=== PATIENT | male | born 1965 | race Caucasian/White ===

== ENCOUNTER → 2017-11-27 10:55 | Outpatient (CLI) | payer MEDICARE, OTHER, SELFPAY ==
--- NOTE | 2017-11-27 | DI.CT.S_ITS ---
PROCEDURE: CT LUMBAR SPINE WO CON INDICATIONS: Bilateral sciatica Right greater than Left post surgery 1 year ago TECHNIQUE: Noncontrast 3 mm thick sections acquired from the T12 level to the sacrum. Sagittal and coronal reformats were constructed. For radiation dose reduction, the following was used: automated exposure control. COMPARISON: [facility] [place], CR, XR LUMBAR SPINE 2 OR 3 VIEWS, 11/21/2017, 9:04. [facility] [place], CR, XR LUMBAR SPINE 2 OR 3 VIEWS, 08/08/2017, 14:46. [facility] [place], CR, XR LUMBAR SPINE 2 OR 3 VIEWS, 05/15/2017, 15:24. [facility] [place], CR, SPINE LUMB 2 OR 3VW, 03/13/2017, 14:26. [facility], CR, L-SPINE 2-3 VIEWS, 01/30/2017, 14:57. [facility], MR, L-SPINE WITHOUT CONTRAST, 10/05/2016, 15:16. FINDINGS: Image quality: Excellent. Bones: There no visualized fractures or dislocations. Severe disc space narrowing with reactive endplate sclerosis is present at L1-2. Mild narrowing is present at L4-5. Intervertebral spacer is present at L5-S1 along with posterior fusion and L5-S1. There is trace retrolisthesis of L1 on L2, L3 on L4. L1-L2: Posterior disc osteophyte complex including left lateral component is present with moderate to severe spinal stenosis. There is there is moderate bilateral foraminal narrowing, slightly progressive on the left compared to prior exam. Facet and ligamentum flavum hypertrophy are again noted. L2-L3: Mild disc bulge, including a left lateral component. There is moderate spinal stenosis. No mild to moderate bilateral foraminal narrowing with facet and ligamentum flavum hypertrophy is present, minimally progressive compared to prior exam. L3-L4: Mild disc bulge with minimal spinal stenosis. Minimal right foraminal narrowing with facet and ligamentum flavum hypertrophy. No interval change. L4-L5: Mild disc bulge with moderate to severe spinal stenosis. There is mild to moderate right and mild left foraminal narrowing slightly progressive on the right. Facet and ligamentum flavum hypertrophy are present. L5-S1: Mild disc bulge with mild spinal stenosis. There is moderate to severe bilateral foraminal narrowing, stable compared to prior exam. Soft tissues: No retroperitoneal masses or hematomas. Visualized aorta is normal in caliber. IMPRESSION: 1. Postsurgical changes as above. 2. Multiple foraminal narrowing most severe at L5-S1 secondary to facet/ligamentum flavum arthropathy. Overall, areas of minimal interval progression are noted. 3. Multilevel areas of spinal stenosis secondary to disc bulge as well as facet/ligamentum flavum arthropathy. Minimal interval progression is noted. Dictated by: Janet Joe M.D. on 11/27/2017 at 13:44 Approved by: Janet Joe M.D. on 11/27/2017 at 13:58
== END ==
PROVIDERS: Visit Provider Orthopaedic Surgery Orthopaedic Surgery of the Spine
DX: M48.061 Spinal stenosis, lumbar region without neurogenic claudication (principal); M51.26 Other intervertebral disc displacement, lumbar region; M54.32 Sciatica, left side; M54.31 Sciatica, right side
CPT/HCPCS: 72131

== ENCOUNTER → 2018-02-27 18:49 | Outpatient (CLI) | payer MEDICARE, OTHER, SELFPAY ==
--- NOTE | 2018-02-27 | DI.MRI.S_ITS ---
PROCEDURE: MR HEAD/BRAIN WO/W CON INDICATIONS: MALFORMATION TECHNIQUE: Noncontrast axial T1 spin echo, axial T2 fast spin echo, sagittal and axial FLAIR, coronal T2 fast spin echo, axial gradient echo, axial diffusion and ADC through the brain. After the administration of contrast, axial and coronal 3D VIBE or T1 spin echo with fat saturation through the brain. COMPARISON: [facility], MR, MR ANGIO HEAD WO CON, 02/27/2018, 18:53. [facility], MR, ANGIO HEAD WITHOUT CONTRAST, 10/05/2016, 15:49. [facility], MR, BRAIN W&WO CONTRAST, 10/05/2016, 15:55. [facility], MR, BRAIN W&WO CONTRAST, 02/12/2014, 7:50. FINDINGS: Image quality: Excellent. CSF Spaces: Basal cisterns are patent. No extra-axial fluid collections. Ventricles are normal in size and shape. Brain: No midline shift. No intracranial bleeds or masses. No abnormal intracranial enhancement. The brainstem appears normal. Diffusion-weighted images demonstrate no acute ischemic insults. No chronic ischemic insults. Normal intravascular flow voids are present. Note is again made of the multiple small rounded and ovoid lesions with elevated T2 signal and with susceptibility artifact along their margins, consistent with stable multiple cavernous malformations (cavernoma). These are best seen on the susceptibility artifact sensitive pulse sequences (T2 flash gradient recall echo sequence series 9).. Skull and face: Calvarial marrow is normal in signal. Orbits appear normal. Sinuses: Sinuses and mastoids appear clear. IMPRESSION: Stable appearing bilateral scattered cavernous malformations within the brain parenchyma including each hemisphere and the right cerebellum. No mass effect, no new lesion is found. Dictated by: Zeferino Bullock M.D. on 02/28/2018 at 8:08 Approved by: Zeferino Bullock M.D. on 02/28/2018 at 8:15
--- NOTE | 2018-02-27 | DI.MRI.S_ITS ---
PROCEDURE: MR ANGIO HEAD WO CON INDICATIONS: CAVERNOUS MALFORMATION TECHNIQUE: Noncontrast axial 3-D [id number]-[id number] MR angiogram, with 3-dimensional maximum intensity projection (MIP) reformats of the internal carotid arteries and posterior circulation then performed. COMPARISON: [facility], MR, ANGIO HEAD WITHOUT CONTRAST, 10/05/2016, 15:49. [facility], MR, ANGIO HEAD WITHOUT CONTRAST, 05/20/2012, 20:24. [facility], MR, ANGIOGRAM HEAD WITHOUT CONTRAS, 12/08/2010, 10:19. FINDINGS: Image quality: Excellent. Anterior circulation: Intracranial internal carotid arteries demonstrate normal size and intraluminal flow signal. The flow within the paired anterior cerebral arteries is normal and symmetric. The flow within the middle cerebral arteries is normal and symmetric. The anterior communicating artery is seen. No stenoses, occlusions, or aneurysms. Posterior circulation: Visualized portions of the vertebral arteries demonstrate normal caliber, and join to form a normal appearing basilar artery. The flow within the posterior cerebral arteries is normal and symmetric. No stenoses, occlusions, or aneurysms. IMPRESSION: Normal intracranial MR angiogram in this patient with multiple previously documented and currently stable cavernous malformations (cavernoma). This is an expected finding given the fact that cavernous malformations are considered angiographically occult. Dictated by: Zeferino Bullock M.D. on 02/28/2018 at 8:15 Approved by: Zeferino Bullock M.D. on 02/28/2018 at 8:17
== END ==
DX: Q28.3 Other malformations of cerebral vessels (principal); R41.9 Unspecified symptoms and signs involving cognitive functions and awareness
CPT/HCPCS: 70544; 70553; A9579

== ENCOUNTER → 2018-03-19 15:17 | Outpatient (CLI) | payer MEDICARE, OTHER, SELFPAY ==
[2018-03-19 16:08] LABS: Add Manual Diff / Slide Review NO; Basophils Percent Auto 0.6 % (0-2); Eosinophils Percent Auto 3.6 % (2-4); Hematocrit 43.2 % (41-53); Hemoglobin 14.8 g/dL (13.5-17.5); Lymphocytes Percent Auto 24.8 % (25-40); Mean Corpuscular HGB Conc 34.3 % (30-36); Mean Corpuscular Hemoglobin 30.5 PG (26-34); Mean Corpuscular Volume 88.8 fL (80-100); Monocytes Percent Auto 10.8 % (3-14); Neutrophils Absolute Auto 3400 /uL (3000-5900); Neutrophils Percent Auto 60.2 % (50-75); Platelet Count 247 X10^3/uL (150-400); Red Blood Cell Count 4.86 X10^6/uL (4.5-5.9); Red Cell Distribution Width 12.9 % (11.6-14.8); White Blood Cell Count 5.7 X10^3/uL (4.5-11.0)
[2018-03-19 17:18] LABS: BUN Creatinine Ratio 23.3 (6-22); Blood Urea Nitrogen 21 mg/dL (9-20); Carbon Dioxide 31 mmol/L (22-32); Chloride 106 mmol/L (98-107); Estimated Glomerular Filt Rate > 60.0 mL/min (>60); Glucose 96 mg/dL (70-100); HEMOLYSIS < 15 (0-50); Potassium 4.6 mmol/L (3.4-5.1); Sodium 145 mmol/L (137-145)
== END ==
PROVIDERS: PCP Family Medicine; Visit Provider Orthopaedic Surgery Orthopaedic Surgery of the Spine
DX: Z01.818 Encounter for other preprocedural examination (principal)
CPT/HCPCS: 36415; 80048; 85025; 93005

== ENCOUNTER 2018-04-02 07:06 | Inpatient (IN) | payer MEDICARE, OTHER, SELFPAY ==
[2018-03-26 13:54] VITALS: BMI 28.6
[2018-04-02] VITALS (18 sets, daily range): BP systolic 97–128; BP diastolic 50–89; PULSE 64–90; RESP 7–20; TEMP 36.4–37.4; O2SAT 92–98; BMI 27.3
--- NOTE | 2018-04-02 | DI.RAD.S_ITS ---
PROCEDURE: XR LUMBAR SPINE 2-3V INDICATIONS: L4-5 TLIF TECHNIQUE: 2 views of the lumbar spine were acquired. COMPARISON: [facility], , L-SPINE 2-3 VIEWS, 01/30/2017, 14:57. FINDINGS: Bones: 5 [id number] vertebrae are present. There is normal bony alignment. No vertebral body compression fractures. There has been extension of posterior fusion from the prior L5-S1 procedure now to include L4-S1 with new interbody disc prosthesis at L4-5. No suspicious bony lesions. Soft tissues: Overlying bowel gas pattern is normal. No suspicious soft tissue calcifications. IMPRESSION: Normal alignment maintained after extension of posterior fusion procedure previously to have involved L5-S1 and now involving L4-S1. Normal alignment established. Interbody disc prosthesis has been added at L4-5, in addition. Dictated by: Zeferino Bullock M.D. on 04/02/2018 at 12:27 Approved by: Zeferino Bullock M.D. on 04/02/2018 at 12:29
[2018-04-02] MEDS: LACTATED RINGERS 1,000 ML 42 ML IV ×2 (07:25→10:32)
--- NOTE | 2018-04-02 08:18 | PM.PREOP ---
Pre-operative Note Interval Note Pre-op Check: Yes History & Physical Reviewed by Physician, Yes Exam Performed and Yes History & Physical exam performed today by Physician Changes: No
[2018-04-02] MEDS: CEFAZOLIN 2 GM/100 ML FROZ.PIGGY IV ×2 (08:35→17:00)
--- NOTE | 2018-04-02 09:15 | SUR.OPER ---
Prone on padded OR bed, head in foam head support, gel chest rolls, gel pad under knees, pillow under lower legs, toes free of pressure, arms secured on padded arm boards at <90 degrees abduction. Safety belt at thigh.
[2018-04-02] MEDS: BUPIVACAINE 0.25% W/ EPI VIAL 50 ML INJ (09:34)
[2018-04-02] MEDS: ACETAMINOPHEN IV 1,000 MG/100 ML VIAL 400 MG IV (09:41)
--- NOTE | 2018-04-02 11:32 | PM.OP.1 ---
Operative Date/Time/Diagnoses Date of procedure: 04/02/18 Time of procedure: 09:11 Pre-op diagnosis: 1. L4-5, L5-S1 spinal stenosis 2. Hx of L5-S1 fusion 3. L4-5 spondylosis with radiculopathy Post-op diagnosis: same Procedure & Clinicians Procedure: 1. L4-5 Postero-lateral and posterior interbody fusion 2. L4-5 interbody cage placement. 3. L4-5 decompressive laminectomy with bilateral facetecomies 4. L4-5 L5-S1 Posterior segmental instrumentation 5. L5-S1 posterior non-segmental hardware removal 6. L5-S1 exploration of fusion with left hemilaminectomy 7. L5-S1 posterolateral fusion 8. [place] of bone marrow from iliac crest 9. Utilization of microsurgical technique and operating microscope Same procedure as scheduled: Yes Indications: Patient has been having chronic back pain and worsening lumbar radiculopathy. Patient had previous lumbar fusion with improved pain for over 6 months. Patient has been having progressively worsening pain and weakness failing conservative management. Patient failed multiple conservative management with worsening pain weakness and numbness in her lower extremity. Patient has been having difficulty performing activity of daily living. After discussing risks benefits of treatment options, patient elected proceed with surgery. Surgeon: Sarai Washington Enterprise Integration Architect: Isaura Engle'Brien Click Yes if Unassisted: No Anesthesia Type: General Operative Notes Closure Type: primary Specimen(s): none sent Implants & Drains: Globus revolve screws, Rise cage Applied: catheter Estimated Blood Loss (mL): 100 Blood products transfused: none Procedure in detail: Patient was seen in the preoperative area. Risks and benefits of the surgery was discussed with the patient. Informed consent was obtained from the patient and placed in the chart. Surgical site was marked. Patient was taken to the operative room. General anesthesia was administered. Prophylactic antibiotic was given to the patient less than 30 min before the incision was made. Patient was placed into a prone position on the Jose table. Patient's back was then prepped and draped in the sterile fashion. Time-out was performed at this time. Using patient's previous scar incision was made over the L4-5 L5-S1 interval on the left side. Fascia was incised in line with skin incision. Patient's previously placed hardware over the L5-S1 level was identified by dissecting down to the level the hardware using a Bovie and a Martinez. The locking caps which was removed using globus screwdriver. The locking cristal was then removed from the tulips of the pedicle screws using a Olivia. The pedicle screws were then removed using the screwdriver. The screws were found to have good purchase. The Globus and MARS retractors was then placed into the wound and docked onto the L4 lamina using C-arm guidance. Using microsurgical technique and operating microscope a laminectomy facetectomy was performed by removing the L4 lamina and the L4-5 facet. The disc space at L4-5 level was identified next. And a total diskectomy was performed at L4-5 level. The endplates were decorticated using a rasp and shaver. The total diskectomy and decortication was performed at L4-5 level in order to to accomplish a L4-5 fusion. The local bone from the laminectomy and facetectomy was saved for local bone grafting. After the total diskectomy and decortication was completed, Globus viacell bone graft material was combined with local bone that was harvested earlier. At this time, a separate skin is incision was made over the iliac crest. A Jamshidi needle was inserted into the iliac crest through a separate skin incision. 5 cc of bone marrow aspiration was obtained through the separate skin incision using a Jamshidi needle from the iliac crest. The bone marrow aspiration was combined with local bone and the via cell bone grafting material. The bone grafting material was placed into the L4-5 interbody space along with a expandable cage. The cage was expanded to its maximum height using the torque limiting screwdriver. At this time a mirror image incision was made on the right side. The fascia was incised in line with the skin incision. Patient's previously placed hardware on the left side was then removed in the same fashion as it was on the right side. The hardware was also found to have good purchase. The fusion mass on the left side was exposed by performing a right-sided hemilaminectomy at L5-S1 level. The hemilaminectomy was performed using the Kerrison rongeur to undercut the lamina as well removing additional epidural scar tissue for purpose of decompressing the epidural space. The fusion mass was explored and was found have visible motion indicating pseudoarthrosis. Globus MARS retractor was inserted and docked onto the L4-5 L5-S1 posterolateral gutter. Using the power drill, posterior-lateral decortication was performed at L4-5 L5-S1 level until bleeding cortical bone was identified. The remaining bone grafting material was placed into the L4-5 L5-S1 posterior lateral gutter he order to accomplish posterolateral fusion at the L4-5 L5-S1 level. Using the double C-arm technique, pedicle screws were placed into the L4, L5 and S1 pedicles bilaterally. This was done by placing the Jamshidi needle into the pedicles, then placing the guidewires over the Jamshidi needle, and finally placing the cannulated screws over the guidewires bilaterally. After the pedicle screws were placed, 2 titanium rods was locked into the heads of the pedicle screws using locking caps and torque limiting screwdriver. After all the hardware was placed, and confirmed with AP and lateral C-arm imaging, the wound was then irrigated with sterile normal saline and packed with Ray-Laura gauze for 3 min to accomplish hemostasis. After the gauze was removed the deep fascia was closed with #1 Vicryl suture. The subcutaneous layer was closed with 2-0 Vicryl. The skin was closed with skin sadie. Patient tolerated the procedure well. There were no complications. Complications: none Condition: stable Disposition: Acute Care Plan for aftercare: Admit to inpatient hospital
--- NOTE | 2018-04-02 12:08 | SUR.PHASEI ---
pt arrived, intermittent chin lift for patent airway. placed on nonrebreather by jemma brown, sats maintained.
--- NOTE | 2018-04-02 12:09 | SUR.PHASEI ---
airway out [id number], pt follows commands,,,,,,,,,,.
--- NOTE | 2018-04-02 12:20 | SUR.PHASEI ---
pt needing cpap to keep airway patent, pt's own not here, RT called to bring one down.
--- NOTE | 2018-04-02 12:24 | SUR.PHASEI ---
weaned to nasal cannula, 4/l sats 95%, pt obstructs intermittently, awaiting RT.
--- NOTE | 2018-04-02 12:33 | SUR.PHASEI ---
rt arrived, pt on cpap with 3/l 02 bled in.
[2018-04-02] MEDS: HYDROMORPHONE 2 MG INJ 0.5 MG IV ×4 (12:39→13:03)
--- NOTE | 2018-04-02 13:12 | SUR.PHASEI ---
report called to nayeli, pt rates pain 01/07, mostly sleeping, dressing to back remained c/d/i
--- NOTE | 2018-04-02 13:53 | SUR.PHASEI ---
LATE ENTRY: PT BROUGHT TO ROOM 205, TRANSPORTED UP ON NASAL CANNULA 4/L THEN PLACED BACK ON CPAP. RT CALLED AND WILL CHECK ON PT SOON.
[2018-04-02] MEDS: SODIUM CHLORIDE 0.9% 1,000 ML 100 ML IV (13:58)
[2018-04-02] MEDS: HYDROMORPHONE 1 MG INJ 0.5 MG IV ×2 (14:11→17:47)
[2018-04-02] MEDS: HYDROCODONE/ACET 5/325 TABLET 2 TAB PO ×3 (14:14→22:31)
[2018-04-02] MEDS: hydrOXYzine pamoate 25 MG CAPSULE PO (14:22)
[2018-04-02 14:45] LABS: Alanine Aminotransferase 46 IU/L (21-72)
--- NOTE | 2018-04-02 14:51 | PC.NURSE ---
POST-OP PATIENT C/O 02/07 PAIN. REPORTS HX OF TLIF 01/30/17 WHEN PAIN WENT OUT OF CONTROL X3 DAYS HAD TO GO TO SNF FOR REHAB AND WHEN PREDNISONE WAS FINALLY ADDED STATES PAIN IMPROVED CONSIDERABLY. HE IS VERY ANXIOUS THAT THIS WHOLE EXPERIENCE WILL RECUR THIS ADMISSION. MEDICATION TEACHING PROVIDED. MEDICATED PER EMAR. HX SLEEP APNEA. CPAP IS ON WITH 4L BLED IN. DOES NOT USE O2 AT HOME. DESAT OCCASIONALLY TO LOW 80'S. COMES BACK UP TO 92-95%. RT CALLED TO EVALUATE CPAP SETTINGS. THEY WILL SEE HIM SOON. VSS. DRSG TO [facility]. CMS INTACT. SCD'S ON. CALL LIGHT IN REACH, INSTRUCTED TO CALL FOR NEEDS. ABLE TO INTERMITT DRIFT OFF AT TIMES. SPOUSE LEFT, STATES SHE WILL CALL THIS EVENING TO CHECK IN ABOUT HIM.
--- NOTE | 2018-04-02 16:32 | PC.NURSE ---
respiratory/transfer upon bedside shift at 1510 report, RT at bedside and reporting pt having difficulty maintaining O2 when he's sleeping. RT has adjusted pt's cpap and continuous O2 monitor on. pt arouses easily with sats increasing to upper 90s when awake. when awake pt states pain is through the rough and in a great deal of discomfort. RT is recommending that pt be transferred to ICU for closer monitoring if continues with low sats upon rest. Pt's O2 monitor continued to alarm and though pt's sats quickly increase when awake this RN called (salon coordinator) at 1550. stated he wasn't taking call until 1700. This RN than called and message left on [employer] cell phone at 1553. returned call at 1614 with new order to transfer to ICU and order for MOE for respiratory to eval/treat. Pt transferred with belongings to ICU at 1625.
--- NOTE | 2018-04-02 16:55 | PT.IPTN ---
Current Diagnoses Other spondylosis with radiculopathy, lumbar region (04/02/18) Spinal stenosis, lumbar region without neurogenic claudication (04/02/18) Arthrodesis status (04/02/18) Surgery Performed Operation Date: 04/02/18 08:45 Actual Procedures p L4-5 TLIF, L4-5, L5-S1 Posterior Spinal Fusion(Not Applicable) - Sarai Washington MD s L5-S1 Hardware Removal(Not Applicable) - Sarai Washington MD Physical Therapy Treatment Note M3 PT-IP Subjective Start: 04/02/18 16:54 Freq: NEEDED Status: Active Protocol: Document 04/02/18 16:54 AB (Rec: 04/02/18 16:55 AB [id number]) Subjective Physical Therapy Visit Type Notes Per nursing, pt will be transferring to ICU due to low O2 sats and is not ready for PT at this time. will f/u tomorrow.
[2018-04-02 17:30] LABS: HIV 1 and 2 Antibody NEGATIVE (NEGATIVE); Hep C Virus Ab w/Reflex Quant NEGATIVE s/c (NEGATIVE); Hepatitis B Surface Antigen NEGATIVE s/c (NEGATIVE)
[2018-04-02] MEDS: GABAPENTIN 600 MG TABLET PO (20:16)
[2018-04-02] MEDS: DOCUSATE 100 MG CAPSULE PO (20:16)
[2018-04-02] MEDS: SENNOSIDES 8.6 MG TABLET 17.2 MG PO (20:16)
[2018-04-03] VITALS (13 sets, daily range): BP systolic 98–121; BP diastolic 45–73; PULSE 57–77; RESP 12–24; TEMP 36.6–37.3; O2SAT 94–98
[2018-04-03] MEDS: HYDROMORPHONE 1 MG INJ 0.5 MG IV ×2 (00:16→06:45)
[2018-04-03] MEDS: ZOLPIDEM 5 MG TABLET 10 MG PO ×2 (00:18→20:44)
[2018-04-03] MEDS: CEFAZOLIN 2 GM/100 ML FROZ.PIGGY IV (00:19)
[2018-04-03] MEDS: SODIUM CHLORIDE 0.9% 1,000 ML 100 ML IV (01:41)
[2018-04-03] MEDS: HYDROCODONE/ACET 5/325 TABLET 2 TAB PO ×2 (04:20→09:53)
[2018-04-03 05:56] LABS: Hematocrit 38.8 % (41-53); Hemoglobin 13.1 g/dL (13.5-17.5)
[2018-04-03] MEDS: LEVOTHYROXINE 137 MCG TABLET PO (06:24)
[2018-04-03] MEDS: hydrOXYzine pamoate 25 MG CAPSULE PO ×3 (06:49→17:51)
--- NOTE | 2018-04-03 07:01 | PC.NURSE ---
Addendum entered by Nancy Bates R.N. 04/03/18 07:04: 0600 Pt slept well through shift w/turning side to side Q3H, pain well under control. O2 weaned to current 2L bleed into CPAP. continue to monitor. Original Note: NOC Shift: POD 1 LAMI L4L5 admitted to ICU for O2 sat deficit on floor post op. Pt currently on hospital unit CPAP w/5L bleed. AAOx3. Pleasant, cooperative. Pain getting better under control currently 12/08 using appropriate pain meds ordered. Midline lumbar dsg CDI, neurologically intact. Taking po fluids well, IVF's continue, kim. VSS, NSR on tele. Will continue to wean O2 through shift as appropriate. ICU care.
--- NOTE | 2018-04-03 07:33 | PM.PNPO.1 ---
Subjective Date Patient Seen: 04/03/18 Time Patient Seen: 07:34 Interval history: Patient's pain 6-810. Denies fever chills. No nausea vomiting. Exam Vital Signs (past 8 hours): - 04/03/18 00:16 04/03/18 00:27 04/03/18 04:20 Temperature 98.4 F 98.4 F 98.8 F Pulse Rate 70 Respiratory Rate 24 Blood Pressure 103/63 Pulse Oximetry 97 04/03/18 04:32 04/03/18 06:00 04/03/18 07:28 Temperature 98.8 F 98 F Pulse Rate 58 L 59 L Respiratory Rate 12 13 Blood Pressure 98/45 L 100/48 L Pulse Oximetry 97 97 97 Oxygen Delivery Method CPAP Oxygen Flow Rate 3 Narrative Exam Narrative: Patient resting comfortably in bed in no apparent distress. Lumbar dressing is clean, dry and intact. Sensation grossly intact to light touch bilateral lower extremities. Motor functions intact distal bilateral extremities. Objective Labs Result Diagrams: 04/03/18 05:30 Labs: Laboratory Results - last 24 hr 04/02/18 04/02/18 04/03/18 14:15 14:15 05:30 Hgb 13.1 L Hct 38.8 L ALT 46 Hep Bs Antigen Negative Hepatitis C Antibody Negative HIV 1&2 Antibody Negative Assessment & Plan Post-op Postoperative Procedures Operation Date: 04/02/18 08:45 Actual Procedures Side Surgeon p L4-5 TLIF, L4-5, L5-S1 Posterior Spinal Fusion Not Applicable Sarai Washington MD s L5-S1 Hardware Removal Not Applicable Sarai Washington MD Postop day 1. patient progressing as expected. Patient woujld desat. after surgery occasionally to low 80s coming back up to 90-95% with 4 L. Patient placed on CPAP. O2 sat 97% on CPAP. Patient will mobilize with physical therapy. Likely discharge home in the next 1-2 days. Quality VTE Deep Vein Thrombosis/Pulmonary Embolism Present on Admission: No
[2018-04-03] MEDS: DOCUSATE 100 MG CAPSULE PO ×2 (08:11→20:42)
[2018-04-03] MEDS: DEXAMETHASONE 4 MG TABLET 10 MG PO (08:11)
[2018-04-03] MEDS: GABAPENTIN 600 MG TABLET PO ×2 (08:12→20:42)
[2018-04-03] MEDS: LORATADINE 10 MG TABLET PO (08:13)
--- NOTE | 2018-04-03 11:55 | PT.IIE ---
Current Diagnoses Other spondylosis with radiculopathy, lumbar region (04/02/18) Spinal stenosis, lumbar region without neurogenic claudication (04/02/18) Arthrodesis status (04/02/18) Surgery Performed Operation Date: 04/02/18 08:45 Actual Procedures p L4-5 TLIF, L4-5, L5-S1 Posterior Spinal Fusion(Not Applicable) - Sarai Washington MD s L5-S1 Hardware Removal(Not Applicable) - Sarai Washington MD Surgical History (Last Updated 03/26/18 @ 14:01 by Lorna López RN) Hx of hernia repair (Acute) Hx of knee surgery (Acute) Hx of shoulder surgery (Acute) S/P UPPP (uvulopalatopharyngoplasty) (Acute) S/P lumbar fusion (Acute) Status post bilateral LASIK surgery (Acute) Medical History (Last Updated 03/26/18 @ 14:01 by Lorna López RN) AVM (arteriovenous malformation) (Acute) Hyperlipidemia (Acute) Kidney stones (Acute) PTSD (post-traumatic stress disorder) (Acute) Papillary thyroid carcinoma (Acute) Skin cancer (Acute) Sleep apnea with use of continuous positive airway pressure (CPAP) (Acute) Physical Therapy Inpatient Evaluation/Re-Eval M1 PT/OT-IP Prior Functional Status Start: 04/02/18 16:54 Freq: NEEDED Status: Active Protocol: Document 04/03/18 11:55 DLM (Rec: 04/03/18 12:34 DLM [id number]) Medical Review Prior Functional Status Medical History Reviewed Yes Diet/Fluid Consistency Regular Communication WNL Mobility and Gait Independent, no device, community distances, drives Activities of Daily Living and IADL's Independent Prior Functional Level (Other details) has a horse ranch Social History Household Members spouse children Living Arrangements House Number of Floors (Floors) Two Floors Number of Stairs To Enter/Railing? 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 after his prior back surgery with a slow recovery M2 PT-IP Current Condition Start: 04/02/18 16:54 Freq: NEEDED Status: Active Protocol: Document 04/03/18 11:55 DLM (Rec: 04/03/18 12:34 [facility] [id number]) Physical Therapy Current Condition Current Condition Evaluation Date 04/03/18 Treatment Diagnosis L4-S1 TLIF, revision of L5-S1 fusion, difficulty walking Onset Date 04/02/18 Precautions Lumbar Precautions Log Roll No Twisting Limit Bending Lifting Restriction of 10 lbs Gait Belt above Incisional Area M3 PT-IP Subjective Start: 04/02/18 16:54 Freq: NEEDED Status: Active Protocol: Document 04/03/18 11:55 [facility] (Rec: 04/03/18 12:34 [facility] [id number]) Subjective Physical Therapy Visit Type Type Initial Evaluation Visit Start Time 10:35 Visit Stop Time 11:55 Total Visit Minutes 80 Number of LOFT WORKER HEAD Visits 0 Physical Therapy Visit Comments Patient Comments He is very worrried about his pain, had a lot of pain after first surgery and slow recovery Patient Goals He wants to be able to go home at discharge instead of SNF this time Therapy Pain Assessment Pain When Pain Assessed At Rest Pain Present Pain Present Pain Reported Location Back Intensity 5 Scale Used Numeric (1 - 10) Description Aching Pain Behaviors Facial Grimacing Guarding Pain Management Techniques Re-positioning Timing of Activity with Medications M4 PT-IP Mobility and Gait Start: 04/02/18 16:54 Freq: NEEDED Status: Active Protocol: Document 04/03/18 11:55 [facility] (Rec: 04/03/18 12:34 [facility] [id number]) PT-Bed Mobility Assessment Rolling Type of Rolling Log Rolling Roll to Right Level of Assist Minimal Assistance Moderate Assistance Supine to Sit Supine to Sit Minimal Assistance Head of Bed Elevated Bedrails Sit to Supine Sit to Supine Minimal Assistance Bedrails Scooting Scooting to Edge of Bed Minimal Assistance PT-Transfer Assessment Sit to and From Stand Sit to and from Stand Minimal Assistance Moderate Assistance Use of Upper Extremities Equipment Transfer Assistive Device Gait Belt Front Wheeled Walker Comments Mobility Comments pt able to side-step up to head of bed but unable to transfer to sit up in the recliner this visit with c/o pain, pt moving very slowly with all activity, took 4 attempts to achieve fully standing with the fWW Gait Assessment Gait Gait Assistance Required: Minimum Assistance Distance (Feet) 2 Assistive Devices Assistive Device Gait Belt Front Wheeled Walker Gait Deviations General Gait Pattern Wide Based Gait Factors Limiting Gait Function Factors Limiting Gait Function Decreased Activity Tolerance Decreased Strength Pain Comments Gait Comments side-stepping only at edge of bed, he reports tingling in his right foot when up and pain in right buttock area PT-Balance Assessment Sitting Balance and Reactions Static Sitting Balance Ability Good Dynamic Sitting Balance Ability Fair Standing Balance and Reactions Static Standing Balance Ability Fair Dynamic Standing Balance Ability Fair Device Used FWW Comments Other Balance Tests/Deviations/Treatment sitting edge of bed this visit : for extended period of time managing his pain M5 PT-IP Objective Assessments Start: 04/02/18 16:54 Freq: NEEDED Status: Active Protocol: Document 04/03/18 11:55 [facility] (Rec: 04/03/18 12:34 [facility] [id number]) Orientation Orientation/Cognition Level of Alertness Alert Orientation Name Age Birthday Month Date Year Day of Week Place Situation Language Function Ability No Deficits Noted Safety Awareness Understands Safety Issues Memory Description No Deficits Noted Gross Range of Motion Upper Extremity ROM Assessment Within Functional Limits Lower Extremity ROM Assessment Bilaterally Impaired Impairments pain with movement of LE's, hip flexion especially painful for him, cramping in right calf area with ankle and knee movements Strength Upper Extremity Strength Assessment Within Functional Limits Lower Extremity Strength Assessment Left Impaired Ankle DF 4/5 Comments Strength Comments pain limits testing of his LE' s, functional weakness identified during mobility Coordination Assessment Gross Coordination Gross Coordination WNL Sensation Assessment Sensation Gross Sensation Right LE Impaired Sensation Description Tingling Comments Sensation Comments tingling in right foot in standing only, otherwise he describes cramping in his LE's with right worse than left Muscle Tone Muscle Tone WNL Yes M6 PT-IP Treatment Start: 04/02/18 16:54 Freq: NEEDED Status: Active Protocol: Document 04/03/18 11:55 DL (Rec: 04/03/18 12:34 [facility] [id number]) Physical Therapy Treatment Exercises Exercises Ankle Pumps Education Education Provided Precautions Safety M7 PT-IP Assessment and Plan Start: 04/02/18 16:54 Freq: NEEDED Status: Active Protocol: Document 04/03/18 11:55 DL (Rec: 04/03/18 12:34 [facility] [id number]) PT Summary Assessment and Plan Potential Rehabilitation Potential Good Status of Condition at Evaluation Evolving Summary Impairments Pain ROM Strength Balance Bed Mobility Transfers Gait Activity Tolerance Assessment Summary He is very slow to mobilize post-op day one. He c/o pain limiting his ability to move. He appears fearful of moving and increasing his pain. He did bettter when he had extra time to work through his pain. He is motivated to return home at discharge. He has a lot of stairs at home with his bedroom on the second floor. Uncertain if he will progress fast enough to be able to manage all of his stairs at discharge. His was not present this visit but he reports she will be available to assist him at home as needed. He may need SNF rehab before returning home if he is unable to do stairs. Goals Bed Mobility Goal Independent Transfer Goal Standby Assistance Front Wheeled Walker Gait Goal Standby Assistance Front Wheel Walker Gait Distance 50 feet Other Goals Up and down 3 steps without rails with min assist. Up and down 14 steps with rails and CG assist. Days to Meet Goals 3 Frequency of Treatment Frequency Of Treatment Twice a Day Treatment Plan Physical Therapy Treatment Plan Bed Mobility Training Transfer Training Gait Training Therapeutic Exercise Balance Retraining Post Op Education Discharge Planning Hot or Cold Pack Recommendations To Nursing Amount of Assist Needed 1 Person Assist Discharge Recommendations PT Discharge Recommendations Home with Assistance Home Health SNF Rehab
[2018-04-03] MEDS: HYDROMORPHONE 2 MG TABLET PO ×4 (11:57→20:42)
--- NOTE | 2018-04-03 14:36 | CM.IDA ---
Discharge Planning/Care Management CM Discharge Assessment Start: 04/03/18 13:02 Freq: Status: Active Protocol: Document 04/03/18 14:26 ANGEL (Rec: 04/03/18 14:35 [facility] [id number]) Discharge Planning Assessment Assigned Horse And Wagon Driver JENNIFER Young DPOA/Assigned Designee Name Brenda Valentino, spouse Contact Information [phone] Advance Directives? Yes Advance Directives on File No History Provided By Patient Significant Other Prior Living Arrangements House Household Members spouse children Type of transporation used prior to Drives own vehicle admit Independent with ADL's Yes Is patient alert and oriented? Yes Patient/Family Preference Senior Care Facility Comment Pt hopeful he can return home but spouse adamant today about pt's need for SNF upon DC. Pt /spouse request [facility], pt has been there in the past. B/u choice is [place]. Barriers to Discharge Yes Comment Barriers to DC home: pain, weakness, many stairs. Pt has Medicare/, SNF seems to be the safe option for pt and spouse at this time. Discharge Plan Senior Care Facility Transportation Arrangement w/c vs pov Referrals Initiated Senior Care Additional Comment Spouse requests referral to [facility] today. Spoke w/Lopez at [facility], discussed referral. If, after clinical review, pt was accepted, a bed would be available Saturday. Relayed this to pt's spouse who requested that pt remain at until Saturday for [facility] DC. Brenda aware that if pt is medically stable he may be DC before Saturday. Inpatient Status as of 04/03/18 Medicare Choice List Provided Yes SNF/HH Preference 1. [facility] 2. [facility] [place] Has Agency SNF been contacted Yes Whiteboard Updated in Patient Room with Yes name and ext. # of Horse And Wagon Driver Review Status In Process Please Provide Date Initial DC 04/03/18 Assessment Was Performed JENNIFER Dye
--- NOTE | 2018-04-03 16:22 | OT.IP.TRT ---
Current Diagnoses Other spondylosis with radiculopathy, lumbar region (04/02/18) Spinal stenosis, lumbar region without neurogenic claudication (04/02/18) Arthrodesis status (04/02/18) Surgery Performed Operation Date: 04/02/18 08:45 Actual Procedures p L4-5 TLIF, L4-5, L5-S1 Posterior Spinal Fusion(Not Applicable) - Sarai Washington MD s L5-S1 Hardware Removal(Not Applicable) - Sarai Washington MD Occupational Therapy Treatment Note M3 OT- IP Subjective and Pain Start: 04/03/18 16:21 Freq: Status: Active Protocol: Document 04/03/18 14:50 CCC (Rec: 04/03/18 16:22 [facility] [id number]) OT- Subjective Occupational Therapy Visit Type Type Patient Refusal Notes Pt states in too much pain and just getting more pain meds. Therefore pt wanting to hold off on OT eval until tomorrow.
--- NOTE | 2018-04-03 16:51 | PT.IPTN ---
Current Diagnoses Other spondylosis with radiculopathy, lumbar region (04/02/18) Spinal stenosis, lumbar region without neurogenic claudication (04/02/18) Arthrodesis status (04/02/18) Surgery Performed Operation Date: 04/02/18 08:45 Actual Procedures p L4-5 TLIF, L4-5, L5-S1 Posterior Spinal Fusion(Not Applicable) - Sarai Washington MD s L5-S1 Hardware Removal(Not Applicable) - Sarai Washington MD Physical Therapy Treatment Note M2 PT-IP Current Condition Start: 04/02/18 16:54 Freq: NEEDED Status: Active Protocol: Document 04/03/18 11:55 DLM (Rec: 04/03/18 12:34 DLM [id number]) Physical Therapy Current Condition Current Condition Evaluation Date 04/03/18 Treatment Diagnosis L4-S1 TLIF, revision of L5-S1 fusion, difficulty walking Onset Date 04/02/18 Precautions Lumbar Precautions Log Roll No Twisting Limit Bending Lifting Restriction of 10 lbs Gait Belt above Incisional Area M3 PT-IP Subjective Start: 04/02/18 16:54 Freq: NEEDED Status: Active Protocol: Document 04/03/18 16:51 DLM (Rec: 04/03/18 17:10 DLM [id number]) Subjective Physical Therapy Visit Type Type Treatment Note Visit Start Time 16:30 Visit Stop Time 16:51 Total Visit Minutes 21 Number of FINISHING RANGE SUPERVISOR Visits 0 Physical Therapy Visit Comments Patient Comments He wants to sit up in the chair, has been thinking about it since this morning Patient Goals discharge home Therapy Pain Assessment Pain When Pain Assessed At Rest Pain Present Pain Present Pain Reported Location Back Intensity 7 Scale Used Numeric (1 - 10) Description Aching Pain Behaviors Guarding Pain Management Techniques Apply Cold Re-positioning Timing of Activity with Medications M4 PT-IP Mobility and Gait Start: 04/02/18 16:54 Freq: NEEDED Status: Active Protocol: Document 04/03/18 16:51 DLM (Rec: 04/03/18 17:10 DLM [id number]) PT-Bed Mobility Assessment Rolling Type of Rolling Log Rolling Roll to Right Level of Assist Standby Assistance Supine to Sit Supine to Sit Minimal Assistance Moderate Assistance Scooting Scooting to Edge of Bed Standby Assistance PT-Transfer Assessment Sit to and From Stand Sit to and from Stand Contact Guard Assistance Minimal Assistance Use of Upper Extremities Equipment Transfer Assistive Device Gait Belt Front Wheeled Walker Transfers Transfer Destination Chair Transfer Technique Stand Step Pivot Transfer Ability Level of Assist Minimal Assistance Comments Mobility Comments needs help to move the fWW, pt left sitting up in recliner with ice at incisional area, nurses aware, call light close , pt moving faster this visit and did not need such long rest breaks between movements as he did during AM visit M5 PT-IP Objective Assessments Start: 04/02/18 16:54 Freq: NEEDED Status: Active Protocol: Document 04/03/18 11:55 DLM (Rec: 04/03/18 12:34 DL [id number]) Orientation Orientation/Cognition Level of Alertness Alert Orientation Name Age Birthday Month Date Year Day of Week Place Situation Language Function Ability No Deficits Noted Safety Awareness Understands Safety Issues Memory Description No Deficits Noted Gross Range of Motion Upper Extremity ROM Assessment Within Functional Limits Lower Extremity ROM Assessment Bilaterally Impaired Impairments pain with movement of LE's, hip flexion especially painful for him, cramping in right calf area with ankle and knee movements Strength Upper Extremity Strength Assessment Within Functional Limits Lower Extremity Strength Assessment Left Impaired Ankle DF 4/5 Comments Strength Comments pain limits testing of his LE' s, functional weakness identified during mobility Coordination Assessment Gross Coordination Gross Coordination WNL Sensation Assessment Sensation Gross Sensation Right LE Impaired Sensation Description Tingling Comments Sensation Comments tingling in right foot in standing only, otherwise he describes cramping in his LE's with right worse than left Muscle Tone Muscle Tone WNL Yes M6 PT-IP Treatment Start: 04/02/18 16:54 Freq: NEEDED Status: Active Protocol: Document 04/03/18 16:51 DLM (Rec: 04/03/18 17:10 [facility] [id number]) Physical Therapy Treatment Exercises Exercises Ankle Pumps Seated Knee Flexion/Extension Education Education Provided Precautions Safety M7 PT-IP Assessment and Plan Start: 04/02/18 16:54 Freq: NEEDED Status: Active Protocol: Document 04/03/18 16:51 DLM (Rec: 04/03/18 17:10 [facility] [id number]) PT Summary Assessment and Plan Summary Assessment Summary He is showing good progress this visit and was able to get up to the recliner using the fWW. Still uncertain if he will progress fast enough to be ready to discharge home vs SNF. He needs to be able to do a flight of steps to get to his bedroom. Will continue to assess for discharge planning. His has not been present to discuss discharge. Pt is still motivated to discharge home. Frequency of Treatment Frequency Of Treatment Twice a Day Treatment Plan Other Recommendations and Next Treatment advance to gait as tolerated Focus Recommendations To Nursing Amount of Assist Needed 1 Person Assist Discharge Recommendations PT Discharge Recommendations Home with Assistance Home Health SNF Rehab Other Discharge Recommendations Home if able to do stairs otherwise will need SNF
[2018-04-03] MEDS: SENNOSIDES 8.6 MG TABLET 17.2 MG PO (20:42)
[2018-04-04] VITALS (9 sets, daily range): BP systolic 101–125; BP diastolic 50–77; PULSE 54–77; RESP 16–20; TEMP 36.6–37; O2SAT 94–97
[2018-04-04] MEDS: HYDROCODONE/ACET 5/325 TABLET 2 TAB PO ×6 (00:36→20:35)
[2018-04-04] MEDS: LEVOTHYROXINE 137 MCG TABLET PO (05:59)
--- NOTE | 2018-04-04 06:16 | PC.NURSE ---
Pt. wore CPAP during the night with 2L 02 bleeding in, Sats 96-97 %, lungs CTA. CMS WNL, medicated with Vicodin x2 during the night with adequate relief. Priest with 350 ml clear mari urine.
[2018-04-04] MEDS: DOCUSATE 100 MG CAPSULE PO ×2 (08:08→19:21)
[2018-04-04] MEDS: LORATADINE 10 MG TABLET PO (08:08)
[2018-04-04] MEDS: GABAPENTIN 600 MG TABLET PO ×2 (08:08→19:21)
[2018-04-04] MEDS: HYDROMORPHONE 1 MG INJ 0.5 MG IV (09:16)
--- NOTE | 2018-04-04 09:21 | PT.IPTN ---
Current Diagnoses Other spondylosis with radiculopathy, lumbar region (04/02/18) Spinal stenosis, lumbar region without neurogenic claudication (04/02/18) Arthrodesis status (04/02/18) Surgery Performed Operation Date: 04/02/18 08:45 Actual Procedures p L4-5 TLIF, L4-5, L5-S1 Posterior Spinal Fusion(Not Applicable) - Sarai Washington MD s L5-S1 Hardware Removal(Not Applicable) - Sarai Washington MD Physical Therapy Treatment Note M2 PT-IP Current Condition Start: 04/02/18 16:54 Freq: NEEDED Status: Active Protocol: Document 04/03/18 11:55 DLM (Rec: 04/03/18 12:34 DLM [id number]) Physical Therapy Current Condition Current Condition Evaluation Date 04/03/18 Treatment Diagnosis L4-S1 TLIF, revision of L5-S1 fusion, difficulty walking Onset Date 04/02/18 Precautions Lumbar Precautions Log Roll No Twisting Limit Bending Lifting Restriction of 10 lbs Gait Belt above Incisional Area M3 PT-IP Subjective Start: 04/02/18 16:54 Freq: NEEDED Status: Active Protocol: Document 04/04/18 09:13 [facility] (Rec: 04/04/18 09:21 [facility] [id number]) Subjective Physical Therapy Visit Type Type Treatment Note Visit Start Time 09:50 Visit Stop Time 10:10 Total Visit Minutes 20 Number of CAFETERIA MANAGER Visits 0 Physical Therapy Visit Comments Patient Comments Patient reports nursing was able to get him up in the chair last night. Trying to do ankle pumps and isometrics in bed. Had pain medication recently Patient Goals discharge home Therapy Pain Assessment Pain When Pain Assessed At Rest Pain Present Pain Present Pain Reported Location Back Intensity 6 Scale Used Numeric (1 - 10) Description Aching Pain Behaviors Guarding Pain Management Techniques Apply Cold Re-positioning Timing of Activity with Medications M4 PT-IP Mobility and Gait Start: 04/02/18 16:54 Freq: NEEDED Status: Active Protocol: Document 04/04/18 09:13 [facility] (Rec: 04/04/18 09:21 [facility] [id number]) PT-Bed Mobility Assessment Rolling Type of Rolling Log Rolling Roll to Right Supine to Sit Supine to Sit Minimal Assistance Moderate Assistance Scooting Scooting to Edge of Bed Standby Assistance PT-Transfer Assessment Sit to and From Stand Sit to and from Stand Contact Guard Assistance Minimal Assistance Use of Upper Extremities Equipment Transfer Assistive Device Gait Belt Front Wheeled Walker Transfers Transfer Destination Chair Transfer Technique Stand Step Pivot Transfer Ability Level of Assist Minimal Assistance Comments Mobility Comments Patient up in chair after PT treatment, ice at lumbar spine , nurse and HEAD OF ACADEMIC TECHNOLOGY helping patient get settled. Call light and tray table in place. Gait Assessment Gait Gait Assistance Required: Minimum Assistance Distance (Feet) 2 Assistive Devices Assistive Device Gait Belt Front Wheeled Walker Gait Deviations General Gait Pattern Wide Based Gait Factors Limiting Gait Function Factors Limiting Gait Function Decreased Activity Tolerance Decreased Strength Pain Comments Gait Comments forward, side and backward steps from bed to chair, assist to move walker 2x. No LOB, no giving way of legs. M5 PT-IP Objective Assessments Start: 04/02/18 16:54 Freq: NEEDED Status: Active Protocol: Document 04/03/18 11:55 DLM (Rec: 04/03/18 12:34 [facility] [id number]) Orientation Orientation/Cognition Level of Alertness Alert Orientation Name Age Birthday Month Date Year Day of Week Place Situation Language Function Ability No Deficits Noted Safety Awareness Understands Safety Issues Memory Description No Deficits Noted Gross Range of Motion Upper Extremity ROM Assessment Within Functional Limits Lower Extremity ROM Assessment Bilaterally Impaired Impairments pain with movement of LE's, hip flexion especially painful for him, cramping in right calf area with ankle and knee movements Strength Upper Extremity Strength Assessment Within Functional Limits Lower Extremity Strength Assessment Left Impaired Ankle DF 4/5 Comments Strength Comments pain limits testing of his LE' s, functional weakness identified during mobility Coordination Assessment Gross Coordination Gross Coordination WNL Sensation Assessment Sensation Gross Sensation Right LE Impaired Sensation Description Tingling Comments Sensation Comments tingling in right foot in standing only, otherwise he describes cramping in his LE's with right worse than left Muscle Tone Muscle Tone WNL Yes M6 PT-IP Treatment Start: 04/02/18 16:54 Freq: NEEDED Status: Active Protocol: Document 04/04/18 09:13 [facility] (Rec: 04/04/18 09:21 [facility] [id number]) Physical Therapy Treatment Exercises Exercises Ankle Pumps Seated Knee Flexion/Extension Education Education Provided Precautions Safety M7 PT-IP Assessment and Plan Start: 04/02/18 16:54 Freq: NEEDED Status: Active Protocol: Document 04/04/18 09:13 [facility] (Rec: 04/04/18 09:21 [facility] [id number]) PT Summary Assessment and Plan Summary Assessment Summary Progress slow, patient reported didn't feel able to do more than transfer and take a few short steps to bed this am due to pain. If progress continues slow will definitely need SNF at d/c Goals Bed Mobility Goal Independent Transfer Goal Standby Assistance Front Wheeled Walker Gait Goal Standby Assistance Front Wheel Walker Gait Distance 50 feet Other Goals Up and down 3 steps without rails with min assist. Up and down 14 steps with rails and CG assist. Days to Meet Goals 3 Frequency of Treatment Frequency Of Treatment Twice a Day Treatment Plan Other Recommendations and Next Treatment Progress functional mobility Focus skills as tolerated Discharge Recommendations PT Discharge Recommendations Home with Assistance Home Health SNF Rehab Other Discharge Recommendations Home if able to do stairs otherwise will need SNF
--- NOTE | 2018-04-04 11:21 | PC.NURSE ---
Dayshift Note: Pt received sleeping in bed, on cpap with 2 L bleed in. Pt awakened and assessed. Pt on RA when awake, 95%. Pt with pain in surgical site, reported at 6/10, given 2 vicodin. Pt mobilized with PT, pt in severe pain when attempting to go from sit to stand, very effortful. Pt given 0.5 mg IV dilaudid at this time for breakthrough pain. Pt sat in chair for breakfast. Pt given bath by DIETITIAN then helped back to bed. Will continue to give vicodin q 4 hours as needed. Pt tolerating diet, has not had BM yet, given prune juice and discussed prn options for bowel medications. Pt requested that kim remain in place until he was able to move with more ease. Discussed risk of UTI with pt. Will continue to monitor, notify MD with changes.
--- NOTE | 2018-04-04 12:10 | PM.PNPO.1 ---
Subjective Date Patient Seen: 04/04/18 Time Patient Seen: 12:10 Interval history: POD #2 status post lumbar fusion and revision with Dr. Washington. Patient's pain has not been well controlled. Patient still has Priest in place and would like to keep it until he is more mobile. After his prior lumbar fusion he required SNF for recovery. Exam Vital Signs (past 8 hours): - 04/04/18 04:27 04/04/18 08:00 04/04/18 08:08 Temperature 98.4 F 98.6 F Pulse Rate 54 L 55 L Respiratory Rate 16 17 Blood Pressure 109/60 101/50 L Pulse Oximetry 97 95 94 04/04/18 11:36 Temperature 98.1 F Pulse Rate 62 Respiratory Rate 16 Blood Pressure 104/58 L Pulse Oximetry 97 Oxygen Delivery Method Room Air,CPAP Oxygen Flow Rate 2 Narrative Exam Narrative: Patient lying in bed in no acute distress. Dressing on back at [facility]. Calves are soft, compressible, nontender bilaterally. Sensation intact to light touch throughout bilateral lower extremities. He is able actively dorsiflex and plantar flex. Pulses are symmetrical. Objective Labs Result Diagrams: 04/03/18 05:30 Assessment & Plan Post-op (1) Status post lumbar spinal fusion: Current Visit: No Status: Acute (2) PTSD (post-traumatic stress disorder): Current Visit: Yes Status: Acute (3) Sleep apnea: Current Visit: Yes Status: Acute (4) Hyperlipidemia: Current Visit: Yes Status: Acute Postoperative Procedures Operation Date: 04/02/18 08:45 Actual Procedures Side Surgeon p L4-5 TLIF, L4-5, L5-S1 Posterior Spinal Fusion Not Applicable Sarai Washington MD s L5-S1 Hardware Removal Not Applicable Sarai Washington MD POD #2 status post lumbar fusion and revision with Dr. Washington. Patient will take oral Dilaudid for pain. DC Priest once mobilizing more. Continue working with physical therapy. No excessive bending, lifting, or twisting. Patient has been very slow to mobilize and difficulty with pain control he will likely need SNF for continued recovery. [facility] has a bed for him on Saturday. Quality VTE Deep Vein Thrombosis/Pulmonary Embolism Present on Admission: No
--- NOTE | 2018-04-04 14:04 | CM.DPC ---
Addendum entered by JENNIFER Dye 04/04/18 15:16: Faxed referral packet to [facility] in case a b/u plan is needed Saturday. Original Note: DCP Cont: Spoke w/Jamie w/[facility] to review referral; pt has a bed secured for admission on Saturday04.07.18. Discussed this w/ESTELLE Louise who felt pt was progressing slowly and Saturday is reasonable. Then updated pt and spouse Brenda (by phone, had to ) re: plan. P: DC to [facility] Saturday via pov. PASSR completed. JENNIFER Dye
[2018-04-04] MEDS: HYDROMORPHONE 2 MG TABLET PO ×2 (14:17→19:21)
[2018-04-04] MEDS: ONDANSETRON 4 MG/2 ML INJ IV (14:47)
--- NOTE | 2018-04-04 15:05 | PT.IPTN ---
Current Diagnoses Hyperlipidemia, unspecified (04/02/18) Post-traumatic stress disorder, unspecified (04/02/18) Sleep apnea, unspecified (04/02/18) Other spondylosis with radiculopathy, lumbar region (04/02/18) Spinal stenosis, lumbar region without neurogenic claudication (04/02/18) Arthrodesis status (04/02/18) Surgery Performed Operation Date: 04/02/18 08:45 Actual Procedures p L4-5 TLIF, L4-5, L5-S1 Posterior Spinal Fusion(Not Applicable) - Sarai Washington MD s L5-S1 Hardware Removal(Not Applicable) - Sarai Washington MD Physical Therapy Treatment Note M2 PT-IP Current Condition Start: 04/02/18 16:54 Freq: NEEDED Status: Active Protocol: Document 04/03/18 11:55 DLM (Rec: 04/03/18 12:34 DLM [id number]) Physical Therapy Current Condition Current Condition Evaluation Date 04/03/18 Treatment Diagnosis L4-S1 TLIF, revision of L5-S1 fusion, difficulty walking Onset Date 04/02/18 Precautions Lumbar Precautions Log Roll No Twisting Limit Bending Lifting Restriction of 10 lbs Gait Belt above Incisional Area M3 PT-IP Subjective Start: 04/02/18 16:54 Freq: NEEDED Status: Active Protocol: Document 04/04/18 15:35 GGD (Rec: 04/04/18 15:58 GGD [email or web address]) Subjective Physical Therapy Visit Type Type Treatment Note Visit Start Time 15:05 Visit Stop Time 15:35 Total Visit Minutes 30 Number of GLASSWARE FINISHER Visits 1 Physical Therapy Visit Comments Patient Comments Pt states he willing to try to get up. Therapy Pain Assessment Pain When Pain Assessed At Rest Pain Present Pain Present Pain Reported Location Back Intensity 5 Scale Used Numeric (1 - 10) Description Stabbing Pain Behaviors Facial Grimacing Guarding Pain Management Techniques Apply Cold Timing of Activity with Medications M4 PT-IP Mobility and Gait Start: 04/02/18 16:54 Freq: NEEDED Status: Active Protocol: Document 04/04/18 15:35 GGD (Rec: 04/04/18 15:58 GGD [id number]) PT-Bed Mobility Assessment Rolling Type of Rolling Log Rolling Roll to Right Supine to Sit Supine to Sit Minimal Assistance 1 Person Assistance Bedrails Scooting Scooting to Edge of Bed Standby Assistance PT-Transfer Assessment Sit to and From Stand Sit to and from Stand Moderate Assistance 1 Person Assistance Use of Upper Extremities Equipment Transfer Assistive Device Gait Belt Front Wheeled Walker Transfers Transfer Destination Chair Transfer Ability Level of Assist Minimal Assistance Moderate Assistance Use of Upper Extremities Gait Assessment Gait Gait Assistance Required: Minimum Assistance 1 Person Assist Distance (Feet) 4 Assistive Devices Assistive Device Gait Belt Front Wheeled Walker Orthotic/Prosthetic Devices or Brace: No Gait Deviations General Gait Pattern Antalgic Decreased Stride Length Step-to Gait Factors Limiting Gait Function Factors Limiting Gait Function Decreased Activity Tolerance Decreased Strength Pain Comments Gait Comments Pt need max a to move walker, Min A for gait and balance. M5 PT-IP Objective Assessments Start: 04/02/18 16:54 Freq: NEEDED Status: Active Protocol: Document 04/03/18 11:55 DLM (Rec: 04/03/18 12:34 DLM [id number]) Orientation Orientation/Cognition Level of Alertness Alert Orientation Name Age Birthday Month Date Year Day of Week Place Situation Language Function Ability No Deficits Noted Safety Awareness Understands Safety Issues Memory Description No Deficits Noted Gross Range of Motion Upper Extremity ROM Assessment Within Functional Limits Lower Extremity ROM Assessment Bilaterally Impaired Impairments pain with movement of LE's, hip flexion especially painful for him, cramping in right calf area with ankle and knee movements Strength Upper Extremity Strength Assessment Within Functional Limits Lower Extremity Strength Assessment Left Impaired Ankle DF 4/5 Comments Strength Comments pain limits testing of his LE' s, functional weakness identified during mobility Coordination Assessment Gross Coordination Gross Coordination WNL Sensation Assessment Sensation Gross Sensation Right LE Impaired Sensation Description Tingling Comments Sensation Comments tingling in right foot in standing only, otherwise he describes cramping in his LE's with right worse than left Muscle Tone Muscle Tone WNL Yes M6 PT-IP Treatment Start: 04/02/18 16:54 Freq: NEEDED Status: Active Protocol: Document 04/04/18 15:35 GGD (Rec: 04/04/18 15:58 GGD [id number]) Physical Therapy Treatment Education Education Provided Precautions M7 PT-IP Assessment and Plan Start: 04/02/18 16:54 Freq: NEEDED Status: Active Protocol: Document 04/04/18 15:35 GGD (Rec: 04/04/18 15:58 GGD [id number]) PT Summary Assessment and Plan Summary Assessment Summary Pt is progressing slow. He is limited by pain and need time after bed mobility to rest due to pain. He was able to take small scooting steps forward, but no functional for gait. He need mod a for controlled stand to sit. He will need SNF rehab before return to home, due to limit mobility. Frequency of Treatment Frequency Of Treatment Twice a Day Treatment Plan Physical Therapy Treatment Plan Bed Mobility Training Transfer Training Gait Training Therapeutic Exercise Balance Retraining Post Op Education Discharge Planning Hot or Cold Pack Recommendations To Nursing Amount of Assist Needed 1 Person Assist Discharge Recommendations PT Discharge Recommendations SNF Rehab
[2018-04-04 15:24] LABS: Hepatitis B Surf Ab Qualitativ Nonreactive (Nonreactive)
--- NOTE | 2018-04-04 15:59 | OT.IP.EVAL ---
Current Diagnoses Hyperlipidemia, unspecified (04/02/18) Post-traumatic stress disorder, unspecified (04/02/18) Sleep apnea, unspecified (04/02/18) Other spondylosis with radiculopathy, lumbar region (04/02/18) Spinal stenosis, lumbar region without neurogenic claudication (04/02/18) Arthrodesis status (04/02/18) Surgery Performed Operation Date: 04/02/18 08:45 Actual Procedures p L4-5 TLIF, L4-5, L5-S1 Posterior Spinal Fusion(Not Applicable) - Sarai Washington MD s L5-S1 Hardware Removal(Not Applicable) - Sarai Washington MD Past Medical History (Last Updated 03/26/18 @ 14:01 by Lorna López RN) AVM (arteriovenous malformation) (Acute) Hyperlipidemia (Acute) Kidney stones (Acute) PTSD (post-traumatic stress disorder) (Acute) Papillary thyroid carcinoma (Acute) Skin cancer (Acute) Sleep apnea with use of continuous positive airway pressure (CPAP) (Acute) Surgical History (Last Updated 03/26/18 @ 14:01 by Lorna López RN) Hx of hernia repair (Acute) Hx of knee surgery (Acute) Hx of shoulder surgery (Acute) S/P UPPP (uvulopalatopharyngoplasty) (Acute) S/P lumbar fusion (Acute) Status post bilateral LASIK surgery (Acute) Occupational Therapy Inpatient Evaluation/Re-Eval M1 PT/OT-IP Prior Functional Status Start: 04/02/18 16:54 Freq: NEEDED Status: Active Protocol: Document 04/03/18 11:55 GILES (Rec: 04/03/18 12:34 DL [id number]) Medical Review Prior Functional Status Medical History Reviewed Yes Diet/Fluid Consistency Regular Communication WNL Mobility and Gait Independent, no device, community distances, drives Activities of Daily Living and IADL's Independent Prior Functional Level (Other details) has a horse ranch Social History Household Members spouse children Living Arrangements House Number of Floors (Floors) Two Floors Number of Stairs To Enter/Railing? 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 after his prior back surgery with a slow recovery M1 PT/OT-IP Prior Functional Status Start: 04/03/18 16:21 Freq: NEEDED Status: Active Protocol: Document 04/04/18 15:41 [facility] (Rec: 04/04/18 15:58 [facility] [id number]) Medical Review Prior Functional Status Medical History Reviewed Yes Diet/Fluid Consistency Regular Communication WNL Mobility and Gait Independent, no device, community distances, drives Activities of Daily Living and IADL's Independent Prior Functional Level (Other details) has a horse ranch Social History Household Members spouse children Living Arrangements House Number of Floors (Floors) Two Floors Number of Stairs To Enter/Railing? 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 after his prior back surgery with a slow recovery M2 OT-IP Current Condition Start: 04/03/18 16:21 Freq: Status: Active Protocol: Document 04/04/18 15:41 [facility] (Rec: 04/04/18 15:58 [facility] [id number]) Occupational Therapy Current Condition Current Condition Evaluation Date 04/04/18 Treatment Diagnosis Spinal Stenosis Diagnosis Onset Date 04/02/18 Post Operative Precautions Lumbar Precautions Log Roll No Twisting Limit Bending Lifting Restriction of 10 lbs Gait Belt above Incisional Area M3 OT- IP Subjective and Pain Start: 04/03/18 16:21 Freq: Status: Active Protocol: Document 04/04/18 15:41 [facility] (Rec: 04/04/18 15:58 [facility] [id number]) OT- Subjective Occupational Therapy Visit Type Type Initial Evaluation Visit Start Time 14:40 Visit Stop Time 15:05 Total Visit Minutes 25 Occupational Therapy Visit Comments Patient Comments Pt agreeable to get up. Patient/Caregiver Goals Pt wanting to go to skilled rehab prior to gong home. OT Pain Assessment Pain When Pain Assessed During Mobility Pain Present Pain Present Pain Reported Location Back Intensity 9 Scale Used Numeric (1 - 10) Description Stabbing Throbbing With Movement Pain Behaviors Facial Grimacing Wincing M4 OT- IP ADL's Start: 04/03/18 16:21 Freq: Status: Active Protocol: Document 04/04/18 15:41 [facility] (Rec: 04/04/18 15:58 [facility] [id number]) OT ADL-Dressing General Eval Lower Body Dressing Ability Total Assistance Comments OT Dressing Comments Pt dependent for LB dressing needs for socks. Reviewed AED for LB dressing, pt states does not have district court reporter anymore. OT ADL-Toileting Comments OT Toileting Comments Pt has catheter in. M6 OT- IP Functional Cognition Start: 04/03/18 16:21 Freq: Status: Active Protocol: Document 04/04/18 15:41 [facility] (Rec: 04/04/18 15:58 [facility] [id number]) Cognitive Factors Limiting Selfcare Function Cognitive Ability Level of Alertness Alert Patient Orientation Name Age Birthday Month Date Year Day of Week Place Situation Attention Span Ability Capable of Focused Attention Capable of Sustained Attention Ability to Follow Commands Able to Follow Multi-Step Memory Description No Deficits Noted Safety Awareness Underestimates Need for Assistance Cognitive Comments Cognitive Assessment Comments Pt has good understanding for back precautions, due to pain needs reminders for safety of FWW and hand positioning needs . M7 OT- IP Mobility and Balance Start: 04/03/18 16:21 Freq: Status: Active Protocol: Document 04/04/18 15:41 [facility] (Rec: 04/04/18 15:58 [facility] [id number]) OT- Bed Mobility Assessment Rolling Type of Rolling Roll to Right Level of Assistance Minimal Assistance Bedrails Supine to Sit Supine to Sit Assist Minimal Assistance OT-Transfer Assessment Sit to and From Stand Sit to and from Stand Moderate Assistance 2 Person Assistance Comments Mobility Comments SUPERINTENDENT SANITATION and OT assisting pt from Sit to stand MODA x2 especially when trying to get left hand up from the bed to FWW. MIN x1 to take a few stand, heavy use of BUE, assist for balance, to guide FWW MAX X 1,and to help lower to recliner. OT- Balance Assessment Sitting Balance and Reactions Static Sitting Balance Ability Fair Dynamic Sitting Balance Ability Poor Standing Balance and Reactions Static Standing Balance Ability Poor Dynamic Standing Balance Ability Poor M8 OT- IP Objective Assessments Start: 04/03/18 16:21 Freq: Status: Active Protocol: Document 04/04/18 15:41 [facility] (Rec: 04/04/18 15:58 [facility] [id number]) OT Gross Range of Motion Upper Extremity Range of Motion Assessment Within Functional Limits OT-Muscle Tone Assessment Muscle Tone WNL Yes M9 OT- IP Assessment and Plan Start: 04/03/18 16:21 Freq: Status: Active Protocol: Document 04/04/18 15:41 [facility] (Rec: 04/04/18 15:58 [facility] [id number]) OT Summary Assessment and Plan Potential Rehabilitation Potential Good Analytic Complexity at Evaluation Low Summary OT Impairments Pain Strength Balance Functional Mobility Grooming Dressing Toileting Bathing Toilet Transfers Shower Transfers Progress Towards Goals Slow Progress due to Pain Slow Progress due to Activity Tolerance Assessment Summary Pt low complexity and main barrier is steps, pain and now needing extensive assist for ADl's and functional mobility. Pt planning to go to skilled rehab when medically stable. Goals Grooming Goal Minimal Assistance Dressing Goal Minimal Assistance Toileting Goal Minimal Assistance Bathing Goal Moderate Assistance Toilet Transfer Goal Minimal Assistance Shower Transfer Goal Minimal Assistance Patient/Caregiver Education Goal Demonstrate Post-Op Precautions Caregiver Independent Assisting Patient Days to Meet Goals 5 Frequency of Treatment Frequency Of Treatment Once a Day Treatment Plan OT Treatment Plan ADL Training Functional Mobility Patient/Family Education Discharge Planning Other Treatment Recommendations and Next BSC with JASEN HANNA dressing Treatment Focus with AED MIN, stand at sink CGA with FWW. Discharge Recommendations OT Discharge Recommendations SNF Rehab Home Equipment Needs shower chair
[2018-04-04] MEDS: SENNOSIDES 8.6 MG TABLET 17.2 MG PO (19:21)
[2018-04-04] MEDS: hydrOXYzine pamoate 25 MG CAPSULE PO (19:21)
[2018-04-04] MEDS: ZOLPIDEM 5 MG TABLET 10 MG PO (20:35)
[2018-04-04] MEDS: MAG HYDROX/ALUM/SIMETH 30 ML UDC PO (20:35)
[2018-04-05] VITALS (8 sets, daily range): BP systolic 109–130; BP diastolic 48–83; PULSE 53–61; RESP 16–20; TEMP 36.6–37.1; O2SAT 94–97
[2018-04-05] MEDS: HYDROCODONE/ACET 5/325 TABLET 2 TAB PO ×5 (00:49→17:53)
[2018-04-05] MEDS: LEVOTHYROXINE 137 MCG TABLET PO (05:35)
[2018-04-05] MEDS: GABAPENTIN 600 MG TABLET PO ×2 (07:54→21:32)
[2018-04-05] MEDS: LORATADINE 10 MG TABLET PO (07:55)
[2018-04-05] MEDS: HYDROMORPHONE 2 MG TABLET PO ×3 (07:56→19:50)
--- NOTE | 2018-04-05 09:29 | PT.IPTN ---
Current Diagnoses Hyperlipidemia, unspecified (04/02/18) Post-traumatic stress disorder, unspecified (04/02/18) Sleep apnea, unspecified (04/02/18) Other spondylosis with radiculopathy, lumbar region (04/02/18) Spinal stenosis, lumbar region without neurogenic claudication (04/02/18) Arthrodesis status (04/02/18) Surgery Performed Operation Date: 04/02/18 08:45 Actual Procedures p L4-5 TLIF, L4-5, L5-S1 Posterior Spinal Fusion(Not Applicable) - Sarai Washington MD s L5-S1 Hardware Removal(Not Applicable) - Sarai Washington MD Physical Therapy Treatment Note M2 PT-IP Current Condition Start: 04/02/18 16:54 Freq: NEEDED Status: Active Protocol: Document 04/03/18 11:55 DLM (Rec: 04/03/18 12:34 DLM [id number]) Physical Therapy Current Condition Current Condition Evaluation Date 04/03/18 Treatment Diagnosis L4-S1 TLIF, revision of L5-S1 fusion, difficulty walking Onset Date 04/02/18 Precautions Lumbar Precautions Log Roll No Twisting Limit Bending Lifting Restriction of 10 lbs Gait Belt above Incisional Area M3 PT-IP Subjective Start: 04/02/18 16:54 Freq: NEEDED Status: Active Protocol: Document 04/05/18 09:20 GGD (Rec: 04/05/18 09:29 GGD [id number]) Subjective Physical Therapy Visit Type Type Treatment Note Visit Start Time 08:55 Visit Stop Time 19:15 Total Visit Minutes 20 Number of MERGERS AND ACQUISITIONS BANKER Visits 2 Physical Therapy Visit Comments Patient Comments Pt states that he is having pain on his left side. Therapy Pain Assessment Pain When Pain Assessed At Rest Pain Present Pain Present Pain Reported Location Back Intensity 6 Scale Used Numeric (1 - 10) Pain Behaviors Facial Grimacing Guarding Pain Management Techniques Apply Cold M4 PT-IP Mobility and Gait Start: 04/02/18 16:54 Freq: NEEDED Status: Active Protocol: Document 04/05/18 09:20 GGD (Rec: 04/05/18 09:29 GGD [id number]) PT-Bed Mobility Assessment Rolling Type of Rolling Log Rolling Roll to Right Level of Assist Standby Assistance Supine to Sit Supine to Sit Minimal Assistance 1 Person Assistance Bedrails Scooting Scooting to Edge of Bed Standby Assistance PT-Transfer Assessment Sit to and From Stand Sit to and from Stand Minimal Assistance 1 Person Assistance Use of Upper Extremities Equipment Transfer Assistive Device Gait Belt Front Wheeled Walker Transfers Transfer Destination Chair Transfer Ability Level of Assist Minimal Assistance Moderate Assistance Use of Upper Extremities Gait Assessment Gait Gait Assistance Required: Minimum Assistance 1 Person Assist Distance (Feet) 6 Assistive Devices Assistive Device Gait Belt Front Wheeled Walker Orthotic/Prosthetic Devices or Brace: No Gait Deviations General Gait Pattern Antalgic Decreased Stride Length Step-to Gait Factors Limiting Gait Function Factors Limiting Gait Function Decreased Activity Tolerance Decreased Strength Pain Comments Gait Comments Pt need max a to move walker, Min A for gait and balance. M5 PT-IP Objective Assessments Start: 04/02/18 16:54 Freq: NEEDED Status: Active Protocol: Document 04/03/18 11:55 DLM (Rec: 04/03/18 12:34 DLM [id number]) Orientation Orientation/Cognition Level of Alertness Alert Orientation Name Age Birthday Month Date Year Day of Week Place Situation Language Function Ability No Deficits Noted Safety Awareness Understands Safety Issues Memory Description No Deficits Noted Gross Range of Motion Upper Extremity ROM Assessment Within Functional Limits Lower Extremity ROM Assessment Bilaterally Impaired Impairments pain with movement of LE's, hip flexion especially painful for him, cramping in right calf area with ankle and knee movements Strength Upper Extremity Strength Assessment Within Functional Limits Lower Extremity Strength Assessment Left Impaired Ankle DF 4/5 Comments Strength Comments pain limits testing of his LE' s, functional weakness identified during mobility Coordination Assessment Gross Coordination Gross Coordination WNL Sensation Assessment Sensation Gross Sensation Right LE Impaired Sensation Description Tingling Comments Sensation Comments tingling in right foot in standing only, otherwise he describes cramping in his LE's with right worse than left Muscle Tone Muscle Tone WNL Yes M6 PT-IP Treatment Start: 04/02/18 16:54 Freq: NEEDED Status: Active Protocol: Document 04/04/18 15:35 GGD (Rec: 04/04/18 15:58 GGD [id number]) Physical Therapy Treatment Education Education Provided Precautions M7 PT-IP Assessment and Plan Start: 04/02/18 16:54 Freq: NEEDED Status: Active Protocol: Document 04/05/18 09:20 GGD (Rec: 04/05/18 09:29 GGD [id number]) PT Summary Assessment and Plan Summary Assessment Summary Pt slowly progressing. He needs min A for bed mobility. His gait is very limted and has heavy use of UE on FWW. He has a shuffle step to gait pattern and needs cues for weight shift for unloading and avancement of LE. He with need SNF before D/C home to improve mobility and strength. Frequency of Treatment Frequency Of Treatment Twice a Day Recommendations To Nursing Amount of Assist Needed 1 Person Assist Discharge Recommendations PT Discharge Recommendations SNF Rehab
--- NOTE | 2018-04-05 10:24 | PM.PNPO.1 ---
Subjective Date Patient Seen: 04/05/18 Time Patient Seen: 10:24 Interval history: Pain 6/10. Denies fever chills. No nausea vomiting. Exam Vital Signs (past 8 hours): - 04/05/18 04:00 04/05/18 08:00 Temperature 98.1 F Pulse Rate 59 L Respiratory Rate 16 Blood Pressure 110/48 L Pulse Oximetry 95 97 Oxygen Delivery Method Room Air Oxygen Flow Rate 0 Narrative Exam Narrative: 52-year-old male resting comfortably in bedside chair in no apparent distress. Dressing clean, dry and intact. Motor functions intact distal bilateral lower extremities. Sensation grossly intact distal bilateral lower extremities. Objective Labs Result Diagrams: 04/03/18 05:30 Labs: Laboratory Results - last 24 hr 04/02/18 14:15 Hep Bs Antibody Nonreactive Assessment & Plan Post-op Postoperative Procedures Operation Date: 04/02/18 08:45 Actual Procedures Side Surgeon p L4-5 TLIF, L4-5, L5-S1 Posterior Spinal Fusion Not Applicable Sarai Washington MD s L5-S1 Hardware Removal Not Applicable Sarai Washington MD continue to work on pain control. Mobilize with physical therapy. Physical therapy is recommending long-term facility. Patient has been slow to mobilize and due to several steps in his house he will likely need SNF. Currently plan is for discharge to [facility] on Saturday. Quality VTE Deep Vein Thrombosis/Pulmonary Embolism Present on Admission: No
--- NOTE | 2018-04-05 10:27 | P.PN_ITS ---
Subjective Date Patient Seen: 04/05/18 Time Patient Seen: 10:24 Interval history: Pain 6/10. Denies fever chills. No nausea vomiting. Exam Vital Signs (past 8 hours): - 04/05/18 04:00 04/05/18 08:00 Temperature 98.1 F Pulse Rate 59 L Respiratory Rate 16 Blood Pressure 110/48 L Pulse Oximetry 95 97 Oxygen Delivery Method Room Air Oxygen Flow Rate 0 Narrative Exam Narrative: 52-year-old male resting comfortably in bedside chair in no apparent distress. Dressing clean, dry and intact. Motor functions intact distal bilateral lower extremities. Sensation grossly intact distal bilateral lower extremities. Objective Labs Result Diagrams: 04/03/18 05:30 Labs: Laboratory Results - last 24 hr 04/02/18 14:15 Hep Bs Antibody Nonreactive Assessment & Plan Post-op Postoperative Procedures Operation Date: 04/02/18 08:45 Actual Procedures Side Surgeon p L4-5 TLIF, L4-5, L5-S1 Posterior Spinal Fusion Not Applicable Sarai Washington MD s L5-S1 Hardware Removal Not Applicable Sarai Washington MD continue to work on pain control. Mobilize with physical therapy. Physical therapy is recommending longterm facility. Patient has been slow to mobilize and due to several steps in his house he will likely need SNF. Currently plan is for discharge to [facility] on Saturday. Quality VTE Deep Vein Thrombosis/Pulmonary Embolism Present on Admission: No
--- NOTE | 2018-04-05 11:58 | OT.IP.TRT ---
Current Diagnoses Hyperlipidemia, unspecified (04/02/18) Post-traumatic stress disorder, unspecified (04/02/18) Sleep apnea, unspecified (04/02/18) Other spondylosis with radiculopathy, lumbar region (04/02/18) Spinal stenosis, lumbar region without neurogenic claudication (04/02/18) Arthrodesis status (04/02/18) Surgery Performed Operation Date: 04/02/18 08:45 Actual Procedures p L4-5 TLIF, L4-5, L5-S1 Posterior Spinal Fusion(Not Applicable) - Sarai Washington MD s L5-S1 Hardware Removal(Not Applicable) - Sarai Washington MD Occupational Therapy Treatment Note M2 OT-IP Current Condition Start: 04/03/18 16:21 Freq: Status: Active Protocol: Document 04/04/18 15:41 [facility] (Rec: 04/04/18 15:58 [facility] [id number]) Occupational Therapy Current Condition Current Condition Evaluation Date 04/04/18 Treatment Diagnosis Spinal Stenosis Diagnosis Onset Date 04/02/18 Post Operative Precautions Lumbar Precautions Log Roll No Twisting Limit Bending Lifting Restriction of 10 lbs Gait Belt above Incisional Area M3 OT- IP Subjective and Pain Start: 04/03/18 16:21 Freq: Status: Active Protocol: Document 04/05/18 11:38 [facility] (Rec: 04/05/18 11:58 [facility] [id number]) OT- Subjective Occupational Therapy Visit Type Type Treatment Note Visit Start Time 08:58 Visit Stop Time 09:23 Total Visit Minutes 25 Occupational Therapy Visit Comments Patient Comments Pt wanting to brush his teeth. OT Pain Assessment Pain When Pain Assessed During Mobility Pain Present Pain Present Pain Reported Location Back Intensity 7 Scale Used Numeric (1 - 10) Description Throbbing With Movement Pain Behaviors Facial Grimacing Wincing M4 OT- IP ADL's Start: 04/03/18 16:21 Freq: Status: Active Protocol: Document 04/05/18 11:38 [facility] (Rec: 04/05/18 11:58 [facility] [id number]) OT ADL-Grooming General Evaluation Grooming Ability Independent Comments OT Grooming Comments Pt not able to stand for grooming at this time and had to sit at recliner for all grooming needs. OT ADL-Dressing General Eval Lower Body Dressing Ability Total Assistance Comments OT Dressing Comments Dependent for all LB dressing needs due to pain. OT ADL-Toileting Comments OT Toileting Comments Pt has catheter in. M6 OT- IP Functional Cognition Start: 04/03/18 16:21 Freq: Status: Active Protocol: Document 04/05/18 11:38 [facility] (Rec: 04/05/18 11:58 [facility] [id number]) Cognitive Factors Limiting Selfcare Function Cognitive Ability Level of Alertness Alert Patient Orientation Name Age Birthday Month Date Year Day of Week Place Situation Attention Span Ability Capable of Focused Attention Capable of Sustained Attention Ability to Follow Commands Able to Follow Multi-Step Commands Memory Description No Deficits Noted Safety Awareness Underestimates Need for Assistance M7 OT- IP Mobility and Balance Start: 04/03/18 16:21 Freq: Status: Active Protocol: Document 04/05/18 11:38 [facility] (Rec: 04/05/18 11:58 [facility] [id number]) OT- Bed Mobility Assessment Rolling Type of Rolling Roll to Right Level of Assistance Minimal Assistance Bedrails Supine to Sit Supine to Sit Assist Minimal Assistance OT-Transfer Assessment Sit to and From Stand Sit to and from Stand Minimal Assistance Moderate Assistance 1 Person Assistance Comments Mobility Comments Pt needing heavy use of of BUE on FWW and needing assist to help move FWW and another person JACQUES for steadiness. Pt doing better for scooting to the edge today and needing less time. OT- Balance Assessment Sitting Balance and Reactions Static Sitting Balance Ability Good Dynamic Sitting Balance Ability Fair Standing Balance and Reactions Static Standing Balance Ability Poor Dynamic Standing Balance Ability Poor M8 OT- IP Objective Assessments Start: 04/03/18 16:21 Freq: Status: Active Protocol: Document 04/04/18 15:41 [facility] (Rec: 04/04/18 15:58 [facility] [id number]) OT Gross Range of Motion Upper Extremity Range of Motion Assessment Within Functional Limits OT-Muscle Tone Assessment Muscle Tone WNL Yes M9 OT- IP Assessment and Plan Start: 04/03/18 16:21 Freq: Status: Active Protocol: Document 04/05/18 11:38 [facility] (Rec: 04/05/18 11:58 [facility] [id number]) OT Summary Assessment and Plan Summary Assessment Summary Pt doing better with mobility however still needing increased time and not able to stand for grooming, dressing , and bathing needs at this time. Pt will continue to benefit from skilled rehab. Goals Grooming Goal Contact Guard Assistance Dressing Goal Minimal Assistance Toileting Goal Minimal Assistance Bathing Goal Moderate Assistance Toilet Transfer Goal Contact Guard Assistance Shower Transfer Goal Minimal Assistance Days to Meet Goals 5 Frequency of Treatment Frequency Of Treatment Once a Day Treatment Plan OT Treatment Plan ADL Training Functional Mobility Patient/Family Education Discharge Planning Other Treatment Recommendations and Next Stand at sink with SBA. LB Treatment Focus dressing with JACQUES use of AED. Discharge Recommendations OT Discharge Recommendations SNF Rehab Home Equipment Needs shower chair
--- NOTE | 2018-04-05 12:28 | CM.DPC ---
DCP Cont: Per PA, pt still slowly progressing and not stable for d/c yet today to SNF. SW called [facility] and confirmed they received the referral yesterday to review and they are aware that first preference is [facility] but second choice is [facility] if [facility] cannot accept pt when stable for discharge. Plan: SW to follow closely for d/c to SNF when medically stable. [facility] states they can likely accept pt on Saturday if stable for d/c and [facility] reviewing as back up plan. PASRR done. Fany Waddell, [employer]INE [employer]END[employer]
--- NOTE | 2018-04-05 15:35 | PT.IPTN ---
Current Diagnoses Hyperlipidemia, unspecified (04/02/18) Post-traumatic stress disorder, unspecified (04/02/18) Sleep apnea, unspecified (04/02/18) Other spondylosis with radiculopathy, lumbar region (04/02/18) Spinal stenosis, lumbar region without neurogenic claudication (04/02/18) Arthrodesis status (04/02/18) Surgery Performed Operation Date: 04/02/18 08:45 Actual Procedures p L4-5 TLIF, L4-5, L5-S1 Posterior Spinal Fusion(Not Applicable) - Sarai Washington MD s L5-S1 Hardware Removal(Not Applicable) - Sarai Washington MD Physical Therapy Treatment Note M2 PT-IP Current Condition Start: 04/02/18 16:54 Freq: NEEDED Status: Active Protocol: Document 04/03/18 11:55 [facility] (Rec: 04/03/18 12:34 [facility] [id number]) Physical Therapy Current Condition Current Condition Evaluation Date 04/03/18 Treatment Diagnosis L4-S1 TLIF, revision of L5-S1 fusion, difficulty walking Onset Date 04/02/18 Precautions Lumbar Precautions Log Roll No Twisting Limit Bending Lifting Restriction of 10 lbs Gait Belt above Incisional Area M3 PT-IP Subjective Start: 04/02/18 16:54 Freq: NEEDED Status: Active Protocol: Document 04/05/18 15:16 [facility] (Rec: 04/05/18 15:34 [facility] [id number]) Subjective Physical Therapy Visit Type Type Treatment Note Visit Start Time 14:30 Visit Stop Time 15:10 Total Visit Minutes 40 Number of PAN PULLER Visits 3 Physical Therapy Visit Comments Patient Comments Pt states he is feeling less pain than this am. Therapy Pain Assessment Pain When Pain Assessed At Rest Pain Present Pain Present Pain Reported M4 PT-IP Mobility and Gait Start: 04/02/18 16:54 Freq: NEEDED Status: Active Protocol: Document 04/05/18 15:16 [facility] (Rec: 04/05/18 15:34 [facility] [id number]) PT-Bed Mobility Assessment Rolling Type of Rolling Log Rolling Roll to Right Level of Assist Contact Guard Assistance 1 Person Assistance Supine to Sit Supine to Sit Minimal Assistance 1 Person Assistance Bedrails Scooting Scooting to Edge of Bed Standby Assistance PT-Transfer Assessment Sit to and From Stand Sit to and from Stand Minimal Assistance 1 Person Assistance Use of Upper Extremities Equipment Transfer Assistive Device Gait Belt Front Wheeled Walker Transfers Transfer Destination Chair Transfer Ability Level of Assist Minimal Assistance Moderate Assistance Use of Upper Extremities Comments Mobility Comments Pt in bed transfer to chair. Min assist req'd for supine to sit, SBA for sit<>stand, and mod assist while moving walker during step pivot to chair. Performed seated exercises including glute sets, pelvic tilts, shoulder retraction. Also reviewed brreathing techniques. Gait Assessment Gait Gait Assistance Required: Minimum Assistance 1 Person Assist Distance (Feet) 2 Assistive Devices Assistive Device Gait Belt Front Wheeled Walker Gait Deviations General Gait Pattern Antalgic Decreased Stride Length Step-to Gait Factors Limiting Gait Function Factors Limiting Gait Function Decreased Activity Tolerance Decreased Strength Pain Comments Gait Comments Pt req'd min a for moving FWW during gait to chair. Able to perform small steps in place and weight shifting at EOB. PT-Balance Assessment Comments Other Balance Tests/Deviations/Treatment Pt experienced slight LOB : while sitting on OEB prior to transfer to chair. M5 PT-IP Objective Assessments Start: 04/02/18 16:54 Freq: NEEDED Status: Active Protocol: Document 04/03/18 11:55 [facility] (Rec: 04/03/18 12:34 [facility] [id number]) Orientation Orientation/Cognition Level of Alertness Alert Orientation Name Age Birthday Month Date Year Day of Week Place Situation Language Function Ability No Deficits Noted Safety Awareness Understands Safety Issues Memory Description No Deficits Noted Gross Range of Motion Upper Extremity ROM Assessment Within Functional Limits Lower Extremity ROM Assessment Bilaterally Impaired Impairments pain with movement of LE's, hip flexion especially painful for him, cramping in right calf area with ankle and knee movements Strength Upper Extremity Strength Assessment Within Functional Limits Lower Extremity Strength Assessment Left Impaired Ankle DF 4/5 Comments Strength Comments pain limits testing of his LE' s, functional weakness identified during mobility Coordination Assessment Gross Coordination Gross Coordination WNL Sensation Assessment Sensation Gross Sensation Right LE Impaired Sensation Description Tingling Comments Sensation Comments tingling in right foot in standing only, otherwise he describes cramping in his LE's with right worse than left Muscle Tone Muscle Tone WNL Yes M6 PT-IP Treatment Start: 04/02/18 16:54 Freq: NEEDED Status: Active Protocol: Document 04/05/18 15:16 [facility] (Rec: 04/05/18 15:34 [facility] [id number]) Physical Therapy Treatment Exercises Exercises Ankle Pumps pelvic tilts shoulder retraction Gluteal Sets Seated Knee Flexion/Extension M7 PT-IP Assessment and Plan Start: 04/02/18 16:54 Freq: NEEDED Status: Active Protocol: Document 04/05/18 15:16 [facility] (Rec: 04/05/18 15:34 [facility] [id number]) PT Summary Assessment and Plan Summary Assessment Summary Pt progressing slowly d/t pain req's min a for bed mobility and FWW. Able to demonstrate weight shifting and small marching movements while standing at SOB. management. He uses UEs heavily on FWW during gait and transfers. Gait still very limited d/t pain and lack of ability to fully lift RLE. Left pt in chair w/ice pack Frequency of Treatment Frequency Of Treatment Twice a Day Recommendations To Nursing Amount of Assist Needed 1 Person Assist Discharge Recommendations PT Discharge Recommendations SNF Rehab
--- NOTE | 2018-04-05 18:35 | PC.NURSE ---
maria fernanda note 18:00- pt reported new tingling sensation to ventral surface of left foot.Called and spoke to Dr. Caro. New order received for Decadron. Also discussed patient's Parker order. Pt is reaching his maximum Tylenol dosing due to taking 2 tabs of 5/325 Parker every 4 hours. New order received to change to one tab of 10/325 Q4 hours prn. Tape on back drsg is rolled up and gauze falling off operative site. Drsg removed, new Xeroform gauze applied to the 2 incisions lateral to spine. [place] intact, well approximated, no s/s infection. Covered sites with [place] drsgs.
[2018-04-05] MEDS: DEXAMETHASONE 4 MG TABLET PO (19:49)
[2018-04-05] MEDS: ZOLPIDEM 5 MG TABLET 10 MG PO (21:31)
[2018-04-05] MEDS: DOCUSATE 100 MG CAPSULE PO (21:31)
[2018-04-05] MEDS: SENNOSIDES 8.6 MG TABLET 17.2 MG PO (21:32)
[2018-04-06] MEDS: HYDROCODONE/ACET 10/325 TABLET 1 TAB PO ×5 (00:15→18:49)
[2018-04-06 06:00] VITALS: BP 109/54; PULSE 54; RESP 17; TEMP 36.8; O2SAT 95
[2018-04-06] MEDS: LEVOTHYROXINE 137 MCG TABLET PO (06:25)
[2018-04-06] MEDS: GABAPENTIN 600 MG TABLET PO ×2 (08:29→20:13)
[2018-04-06] MEDS: LORATADINE 10 MG TABLET PO (08:29)
[2018-04-06] MEDS: DOCUSATE 100 MG CAPSULE PO (08:29)
[2018-04-06] MEDS: HYDROMORPHONE 2 MG TABLET PO (08:29)
[2018-04-06 08:35] VITALS: O2SAT 95
--- NOTE | 2018-04-06 10:45 | PC.NURSE ---
Report called to acute care, RN. Pt belongings gathered and sent with pt. Pt transported to room 203 in bed by ZAY. Pt states he notified his via text of room change. Medicated for pain 12/08 prior to transport.
[2018-04-06 11:00] VITALS: BP 123/70; PULSE 61; RESP 16; TEMP 36.3; O2SAT 96
--- NOTE | 2018-04-06 12:25 | PT.IPTN ---
Current Diagnoses Hyperlipidemia, unspecified (04/02/18) Post-traumatic stress disorder, unspecified (04/02/18) Sleep apnea, unspecified (04/02/18) Other spondylosis with radiculopathy, lumbar region (04/02/18) Spinal stenosis, lumbar region without neurogenic claudication (04/02/18) Arthrodesis status (04/02/18) Surgery Performed Operation Date: 04/02/18 08:45 Actual Procedures p L4-5 TLIF, L4-5, L5-S1 Posterior Spinal Fusion(Not Applicable) - Sarai Washington MD s L5-S1 Hardware Removal(Not Applicable) - Sarai Washington MD Physical Therapy Treatment Note M2 PT-IP Current Condition Start: 04/02/18 16:54 Freq: NEEDED Status: Active Protocol: Document 04/03/18 11:55 [facility] (Rec: 04/03/18 12:34 [facility] [id number]) Physical Therapy Current Condition Current Condition Evaluation Date 04/03/18 Treatment Diagnosis L4-S1 TLIF, revision of L5-S1 fusion, difficulty walking Onset Date 04/02/18 Precautions Lumbar Precautions Log Roll No Twisting Limit Bending Lifting Restriction of 10 lbs Gait Belt above Incisional Area M3 PT-IP Subjective Start: 04/02/18 16:54 Freq: NEEDED Status: Active Protocol: Document 04/06/18 11:50 [facility] (Rec: 04/06/18 12:25 [facility] [id number]) Subjective Physical Therapy Visit Type Type Treatment Note Visit Start Time 11:50 Visit Stop Time 12:13 Total Visit Minutes 23 Number of MAGAZINE PUBLISHER Visits 4 Physical Therapy Visit Comments Patient Comments Pt willing to get up into chair. Therapy Pain Assessment Pain When Pain Assessed At Rest Pain Present Pain Present Pain Reported Location Back Intensity 6 Scale Used Numeric (1 - 10) Pain Behaviors Facial Grimacing Guarding Pain Management Techniques Apply Cold M4 PT-IP Mobility and Gait Start: 04/02/18 16:54 Freq: NEEDED Status: Active Protocol: Document 04/06/18 11:50 [facility] (Rec: 04/06/18 12:25 [facility] [id number]) PT-Bed Mobility Assessment Rolling Type of Rolling Log Rolling Roll to Right Level of Assist Contact Guard Assistance 1 Person Assistance Supine to Sit Supine to Sit Contact Guard Assistance 1 Person Assistance Head of Bed Elevated Scooting Scooting to Edge of Bed Standby Assistance PT-Transfer Assessment Sit to and From Stand Sit to and from Stand Minimal Assistance 1 Person Assistance Use of Upper Extremities Equipment Transfer Assistive Device Gait Belt Front Wheeled Walker Transfers Transfer Destination Chair Transfer Ability Level of Assist Contact Guard Assistance Minimal Assistance Use of Upper Extremities Gait Assessment Gait Gait Assistance Required: Minimum Assistance 1 Person Assist Distance (Feet) 6 Assistive Devices Assistive Device Gait Belt Front Wheeled Walker Gait Deviations General Gait Pattern Antalgic Decreased Stride Length Step-to Gait Factors Limiting Gait Function Factors Limiting Gait Function Decreased Activity Tolerance Decreased Strength Pain Comments Gait Comments Pt needing Min A for advancing walker due to increased pain in back. Pt took steps to chair then went four feet with chair follow. M5 PT-IP Objective Assessments Start: 04/02/18 16:54 Freq: NEEDED Status: Active Protocol: Document 04/03/18 11:55 [facility] (Rec: 04/03/18 12:34 [facility] [id number]) Orientation Orientation/Cognition Level of Alertness Alert Orientation Name Age Birthday Month Date Year Day of Week Place Situation Language Function Ability No Deficits Noted Safety Awareness Understands Safety Issues Memory Description No Deficits Noted Gross Range of Motion Upper Extremity ROM Assessment Within Functional Limits Lower Extremity ROM Assessment Bilaterally Impaired Impairments pain with movement of LE's, hip flexion especially painful for him, cramping in right calf area with ankle and knee movements Strength Upper Extremity Strength Assessment Within Functional Limits Lower Extremity Strength Assessment Left Impaired Ankle DF 4/5 Comments Strength Comments pain limits testing of his LE' s, functional weakness identified during mobility Coordination Assessment Gross Coordination Gross Coordination WNL Sensation Assessment Sensation Gross Sensation Right LE Impaired Sensation Description Tingling Comments Sensation Comments tingling in right foot in standing only, otherwise he describes cramping in his LE's with right worse than left Muscle Tone Muscle Tone WNL Yes M6 PT-IP Treatment Start: 04/02/18 16:54 Freq: NEEDED Status: Active Protocol: Document 04/05/18 15:16 [facility] (Rec: 04/05/18 15:34 [facility] [id number]) Physical Therapy Treatment Exercises Exercises Ankle Pumps Gluteal Sets Seated Knee Flexion/Extension M7 PT-IP Assessment and Plan Start: 04/02/18 16:54 Freq: NEEDED Status: Active Protocol: Document 04/06/18 11:50 [facility] (Rec: 04/06/18 12:25 [facility] [id number]) PT Summary Assessment and Plan Summary Assessment Summary Pt continues to progress slowly due to pain. Pt needing less assist OOB with HOB elevated but needs Min A with advancing walker during gait. Pt c/o knee and quad pain and pins and needles in feet as if walking on glass. Goals Bed Mobility Goal Independent Transfer Goal Standby Assistance Front Wheeled Walker Gait Goal Standby Assistance Front Wheel Walker Gait Distance 50 feet Other Goals Up and down 3 steps without rails with min assist. Up and down 14 steps with rails and CG assist. Days to Meet Goals 3 Frequency of Treatment Frequency Of Treatment Twice a Day Treatment Plan Physical Therapy Treatment Plan Bed Mobility Training Transfer Training Gait Training Therapeutic Exercise Balance Retraining Post Op Education Discharge Planning Hot or Cold Pack Recommendations To Nursing Amount of Assist Needed 1 Person Assist Discharge Recommendations PT Discharge Recommendations SNF Rehab
--- NOTE | 2018-04-06 14:57 | P.PN_ITS ---
Subjective Date Patient Seen: 04/06/18 Time Patient Seen: 14:55 Interval history: Connor notes that he is doing better overall but he still has a little numbness and tingling in bilateral lower extremities. His sciatica substantially improved in comparison to preoperatively that he is having a back pain of the least about a 6 on a fairly continuous basis. He has been out of bed with therapy and has mobilized some but does not feel independent for discharge to home. Exam Vital Signs (past 8 hours): - 04/06/18 08:35 04/06/18 11:00 Temperature 97.3 F L Pulse Rate 61 Respiratory Rate 16 Blood Pressure 123/70 Pulse Oximetry 95 96 Oxygen Delivery Method Room Air Oxygen Flow Rate 0 Narrative Exam Narrative: Dressings benign, stable to fire his toe flexors and extensors is calfs are soft bilaterally as some mild numbness in bilateral feet , abdomen is benign, sitting up comfortably in a chair. Objective Labs Result Diagrams: 04/03/18 05:30 Assessment & Plan Plan: Assessment/Plan Narrative: Improving status post extensive spine surgery with some numbness in bilateral lower extremities. I gave him a dose of a deck at home yesterday and got some benefit from that I think we will try additional Decadron today because of the numbness and slight dysesthetic sensation in his feet. Anticipate discharge to long-term facility tomorrow. Quality VTE Deep Vein Thrombosis/Pulmonary Embolism Present on Admission: No
[2018-04-06 15:15] VITALS: BP 133/91; PULSE 63; RESP 16; TEMP 36.2; O2SAT 96
--- NOTE | 2018-04-06 15:25 | PT.IPTN ---
Current Diagnoses Hyperlipidemia, unspecified (04/02/18) Post-traumatic stress disorder, unspecified (04/02/18) Sleep apnea, unspecified (04/02/18) Other spondylosis with radiculopathy, lumbar region (04/02/18) Spinal stenosis, lumbar region without neurogenic claudication (04/02/18) Arthrodesis status (04/02/18) Surgery Performed Operation Date: 04/02/18 08:45 Actual Procedures p L4-5 TLIF, L4-5, L5-S1 Posterior Spinal Fusion(Not Applicable) - Sarai Washington MD s L5-S1 Hardware Removal(Not Applicable) - Sarai Washington MD Physical Therapy Treatment Note M2 PT-IP Current Condition Start: 04/02/18 16:54 Freq: NEEDED Status: Active Protocol: Document 04/06/18 15:25 RCC (Rec: 04/06/18 15:30 RCC [id number]) Physical Therapy Current Condition Current Condition Evaluation Date 04/03/18 Treatment Diagnosis L4-S1 TLIF, revision of L5-S1 fusion, difficulty walking Onset Date 04/02/18 Precautions Lumbar Precautions Log Roll No Twisting Limit Bending Lifting Restriction of 10 lbs Gait Belt above Incisional Area M3 PT-IP Subjective Start: 04/02/18 16:54 Freq: NEEDED Status: Active Protocol: Document 04/06/18 15:25 RCC (Rec: 04/06/18 15:30 RCC [id number]) Subjective Physical Therapy Visit Type Type Treatment Note Visit Start Time 15:00 Visit Stop Time 15:25 Total Visit Minutes 25 Number of PUBLIC POLICY ANALYST Visits 0 Physical Therapy Visit Comments Patient Comments pt just back to bed but agreeable to get up. Therapy Pain Assessment Pain Present Pain Present Pain Reported Location Back Intensity 6 Scale Used Numeric (1 - 10) M4 PT-IP Mobility and Gait Start: 04/02/18 16:54 Freq: NEEDED Status: Active Protocol: Document 04/06/18 15:25 RCC (Rec: 04/06/18 15:30 RCC [id number]) PT-Bed Mobility Assessment Rolling Type of Rolling Log Rolling Level of Assist Minimal Assistance Moderate Assistance Supine to Sit Supine to Sit Minimal Assistance Sit to Supine Sit to Supine Moderate Assistance Scooting Scooting to Edge of Bed Standby Assistance PT-Transfer Assessment Sit to and From Stand Sit to and from Stand Contact Guard Assistance Equipment Transfer Assistive Device Gait Belt Front Wheeled Walker Transfers Transfer Destination Bed Chair Transfer Technique Stand Step Pivot Transfer Ability Level of Assist Contact Guard Assistance Comments Mobility Comments gait x4 ft, transfer to chair, then transfer back to bed Gait Assessment Gait Gait Assistance Required: Contact Guard Assist Distance (Feet) 4 Assistive Devices Assistive Device Gait Belt Front Wheeled Walker Gait Deviations General Gait Pattern Antalgic Decreased Stride Length Decreased Feet Clearance Step-to Gait Factors Limiting Gait Function Factors Limiting Gait Function Decreased Activity Tolerance Decreased Strength Pain Comments Gait Comments pt able to advance FWW forward , but unable to advance FWW without manual assist when taking lateral or backward transfer steps. M5 PT-IP Objective Assessments Start: 04/02/18 16:54 Freq: NEEDED Status: Active Protocol: Document 04/03/18 11:55 DLM (Rec: 04/03/18 12:34 DLM [id number]) Orientation Orientation/Cognition Level of Alertness Alert Orientation Name Age Birthday Month Date Year Day of Week Place Situation Language Function Ability No Deficits Noted Safety Awareness Understands Safety Issues Memory Description No Deficits Noted Gross Range of Motion Upper Extremity ROM Assessment Within Functional Limits Lower Extremity ROM Assessment Bilaterally Impaired Impairments pain with movement of LE's, hip flexion especially painful for him, cramping in right calf area with ankle and knee movements Strength Upper Extremity Strength Assessment Within Functional Limits Lower Extremity Strength Assessment Left Impaired Ankle DF 4/5 Comments Strength Comments pain limits testing of his LE' s, functional weakness identified during mobility Coordination Assessment Gross Coordination Gross Coordination WNL Sensation Assessment Sensation Gross Sensation Right LE Impaired Sensation Description Tingling Comments Sensation Comments tingling in right foot in standing only, otherwise he describes cramping in his LE's with right worse than left Muscle Tone Muscle Tone WNL Yes M6 PT-IP Treatment Start: 04/02/18 16:54 Freq: NEEDED Status: Active Protocol: Document 04/05/18 15:16 LJ (Rec: 04/05/18 15:34 LJ [id number]) Physical Therapy Treatment Exercises Exercises Ankle Pumps Gluteal Sets Seated Knee Flexion/Extension M7 PT-IP Assessment and Plan Start: 04/02/18 16:54 Freq: NEEDED Status: Active Protocol: Document 04/06/18 15:25 RCC (Rec: 04/06/18 15:30 RCC [id number]) PT Summary Assessment and Plan Summary Progress Towards Goals Slow Progress due to Pain Slow Progress due to Activity Tolerance Assessment Summary Pt continues to be limited with mobility due to severity of pain and radicular pain/ symptoms. Pt is highly motivated to improve and continue to advance. Pt will require SNF rehabilitation upon d/c in order to progress his activity tolerance, gait, safety, strength, and balance to promote improvements with functional independence. Goals Bed Mobility Goal Independent Transfer Goal Standby Assistance Front Wheeled Walker Gait Goal Standby Assistance Front Wheel Walker Gait Distance 50 feet Other Goals Up and down 3 steps without rails with min assist. Up and down 14 steps with rails and CG assist. Days to Meet Goals 3 Frequency of Treatment Frequency Of Treatment Twice a Day Treatment Plan Other Recommendations and Next Treatment prog. gait, transfers, Focus advancement of FWW Recommendations To Nursing Amount of Assist Needed 1 Person Assist Discharge Recommendations PT Discharge Recommendations SNF Rehab
[2018-04-06] MEDS: hydrOXYzine pamoate 25 MG CAPSULE PO ×2 (15:48→20:31)
[2018-04-06 19:39] VITALS: BP 129/79; PULSE 61; RESP 16; TEMP 36.6; O2SAT 96
[2018-04-06] MEDS: ZOLPIDEM 5 MG TABLET 10 MG PO (20:13)
[2018-04-06] MEDS: DEXAMETHASONE 4 MG TABLET PO (20:14)
[2018-04-07] VITALS: O2SAT 94
[2018-04-07 00:20] VITALS: BP 115/64; PULSE 58; RESP 16; TEMP 36.3; O2SAT 94
[2018-04-07] MEDS: HYDROCODONE/ACET 10/325 TABLET 1 TAB PO ×4 (00:22→12:22)
[2018-04-07] MEDS: hydrOXYzine pamoate 25 MG CAPSULE PO ×2 (00:23→04:13)
[2018-04-07 04:18] VITALS: BP 111/71; PULSE 68; RESP 16; TEMP 36.3; O2SAT 96
[2018-04-07] MEDS: DEXAMETHASONE 4 MG TABLET PO ×2 (05:49→12:22)
[2018-04-07] MEDS: LEVOTHYROXINE 137 MCG TABLET PO (05:49)
--- NOTE | 2018-04-07 07:26 | P.DS_ITS ---
History of Present Illness Date Patient Seen: 04/07/18 Chief complaint: [id number] Narrative: Patient seen bedside s/p TLIF POD #5. Patient is improved today although he still has some residual numbness/tingling in his feet. He feels that the steroids are helping with this. Denies any fever, chills, increased urinary urgency or pain with urination. He denies SOB, CP, or calf pain. Discharge Providers Date of admission: 04/02/18 07:06 Primary care physician: Madison Benson DO Consults: 04/02/18 13:44 Consult to Occupational Therapy Evaluate & Treat Comment: Physician Instructions: Evaluate and treat Consult to Physical Therapy Evaluate & Treat Comment: Physician Instructions: Evaluate and Treat 04/02/18 16:05 Consult to Respiratory Therapy Evaluate & Treat Comment: MOE, instructed to bring home CPAP, post L4-5 TLIF Physician Instructions: Evaluate and treat Discharge provider: Alyson Jackson PA-C Discharge Date: 04/07/18 Summary Discharge Diagnosis: 1. L4-5, L5-S1 spinal stenosis 2. Hx of L5-S1 fusion 3. L4-5 spondylosis with radiculopathy Hospital Course: Patient was admitted s/p L4-5 Postero-lateral and posterior interbody fusion with L4-5 interbody cage placement, L4-5 decompressive laminectomy with bilateral facetecomies, L4-5 L5-S1 Posterior segmental instrumentation, L5-S1 posterior non-segmental hardware removal, L5-S1 exploration of fusion with left hemilaminectomy and L5-S1 posterolateral fusion by Dr. Washington on 04/02/18. Patient tolerated the procedure well with no major complications. [facility]. He was seen by physical therapy who recommended discharge to a SNF. He did have some LE numbness/tingling post-operatively that improved with decadron. Patient was stable and ready for discharge on 04/07/18. Status at Discharge Cognitive/behavioral status at discharge: Alert & oriented. Functional status at discharge: uses cane/walker Overall status at discharge: patient is progressing back to baseline Time Spent with Patient Less than 30 minutes Exam Vital Signs (past 8 hours): - 04/07/18 00:00 04/07/18 00:20 04/07/18 04:18 Temperature 97.3 F L 97.4 F L Pulse Rate 58 L 68 Respiratory Rate 16 16 Blood Pressure 115/64 111/71 Pulse Oximetry 94 94 96 Oxygen Delivery Method Room Air Oxygen Flow Rate 0 Narrative Exam Narrative: WDWN NAD A&Ox3. Patient has full ROM of the knees and ankle with soft and compressible calves. No focal deficits noted. Dressing on posterior spine is clean,dry, and intact with no signs of erythema or discharge. Objective Labs Result Diagrams: 04/03/18 05:30 Discharge Plan Discharge Plan Patient Disposition: SNF Transfer to: [facility] Under care of provider: pcp Discharge comment: Continue steroids for a total of 3 days. I certify the postop hospital longterm care is medically necessary on a continuing basis for any conditions for which he/ she received care during this hospitalization.: Yes The receiving facility has agreed to accept transfer and provide medical treatment.: Yes Discharge Med Rec/Prescriptions Prescriptions: New sennosides [senna] 8.6 mg Tablet 17.2 mg PO BEDTIME Qty: 0 RF: 0 acetaminophen 325 mg Tablet 650 mg PO Q6HR PRN (Reason: Pain, Mild (1-3)) Qty: 0 RF: 0 hydromorphone 2 mg Tablet 2 mg PO Q4H PRN (Reason: Pain, Severe (7-10)) Qty: 12 RF: 0 bisacodyl 10 mg Suppository 10 mg DC PRN PRN (Reason: Constipation) Qty: 0 RF: 0 dexamethasone 4 mg Tablet 4 mg PO Q8HR 3 Days Qty: 0 RF: 0 docusate sodium 100 mg Capsule 100 mg PO BID Qty: 0 RF: 0 hydroxyzine pamoate 25 mg Capsule 25 mg PO Q4HR PRN (Reason: Nausea And Vomiting) Qty: 0 RF: 0 Continue loratadine [Claritin] 10 MG tablet 10 mg PO QDAY Qty: 0 RF: 0 zolpidem 10 MG tablet 10 mg PO HS Qty: 0 RF: 0 gabapentin [Neurontin] 600 MG tablet 600 mg PO BID Qty: 60 RF: 1 naproxen sodium [Aleve] 220 mg Capsule 220 mg PO BID RF: 0 levothyroxine 137 mcg tablet 1 tab PO QAM RF: 0 Discontinued hydrocodone-acetaminophen 5-325 mg Tablet 1 tab PO BID RF: 0 Follow up/Referrals: Sarai Washington MD [Physician] - 04/14/18 2:20 pm (Follow up Alyson Jackson PA-C at the [facility] [employer] [facility] [facility].) Discharge Health Status Precautions: [place] Provider Discharge Instructions Diet: Diet as Tolerated Activity: weightbearing as tolerated, use walker until cleared by physical therapy Cold/Heat Therapy: Apply ice for 20 minutes at a time as needed to surgical site. Skin/Wound/Dressing Care Report to your healthcare provider any signs of infection, such as:: chills, fever, night sweats, increased pain and unusual drainage Dressing: Keep dressing clean, dry, and intact until post-operative visit. [place] to be removed at post-op visit. [facility] Reason for rehabilitation: Post-operative therapy Rehab type: Physical therapy and Occupational therapy Restrictions to mobility: No lifting greater than 5 lbs, no twisting/bending/ squatting Visit Report/Discharge Packet Instructions: DI for Transforaminal Lumbar Interbody Fusion Discharge Data Primary Care Provider: Madison Benson Attending Provider: Sarai Washington Admit Date/Time: 04/02/18 07:06 Quality VTE Deep Vein Thrombosis/Pulmonary Embolism Present on Admission: No
[2018-04-07 07:30] VITALS: O2SAT 97
[2018-04-07 08:00] VITALS: BP 120/71; PULSE 55; RESP 16; TEMP 36.4; O2SAT 97
[2018-04-07] MEDS: LORATADINE 10 MG TABLET PO (08:25)
[2018-04-07] MEDS: GABAPENTIN 600 MG TABLET PO (08:25)
--- NOTE | 2018-04-07 09:49 | PT.IPTN ---
Current Diagnoses Hyperlipidemia, unspecified (04/02/18) Post-traumatic stress disorder, unspecified (04/02/18) Sleep apnea, unspecified (04/02/18) Other spondylosis with radiculopathy, lumbar region (04/02/18) Spinal stenosis, lumbar region without neurogenic claudication (04/02/18) Arthrodesis status (04/02/18) Surgery Performed Operation Date: 04/02/18 08:45 Actual Procedures p L4-5 TLIF, L4-5, L5-S1 Posterior Spinal Fusion(Not Applicable) - Sarai Washington MD s L5-S1 Hardware Removal(Not Applicable) - Sarai Washington MD Physical Therapy Treatment Note M2 PT-IP Current Condition Start: 04/02/18 16:54 Freq: NEEDED Status: Active Protocol: Document 04/06/18 15:25 RCC (Rec: 04/06/18 15:30 RCC [id number]) Physical Therapy Current Condition Current Condition Evaluation Date 04/03/18 Treatment Diagnosis L4-S1 TLIF, revision of L5-S1 fusion, difficulty walking Onset Date 04/02/18 Precautions Lumbar Precautions Log Roll No Twisting Limit Bending Lifting Restriction of 10 lbs Gait Belt above Incisional Area M3 PT-IP Subjective Start: 04/02/18 16:54 Freq: NEEDED Status: Active Protocol: Document 04/07/18 09:10 CLB (Rec: 04/07/18 09:49 CLB [id number]) Subjective Physical Therapy Visit Type Type Treatment Note Visit Start Time 09:10 Visit Stop Time 09:35 Total Visit Minutes 25 Number of BUSINESS CONSULT Visits 1 Physical Therapy Visit Comments Patient Comments Pt willing to do therapy. Therapy Pain Assessment Pain Present Pain Present Pain Reported M4 PT-IP Mobility and Gait Start: 04/02/18 16:54 Freq: NEEDED Status: Active Protocol: Document 04/07/18 09:10 CLB (Rec: 04/07/18 09:49 CLB [id number]) PT-Bed Mobility Assessment Rolling Type of Rolling Log Rolling Level of Assist Minimal Assistance Supine to Sit Supine to Sit Minimal Assistance Scooting Scooting to Edge of Bed Standby Assistance PT-Transfer Assessment Sit to and From Stand Sit to and from Stand Contact Guard Assistance Equipment Transfer Assistive Device Gait Belt Front Wheeled Walker Transfers Transfer Destination Chair Transfer Ability Level of Assist Contact Guard Assistance Gait Assessment Gait Gait Assistance Required: Minimum Assistance 1 Person Assist Distance (Feet) 8 Assistive Devices Assistive Device Gait Belt Front Wheeled Walker Gait Deviations General Gait Pattern Antalgic Decreased Stride Length Decreased Feet Clearance Step-to Gait Factors Limiting Gait Function Factors Limiting Gait Function Decreased Activity Tolerance Decreased Strength Pain Comments Gait Comments Pt needing assist with FWW advance this morning. Pt able to increase ambulation with chair follow. M5 PT-IP Objective Assessments Start: 04/02/18 16:54 Freq: NEEDED Status: Active Protocol: Document 04/03/18 11:55 DLM (Rec: 04/03/18 12:34 DLM [id number]) Orientation Orientation/Cognition Level of Alertness Alert Orientation Name Age Birthday Month Date Year Day of Week Place Situation Language Function Ability No Deficits Noted Safety Awareness Understands Safety Issues Memory Description No Deficits Noted Gross Range of Motion Upper Extremity ROM Assessment Within Functional Limits Lower Extremity ROM Assessment Bilaterally Impaired Impairments pain with movement of LE's, hip flexion especially painful for him, cramping in right calf area with ankle and knee movements Strength Upper Extremity Strength Assessment Within Functional Limits Lower Extremity Strength Assessment Left Impaired Ankle DF 4/5 Comments Strength Comments pain limits testing of his LE' s, functional weakness identified during mobility Coordination Assessment Gross Coordination Gross Coordination WNL Sensation Assessment Sensation Gross Sensation Right LE Impaired Sensation Description Tingling Comments Sensation Comments tingling in right foot in standing only, otherwise he describes cramping in his LE's with right worse than left Muscle Tone Muscle Tone WNL Yes M6 PT-IP Treatment Start: 04/02/18 16:54 Freq: NEEDED Status: Active Protocol: Document 04/05/18 15:16 LJ (Rec: 04/05/18 15:34 LJ [id number]) Physical Therapy Treatment Exercises Exercises Ankle Pumps Gluteal Sets Seated Knee Flexion/Extension M7 PT-IP Assessment and Plan Start: 04/02/18 16:54 Freq: NEEDED Status: Active Protocol: Document 04/07/18 09:10 CLB (Rec: 04/07/18 09:49 CLB [id number]) PT Summary Assessment and Plan Summary Progress Towards Goals Slow Progress due to Pain Slow Progress due to Activity Tolerance Assessment Summary Pt improving with bed mobility and gait. However, pt is progressing slowly due to pain . Pt will require SNF rehabilitation upon d/c in order to progress his activity tolerance, gait, safety, strength, and balance to promote improvements with functional independence. Goals Bed Mobility Goal Independent Transfer Goal Standby Assistance Front Wheeled Walker Gait Goal Standby Assistance Front Wheel Walker Gait Distance 50 feet Other Goals Up and down 3 steps without rails with min assist. Up and down 14 steps with rails and CG assist. Days to Meet Goals 3 Frequency of Treatment Frequency Of Treatment Twice a Day Treatment Plan Other Recommendations and Next Treatment prog. gait, transfers, Focus advancement of FWW Recommendations To Nursing Amount of Assist Needed 1 Person Assist Discharge Recommendations PT Discharge Recommendations SNF Rehab
--- NOTE | 2018-04-07 11:44 | PT.IPNOTE ---
PT POC update Pt is discharging to SNF for ongoing rehab later today. Pt has no other acute PT goals/needs to meet in that timeframe, therefore, acute PT will sign off with the anticipation that pt will continue to mobilize with nursing staff prior to discharge. CONI SowT
--- NOTE | 2018-04-07 12:22 | CM.DPC ---
DCP/continued: Reviewed chart. Received notification from Orthopedic team that patient is medically stable for d/c to SNF today. REEXAMINER reviewed notes. First SNF choice is [facility]. Placed call to [facility] spoke with Iliana. She confirms they can accept and will call CM team back with pickle water pump operator time. REEXAMINER requested TRAINING INTERN/Vy fax d/c packet and PASRR to [facility]. Met with patient and spouse/Ginny at bedside and confirmed plan. Both patient and spouse aware and agreeable. [facility] called and pickle water pump operator scheduled for 12:30pm. RN, patient, and spouse updated. P: FCC today. Discharge Planning/Care Management CM Discharge Assessment Start: 04/03/18 13:02 Freq: Status: Active Protocol: Document 04/03/18 14:26 ANGEL (Rec: 04/03/18 14:35 ANGEL [id number]) Discharge Planning Assessment Assigned Customer Account Manager JENNIFER Young DPOA/Assigned Designee Name Brenda Valentino, spouse Contact Information [phone] Advance Directives? Yes Advance Directives on File No History Provided By Patient Significant Other Prior Living Arrangements House Household Members spouse children Type of transporation used prior to Drives own vehicle admit Independent with ADL's Yes Is patient alert and oriented? Yes Patient/Family Preference Senior Care Facility Comment Pt hopeful he can return home but spouse adamant today about pt's need for SNF upon DC. Pt /spouse request [facility], pt has been there in the past. B/u choice is [facility]. Barriers to Discharge Yes Comment Barriers to DC home: pain, weakness, many stairs. Pt has Medicare/, SNF seems to be the safe option for pt and spouse at this time. Discharge Plan Senior Care Facility Transportation Arrangement w/c vs pov Referrals Initiated Senior Care Additional Comment Spouse requests referral to [facility] today. Spoke w/Umair at [facility], discussed referral. If, after clinical review, pt was accepted, a bed would be available Saturday. Relayed this to pt's spouse who requested that pt remain at until Saturday for [facility] DC. Brenda aware that if pt is medically stable he may be DC before Saturday. Inpatient Status as of 04/03/18 Medicare Choice List Provided Yes SNF/HH Preference 1. [facility] 2. [facility] Has Agency SNF been contacted Yes Whiteboard Updated in Patient Room with Yes name and ext. # of Customer Account Manager Review Status In Process Please Provide Date Initial DC 04/03/18 Assessment Was Performed Document 04/07/18 12:22 BRIANNE (Rec: 04/07/18 12:22 [facility] [id number]) Discharge Planning Assessment Assigned Customer Account Manager JENNIFER Kerr DPOA/Assigned Designee Name Brenda Valentino, spouse Contact Information [phone] Advance Directives? Yes Advance Directives on File No History Provided By Patient Significant Other Prior Living Arrangements House Household Members spouse children Type of transporation used prior to Drives own vehicle admit Independent with ADL's Yes Is patient alert and oriented? Yes Patient/Family Preference Senior Care Facility Comment Pt hopeful he can return home but spouse adamant today about pt's need for SNF upon DC. Pt /spouse request [facility], pt has been there in the past. B/u choice [facility] Barriers to Discharge Yes Comment Barriers to DC home: pain, weakness, many stairs. Pt has Medicare/, SNF seems to be the safe option for pt and spouse at this time. Discharge Plan Senior Care Facility Transportation Arrangement w/c vs pov Referrals Initiated Senior Care Additional Comment Spouse requests referral to [facility] today. Spoke w/Umair at [facility], discussed referral. If, after clinical review, pt was accepted, a bed would be available Saturday. Relayed this to pt's spouse who requested that pt remain at until Saturday for [facility] DC. Brenda aware that if pt is medically stable he may be DC before Saturday. Inpatient Status as of 04/03/18 Medicare Choice List Provided Yes SNF/HH Preference 1. [facility] 2. [facility] Has Agency SNF been contacted Yes Whiteboard Updated in Patient Room with Yes name and ext. # of Customer Account Manager Review Status In Process Please Provide Date Initial DC 04/03/18 Assessment Was Performed Pre-Anesthesia Assessment Start: 03/26/18 13:54 Freq: Status: Complete Protocol: Document 03/26/18 13:54 CAB (Rec: 03/26/18 14:16 CAB [id number]) Pre-Anesthesia Assessment Patient Information Reviewed Via Phone Assessment Assessment Completed With Patient Lab Results EKG Comment Pre-op EKG compared with previous at [facility] w/Dr. Cooney, no sig change Primary Care Provider Madison Benson Seen Specialist in Last 12 Months Yes Specialist Seen Orthopedist Other Comment Neurology/Dr Younger Primary Language Maltese Marketing Technology Specialist Required No Height 175.26 cm Weight 87.997 kg Body Mass Index (BMI) 28.6 Hearing Ability Normal Visual Impairment No Limitations Visual Assist None Dentition Type Teeth, Natural Present Dental Implants Barriers to Learning None Hx Anesthesia Reactions No Hx Family Anesthesia Reaction No Hx Malignant Hyperthermia No Hx Blood Transfusions No Anesthesia Review Requested No Condominium Manager No alcohol intake current alcohol intake frequency a few times a week Smoking Status Former smoker how long ago did patient quit smoking Quite age 21 Substance Use Type does not use Pain Present Pain Reported Musculoskeletal Symptoms Abnormal Gait Back Pain Difficulty Walking Numbness Radiating Pain into Limb History of Falling (Recent or History of No ) Patient is completely paralyzed or No: My left leg is dragging completely immobile Mental Status Oriented to own ability Is patient on oxygen? No Does patient have MESA/SOB No Hx Sleep Apnea Yes CPAP/BIPAP use prescribed and used routinely Will Bring CPAP/BIPAP DOS Yes Currently Taking a Beta Ml No Can You Climb a Flight of Stairs Without Yes SOB Hx Chest Pain No Hx SOB No Hx Syncope or Dizziness No Anti-Coagulant Therapy No Has a Blogs Manager No Cardiac Testing No Hx Pacemaker/ICD No Pacemaker Rep Required? No Cardiac Clearance Received Not Applicable Diet Type At Home Regular dysphagia No Urinary Catheter Present No Hx Urinary Self Catheterization No Diabetes No Hx Drug Resistant Organism No Presence of External or Internal Medical Yes Devices Comment Hardware in lumbar spine, right knee, left shoulder Have you traveled outside the [facility] States in the last 30 days? Marital Status Lives With spouse children Prior Living Arrangements House Number of Floors (Floors) Two Floors Number of Stairs To Enter/Railing? 3 stairs, no railing Support System Child/Children Spouse Does the Patient Have Assistance After Yes Surgery Patient Discharge Plan Description Return Home Comment Pt advised 3 day length of stay per surgeon's office Feels Safe in Current Environment Yes Been Physically Hurt or Threatened By a No Person in Current Environment Do you have thoughts of harming yourself None or others? Are you currently considering suicide? No Do you have a plan to hurt yourself or No Plan others? Do You Have Any Spiritual Beliefs That No May Affect Your HC Choices? Do You Have Any Cultural Practices That No May Affect Your HC Choices? Spiritual Referral None Comment Pentecostal Who Can We Speak to About Patient's Care Family, Friends Identifying Code for Release of Patient Declines to issue Information Health Care Proxy/Next of Kin Brenda Valentino () Health Care Proxy Emergency Contact Name Brenda Valentino () Emergency Contact Advance Directives? Yes Advance Directives on File No Requested Patient Bring Advanced Yes Directives DOS PAC Instructions Bring CPAP/BIPAP Durable medical equipment Medications to take/avoid Nasal antibiotic No ETOH/petroleum product on skin DOS NPO Ortho class Pre-surgical wash Sturdy shoes/comfortable clothes Do not bring valuables and remove jewelry
--- NOTE | 2018-04-07 12:42 | PC.NURSE ---
called report to Betsy at [facility] all questions answered to satisfaction. patient left w/ packet by wc with [facility] personel, all belongings and spouse.
== END 2018-04-07 12:43 | DRG 454 ==
LOC: AC 10:29 → ICU 16:49 → AC 04-06 11:30
PROVIDERS: Physician Assistant Surgical; Admitting Provider Orthopaedic Surgery Orthopaedic Surgery of the Spine; PCP Family Medicine; Visit Provider Orthopaedic Surgery Orthopaedic Surgery of the Spine
PROC: 0SG00AJ Fusion of Lumbar Vertebral Joint with Interbody Fusion Device, Posterior Approach, Anterior Column, Open Approach (ICD-10-PCS; principal; 2018-04-02 08:45)
PROC: 0SG00AJ Fusion of Lumbar Vertebral Joint with Interbody Fusion Device, Posterior Approach, Anterior Column, Open Approach (ICD-10-PCS; 2018-04-02 08:45)
DX: M48.061 Spinal stenosis, lumbar region without neurogenic claudication (principal); M96.0 Pseudarthrosis after fusion or arthrodesis; M47.26 Other spondylosis with radiculopathy, lumbar region; Z98.1 Arthrodesis status; G47.33 Obstructive sleep apnea (adult) (pediatric); E78.5 Hyperlipidemia, unspecified; Z87.891 Personal history of nicotine dependence; E03.9 Hypothyroidism, unspecified; R09.02 Hypoxemia; T40.605A Adverse effect of unspecified narcotics, initial encounter; Y92.230 Patient room in hospital as the place of occurrence of the external cause; M48.07 Spinal stenosis, lumbosacral region; F43.10 Post-traumatic stress disorder, unspecified; M54.5 Low back pain
CPT/HCPCS: 36415; 72100; 76001; 85014; 85018; 94660; 94762; 97110; 97116; 97163; 97165; 97530; C1776; J0131; J0330; J0690; J1100; J1170; J2250; J2405; J2704; J3010

== ENCOUNTER → 2018-11-06 15:20 | Outpatient (CLI) | payer MEDICARE, OTHER, SELFPAY ==
[2018-04-02 14:37] VITALS: BMI 27.3
--- NOTE | 2018-11-06 | DI.MRI.S_ITS ---
PROCEDURE: MR LUMBAR SPINE WO CON INDICATIONS: LOW BACK PAIN TECHNIQUE: Noncontrast sagittal T1 spin echo and T2 fast echo, sagittal STIR, axial T1 and T2 fast spin echo through the lumbar spine. In cases with scoliosis, additional coronal T2 fast spin echo may be performed. COMPARISON: [facility] [place], [place], XR LUMBAR SPINE 2 OR 3 VIEWS, 10/30/2018, 14:26. [facility], , L-SPINE WITHOUT CONTRAST, 10/05/2016, 15:16. FINDINGS: Image quality: Susceptibility artifact from patient's known lower lumbar spine fusion hardware is seen.. Alignment and Curvature: There is mild levoscoliosis of thoracolumbar spine centered at T12-L1 level and compensatory mild dextroscoliosis of lumbar spine centered at L3 level. No spondylolisthesis. Bone Marrow: Patient is status post fusion of lower lumbar spine from L4-S1 levels with intervertebral spacer placement at L4-5 and L5-S1 levels. No acute vertebral body compression fracture is seen. Vertebral body heights are preserved. Spinal Cord: Conus medullaris terminates at the L1 level. Visualized cord demonstrates normal signal and size. Paraspinous Soft Tissues: No paravertebral masses. L1-L2: Significant decrease intervertebral disc space and degenerative endplate changes are seen. There is diffuse disc bulge and bilateral facet arthrosis causing moderate central canal stenosis and right-sided neural foramina narrowing. There is compression of exiting right L1 nerve root. L2-L3: Decreased intervertebral disc space and disc desiccation signal is seen. Degenerative endplate changes also noted. There is broad-based disc bulge and bilateral facet arthrosis causing moderate to severe central canal stenosis and bilateral neural foramina narrowing. There is compression of left L2 nerve root. L3-L4: Decreased intervertebral disc space and disc desiccation signals are seen. There is diffuse disc bulge and bilateral facet arthrosis causing mild to moderate central canal stenosis, no significant neural foramina narrowing. L4-L5: Broad-based disc bulge and bilateral facet arthrosis is seen with hypertrophy of ligamentum flavum. Mild central canal stenosis is seen. Mild bilateral neuroforaminal narrowing is noted. L5-S1: There is suggestion of diffuse disc bulge and bilateral facet arthrosis with mild central canal stenosis and mild bilateral neural foramina narrowing. IMPRESSION: 1. Mild scoliosis of lumbar spine as described above. No compression fracture. No significant spondylolisthesis. 2. Patient is status post transpedicular fusion at L4-S1 levels. 3. Degenerative disc bulge and bilateral facet arthrosis throughout lumbar spine causing [id number] central canal stenosis and bilateral neuroforaminal narrowing most prominent at L2-3 level as described above. Dictated by: Josiah Avery M.D. on 11/06/2018 at 16:36 Approved by: Josiah Avery M.D. on 11/06/2018 at 16:42
== END ==
PROVIDERS: PCP Family Medicine; Visit Provider Orthopaedic Surgery Orthopaedic Surgery of the Spine
DX: M54.5 Low back pain (principal); M51.16 Intervertebral disc disorders with radiculopathy, lumbar region; M48.061 Spinal stenosis, lumbar region without neurogenic claudication; M41.85 Other forms of scoliosis, thoracolumbar region; Z98.1 Arthrodesis status
CPT/HCPCS: 72148

== ENCOUNTER → 2019-06-30 14:04 | Outpatient (CLI) | payer MEDICARE, OTHER, SELFPAY ==
[2018-04-02 14:37] VITALS: BMI 27.3
[2019-06-30 14:32] LABS: Add Manual Diff / Slide Review NO; Basophils Absolute Auto 0 /uL (0-100); Basophils Percent Auto 0.6 % (0-2); Eosinophils Absolute Auto 200 /uL (0-450); Eosinophils Percent Auto 2.9 % (2-4); Hematocrit 42.8 % (41-53); Hemoglobin 14.9 g/dL (13.5-17.5); Lymphocytes Absolute Auto 1300 /uL (1100-4500); Lymphocytes Percent Auto 21.2 % (25-40); Mean Corpuscular HGB Conc 34.7 % (30-36); Mean Corpuscular Hemoglobin 30.6 PG (26-34); Mean Corpuscular Volume 88.3 fL (80-100); Monocytes Absolute Auto 600 /uL (0-900); Monocytes Percent Auto 9.9 % (3-14); Neutrophils Absolute Auto 4000 /uL (1500-7000); Neutrophils Percent Auto 65.4 % (50-75); Platelet Count 239 X10^3/uL (150-400); Red Blood Cell Count 4.85 X10^6/uL (4.5-5.9); Red Cell Distribution Width 13.5 % (11.6-14.8); White Blood Cell Count 6.2 X10^3/uL (4.5-11.0)
[2019-06-30 14:46] LABS: Blood Urea Nitrogen 18 mg/dL (9-20); Carbon Dioxide 29 mmol/L (22-32); Chloride 104 mmol/L (98-107); Estimated Glomerular Filt Rate > 60.0 mL/min (>60); Glucose 97 mg/dL (70-100); HEMOLYSIS < 15 (0-50); Potassium 4.2 mmol/L (3.4-5.1); Sodium 142 mmol/L (137-145)
== END ==
PROVIDERS: Family Provider Family Medicine; PCP Family Medicine; Visit Provider Orthopaedic Surgery Orthopaedic Surgery of the Spine
DX: Z01.812 Encounter for preprocedural laboratory examination (principal)
CPT/HCPCS: 36415; 80048; 85025; 93005

== ENCOUNTER 2019-07-08 06:12 | Inpatient (IN) | payer MEDICARE, OTHER, SELFPAY ==
[2018-04-02 14:37] VITALS: BMI 27.3
[2019-07-02 13:41] VITALS: BMI 26.6
[2019-07-08] VITALS (19 sets, daily range): BP systolic 126–198; BP diastolic 79–99; PULSE 60–102; RESP 11–18; TEMP 36.6–37.5; O2SAT 90–100; BMI 26.6
--- NOTE | 2019-07-08 | DI.RAD.S_ITS ---
PROCEDURE: XR LUMBAR SPINE 2-3V INDICATIONS: L1-2, L2-3 T.L.I.F. TECHNIQUE: 4 views of the lumbar spine were acquired. COMPARISON: [facility], [place], XR LUMBAR SPINE 2-3V, 04/02/2018, 10:12. [facility], [place], L-SPINE 2-3 VIEWS, 01/30/2017, 14:57. FINDINGS: Bones: 5 [id number] vertebrae are present. There is normal bony alignment maintained by bilateral transverse pedicle screws and vertical fixation rods which have been progressively extended from 01/30/17 to 04/02/18, to the current study. No vertebral body compression fractures. No suspicious bony lesions. Soft tissues: Overlying bowel gas pattern is normal. No suspicious soft tissue calcifications. IMPRESSION: Extension of prior posterior spine fusion procedure, now also encompassing L1 through L4 in addition to the prior L4-S1 level fusion. Normal alignment established. Interbody disc cage fixators are present at L1-2, L2-3 as new structures, and also at L4-L5 and L5-S1 as prior structures. Dictated by: Zeferino Bullock M.D. on 07/08/2019 at 13:10 Approved by: Zeferino Bullock M.D. on 07/08/2019 at 13:14
[2019-07-08] MEDS: LACTATED RINGERS 1,000 ML 42 ML IV ×3 (07:10→12:52)
[2019-07-08] MEDS: ACETAMINOPHEN 325 MG TABLET 975 MG PO (07:12)
--- NOTE | 2019-07-08 07:43 | PM.PREOP ---
Pre-operative Note Interval Note History & Physical reviewed/Exam performed by Physician: Yes Changes to H&P: No
[2019-07-08] MEDS: CEFAZOLIN 2 GM/100 ML FROZ.PIGGY IV ×3 (07:52→19:44)
--- NOTE | 2019-07-08 08:35 | SUR.OPER ---
Prone on spine table, head in foam head support, padded chest and pelvic supports, gel pad at knees, lower legs supported by pillows; nipples, genitalia and toes free of pressure, arms secured on foam padded arm boards at <90 degrees abduction. Tape over blanket at thigh secured to table.
[2019-07-08] MEDS: BUPIVACAINE 0.25% W/ EPI (PF) 10 ML VIAL 30 ML INJ (12:54)
[2019-07-08] MEDS: BUPIVACAINE LIPOSOME 266 MG/20 ML VIAL INJ (12:54)
--- NOTE | 2019-07-08 13:10 | P.OP_ITS ---
Operative Date/Time/Diagnoses Date of procedure: 07/08/19 Time of procedure: 07:44 Pre-op diagnosis: 1. Hx of L4-5, L5-S1 fusion with loosening 2. L1-2, L2-3, L3-4, L4-5 spinal stenosis 3. Lumbar spondylosis with radiculopathy Post-op diagnosis: same Procedure & Clinicians Procedure: 1. L1-2, L2-3 Postero-lateral and posterior interbody fusion 2. L1-2 L2-3 interbody cage placement. 3. L1-2 and L2-3 decompressive laminectomy with bilateral facetecomies 4. L1-2, L2-3, L3-4, L4-5, L5-S1 Posterior segmental instrumentation 5. L4-5 L5-S1 posterior segmental hardware removal 6. L4-5 L5-S1 exploration of fusion with left hemilaminectomy 7. L3-4 L4-5 posterolateral fusion 8. [place] of bone marrow from iliac crest 9. Utilization of microsurgical technique and operating microscope Same procedure as scheduled: Yes Indications: Patient has been having chronic back pain and worsening lumbar radiculopathy. Patient had a previous L4-5 L5-S1 fusion with progressively worsening radiculopathy with adjacent level disease with scoliosis. Patient failed multiple conservative management with worsening pain weakness and numbness in her lower extremity. Patient has been having difficulty performing activity of daily living. After discussing risks benefits of treatment options, patient elected proceed with surgery. Surgeon: Sarai Washington [employer] Consultant: Isaura Ye Click Yes if Unassisted: No Anesthesia Type: General Operative Notes Closure Type: primary Specimen(s): none sent Prosthetic devices, grafts, tissues, transplants, or devices: Globus revolve screws, Rise cages Applied: catheter Estimated Blood Loss (mL): 300 Blood products transfused: none Procedure in detail: Patient was seen in the preoperative area. Risks and benefits of the surgery was discussed with the patient. Informed consent was obtained from the patient and placed in the chart. Surgical site was marked. Patient was taken to the operative room. General anesthesia was administered. Prophylactic antibiotic was given to the patient less than 30 min before the incision was made. Patient was placed into a prone position on the Jose table. Patient's back was then prepped and draped in the sterile fashion. Time- out was performed at this time. Using patient's previous scar incision was made over the L1-2, L2-3, L3-4, L4-5, L5-S1 interval on the left side. Fascia was incised in line with skin incision. Patient's previously placed hardware over the L4-5 L5-S1 level was identified by dissecting down to the level the hardware using a Bovie and a Martinez. The locking caps which was removed using globus screwdriver. The locking cristal was then removed from the tulips of the pedicle screws using a Olivia. The pedicle screws were then removed using the screwdriver. The screws were found to have good purchase. The Globus and MARS retractors was then placed into the wound and docked onto the L1 and L2 lamina using C-arm guidance. Using microsurgical technique and operating microscope a laminectomy facetectomy was performed by removing the L1 and L2 lamina and the L1-2 L2-3 facet. Patient was found have severe central and neural foramen stenosis which was fully decompressed after laminectomy and facetectomy was completed. The disc space at L1-2 and L2-3 level was identified next. And a total diskectomy was performed at L1-2 and L2-3 level. The endplates were decorticated using a rasp and shaver. The total diskectomy and decortication was performed at L1-2 and L2-3 level in order to to accomplish a L1-2 and L2-3 fusion. The local bone from the laminectomy and facetectomy was saved for local bone grafting. After the total diskectomy and decortication was completed, Bio4 bone graft material was combined with local bone that was harvested earlier. At this time, a separate skin is incision was made over the iliac crest. A Jamshidi needle was inserted into the iliac crest through a separate skin incision. 5 cc of bone marrow aspiration was obtained through the separate skin incision using a Jamshidi needle from the iliac crest. The bone marrow aspiration was combined with local bone and the Bio4 bone grafting material. The bone grafting material was placed into the L1-2 and L2-3 interbody space along with a expandable cage one at each level. The cages was expanded to its maximum height using the torque limiting screwdriver. At this time a mirror image incision was made on the right side. The fascia was incised in line with the skin incision. Patient's previously placed hardware on the left side was then removed in the same fashion as it was on the right side. The hardware was also found to have good purchase. The fusion mass on the right side was exposed by performing a right-sided hemilaminectomy at L4-5 L5-S1 level. The hemilaminectomy was performed using the Kerrison rongeur to undercut the lamina as well removing additional epidural scar tissue for purpose of decompressing the epidural space. The fusion mass was explored and was found have visible motion indicating pseudoarthrosis at L4-5 level and solid fusion at L5-S1 level. Globus MARS retractor was inserted and docked onto the L1-2, L2-3, L3-4, L4-5 posterolateral gutter. Using the power drill, posterior-lateral decortication was performed at L1-2, L2-3, L3-4, L4-5 level until bleeding cortical bone was identified. The remaining bone grafting material was placed into the L1-2, L2-3, L3-4, L4-5 posterior lateral gutter he order to accomplish posterolateral fusion at the L1-2, L2-3, L3-4, L4-5 level. Using the double C-arm technique, pedicle screws were placed into the L1, L2, L3, L4, L5, S1 pedicles bilaterally. This was done by placing the Jamshidi needle into the pedicles, then placing the guidewires over the Jamshidi needle, and finally placing the cannulated screws over the guidewires bilaterally. After the pedicle screws were placed, 2 titanium rods was locked into the heads of the pedicle screws using locking caps and torque limiting screwdriver. After all the hardware was placed, and confirmed with AP and lateral C-arm imaging, the wound was then irrigated with sterile normal saline and packed with Ray-Laura gauze for 3 min to accomplish hemostasis. After the gauze was removed the deep fascia was closed with #1 Vicryl suture. The subcutaneous layer was closed with 2-0 Vicryl. The skin was closed with skin sadie. Patient tolerated the procedure well. There were no complications. Complications: none Post-operative Condition: stable Disposition: PACU Plan for aftercare: Admit to inpatient hospital
[2019-07-08] MEDS: HYDROMORPHONE 2 MG INJ IV ×2 (13:39→13:56)
[2019-07-08] MEDS: hydrOXYzine 50 MG/ML INJ 25 MG IM (13:40)
[2019-07-08] MEDS: ONDANSETRON 4 MG/2 ML INJ IV (13:40)
--- NOTE | 2019-07-08 13:48 | SUR.PHASEI ---
RT here to assist with cpap.
--- NOTE | 2019-07-08 14:00 | SUR.PHASEI ---
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 Patient able to wiggle his toes and move his lower extremities. Patient denies any numbness or tingling, loss of sensation. Priest catheter draining clear yellow urine.
--- NOTE | 2019-07-08 14:43 | SUR.PHASEI ---
Report given to
--- NOTE | 2019-07-08 15:14 | CM.MNRNOTE ---
Assess- Pt admitted to room 205 at 1450. Dressing to back is marked in black ink and bloody drainage has went outside of area. CPAP machine on with 4L of oxygen bled into machine. He has a tremor to his R.arm and states that he is in severe pain, Float RN for evening shift just gave patient 0.5mg of iv dilaudid and she is hanging ivf. He has a kim catheter in place with yellow urine. Last BP was 160s/99 and patient was in a significant amount of pain. His is being contacted and should be up to room soon.
[2019-07-08] MEDS: HYDROMORPHONE 0.5 MG INJ IV ×3 (15:15→22:14)
[2019-07-08] MEDS: SODIUM CHLORIDE 0.9% 1,000 ML 100 ML IV (15:20)
[2019-07-08] MEDS: hydrOXYzine pamoate 25 MG CAPSULE PO ×2 (16:52→19:45)
[2019-07-08] MEDS: OXYCODONE IR 10 MG TABLET PO ×2 (16:52→22:14)
[2019-07-08] MEDS: GABAPENTIN 600 MG TABLET PO (19:44)
[2019-07-08] MEDS: SENNOSIDES 8.6 MG TABLET 17.2 MG PO (19:45)
[2019-07-08] MEDS: HYDROCODONE/ACET 5/325 TABLET 1 TAB PO (19:45)
[2019-07-08] MEDS: DOCUSATE 100 MG CAPSULE PO (19:45)
[2019-07-08] MEDS: TRAZODONE 50 MG TABLET 100 MG PO (19:45)
[2019-07-08] MEDS: ATORVASTATIN 20 MG TABLET 40 MG PO (19:45)
[2019-07-09] MEDS: HYDROMORPHONE 0.5 MG INJ IV ×3 (00:46→16:32)
[2019-07-09 01:00] VITALS: BP 141/82; PULSE 82; RESP 16; TEMP 37.4; O2SAT 93
[2019-07-09] MEDS: OXYCODONE IR 10 MG TABLET PO ×6 (02:33→21:15)
[2019-07-09] MEDS: SODIUM CHLORIDE 0.9% 1,000 ML 100 ML IV (02:35)
[2019-07-09] MEDS: CEFAZOLIN 2 GM/100 ML FROZ.PIGGY IV (03:27)
[2019-07-09 05:30] VITALS: BP 129/78; PULSE 71; RESP 16; TEMP 37.3; O2SAT 95
--- NOTE | 2019-07-09 06:21 | PC.NURSE ---
5979 Pt. requested Dilaudid 0.5 mg. IVP, states the 10 mg. of Oxycodone did not helped much for my back pain. Instructed to let his MD know that Oxycodone did not relieved his back pain. Checked reinforced dressing not leaking bloody drainage @ this time. Will cont. POc & monitor.
[2019-07-09 06:26] LABS: Hematocrit 37.6 % (41-53); Hemoglobin 12.8 g/dL (13.5-17.5)
--- NOTE | 2019-07-09 07:27 | PM.PNPO.1 ---
Subjective Subjective Date Patient Seen: 07/09/19 Time Patient Seen: 07:27 Interval history: Overnight patient had marginal pain control with oxycodone 10 and dilaudid IV. Discussed pain management with patient, he states he fell behind on pain meds last night. He wants to continue using the current pain management medications. Patient has pain in lower back and hips bilaterally. Denies numbness, tingling. Has not mobilized with PT yet. Denies fever, chills, chest pain, shortness of breath Exam Vital Signs (past 8 hours): - 07/09/19 01:00 07/09/19 05:30 Temperature 99.3 F 99.2 F Pulse Rate 82 71 Respiratory Rate 16 16 Blood Pressure 141/82 H 129/78 Pulse Oximetry 93 95 Oxygen Delivery Method Nasal Cannula,CPAP Oxygen Flow Rate 0 Narrative Exam Narrative: 53 year old male is laying comfortably in bed, in no apparent distress. A&Ox3. Dressings intact with moderate serosanguineous drainage. Urinary catheter and SCDs in place. Sensory function grossly intact to light touch in LE bl. Dorsalis pedis 2+ bl. Capillary refill <2sec LE bl. Able to actively dorsiflex/plantar flex. Calves warm, soft, compressible, nttp. Objective Labs Result Diagrams: 07/09/19 06:10 Labs: Laboratory Results - last 24 hr 07/09/19 06:10 Hgb 12.8 L Hct 37.6 L Assessment & Plan Post-op Postoperative Procedures: Procedures Operation Date: 07/08/19 07:45 Actual Procedures Side Surgeon p L1-2,L2-3 TLIF,L4-S1 HWR,L1-S1 PSF with instrumentation Sarai [place]otn MD Postoperative plan narrative: Ordered dressing change Continue current pain management Mobilize with PT Discontinue urinary catheter tomorrow Continue SCDs Patient will most likely discharge to SNF Time Spent With Patient Time with patient: less than 15 minutes Quality VTE Deep Vein Thrombosis/Pulmonary Embolism Present on Admission: No
[2019-07-09] MEDS: THYROID, PORK 60 MG TABLET 120 MG PO (08:27)
[2019-07-09] MEDS: LORATADINE 10 MG TABLET PO (08:27)
[2019-07-09] MEDS: SERTRALINE 25 MG TABLET PO (08:27)
[2019-07-09] MEDS: DOCUSATE 100 MG CAPSULE PO ×2 (08:27→21:15)
[2019-07-09] MEDS: PANTOPRAZOLE 20 MG TABLET PO (08:28)
[2019-07-09] MEDS: GABAPENTIN 600 MG TABLET PO ×2 (08:28→21:15)
[2019-07-09 09:03] VITALS: BP 136/72; PULSE 87; RESP 16; TEMP 37; O2SAT 95
[2019-07-09] MEDS: HYDROCODONE/ACET 5/325 TABLET 1 TAB PO (09:25)
--- NOTE | 2019-07-09 10:53 | PT.IIE ---
Current Diagnoses Other forms of scoliosis, lumbar region (07/08/19) Other spondylosis with radiculopathy, lumbosacral region (07/08/19) Spinal stenosis, lumbar region without neurogenic claudication (07/08/19) Arthrodesis status (07/08/19) Surgery Performed Operation Date: 07/08/19 07:45 Actual Procedures p L1-2,L2-3 TLIF,L4-S1 HWR,L1-S1 PSF with instrumentation - Sarai Washington MD Surgical History (Last Updated 03/23/19 @ 13:53 by Lorna López RN) History of lumbar spinal fusion (Acute 04/02/18) Hx of hernia repair (Acute) Hx of knee surgery (Acute) Hx of shoulder surgery (Acute) S/P lumbar fusion (Acute 01/30/17) S/P UPPP (uvulopalatopharyngoplasty) (Acute) Status post bilateral LASIK surgery (Acute) Medical History (Last Updated 03/26/18 @ 14:01 by Lorna López RN) AVM (arteriovenous malformation) (Acute) Hyperlipidemia (Acute) Kidney stones (Acute) Papillary thyroid carcinoma (Acute) PTSD (post-traumatic stress disorder) (Acute) Skin cancer (Acute) Sleep apnea with use of continuous positive airway pressure (CPAP) (Acute) Physical Therapy Inpatient Evaluation/Re-Eval M1 PT/OT-IP Prior Functional Status Start: 07/09/19 08:45 Freq: NEEDED Status: Active Protocol: Document 07/09/19 10:53 AW (Rec: 07/09/19 12:40 AW [id number]) Medical Review Prior Functional Status Medical History Reviewed Yes Communication WNL Mobility and Gait Independent without AD but limited to about 200 feet secondary to pain Activities of Daily Living and IADL's Independent though he does admit difficulty donning shoes and socks. States he tends to wear flip flops to avoid need for assist. Social History Household Members spouse,children Living Arrangements House Number of Floors (Floors) Two Floors Number of Stairs To Enter/Railing? 3 CHRISTINA with no railing; 13 steps with R rail ascending once inside to the second level which is where the pt sleeps Home Environment Standard Height Toilet Home Equipment Shower Seat without Backrest, Director Of User Experience Employment Status Retired Additional Social History Comment Pt is retired from the [employer] . He lives with his spouse, Ginny, who is a nurse. She is able to provide limited physical assist but does work outside the home. M2 PT-IP Current Condition Start: 07/09/19 08:45 Freq: NEEDED Status: Active Protocol: Document 07/09/19 10:53 AW (Rec: 07/09/19 12:40 AW [id number]) Physical Therapy Current Condition Current Condition Evaluation Date 07/09/19 Treatment Diagnosis s/p L1-2 L2-3 TLIF, impaired mobility Onset Date 07/08/19 Precautions Lumbar Precautions Log Roll,No Twisting,Limit Bending,Lifting Restriction of 10 lbs,Gait Belt above Incisional Area Weight Bearing Status Weight Bearing Status Full Weight Bearing M3 PT-IP Subjective Start: 07/09/19 08:45 Freq: NEEDED Status: Active Protocol: Document 07/09/19 10:53 AW (Rec: 07/09/19 12:40 AW [id number]) Subjective Physical Therapy Visit Type Type Initial Evaluation Visit Start Time 10:20 Visit Stop Time 10:53 Total Visit Minutes 33 Physical Therapy Visit Comments Patient Comments Pt's pain at rest has improved . He is willing to mobilize with PT Therapy Pain Assessment Pain When Pain Assessed During Mobility Pain Present Pain Present Pain Reported Location Back Intensity 10 Scale Used 6/10 at rest; 10/10 with all mobility Pain Behaviors Calling Out,Facial Grimacing, Wincing Pain Management Techniques Apply Cold,Re-positioning, Timing of Activity with Medications M4 PT-IP Mobility and Gait Start: 07/09/19 08:45 Freq: NEEDED Status: Active Protocol: Document 07/09/19 10:53 AW (Rec: 07/09/19 12:40 AW [id number]) PT-Bed Mobility Assessment Rolling Type of Rolling Log Rolling Level of Assist Maximal Assistance,1 Person Assistance Supine to Sit Supine to Sit Moderate Assistance,1 Person Assistance,Bedrails Scooting Scooting to Edge of Bed Contact Guard Assistance PT-Transfer Assessment Sit to and From Stand Sit to and from Stand Maximum Assistance,1 Person Assistance,Use of Upper Extremities Equipment Transfer Assistive Device Gait Belt,Front Wheeled Walker Orthotic/Prosthetic Devices or Brace: No Transfers Transfer Destination Chair Transfer Technique Stand Step Pivot Transfer Ability Level of Assist Moderate Assistance,1 Person Assistance,Use of Upper Extremities Comments Mobility Comments Pt exited the bed to the right from flat bed using log roll technique. He was able to roll to his right side without assist, but required max A x 1 to move his legs off the bed and to right his trunk. Sit to stand required max A x 1 and cues for knee and hip extension. He reported nausea and lightheadedness in standing. Initial BP in bed was 130/70 which dropped to 108/56 in standing. Pt stood using FWW and mod A x 1 until symptoms cleared and then took steps and pivoted to the chair mod A x 1. Transfer and sitting required max cues for weight shifting and sequencing with pt complaining of 25/10 pain. Pt was positioned in the chair with ice packs applied, call light within reach, legs elevated. RN was notified that pt was requesting next dose of pain medication. Of note, he did report that he thought he was more comfortable in the chair than he had been in the bed. Gait Assessment Gait Gait Assistance Required: Moderate Assistance,1 Person Assist Distance (Feet) 2 Able to Maintain Weight Bearing Status Yes During Gait Assistive Devices Assistive Device Gait Belt,Front Wheeled Walker Orthotic/Prosthetic Devices or Brace: No Gait Deviations General Gait Pattern Antalgic,Decreased Stride Length,Decreased Feet Clearance,Flexed Trunk Factors Limiting Gait Function Factors Limiting Gait Function Decreased Activity Tolerance, Decreased Sensation,Decreased Strength,Limited Range of Motion,Pain,Poor Balance Comments Gait Comments Pt ambulated ~2 feet from bed to chair requiring mod A x 1 and max cues for weight shifting and foot advancement. Feet did not clear the floor; rather, the pt shuffled his feet slowly, complaining of inability to pick them up. Stair Climbing Assessment Comments Stair Climbing Comments Not assessed. PT-Balance Assessment Sitting Balance and Reactions Static Sitting Balance Ability Good Dynamic Sitting Balance Ability Fair Standing Balance and Reactions Static Standing Balance Ability Fair Dynamic Standing Balance Ability Poor Device Used FWW M5 PT-IP Objective Assessments Start: 07/09/19 08:45 Freq: NEEDED Status: Active Protocol: Document 07/09/19 10:53 AW (Rec: 07/09/19 12:40 AW [id number]) Orientation Orientation/Cognition Level of Alertness Alert Orientation Name,Day of Week,Place, Situation Language Function Ability No Deficits Noted Safety Awareness Understands Safety Issues Memory Description No Deficits Noted Gross Range of Motion Upper Extremity ROM Assessment Within Functional Limits Lower Extremity ROM Assessment Bilaterally Impaired Strength Upper Extremity Strength Assessment Within Functional Limits Lower Extremity Strength Assessment Bilaterally Impaired Hip 3-/5 Knee 3+/5 Ankle 4/5 Coordination Assessment Gross Coordination Gross Coordination WNL Sensation Assessment Sensation Gross Sensation Right LE Impaired,Left LE Impaired Light Touch Impaired Sensation Description Numbness Comments Sensation Comments On exam, pt reported dull sensation throughout B LE with left more affected than right . Muscle Tone Muscle Tone WNL Yes M6 PT-IP Treatment Start: 07/09/19 08:45 Freq: NEEDED Status: Active Protocol: Document 07/09/19 10:53 AW (Rec: 07/09/19 12:40 AW [id number]) Physical Therapy Treatment Education Education Provided Precautions,Weight Bearing Status,Post-Op Packet,Safety Other Treatments Other Treatment Performed Educated pt on PT plan of care , post-op precautions, and safe use of FWW. M7 PT-IP Assessment and Plan Start: 07/09/19 08:45 Freq: NEEDED Status: Active Protocol: Document 07/09/19 10:53 AW (Rec: 07/09/19 12:40 AW [id number]) PT Summary Assessment and Plan Potential Rehabilitation Potential Fair Status of Condition at Evaluation Evolving Summary Impairments Pain,ROM,Strength,Balance, Sensation,Bed Mobility, Transfers,Gait,Activity Tolerance Assessment Summary Connor is a 53 yo man seen for PT evaluation on POD1 following L1-2 L2-3 TLIF. At baseline, he ambulates without assistive device but only for distances less than 200 feet. After previous spine surgeries, pt has discharged to SNF rehab. On evaluation, pt is significantly weak and has dull sensation in all LE dermatomes. He required mod to max assist x1 for all mobility with sharp increase in pain. He will likely require SNF rehab but PT will continue to assess. Goals Bed Mobility Goal Independent Transfer Goal Independent,Front Wheeled Walker Gait Goal Independent,Front Wheel Walker Gait Distance 150 Other Goals - up/down 3 steps with no rail CGA - up/down 13 steps with R rail ascending SBA Days to Meet Goals 10 Frequency of Treatment Frequency Of Treatment Twice a Day Treatment Plan Physical Therapy Treatment Plan Bed Mobility Training,Transfer Training,Gait Training, Therapeutic Exercise,Balance Retraining,Post Op Education, Discharge Planning,Hot or Cold Pack,Neuromuscular Re-ed, Coordination Retraining,Manual Therapy Other Recommendations and Next Treatment bed mobility, transfers, Focus ambulate as tolerated Recommendations To Nursing Amount of Assist Needed 2 Person Assist Discharge Recommendations PT Discharge Recommendations SNF Rehab
[2019-07-09] MEDS: hydrOXYzine pamoate 25 MG CAPSULE PO ×2 (11:05→19:52)
[2019-07-09 12:55] VITALS: BP 134/73; PULSE 82; RESP 16; TEMP 37.1; O2SAT 95
--- NOTE | 2019-07-09 15:44 | OT.IP.EVAL ---
Current Diagnoses Other forms of scoliosis, lumbar region (07/08/19) Other spondylosis with radiculopathy, lumbosacral region (07/08/19) Spinal stenosis, lumbar region without neurogenic claudication (07/08/19) Arthrodesis status (07/08/19) Surgery Performed Operation Date: 07/08/19 07:45 Actual Procedures p L1-2,L2-3 TLIF,L4-S1 HWR,L1-S1 PSF with instrumentation - Sarai Washington MD Past Medical History (Last Updated 03/26/18 @ 14:01 by Lorna López RN) AVM (arteriovenous malformation) (Acute) Hyperlipidemia (Acute) Kidney stones (Acute) Papillary thyroid carcinoma (Acute) PTSD (post-traumatic stress disorder) (Acute) Skin cancer (Acute) Sleep apnea with use of continuous positive airway pressure (CPAP) (Acute) Surgical History (Last Updated 03/23/19 @ 13:53 by Lorna López RN) History of lumbar spinal fusion (Acute 04/02/18) Hx of hernia repair (Acute) Hx of knee surgery (Acute) Hx of shoulder surgery (Acute) S/P lumbar fusion (Acute 01/30/17) S/P UPPP (uvulopalatopharyngoplasty) (Acute) Status post bilateral LASIK surgery (Acute) Occupational Therapy Inpatient Evaluation/Re-Eval M1 PT/OT-IP Prior Functional Status Start: 07/09/19 08:45 Freq: NEEDED Status: Active Protocol: Document 07/09/19 15:44 PJM (Rec: 07/09/19 16:23 PJM [id number]) Medical Review Prior Functional Status Medical History Reviewed Yes Diet/Fluid Consistency Regular Communication WNL Mobility and Gait Independent without AD but limited to about 200 feet secondary to pain. Pt reports furniture walking due to pain. Activities of Daily Living and IADL's Independent though he does admit difficulty donning shoes and socks. States he tends to wear flip flops to avoid need for assist. 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 Adult son lives nearby and assist on ranch PRN Social History Household Members spouse Living Arrangements House Number of Floors (Floors) Two Floors Number of Stairs To Enter/Railing? 3 [place]ST[place] with no railing; 13 steps with R rail ascending once inside to the second level bedroom Home Environment Standard Height Toilet,Tub/ Shower Doors Home Equipment Shower Seat without Backrest, Pan Reclaim Processor,Grab Bars In Shower Employment Status Retired Additional Social History Comment Pt is retired on disability from the [employer] M2 OT-IP Current Condition Start: 07/09/19 13:10 Freq: Status: Active Protocol: Document 07/09/19 15:44 PJM (Rec: 07/09/19 16:23 PJM [id number]) Occupational Therapy Current Condition Current Condition Evaluation Date 07/09/19 Treatment Diagnosis decr'd self care, mobility s/p L1-S1 PLIF with hardware removal Diagnosis Onset Date 07/08/19 Post Operative Precautions Lumbar Precautions Log Roll,No Twisting,Limit Bending,Lifting Restriction of 10 lbs,Gait Belt above Incisional Area M3 OT- IP Subjective and Pain Start: 07/09/19 13:10 Freq: Status: Active Protocol: Document 07/09/19 15:44 PJM (Rec: 07/09/19 16:23 PJM [email or web address]) OT- Subjective Occupational Therapy Visit Type Type Initial Evaluation Visit Start Time 15:20 Visit Stop Time 15:44 Total Visit Minutes 24 Notes not here this session. Occupational Therapy Visit Comments Patient Comments I had another back surgery 2 yrs ago, so I remember some of this Patient/Caregiver Goals to have less pain, be able to assist with ranch duties OT Pain Assessment Pain When Pain Assessed At Rest Pain Present Pain Present Pain Reported Location Back Intensity 7 Scale Used Numeric (1 - 10) Pain Behaviors Facial Grimacing,Guarding Management Techniques Distraction,Timing of Activity with Medications M4 OT- IP ADL's Start: 07/09/19 13:10 Freq: Status: Active Protocol: Document 07/09/19 15:44 PJM (Rec: 07/09/19 16:23 PJM [id number]) OT [facility] General Evaluation Self-Feeding Ability Independent OT ADL-Grooming General Evaluation Grooming Ability Standby Assistance Areas Needing Assistance Retrieving/Set-up of Grooming Items,Face Washing Comments OT Grooming Comments in bed OT ADL-Oral Care Comments Oral Care Comments did not occur this session OT ADL-Dressing General Eval Lower Body Dressing Ability Total Assistance Areas Needing Assistance Pants/Shorts,Socks,Shoes Assistive Devices Dressing Assistive Devices Pan Reclaim Processor Comments OT Dressing Comments Pt has senior corporate accountant but did not use sock aid provided at last admit. Agrees it might be useful this time. Began education re: lower body dressing equipt. OT ADL-Toileting Comments OT Toileting Comments Provided education re: options for increasing height of toilet at home. OT ADL-Bathing Comments OT Bathing Comments to be assessed as activity tolerances improves M5 OT- IP IADL's Start: 07/09/19 13:10 Freq: Status: Active Protocol: Document 07/09/19 15:44 PJM (Rec: 07/09/19 16:23 [facility] [id number]) OT-Instrumental Activities of Daily Living Deficits IADL Deficits Identified Deficits Home Safety Awareness Awareness of Need for Assistance at Home Good Awareness Ability to Problem Solve Emergency Able to Problem Solve Situations Home Safety Comments does IADLS at home Medication Management Medication Management No Deficits Identified Money Management Money Management Caregiver Provides Assistance Meal Preparation Meal Preparation Caregiver Provides Assist Predictive Maintenance Technician Predictive Maintenance Technician Caregiver Provides Assist Driving Driving Caregiver Provides Assist Driving Comments until pt able M6 OT- IP Functional Cognition Start: 07/09/19 13:10 Freq: Status: Active Protocol: Document 07/09/19 15:44 PJM (Rec: 07/09/19 16:23 [facility] [id number]) Cognitive Factors Limiting Selfcare Function Cognitive Ability Level of Alertness Alert Patient Orientation Name,Age,Birthday,Month,Date, Year,Day of Week,Place, Situation Attention Span Ability Capable of Focused Attention, Capable of Sustained Attention Ability to Follow Commands Able to Follow One Step Commands Cognitive Comments Cognitive Assessment Comments Pt verbalizes understanding of lumbar spine precautions. OT- Vision and Hearing OT- Hearing Assessment OT- Hearing Assessment WFL OT- Vision Assessment Visual Acuity WFL Vision Assessment Comments Pt reports some blurred vision which he is attributing to pain meds. M7 OT- IP Mobility and Balance Start: 07/09/19 13:10 Freq: Status: Active Protocol: Document 07/09/19 15:44 PJM (Rec: 07/09/19 16:23 [facility] [id number]) OT-Transfer Assessment Comments Mobility Comments see P.T. notes OT- Gait Assessment Comments Gait Ability Comments pt has not yet ambulated with P.T. OT- Balance Assessment Comments Other Balance Tests/Deviations/Treatment see P.T. notes : M8 OT- IP Objective Assessments Start: 07/09/19 13:10 Freq: Status: Active Protocol: Document 07/09/19 15:44 PJM (Rec: 07/09/19 16:23 PJM [id number]) OT Gross Range of Motion Upper Extremity Range of Motion Assessment Within Functional Limits ROM Impairments Moves L shoulder slowly due to 3 previous surgeries but denies pain OT Strength Hand Wireless Sales Manager Strength Hand Dominance Right Comments Strength Comments BUE WFL OT- Coordination Assessment Comments Coordination Comments BUE WFL for self care OT-Muscle Tone Assessment Muscle Tone WNL Yes OT Sensation Assessment Comments Summary Comments Pt reports intermittent numbness in 4th, 5th fingers of B hands Edema Edema Absent M9 OT- IP Assessment and Plan Start: 07/09/19 13:10 Freq: Status: Active Protocol: Document 07/09/19 15:44 PJM (Rec: 07/09/19 16:23 PJM [id number]) OT Summary Assessment and Plan Potential Rehabilitation Potential Good Analytic Complexity at Evaluation Low Summary OT Impairments Pain,Strength,Balance, Functional Mobility,Grooming, Dressing,Toileting,Bathing, Toilet Transfers,Shower Transfers Assessment Summary Low complexity OT assessment completed on this 53 yr old man admitted for L1-S1 PLIF with removal of previous hardware. Pt presents with significant performance deficits in all functional mobility and transfers and has not yet ambulated with P.T. Pt also has performance deficits in standing grooming, lower body dressing, bathing and toileting. Pt is familiar with precautions and adapted ADL techniques from previous lumbar fusion of L4-5, L5-S1 in 01/2017. Pt will benefit from OT services here to address the goals below. Pt plans on SNF at d/c for further rehab services prior to return home where he has 13 stairs to access his bedroom. Goals Grooming Goal Contact Guard Assistance Dressing Goal Minimal Assistance Toileting Goal Minimal Assistance Bathing Goal Minimal Assistance Toilet Transfer Goal Minimal Assistance Shower Transfer Goal Minimal Assistance Patient/Caregiver Education Goal Demonstrate Post-Op Precautions OT-Other Goals Grooming to be done standing at sink with good safety awareness and no LOB. Days to Meet Goals 3 Frequency of Treatment Frequency Of Treatment Once a Day Treatment Plan OT Treatment Plan ADL Training,Functional Mobility,Patient/Family Education,Discharge Planning Discharge Recommendations OT Discharge Recommendations SNF Rehab Home Equipment Needs to be determined pending progress in next rehab setting
[2019-07-09 16:00] VITALS: BP 149/96; PULSE 87; RESP 20; TEMP 37.3; O2SAT 99
--- NOTE | 2019-07-09 16:37 | PT.IPTN ---
Current Diagnoses Other forms of scoliosis, lumbar region (07/08/19) Other spondylosis with radiculopathy, lumbosacral region (07/08/19) Spinal stenosis, lumbar region without neurogenic claudication (07/08/19) Arthrodesis status (07/08/19) Surgery Performed Operation Date: 07/08/19 07:45 Actual Procedures p L1-2,L2-3 TLIF,L4-S1 HWR,L1-S1 PSF with instrumentation - Sarai Washington MD Physical Therapy Treatment Note M2 PT-IP Current Condition Start: 07/09/19 08:45 Freq: NEEDED Status: Active Protocol: Document 07/09/19 10:53 AW (Rec: 07/09/19 12:40 AW [id number]) Physical Therapy Current Condition Current Condition Evaluation Date 07/09/19 Treatment Diagnosis s/p L1-2 L2-3 TLIF, impaired mobility Onset Date 07/08/19 Precautions Lumbar Precautions Log Roll,No Twisting,Limit Bending,Lifting Restriction of 10 lbs,Gait Belt above Incisional Area Weight Bearing Status Weight Bearing Status Full Weight Bearing M3 PT-IP Subjective Start: 07/09/19 08:45 Freq: NEEDED Status: Active Protocol: Document 07/09/19 16:14 AW (Rec: 07/09/19 16:36 AW [id number]) Subjective Physical Therapy Visit Type Type Treatment Note Visit Start Time 15:45 Visit Stop Time 16:09 Total Visit Minutes 24 Physical Therapy Visit Comments Patient Comments Pt still having siginificant trouble with pain control. Therapy Pain Assessment Pain When Pain Assessed During Mobility Pain Present Pain Present Pain Reported Location anterior right thigh Scale Used not quantified Description Cramping,Tightness,Throbbing Pain Behaviors Facial Grimacing,Guarding, Wincing Back Intensity 10 Scale Used 6/10 at rest; 10/10 with all mobility Pain Behaviors Calling Out,Facial Grimacing, Wincing Pain Management Techniques Apply Cold,Re-positioning, Timing of Activity with Medications M4 PT-IP Mobility and Gait Start: 07/09/19 08:45 Freq: NEEDED Status: Active Protocol: Document 07/09/19 16:14 AW (Rec: 07/09/19 16:36 AW [id number]) PT-Bed Mobility Assessment Rolling Type of Rolling Log Rolling Level of Assist Moderate Assistance,1 Person Assistance Supine to Sit Supine to Sit Moderate Assistance,1 Person Assistance,Bedrails Scooting Scooting to Edge of Bed Contact Guard Assistance PT-Transfer Assessment Sit to and From Stand Sit to and from Stand Maximum Assistance,1 Person Assistance,Use of Upper Extremities Equipment Transfer Assistive Device Gait Belt,Front Wheeled Walker Orthotic/Prosthetic Devices or Brace: No Transfers Transfer Destination Chair Transfer Technique pt ambulated with FWW Transfer Ability Level of Assist Moderate Assistance,1 Person Assistance,Use of Upper Extremities Comments Mobility Comments Pt completed log roll to the right side mod A with instruction to pause in each position and attend to his breath due to his tendency to breathe shallowly. Pt pushed up into sitting with mod A and cues for breathing and push with UE's. He sat EOB for VS with LEADED GLASS INSTALLER and then stood with FWW and max A x 1. After gait training, he transferred to the chair with mod verbal and tactile cues for hand placement, demonstrating poor eccentric control. Pt was reclined in the chair with ice packs applied to paraspinals bilaterally, call light and table within reach. Gait Assessment Gait Gait Assistance Required: Moderate Assistance,1 Person Assist Distance (Feet) 5 Able to Maintain Weight Bearing Status Yes During Gait Assistive Devices Assistive Device Gait Belt,Front Wheeled Walker Orthotic/Prosthetic Devices or Brace: No Gait Deviations General Gait Pattern Antalgic,Decreased Stride Length,Decreased Feet Clearance,Flexed Trunk Factors Limiting Gait Function Factors Limiting Gait Function Decreased Activity Tolerance, Decreased Sensation,Decreased Strength,Limited Range of Motion,Pain,Poor Balance Comments Gait Comments Pt ambulated 5 feet from bed to chair using FWW mod A x 1. He had significant difficulty flexing his hips against gravity. Tactile facilitation was attempted but did not affect muscle activation. Pt continued to drag his feet, requiring mod A to shift his weight side to side. Stair Climbing Assessment Comments Stair Climbing Comments Not assessed. M5 PT-IP Objective Assessments Start: 07/09/19 08:45 Freq: NEEDED Status: Active Protocol: Document 07/09/19 10:53 AW (Rec: 07/09/19 12:40 AW [id number]) Orientation Orientation/Cognition Level of Alertness Alert Orientation Name,Day of Week,Place, Situation Language Function Ability No Deficits Noted Safety Awareness Understands Safety Issues Memory Description No Deficits Noted Gross Range of Motion Upper Extremity ROM Assessment Within Functional Limits Lower Extremity ROM Assessment Bilaterally Impaired Strength Upper Extremity Strength Assessment Within Functional Limits Lower Extremity Strength Assessment Bilaterally Impaired Hip 3-/5 Knee 3+/5 Ankle 4/5 Coordination Assessment Gross Coordination Gross Coordination WNL Sensation Assessment Sensation Gross Sensation Right LE Impaired,Left LE Impaired Light Touch Impaired Sensation Description Numbness Comments Sensation Comments On exam, pt reported dull sensation throughout B LE with left more affected than right . Muscle Tone Muscle Tone WNL Yes M6 PT-IP Treatment Start: 07/09/19 08:45 Freq: NEEDED Status: Active Protocol: Document 07/09/19 16:14 AW (Rec: 07/09/19 16:36 AW [id number]) Physical Therapy Treatment Education Education Provided Precautions,Safety M7 PT-IP Assessment and Plan Start: 07/09/19 08:45 Freq: NEEDED Status: Active Protocol: Document 07/09/19 16:14 AW (Rec: 07/09/19 16:36 AW [id number]) PT Summary Assessment and Plan Summary Impairments Pain,ROM,Strength,Balance, Sensation,Bed Mobility, Transfers,Gait,Activity Tolerance Progress Towards Goals Slow Progress due to Pain Assessment Summary Connor's progress is hampered by considerable pain with all mobility. He progressed his gait distance but was still unable to flex his hips against gravity in weightbearing position. He also reports new onset pain in right anterior thigh which he describes as tightness, cecy horse. PT recommends SNF rehab. Goals Bed Mobility Goal Independent Transfer Goal Independent,Front Wheeled Walker Gait Goal Independent,Front Wheel Walker Gait Distance 150 Other Goals - up/down 3 steps with no rail CGA - up/down 13 steps with R rail ascending SBA Days to Meet Goals 10 Frequency of Treatment Frequency Of Treatment Twice a Day Treatment Plan Physical Therapy Treatment Plan Bed Mobility Training,Transfer Training,Gait Training, Therapeutic Exercise,Balance Retraining,Post Op Education, Discharge Planning,Hot or Cold Pack,Neuromuscular Re-ed, Coordination Retraining,Manual Therapy Other Recommendations and Next Treatment bed mobility, transfers, Focus ambulate as tolerated Recommendations To Nursing Amount of Assist Needed 1 Person Assist,2 Person Assist Discharge Recommendations PT Discharge Recommendations SNF Rehab
[2019-07-09] MEDS: HYDROMORPHONE 2 MG TABLET PO ×3 (16:42→23:23)
--- NOTE | 2019-07-09 18:31 | PC.NURSE ---
LATE NOTE, UPDATED ABOUT PAIN ISSUES PATIENT IS HAVING, NEW ORDERS FOR BREAKTHROUGH PAIN MEDS DILAUDID PO ADDED Q 1-2 HOURS PRN. THIS HAS HELPED PATIENTS PAIN
[2019-07-09 21:00] VITALS: BP 139/88; PULSE 83; RESP 20; TEMP 37.7; O2SAT 95
[2019-07-09] MEDS: ATORVASTATIN 20 MG TABLET 40 MG PO (21:15)
[2019-07-09] MEDS: SENNOSIDES 8.6 MG TABLET 17.2 MG PO (21:15)
[2019-07-09] MEDS: TRAZODONE 50 MG TABLET 100 MG PO (21:15)
[2019-07-10] VITALS (9 sets, daily range): BP systolic 106–149; BP diastolic 71–91; PULSE 82–95; RESP 16–20; TEMP 37–38.1; O2SAT 93–98
[2019-07-10] MEDS: OXYCODONE IR 10 MG TABLET PO ×3 (00:52→08:13)
[2019-07-10] MEDS: GABAPENTIN 600 MG TABLET PO ×2 (08:13→20:50)
[2019-07-10] MEDS: ACETAMINOPHEN 325 MG TABLET 650 MG PO ×2 (08:13→14:59)
[2019-07-10] MEDS: PANTOPRAZOLE 20 MG TABLET PO (08:13)
[2019-07-10] MEDS: LORATADINE 10 MG TABLET PO (08:13)
[2019-07-10] MEDS: DOCUSATE 100 MG CAPSULE PO ×2 (08:14→20:51)
[2019-07-10] MEDS: SERTRALINE 25 MG TABLET PO (08:17)
[2019-07-10] MEDS: HYDROCODONE/ACET 5/325 TABLET 1 TAB PO (08:22)
[2019-07-10] MEDS: THYROID, PORK 60 MG TABLET 120 MG PO (08:22)
--- NOTE | 2019-07-10 09:49 | PM.PNPO.1 ---
Subjective Subjective Date Patient Seen: 07/10/19 Time Patient Seen: 09:49 Interval history: Overnight patient had marginal pain control. Discussed pain management, patient notes again that he feels like timing is an issue. Pain is being controlled with oxycodone, dilaudid, vistaril, and tylenol. Pain is in lower back and hips. Mobilizing with PT. Using urinary catheter. Patient denies fever, chills, chest pain, shortness of breath, numbness, tingling, bowel incontinence. Exam Vital Signs (past 8 hours): - 07/10/19 04:18 07/10/19 04:40 07/10/19 08:22 Temperature 99.8 F H 99.2 F 99.7 F H Pulse Rate 82 86 Respiratory Rate 20 18 Blood Pressure 131/86 106/72 Pulse Oximetry 95 95 Oxygen Delivery Method CPAP Oxygen Flow Rate 0 Narrative Exam Narrative: 53 year old male is laying comfortably in bed, in no apparent distress. A&Ox3. Dressing CDI. SCDS and urinary catheter in place. Sensory function grossly intact to light touch in LE bl. Dorsalis pedis 2+ bl. Calves warm, soft, compressible, nttp. able to actively dorsiflex/plantar flex. Objective Labs Result Diagrams: 07/09/19 06:10 Assessment & Plan Post-op Postoperative Procedures: Procedures Operation Date: 07/08/19 07:45 Actual Procedures Side Surgeon p L1-2,L2-3 TLIF,L4-S1 HWR,L1-S1 PSF with instrumentation Sarai Washington MD Postoperative plan: discharge Postoperative plan narrative: Continue current pain management, mobilizing with PT, use of SCDs Most likely discharge to SNF tomorrow Time Spent With Patient Time with patient: less than 15 minutes Quality VTE Deep Vein Thrombosis/Pulmonary Embolism Present on Admission: No
--- NOTE | 2019-07-10 10:29 | CM.IDA ---
Discharge Planning/Care Management CM Discharge Assessment Start: 07/10/19 10:20 Freq: Status: Active Protocol: Document 07/10/19 10:20 ANGEL (Rec: 07/10/19 10:29 ANGEL [id number]) Discharge Planning Assessment Assigned Special Agent In Charge JENNIFER Young DPOA/Assigned Designee Name Brenda Valentino () Contact Information [phone] Advance Directives? Yes Advance Directives on File No History Provided By Patient,Medical Record Prior Living Arrangements House Household Members spouse Type of transporation used prior to Drives own vehicle admit Independent with ADL's Yes Is patient alert and oriented? Yes Patient/Family Preference Snf Facility Barriers to Discharge Yes Comment Per prior assessment: Barriers to DC home: pain, weakness, many stairs. Pt has Medicare/ , SNF seems to be the safe option for pt and spouse at this time. PCP: Madison Benson Payer: [facility]/Carl [facility] Met w/pt this morning to introduce role and review DCP. Pt is indp at baseline but has had numerous Orthopedic surgeries in the past. His still works as an RN. Pt requests this TITLE COORDINATOR make a referral to [facility] SNF for his DC. Placed call to November at [facility] and left detailed msg w/referral information. Still need to complete PASRR. Pt on Zoloft and Trazodone, dx : PTSD JENNIFER Dye Discharge Plan Snf Facility Transportation Arrangement w/c Referrals Initiated Snf Additional Comment Pt has been to [facility] in the past and would like to return upon DC Medicare Choice List Provided Yes SNF/HH Preference [facility] Has Agency SNF been contacted Yes
--- NOTE | 2019-07-10 11:40 | PT.IPTN ---
Current Diagnoses Other forms of scoliosis, lumbar region (07/08/19) Other spondylosis with radiculopathy, lumbosacral region (07/08/19) Spinal stenosis, lumbar region without neurogenic claudication (07/08/19) Arthrodesis status (07/08/19) Surgery Performed Operation Date: 07/08/19 07:45 Actual Procedures p L1-2,L2-3 TLIF,L4-S1 HWR,L1-S1 PSF with instrumentation - Sarai Washington MD Physical Therapy Treatment Note M2 PT-IP Current Condition Start: 07/09/19 08:45 Freq: NEEDED Status: Active Protocol: Document 07/09/19 10:53 AW (Rec: 07/09/19 12:40 AW [id number]) Physical Therapy Current Condition Current Condition Evaluation Date 07/09/19 Treatment Diagnosis s/p L1-2 L2-3 TLIF, impaired mobility Onset Date 07/08/19 Precautions Lumbar Precautions Log Roll,No Twisting,Limit Bending,Lifting Restriction of 10 lbs,Gait Belt above Incisional Area Weight Bearing Status Weight Bearing Status Full Weight Bearing M3 PT-IP Subjective Start: 07/09/19 08:45 Freq: NEEDED Status: Active Protocol: Document 07/10/19 11:40 AB (Rec: 07/10/19 13:33 AB [id number]) Subjective Physical Therapy Visit Type Type Treatment Note Visit Start Time 11:40 Visit Stop Time 12:08 Total Visit Minutes 28 Number of COMPLIANCE VICE PRESIDENT Visits 0 Physical Therapy Visit Comments Patient Comments pt agreeable to do PT Therapy Pain Assessment Pain When Pain Assessed At Rest Pain Present Pain Present Pain Reported Location Back Intensity 5 Scale Used 8/10 with mobility M4 PT-IP Mobility and Gait Start: 07/09/19 08:45 Freq: NEEDED Status: Active Protocol: Document 07/10/19 11:40 AB (Rec: 07/10/19 13:33 AB [id number]) PT-Bed Mobility Assessment Rolling Type of Rolling Log Rolling Level of Assist Maximal Assistance,1 Person Assistance Supine to Sit Supine to Sit Maximum Assistance,Bedrails Scooting Scooting to Edge of Bed Maximum Assistance PT-Transfer Assessment Sit to and From Stand Sit to and from Stand Maximum Assistance,1 Person Assistance,Use of Upper Extremities Equipment Transfer Assistive Device Gait Belt,Front Wheeled Walker Orthotic/Prosthetic Devices or Brace: No Transfers Transfer Destination Chair Transfer Technique Stand Step Pivot Transfer Ability Level of Assist Maximum Assistance,1 Person Assistance,Use of Upper Extremities Comments Mobility Comments pt completed log roll supine to sit max A and max cues. pt was able to sit on EOB SBA. completed sit to stand max A and cues. pt completed stand pivot transfer max A and cues. agreed to do ambulation. completed sit to stand from chair max A and cues. ambulated mod A and cues using FWW. agreed to sit up on chair for lunch. set up pt on chair. call light and table placed within reach. Gait Assessment Gait Gait Assistance Required: Moderate Assistance,1 Person Assist Distance (Feet) 6 Able to Maintain Weight Bearing Status Yes During Gait Assistive Devices Assistive Device Gait Belt,Front Wheeled Walker Orthotic/Prosthetic Devices or Brace: No Gait Deviations General Gait Pattern Antalgic,Decreased Stride Length,Decreased Feet Clearance Factors Limiting Gait Function Factors Limiting Gait Function Decreased Activity Tolerance, Decreased Strength,Difficulty Following Directions,Limited Range of Motion,Pain,Poor Balance,Poor Safety Awareness Comments Gait Comments ambulated ~ 6 ft using FWW mod A and cues. requires assist with weight shifting . pt presents with antalgic gait and shuffling gait with decrease knee flexion during swing phase. PT-Balance Assessment Sitting Balance and Reactions Static Sitting Balance Ability Good Dynamic Sitting Balance Ability Fair Standing Balance and Reactions Static Standing Balance Ability Poor Dynamic Standing Balance Ability Poor Device Used FWW M5 PT-IP Objective Assessments Start: 07/09/19 08:45 Freq: NEEDED Status: Active Protocol: Document 07/09/19 10:53 AW (Rec: 07/09/19 12:40 AW [id number]) Orientation Orientation/Cognition Level of Alertness Alert Orientation Name,Day of Week,Place, Situation Language Function Ability No Deficits Noted Safety Awareness Understands Safety Issues Memory Description No Deficits Noted Gross Range of Motion Upper Extremity ROM Assessment Within Functional Limits Lower Extremity ROM Assessment Bilaterally Impaired Strength Upper Extremity Strength Assessment Within Functional Limits Lower Extremity Strength Assessment Bilaterally Impaired Hip 3-/5 Knee 3+/5 Ankle 4/5 Coordination Assessment Gross Coordination Gross Coordination WNL Sensation Assessment Sensation Gross Sensation Right LE Impaired,Left LE Impaired Light Touch Impaired Sensation Description Numbness Comments Sensation Comments On exam, pt reported dull sensation throughout B LE with left more affected than right . Muscle Tone Muscle Tone WNL Yes M6 PT-IP Treatment Start: 07/09/19 08:45 Freq: NEEDED Status: Active Protocol: Document 07/10/19 11:40 AB (Rec: 07/10/19 13:33 AB [id number]) Physical Therapy Treatment Education Education Provided Precautions,Safety M7 PT-IP Assessment and Plan Start: 07/09/19 08:45 Freq: NEEDED Status: Active Protocol: Document 07/10/19 11:40 AB (Rec: 07/10/19 13:33 AB [id number]) PT Summary Assessment and Plan Potential Rehabilitation Potential Good Summary Impairments Pain,ROM,Strength,Balance, Coordination,Sensation,Tone, Cognition,Bed Mobility, Transfers,Gait,Activity Tolerance Progress Towards Goals Slow Progress due to Pain Assessment Summary pt continues to require mod to max A with mobility and has decrease activity tolerance. pt will require SNF rehab to improve strength and independence. Goals Bed Mobility Goal Independent Transfer Goal Independent,Front Wheeled Walker Gait Goal Independent,Front Wheel Walker Gait Distance 150 Other Goals - up/down 3 steps with no rail CGA - up/down 13 steps with R rail ascending SBA Days to Meet Goals 10 Frequency of Treatment Frequency Of Treatment Twice a Day Treatment Plan Physical Therapy Treatment Plan Bed Mobility Training,Transfer Training,Gait Training, Therapeutic Exercise,Balance Retraining,Post Op Education, Discharge Planning,Hot or Cold Pack,Neuromuscular Re-ed, Coordination Retraining,Manual Therapy Other Recommendations and Next Treatment bed mobility, transfers, Focus ambulate as tolerated Recommendations To Nursing Amount of Assist Needed 2 Person Assist Discharge Recommendations PT Discharge Recommendations SNF Rehab
[2019-07-10] MEDS: OXYCODONE IR 5 MG TABLET 15 MG PO ×5 (11:52→23:53)
--- NOTE | 2019-07-10 14:27 | PC.NURSE ---
SHIFT NOTE: pATIENT HAD PAIN 9/10 THIS AM. GIVEN SHCEDULED NORCO AND 10 MG OXY WITH PAIN RELIEVED TO 3/10. DISCUSSED PAIN ISSUES WITH ESTELLE FRANCOIS. HE CHANGED THE PAIN MED REGIMEN TO 15MG Q 3HR PRN. PATIENT NOTES SIGNIFICANT RELIEF WITH THIS. SEEMS TO BE TOLERATING WELL, WITH STABLE VS AND APPROPRIATE ALERTNESS.
--- NOTE | 2019-07-10 14:53 | OT.IP.TRT ---
Current Diagnoses Other forms of scoliosis, lumbar region (07/08/19) Other spondylosis with radiculopathy, lumbosacral region (07/08/19) Spinal stenosis, lumbar region without neurogenic claudication (07/08/19) Arthrodesis status (07/08/19) Surgery Performed Operation Date: 07/08/19 07:45 Actual Procedures p L1-2,L2-3 TLIF,L4-S1 HWR,L1-S1 PSF with instrumentation - Sarai Washington MD Occupational Therapy Treatment Note M2 OT-IP Current Condition Start: 07/09/19 13:10 Freq: Status: Active Protocol: Document 07/09/19 15:44 PJM (Rec: 07/09/19 16:23 PJM [id number]) Occupational Therapy Current Condition Current Condition Evaluation Date 07/09/19 Treatment Diagnosis decr'd self care, mobility s/p L1-S1 PLIF with hardware removal Diagnosis Onset Date 07/08/19 Post Operative Precautions Lumbar Precautions Log Roll,No Twisting,Limit Bending,Lifting Restriction of 10 lbs,Gait Belt above Incisional Area M3 OT- IP Subjective and Pain Start: 07/09/19 13:10 Freq: Status: Active Protocol: Document 07/10/19 15:47 CGR (Rec: 07/10/19 15:57 CGR [id number]) OT- Subjective Occupational Therapy Visit Type Type Treatment Note Visit Start Time 14:19 Visit Stop Time 14:53 Total Visit Minutes 34 Notes Co-treat with PT Occupational Therapy Visit Comments Patient Comments I shake when I get up OT Pain Assessment Pain When Pain Assessed At Rest Pain Present Pain Present Pain Reported Location anterior right thigh Intensity 8 Scale Used Numeric (1 - 10) Description With Movement Pain Behaviors Facial Grimacing,Guarding Management Techniques Apply Cold,Apply Heat, Distraction,Modification of Treatment,Re-positioning, Timing of Activity with Medications M4 OT- IP ADL's Start: 07/09/19 13:10 Freq: Status: Active Protocol: Document 07/10/19 15:47 CGR (Rec: 07/10/19 15:57 CGR [id number]) OT [id number] Comments OT Self-Feeding Comments Not meal time OT ADL-Grooming General Evaluation Grooming Ability Standby Assistance Areas Needing Assistance Face Washing Comments OT Grooming Comments seated at sink OT ADL-Oral Care General Eval Oral Care Ability Minimal Assistance Areas of Assistance Brushing Teeth Comments Oral Care Comments Pt needed min a for opening tooth paste and applying it to bursh. Pt states that he feels like he can not let go of the sink and maintain standing. OT ADL-Dressing Comments OT Dressing Comments Not performed in this session. OT ADL-Toileting Comments OT Toileting Comments Not performed in this session. OT ADL-Bathing Comments OT Bathing Comments Not performed in this session but pt requesting shower for tomorrow. M5 OT- IP IADL's Start: 07/09/19 13:10 Freq: Status: Active Protocol: Document 07/09/19 15:44 PJM (Rec: 07/09/19 16:23 PJ [id number]) OT-Instrumental Activities of Daily Living Deficits IADL Deficits Identified Deficits Home Safety Awareness Awareness of Need for Assistance at Home Good Awareness Ability to Problem Solve Emergency Able to Problem Solve Situations Home Safety Comments does IADLS at home Medication Management Medication Management No Deficits Identified Money Management Money Management Caregiver Provides Assistance Meal Preparation Meal Preparation Caregiver Provides Assist Accounting Assistant Accounting Assistant Caregiver Provides Assist Driving Driving Caregiver Provides Assist Driving Comments until pt able M6 OT- IP Functional Cognition Start: 07/09/19 13:10 Freq: Status: Active Protocol: Document 07/09/19 15:44 PJM (Rec: 07/09/19 16:23 PJ [id number]) Cognitive Factors Limiting Selfcare Function Cognitive Ability Level of Alertness Alert Patient Orientation Name,Age,Birthday,Month,Date, Year,Day of Week,Place, Situation Attention Span Ability Capable of Focused Attention, Capable of Sustained Attention Ability to Follow Commands Able to Follow One Step Commands Cognitive Comments Cognitive Assessment Comments Pt verbalizes understanding of lumbar spine precautions. OT- Vision and Hearing OT- Hearing Assessment OT- Hearing Assessment WFL OT- Vision Assessment Visual Acuity WFL Vision Assessment Comments Pt reports some blurred vision which he is attrributing to pain meds. M7 OT- IP Mobility and Balance Start: 07/09/19 13:10 Freq: Status: Active Protocol: Document 07/10/19 15:47 CGR (Rec: 07/10/19 15:57 CGR [id number]) OT- Bed Mobility Assessment Rolling Type of Rolling Log Rolling,Roll to Left Level of Assistance Maximum Assistance,2 Person Assistance Sit to Supine Sit to Supine Assist Maximum Assistance,2 Person Assistance Scooting Scooting Up and Down in Bed Maximum Assistance,2 Person Assistance OT-Transfer Assessment Sit to and From Stand Sit to and from Stand Minimal Assistance,2 Person Assistance Transfers Transfer Ability Minimal Assistance,2 Person Assistance Technique Transfer Destination Bed,Chair Transfer Technique Stand Step Pivot Devices Transfer Assistive Devices Gait Belt,Front Wheeled Walker Comments Mobility Comments Pt with very slow mobility and shaking. Needed a sitting rest break at sink, stating that he felt like his legs were going to give out. OT- Gait Assessment Gait Gait Assistance Required: Minimum Assistance,2 Person Assist Assistive Devices Assistive Device Gait Belt,Front Wheeled Walker Comments Gait Ability Comments See PT note for distance. OT- Balance Assessment Sitting Balance and Reactions Static Sitting Balance Ability Good Dynamic Sitting Balance Ability Fair Standing Balance and Reactions Static Standing Balance Ability Poor Dynamic Standing Balance Ability Poor Comments Other Balance Tests/Deviations/Treatment see P.T. notes : M8 OT- IP Objective Assessments Start: 07/09/19 13:10 Freq: Status: Active Protocol: Document 07/09/19 15:44 PJM (Rec: 07/09/19 16:23 PJM [id number]) OT Gross Range of Motion Upper Extremity Range of Motion Assessment Within Functional Limits ROM Impairments Moves L shoulder slowly due to 3 previous surgeries but denies pain OT Strength Hand [employer] Strength Hand Dominance Right Comments Strength Comments BUE WFL OT- Coordination Assessment Comments Coordination Comments BUE WFL for self care OT-Muscle Tone Assessment Muscle Tone WNL Yes OT Sensation Assessment Comments Summary Comments Pt reports intermittent numbness in 4th, 5th fingers of B hands Edema Edema Absent M9 OT- IP Assessment and Plan Start: 07/09/19 13:10 Freq: Status: Active Protocol: Document 07/10/19 15:47 CGR (Rec: 07/10/19 15:57 CGR [id number]) OT Summary Assessment and Plan Potential Rehabilitation Potential Good Analytic Complexity at Evaluation Low Summary OT Impairments Pain,Strength,Balance, Functional Mobility,Grooming, Dressing,Toileting,Bathing, Toilet Transfers,Shower Transfers Assessment Summary Pt agreeable to OT services on this date. Co-treat with P.T. Pt shaking with mobility and limited by pain. Pt reports high 8/10 at end of session once supine in bed at end of session. Pt appears motivated and willing to participate. Pt will benefit from STR upon discharge. Goals Grooming Goal Contact Guard Assistance Dressing Goal Minimal Assistance Toileting Goal Minimal Assistance Bathing Goal Minimal Assistance Toilet Transfer Goal Minimal Assistance Shower Transfer Goal Minimal Assistance Patient/Caregiver Education Goal Demonstrate Post-Op Precautions OT-Other Goals Grooming to be done standing at sink with good safety awareness and no LOB. Days to Meet Goals 5 Frequency of Treatment Frequency Of Treatment Once a Day Treatment Plan OT Treatment Plan ADL Training,Functional Mobility,Patient/Family Education,Discharge Planning Discharge Recommendations OT Discharge Recommendations SNF Rehab Home Equipment Needs to be determined pending progress in next rehab setting
--- NOTE | 2019-07-10 15:20 | PT.IPTN ---
Current Diagnoses Other forms of scoliosis, lumbar region (07/08/19) Other spondylosis with radiculopathy, lumbosacral region (07/08/19) Spinal stenosis, lumbar region without neurogenic claudication (07/08/19) Arthrodesis status (07/08/19) Surgery Performed Operation Date: 07/08/19 07:45 Actual Procedures p L1-2,L2-3 TLIF,L4-S1 HWR,L1-S1 PSF with instrumentation - Sarai Washington MD Physical Therapy Treatment Note M2 PT-IP Current Condition Start: 07/09/19 08:45 Freq: NEEDED Status: Active Protocol: Document 07/09/19 10:53 AW (Rec: 07/09/19 12:40 AW [id number]) Physical Therapy Current Condition Current Condition Evaluation Date 07/09/19 Treatment Diagnosis s/p L1-2 L2-3 TLIF, impaired mobility Onset Date 07/08/19 Precautions Lumbar Precautions Log Roll,No Twisting,Limit Bending,Lifting Restriction of 10 lbs,Gait Belt above Incisional Area Weight Bearing Status Weight Bearing Status Full Weight Bearing M3 PT-IP Subjective Start: 07/09/19 08:45 Freq: NEEDED Status: Active Protocol: Document 07/10/19 14:19 LJ (Rec: 07/10/19 15:20 LJ [id number]) Subjective Physical Therapy Visit Type Type Treatment Note Visit Start Time 14:19 Visit Stop Time 14:53 Total Visit Minutes 34 Notes Co-treat with OT Physical Therapy Visit Comments Patient Comments pt agreeable to do PT. sitting in chair requesting psin meds Therapy Pain Assessment Pain When Pain Assessed At Rest Pain Present Pain Present Pain Reported Location anterior right thigh Intensity 8 Scale Used Numeric (1 - 10) Description Aching,Radiating Pain Behaviors Facial Grimacing,Guarding, Wincing Back Intensity 8 Scale Used Numeric (1 - 10) Description Aching,Radiating Pain Behaviors Calling Out,Facial Grimacing, Wincing Pain Management Techniques Apply Cold,Re-positioning, Timing of Activity with Medications M4 PT-IP Mobility and Gait Start: 07/09/19 08:45 Freq: NEEDED Status: Active Protocol: Document 07/10/19 14:19 LJ (Rec: 07/10/19 15:20 LJ [email or web address]) PT-Bed Mobility Assessment Rolling Type of Rolling Log Rolling Level of Assist Maximal Assistance,2 Person Assistance Sit to Supine Sit to Supine Moderate Assistance,2 Person Assistance,Bedrails Scooting Scooting to Edge of Bed Maximum Assistance Scooting Up and Down in Bed Maximum Assistance PT-Transfer Assessment Sit to and From Stand Sit to and from Stand Moderate Assistance,2 Person Assistance,Use of Upper Extremities Equipment Transfer Assistive Device Gait Belt,Front Wheeled Walker Orthotic/Prosthetic Devices or Brace: No Transfers Transfer Destination Bed Transfer Technique Stand Step Pivot Transfer Ability Level of Assist Moderate Assistance,2 Person Assistance,Use of Upper Extremities Comments Mobility Comments Pt in chair able to scoot to edge of chair Marychuy. Sit<>stand Marychuy x2. Requires cueing for hand placement and push off. Marychuy for stand step pivot transfer to bed. Pt required MaxA x2 for bed mobility with assist for LEs and positioning in bed. Gait Assessment Gait Gait Assistance Required: Minimum Assistance,2 Person Assist Distance (Feet) 15 Able to Maintain Weight Bearing Status Yes During Gait Assistive Devices Assistive Device Gait Belt,Front Wheeled Walker Orthotic/Prosthetic Devices or Brace: No Gait Deviations General Gait Pattern Antalgic,Decreased Stride Length,Decreased Feet Clearance Factors Limiting Gait Function Factors Limiting Gait Function Decreased Activity Tolerance, Decreased Strength,Difficulty Following Directions,Limited Range of Motion,Pain,Poor Balance,Poor Safety Awareness Comments Gait Comments Pt ambulated from chair to sink ~5' with chair follow. Stood at sink to brush his teeth for several minutes and requested seated rest break which lasted several minutes. Pt sat into chair Marychuy x2 with good eccentric control and cues for hand placement. Pt remained in chair for several minutes then ambulated toward door chair follow Marychuy x2. Pt performed stand step pivot Marychuy to sit onto edge of bed. Stair Climbing Assessment Comments Stair Climbing Comments Not assessed. M5 PT-IP Objective Assessments Start: 07/09/19 08:45 Freq: NEEDED Status: Active Protocol: Document 07/09/19 10:53 AW (Rec: 07/09/19 12:40 AW [id number]) Orientation Orientation/Cognition Level of Alertness Alert Orientation Name,Day of Week,Place, Situation Language Function Ability No Deficits Noted Safety Awareness Understands Safety Issues Memory Description No Deficits Noted Gross Range of Motion Upper Extremity ROM Assessment Within Functional Limits Lower Extremity ROM Assessment Bilaterally Impaired Strength Upper Extremity Strength Assessment Within Functional Limits Lower Extremity Strength Assessment Bilaterally Impaired Hip 3-/5 Knee 3+/5 Ankle 4/5 Coordination Assessment Gross Coordination Gross Coordination WNL Sensation Assessment Sensation Gross Sensation Right LE Impaired,Left LE Impaired Light Touch Impaired Sensation Description Numbness Comments Sensation Comments On exam, pt reported dull sensation throughout B LE with left more affected than right . Muscle Tone Muscle Tone WNL Yes M6 PT-IP Treatment Start: 07/09/19 08:45 Freq: NEEDED Status: Active Protocol: Document 07/10/19 14:19 LJ (Rec: 07/10/19 15:20 LJ [id number]) Physical Therapy Treatment Education Education Provided Precautions,Safety M7 PT-IP Assessment and Plan Start: 07/09/19 08:45 Freq: NEEDED Status: Active Protocol: Document 07/10/19 14:19 LJ (Rec: 07/10/19 15:20 LJ [id number]) PT Summary Assessment and Plan Potential Rehabilitation Potential Good Status of Condition at Evaluation Evolving Summary Impairments Pain,ROM,Strength,Balance, Coordination,Sensation,Tone, Cognition,Bed Mobility, Transfers,Gait,Activity Tolerance Progress Towards Goals Slow Progress due to Pain Assessment Summary pt requires Min to MaxA with mobility and has decrease activity tolerance. Gait assistance less than bed mobility. Pt will require SNF rehab to improve strength and independence. Goals Bed Mobility Goal Independent Transfer Goal Independent,Front Wheeled Walker Gait Goal Independent,Front Wheel Walker Gait Distance 150 Other Goals - up/down 3 steps with no rail CGA - up/down 13 steps with R rail ascending SBA Days to Meet Goals 10 Frequency of Treatment Frequency Of Treatment Twice a Day Treatment Plan Physical Therapy Treatment Plan Bed Mobility Training,Transfer Training,Gait Training, Therapeutic Exercise,Balance Retraining,Post Op Education, Discharge Planning,Hot or Cold Pack,Neuromuscular Re-ed, Coordination Retraining,Manual Therapy Other Recommendations and Next Treatment bed mobility, transfers, Focus ambulate as tolerated Recommendations To Nursing Amount of Assist Needed 1 Person Assist,2 Person Assist Discharge Recommendations PT Discharge Recommendations SNF Rehab
[2019-07-10] MEDS: hydrOXYzine pamoate 25 MG CAPSULE PO ×2 (17:47→20:50)
[2019-07-10] MEDS: SENNOSIDES 8.6 MG TABLET 17.2 MG PO (20:50)
[2019-07-10] MEDS: ATORVASTATIN 20 MG TABLET 40 MG PO (20:51)
[2019-07-10] MEDS: TRAZODONE 50 MG TABLET 100 MG PO (20:51)
[2019-07-11] MEDS: HYDROMORPHONE 2 MG TABLET PO ×4 (00:57→08:57)
[2019-07-11 03:15] VITALS: BP 148/81; PULSE 96; RESP 16; TEMP 36.5; O2SAT 95
[2019-07-11] MEDS: OXYCODONE IR 5 MG TABLET 15 MG PO ×2 (03:23→06:37)
--- NOTE | 2019-07-11 05:30 | PC.NURSE ---
Pt is axOx3, VSS, tolerating room air. Complaints of 7 out of 10 back pain. Pt states normally at home he takes a vicodin for pain control. Here patient is insisting on taking the Oxy 15mg with the Dilaudid 2mg PO for adequate pain relief. Continuous pulse ox placed and saturating 100% on RA overnight. Explained to patient risks of respiratory depression. Priest to be removed this morning. b/l foot scds on throughout night.
[2019-07-11] MEDS: hydrOXYzine pamoate 25 MG CAPSULE PO ×2 (05:57→09:54)
[2019-07-11 07:35] VITALS: BP 133/79; PULSE 82; RESP 16; TEMP 37.1; O2SAT 93
[2019-07-11] MEDS: PANTOPRAZOLE 20 MG TABLET PO (08:57)
[2019-07-11] MEDS: SERTRALINE 25 MG TABLET PO (08:57)
[2019-07-11] MEDS: DOCUSATE 100 MG CAPSULE PO (08:57)
[2019-07-11] MEDS: LORATADINE 10 MG TABLET PO (08:57)
[2019-07-11] MEDS: THYROID, PORK 60 MG TABLET 120 MG PO (08:57)
[2019-07-11] MEDS: GABAPENTIN 600 MG TABLET PO (08:57)
[2019-07-11] MEDS: ACETAMINOPHEN 325 MG TABLET 650 MG PO (08:57)
--- NOTE | 2019-07-11 10:36 | PM.DS.1 ---
History of Present Illness History of Present Illness Date Patient Seen: 07/11/19 Time Patient Seen: 09:00 Chief complaint: [id number] Narrative: Patient complains of pain in lower back and hips. Pain being managed with oxycodone, dilaudid, vistaril and tylenol. Using urinary catheter. Mobilizing with PT slowly secondary to pain. Patient denies fever, chills, chest pain, shortness of breath, pain in calves, numbness, tingling, bowel incontinence. Discharge Providers Provider Date of admission: 07/08/19 06:12 Discharge Date: 07/11/19 Primary care physician: Madison Benson DO Consults: 07/08/19 07:08 Consult to Respiratory Therapy Evaluate & Treat Comment: Physician Instructions: Evaluate and treat 07/08/19 15:01 Consult to Occupational Therapy Evaluate & Treat Comment: Physician Instructions: Evaluate and treat Consult to Physical Therapy Evaluate & Treat Comment: Physician Instructions: Evaluate and Treat Discharge provider: Bianca Alston PA-C Summary Hospital Course Discharge Diagnosis: s/p L1-2, L2-3, L3-4, L4-5 TLIF PTSD sleep apnea hyperlipidemia arteriovenous malformation kidney stones skin cancer papillary thyroid carcinoma Hospital Course: Patient admitted to hospital s/p L1-2, L2-3, L3-4, L4-[address] Washington. Post op day #3 patient was medically cleared for discharge to SNF. Hospital course notable for marginal pain control and slow progress with PT. Pain was managed with oxycodone, dilaudid, vistaril and tylenol. I suspect medication timing was the issue as patient's pain was under control during multiple AM assessments after meds dispensed. Pain medication management changed to dialudid 4mg PO for SNF transfer and oxycodone was discontinued. Vistarila and tylenol continued. Patient was voiding with assistance for a kim catheter prior to discharge. Eating without difficulty or assistance prior to discharge. Mobilizing with PT prior to discharge. Status at Discharge Cognitive/behavioral status at discharge: oriented Functional status at discharge: uses cane/walker Overall status at discharge: patient is progressing back to baseline Time Spent with Patient Time spent: Less than 30 minutes Exam Vital Signs (past 8 hours): - 07/11/19 03:15 07/11/19 07:35 Temperature 97.7 F 98.8 F Pulse Rate 96 H 82 Respiratory Rate 16 16 Blood Pressure 148/81 H 133/79 Pulse Oximetry 95 93 Oxygen Delivery Method CPAP Oxygen Flow Rate 0 Narrative Exam Narrative: 53 year old male is laying in bed, in no apparent distress. A&Ox3. Dressing CDI. Urinary catheter and SCDs in place. Sensory function is grossly intact to light touch in LE bl. Dorsalis pedis 2+ bl. Able to actively dorsiflex/plantar flex. Calves warm, soft, compressible, non tender to palpation Objective Labs Result Diagrams: 07/09/19 06:10 Discharge Plan Discharge Plan Patient Disposition: SNF Transfer to: [facility] Consult as needed: Dental, Hearing, Mental health, Podiatry and Vision Discharge orders & Medications Prescriptions: New acetaminophen 325 mg Tablet 650 mg PO Q6H PRN (Reason: Pain, Mild (1-3)) Qty: 60 RF: 0 naproxen 250 mg Tablet 500 mg PO DAILY PRN (Reason: Pain, Mild (1-3)) Qty: 40 RF: 0 hydromorphone 4 mg Tablet 4 mg PO Q4HR PRN (Reason: Pain, Severe (7-10)) Qty: 40 RF: 0 hydroxyzine pamoate 25 mg Capsule 25 mg PO Q4HR PRN (Reason: Nausea And Vomiting) Qty: 40 RF: 0 Continued loratadine [Claritin] 10 MG tablet 10 mg PO QDAY Qty: 0 RF: 0 gabapentin [Neurontin] 600 MG tablet 600 mg PO BID Qty: 60 RF: 1 atorvastatin 40 mg Tablet 40 mg PO BEDTIME RF: 0 sertraline 25 mg Tablet 25 mg PO DAILY RF: 0 omeprazole 20 mg Capsule,Delayed Release(Dr/Ec) 20 mg PO DAILY RF: 0 thyroid (pork) [Stanley Thyroid] 30 mg tablet 120 mg PO DAILY RF: 0 Discontinued trazodone 50 mg Tablet 100 mg PO BEDTIME RF: 0 hydrocodone-acetaminophen 5-325 mg Tablet 1 tab PO BID RF: 0 naproxen sodium [Aleve] 220 mg Capsule 440 mg PO DAILY PRN (Reason: Pain) RF: 0 Follow up/Referrals: Sarai Washington MD [Physician] - Madison Benson DO [Primary Care Provider] - Discharge Health Status Multidrug resistant organism: No MDRO Diet/Activity/Treatments Diet: Regular Liquid consistency: Normal/Thin Food texture: Regular Activity: no excessive bending, lifting, twising Cold/Heat Therapy: continue cold/heat therapy as needed Catheter: 2-way Kim Skin/Wound/Dressing Care Report to your healthcare provider any signs of infection, such as:: chills, fever, increased pain, unusual drainage and unusual redness Dressing: keep dressing dry. change site dressing as needed. Special Rehabilitation Services Reason for rehabilitation: Post-operative therapy Rehab type: Physical therapy and Occupational therapy Visit Report/Discharge Packet Instructions: DI for Prescription Opioid Use, DI for Transforaminal Lumbar Interbody Fusion Stand Alone Forms: Surgery Discharge Discharge Data Primary Care Provider: Madison Benson VTE Deep Vein Thrombosis/Pulmonary Embolism Present on Admission: No
[2019-07-11] MEDS: HYDROMORPHONE 4 MG TABLET PO (11:57)
[2019-07-11 12:00] VITALS: BP 124/83; PULSE 94; RESP 16; TEMP 36.6; O2SAT 93
--- NOTE | 2019-07-11 12:18 | PT.IPTN ---
Current Diagnoses Other forms of scoliosis, lumbar region (07/08/19) Other spondylosis with radiculopathy, lumbosacral region (07/08/19) Spinal stenosis, lumbar region without neurogenic claudication (07/08/19) Arthrodesis status (07/08/19) Surgery Performed Operation Date: 07/08/19 07:45 Actual Procedures p L1-2,L2-3 TLIF,L4-S1 HWR,L1-S1 PSF with instrumentation - Sarai Washington MD Physical Therapy Treatment Note M2 PT-IP Current Condition Start: 07/09/19 08:45 Freq: NEEDED Status: Active Protocol: Document 07/09/19 10:53 AW (Rec: 07/09/19 12:40 AW [id number]) Physical Therapy Current Condition Current Condition Evaluation Date 07/09/19 Treatment Diagnosis s/p L1-2 L2-3 TLIF, impaired mobility Onset Date 07/08/19 Precautions Lumbar Precautions Log Roll,No Twisting,Limit Bending,Lifting Restriction of 10 lbs,Gait Belt above Incisional Area Weight Bearing Status Weight Bearing Status Full Weight Bearing M3 PT-IP Subjective Start: 07/09/19 08:45 Freq: NEEDED Status: Active Protocol: Document 07/11/19 12:17 LJ (Rec: 07/11/19 12:17 LJ [id number]) Subjective Physical Therapy Visit Type Type Patient Refusal Notes Pt states he wants to save his strength for the transfer to rehab today. M4 PT-IP Mobility and Gait Start: 07/09/19 08:45 Freq: NEEDED Status: Active Protocol: Document 07/10/19 14:19 LJ (Rec: 07/10/19 15:20 LJ [email or web address]) PT-Bed Mobility Assessment Rolling Type of Rolling Log Rolling Level of Assist Maximal Assistance,2 Person Assistance Sit to Supine Sit to Supine Moderate Assistance,2 Person Assistance,Bedrails Scooting Scooting to Edge of Bed Maximum Assistance Scooting Up and Down in Bed Maximum Assistance PT-Transfer Assessment Sit to and From Stand Sit to and from Stand Moderate Assistance,2 Person Assistance,Use of Upper Extremities Equipment Transfer Assistive Device Gait Belt,Front Wheeled Walker Orthotic/Prosthetic Devices or Brace: No Transfers Transfer Destination Bed Transfer Technique Stand Step Pivot Transfer Ability Level of Assist Moderate Assistance,2 Person Assistance,Use of Upper Extremities Comments Mobility Comments Pt in chair able to scoot to edge of chair Marychuy. Sit<>stand Marychuy x2. Requires cueing for hand placement and push off. Marychuy for stand step pivot transfer to bed. Pt required MaxA x2 for bed mobility with assist for LEs and positioning in bed. Gait Assessment Gait Gait Assistance Required: Minimum Assistance,2 Person Assist Distance (Feet) 15 Able to Maintain Weight Bearing Status Yes During Gait Assistive Devices Assistive Device Gait Belt,Front Wheeled Walker Orthotic/Prosthetic Devices or Brace: No Gait Deviations General Gait Pattern Antalgic,Decreased Stride Length,Decreased Feet Clearance Factors Limiting Gait Function Factors Limiting Gait Function Decreased Activity Tolerance, Decreased Strength,Difficulty Following Directions,Limited Range of Motion,Pain,Poor Balance,Poor Safety Awareness Comments Gait Comments Pt ambulated from chair to sink ~5' with chair follow. Stood at sink to brush his teeth for several minutes and requested seated rest break which lasted several minutes. Pt sat into chair Marychuy x2 with good eccentric control and cues for hand placement. Pt remained in chair for several minutes then ambulated toward door chair follow Marychuy x2. Pt performed stand step pivot Marychuy to sit onto edge of bed. Stair Climbing Assessment Comments Stair Climbing Comments Not assessed. M5 PT-IP Objective Assessments Start: 07/09/19 08:45 Freq: NEEDED Status: Active Protocol: Document 07/09/19 10:53 AW (Rec: 07/09/19 12:40 AW [id number]) Orientation Orientation/Cognition Level of Alertness Alert Orientation Name,Day of Week,Place, Situation Language Function Ability No Deficits Noted Safety Awareness Understands Safety Issues Memory Description No Deficits Noted Gross Range of Motion Upper Extremity ROM Assessment Within Functional Limits Lower Extremity ROM Assessment Bilaterally Impaired Strength Upper Extremity Strength Assessment Within Functional Limits Lower Extremity Strength Assessment Bilaterally Impaired Hip 3-/5 Knee 3+/5 Ankle 4/5 Coordination Assessment Gross Coordination Gross Coordination WNL Sensation Assessment Sensation Gross Sensation Right LE Impaired,Left LE Impaired Light Touch Impaired Sensation Description Numbness Comments Sensation Comments On exam, pt reported dull sensation throughout B LE with left more affected than right . Muscle Tone Muscle Tone WNL Yes M6 PT-IP Treatment Start: 07/09/19 08:45 Freq: NEEDED Status: Active Protocol: Document 07/10/19 14:19 LJ (Rec: 07/10/19 15:20 LJ [email or web address]) Physical Therapy Treatment Education Education Provided Precautions,Safety M7 PT-IP Assessment and Plan Start: 07/09/19 08:45 Freq: NEEDED Status: Active Protocol: Document 07/10/19 14:19 CHAU (Rec: 07/10/19 15:20 CHAU [email or web address]) PT Summary Assessment and Plan Potential Rehabilitation Potential Good Status of Condition at Evaluation Evolving Summary Impairments Pain,ROM,Strength,Balance, Coordination,Sensation,Tone, Cognition,Bed Mobility, Transfers,Gait,Activity Tolerance Progress Towards Goals Slow Progress due to Pain Assessment Summary pt requires Min to MaxA with mobility and has decrease activity tolerance. Gait assistance less than bed mobility. Pt will require SNF rehab to improve strength and independence. Goals Bed Mobility Goal Independent Transfer Goal Independent,Front Wheeled Walker Gait Goal Independent,Front Wheel Walker Gait Distance 150 Other Goals - up/down 3 steps with no rail CGA - up/down 13 steps with R rail ascending SBA Days to Meet Goals 10 Frequency of Treatment Frequency Of Treatment Twice a Day Treatment Plan Physical Therapy Treatment Plan Bed Mobility Training,Transfer Training,Gait Training, Therapeutic Exercise,Balance Retraining,Post Op Education, Discharge Planning,Hot or Cold Pack,Neuromuscular Re-ed, Coordination Retraining,Manual Therapy Other Recommendations and Next Treatment bed mobility, transfers, Focus ambulate as tolerated Recommendations To Nursing Amount of Assist Needed 1 Person Assist,2 Person Assist Discharge Recommendations PT Discharge Recommendations SNF Rehab
--- NOTE | 2019-07-11 12:26 | OT.IP.TRT ---
Current Diagnoses Other forms of scoliosis, lumbar region (07/08/19) Other spondylosis with radiculopathy, lumbosacral region (07/08/19) Spinal stenosis, lumbar region without neurogenic claudication (07/08/19) Arthrodesis status (07/08/19) Surgery Performed Operation Date: 07/08/19 07:45 Actual Procedures p L1-2,L2-3 TLIF,L4-S1 HWR,L1-S1 PSF with instrumentation - Sarai Washington MD Occupational Therapy Treatment Note M2 OT-IP Current Condition Start: 07/09/19 13:10 Freq: Status: Active Protocol: Document 07/09/19 15:44 PJM (Rec: 07/09/19 16:23 PJM [id number]) Occupational Therapy Current Condition Current Condition Evaluation Date 07/09/19 Treatment Diagnosis decr'd self care, mobility s/p L1-S1 PLIF with hardware removal Diagnosis Onset Date 07/08/19 Post Operative Precautions Lumbar Precautions Log Roll,No Twisting,Limit Bending,Lifting Restriction of 10 lbs,Gait Belt above Incisional Area M3 OT- IP Subjective and Pain Start: 07/09/19 13:10 Freq: Status: Active Protocol: Document 07/11/19 12:25 CGR (Rec: 07/11/19 12:26 CGR [email or web address]) OT- Subjective Occupational Therapy Visit Type Type Administrative Note Notes Attempted to see pt in early AM, pt showering with aid. P.T . attempted near lunch time and pt declined stating that he doesn't want to work with P .T. or OT prior to transferring to SNF. No OT services rendered on this date.
--- NOTE | 2019-07-11 12:29 | CM.DPNOTE ---
DC Note: DC order in place for [facility]. Pt remains agreeable to DCP. Faxed completed and signed DC ppk, med list and completed PASRR to November at [facility]. W/c transport was arranged for p/u at approx 1300. RN made aware. P: DC to [facility] via w/c today JENNIFER Dye
--- NOTE | 2019-07-11 13:06 | PC.NURSE ---
Day shift: Pt off unit at approx 1300 to [facility] across the street. Pt has personal belongings as well as MD scrips. Report given to Alejandrina SN[facility] RN. Dressing changed prior to d/c and Pt tolerated well. Urine output good after Priest d/c'd. [facility] packet is with transport person.
== END 2019-07-11 13:08 | DRG 454 ==
PROVIDERS: Admitting Provider Orthopaedic Surgery Orthopaedic Surgery of the Spine; Family Provider Family Medicine; PCP Family Medicine; Visit Provider Orthopaedic Surgery Orthopaedic Surgery of the Spine
PROC: 0SG10AJ Fusion of 2 or more Lumbar Vertebral Joints with Interbody Fusion Device, Posterior Approach, Anterior Column, Open Approach (ICD-10-PCS; principal; 2019-07-08 07:45)
DX: M48.061 Spinal stenosis, lumbar region without neurogenic claudication (principal); T84.038A Mechanical loosening of other internal prosthetic joint, initial encounter; M96.0 Pseudarthrosis after fusion or arthrodesis; M47.26 Other spondylosis with radiculopathy, lumbar region; G47.33 Obstructive sleep apnea (adult) (pediatric); F43.10 Post-traumatic stress disorder, unspecified; G89.29 Other chronic pain; E03.9 Hypothyroidism, unspecified; E78.5 Hyperlipidemia, unspecified; G56.03 Carpal tunnel syndrome, bilateral upper limbs; G89.18 Other acute postprocedural pain
CPT/HCPCS: 36415; 72100; 76000; 85014; 85018; 94660; 97116; 97161; 97165; 97530; 97535; C1776; C9290; J0330; J0690; J1100; J1170; J2250; J2405; J2704; J3010; J3410

== ENCOUNTER → 2019-07-14 08:51 | Outpatient (ROUT) | payer SELFPAY ==
[2019-07-08 15:27] VITALS: BMI 26.6
[2019-07-14 08:54] LABS: Bacteria Urine None Seen
[2019-07-14 08:56] LABS: Appearance Urine UA CLEAR; Bilirubin Urine UA NEGATIVE (NEGATIVE); Color Urine UA YELLOW; Glucose Urine UA NEGATIVE (Negative); Ketones Urine UA NEGATIVE (NEGATIVE); Leukocyte Esterase Urine UA NEGATIVE (NEGATIVE); Nitrite Urine UA NEGATIVE (Negative); Occult Blood Urine UA TRACE-LYSED (Negative); Protein Urine UA NEGATIVE (Negative); pH Urine UA 7.5 (4.5-8.0)
[2019-07-14 09:04] LABS: Amorphous Sediment Urine 2+; Culture Indicated Urine Cult Not Indicated; RBC Urine 0-1/HPF (0-5/HPF); WBC Urine 0-1/HPF (0-5/HPF)
== END ==
PROVIDERS: Visit Provider Student in an Organized Health Care Education/Training Program
DX: M54.9 Dorsalgia, unspecified (principal); N39.0 Urinary tract infection, site not specified
CPT/HCPCS: 81001

== ENCOUNTER → 2019-10-13 12:31 | Outpatient (CLI) | payer MEDICARE, OTHER, SELFPAY ==
[2019-07-08 15:27] VITALS: BMI 26.6
--- NOTE | 2019-10-13 | DI.MRI.S_ITS ---
PROCEDURE: MR ANGIO HEAD WO CON INDICATIONS: Other malformations of cerebral vessels TECHNIQUE: Noncontrast axial 3-D [id number] MR angiogram, with 3-dimensional maximum intensity projection (MIP) reformats of the internal carotid arteries and posterior circulation then performed. COMPARISON: [facility], MR, ANGIOGRAM HEAD WITHOUT CONTRAS, 12/08/2010, 10:19. [facility], MR, ANGIO HEAD WITHOUT CONTRAST, 05/20/2012, 20:24. [facility], MR, MR HEAD/BRAIN WO/W CON, 10/13/2019, 13:14. [facility], MR, MR ANGIO HEAD WO CON, 02/27/2018, 18:53. FINDINGS: Image quality: Excellent. Anterior circulation: Intracranial internal carotid arteries demonstrate normal size and intraluminal flow signal. There is a diminutive left A1 segment, with a corresponding robust right A1 segment. This is considered to be a normal developmental variant of the [place], of typically no clinical consequence. The flow within the paired anterior cerebral arteries is otherwise normal and symmetric. The flow within the middle cerebral arteries is normal and symmetric. The anterior communicating artery is seen. No stenoses, occlusions, or aneurysms. Posterior circulation: Visualized portions of the vertebral arteries demonstrate normal caliber, and join to form a normal appearing basilar artery. The flow within the posterior cerebral arteries is normal and symmetric. No stenoses, occlusions, or aneurysms. There is visualization of the largest of this patient's known hemangiomas within the lateral aspect of the right basal ganglia. IMPRESSION: Normal brain MR angiogram. Stable from priors. Dictated by: Jeyson Maravilla M.D. on 10/13/2019 at 13:15 Approved by: Jeyson Maravilla M.D. on 10/13/2019 at 13:16
--- NOTE | 2019-10-13 | DI.MRI.S_ITS ---
PROCEDURE: MR HEAD/BRAIN WO/W CON INDICATIONS: Other malformations of cerebral vessels TECHNIQUE: Noncontrast axial T1 spin echo, axial T2 fast spin echo, sagittal and axial FLAIR, coronal T2 fast spin echo, axial gradient echo, axial diffusion and ADC through the brain. After the administration of contrast, axial and coronal 3D VIBE or T1 spin echo with fat saturation through the brain. COMPARISON: [facility], MR, BRAIN WITHOUT CONTRAST, 12/08/2010, 9:56. [facility], MR, BRAIN W&WO CONTRAST, 02/12/2014, 7:50. [facility], MR, BRAIN W&WO CONTRAST, 10/05/2016, 15:55. [facility], MR, MR ANGIO HEAD WO CON, 02/27/2018, 18:53. [facility], MR, MR ANGIO HEAD WO CON, 10/13/2019, 13:14. [facility], MR, MR HEAD/BRAIN WO/W CON, 02/27/2018, 19:00. FINDINGS: Image quality: Excellent. CSF Spaces: Basal cisterns are patent. No extra-axial fluid collections. Ventricles are normal in size and shape. Brain: Along the aspect of the right basal ganglia, there is again seen a popcorn type lesion with a complete T2 hypointense rim, which measures up to 1.9 cm. Prominent blooming artifact can be seen on the hemosiderin sensitive sequence. Additional smaller areas of susceptibility artifact can be seen elsewhere within both cerebral hemispheres. On postcontrast imaging, mild central enhancement can be seen. No midline shift. No intracranial masses. No abnormal intracranial enhancement. The brainstem appears normal. Diffusion-weighted images demonstrate no acute ischemic insults. No chronic ischemic insults. Normal intravascular flow voids are present. Skull and face: Calvarial marrow is normal in signal. Orbits appear normal. Sinuses: Sinuses and mastoids appear clear. IMPRESSION: Several foci of stable hemangiomas are seen, with the largest seen involving the lateral aspect of the right basal ganglia. No significant exchange mechanic time. Dictated by: Jeyson Maravilla M.D. on 10/13/2019 at 13:11 Approved by: Jeyson Maravilla M.D. on 10/13/2019 at 13:15
== END ==
PROVIDERS: Family Provider Family Medicine; PCP Family Medicine; Referring Provider Psychiatry & Neurology Neurology; Visit Provider Psychiatry & Neurology Neurology
DX: Q28.3 Other malformations of cerebral vessels (principal); D18.09 Hemangioma of other sites; R20.2 Paresthesia of skin; H53.9 Unspecified visual disturbance
CPT/HCPCS: 70544; 70553

== ENCOUNTER → 2020-04-22 12:35 | Outpatient (CLI) | payer MEDICARE, OTHER, SELFPAY ==
[2019-07-08 15:27] VITALS: BMI 26.6
--- NOTE | 2020-04-22 | DI.CT.S_ITS ---
PROCEDURE: CT LUMBAR SPINE WO CON INDICATIONS: Spinal stenosis, lumbar region with neurogenic cla TECHNIQUE: Noncontrast 3 mm thick sections acquired from the T12 level to the sacrum. Sagittal and coronal reformats were constructed. For radiation dose reduction, the following was used: automated exposure control. COMPARISON: [facility], MR, MR LUMBAR SPINE WO CON, 11/06/2018, 15:34. [facility], MR, L-SPINE WITHOUT CONTRAST, 10/05/2016, 15:16. [facility] [place], CR, XR LUMBAR SPINE 2 OR 3 VIEWS, 04/19/2020, 10:06. [facility], CT, CT LUMBAR SPINE WO CON, 11/27/2017, 10:59. [facility] [place], CR, XR LUMBAR SPINE 2 OR 3 VIEWS, 09/03/2019, 13:29. [facility] [place], CR, XR LUMBAR SPINE 2 OR 3 VIEWS, 03/17/2020, 14:22. FINDINGS: Image quality: Excellent. Bones: No acute vertebral body compression fractures. No suspicious lytic or blastic bony lesions. A presumed bone island can be seen within the right iliac bone, as on series 2, image 79. Central spinal caliber is of normal overall caliber. No pars defects. Extensive thoracolumbar postoperative hardware can be seen, with bilateral pedicle screws L1 through S1. Vertical fixation rods are seen. Disc spacers are seen at L1-2, L2-3, L4-5, and L5-S1. The screws appear well placed. No findings of hardware failure or hardware loosening are seen. T12-L1: Moderate loss of disc height is seen. Endplate irregularity and sclerosis can be seen. Vacuum disc phenomenon is seen at this level. Moderate disc bulge is seen. Moderate bilateral neural foraminal narrowing is seen. Mild central canal narrowing is seen. The degenerative change at this level is worsened compared to the prior examination. L1-L2: Mild to moderate disc bulge is seen. Vacuum phenomenon can be seen within the thecal sac and within the right neural foramen, as on series 6, image 24. There is at least moderate bilateral neural foraminal narrowing seen. At least moderate central canal narrowing is seen. When comparison is made with the prior examination, these findings are similar. L2-L3: Moderate generalized disc bulge is seen. There is moderate left-sided and mild right-sided neural foraminal narrowing seen. No significant central canal narrowing is seen. The central canal narrowing at this level is improved compared to 2019. L3-L4: The disc height is relatively well preserved. Mild to moderate disc bulge is seen. There is minimal to mild left-sided and mild right-sided neural foraminal narrowing seen. Mild central canal narrowing is seen. When comparison is made with the prior examination, these findings are similar. L4-L5: Mild to moderate disc bulge is seen. There is mild bilateral neural foraminal narrowing seen. Mild central canal narrowing is seen. When comparison is made with the prior examination, these findings are similar. L5-S1: Moderate disc bulge is seen, which is eccentric to the left. Macrophage tear early moderate to severe bilateral neural foraminal narrowing can be seen. No significant central canal narrowing is seen. When comparison is made with the prior examination, these findings are similar. Soft tissues: No retroperitoneal masses or hematomas. Visualized aorta is normal in caliber. A normal appendix is incidentally noted. IMPRESSION: Extensive thoracolumbar postoperative hardware is seen, which demonstrates no qing complication. There is been improvement in the degree of central canal narrowing at L2-3 compared to 2019. Progression of degenerative change at T12-L1 compared to 2019. Dictated by: Jeyson Maravilla M.D. on 04/22/2020 at 12:42 Approved by: Jeyson Maravilla M.D. on 04/22/2020 at 12:48
== END ==
PROVIDERS: Family Provider Family Medicine; PCP Family Medicine; Referring Provider Family Medicine; Visit Provider Orthopaedic Surgery Orthopaedic Surgery of the Spine
DX: M48.062 Spinal stenosis, lumbar region with neurogenic claudication (principal); M47.815 Spondylosis without myelopathy or radiculopathy, thoracolumbar region
CPT/HCPCS: 72131

== ENCOUNTER → 2020-08-31 10:32 | Outpatient (CLI) | payer MEDICARE, OTHER, SELFPAY ==
[2019-07-08 15:27] VITALS: BMI 26.6
[2020-08-31 11:23] LABS: Add Manual Diff / Slide Review NO; Basophils Absolute Auto 0 /uL (0-100); Basophils Percent Auto 0.7 % (0-2); Eosinophils Absolute Auto 200 /uL (0-450); Hematocrit 42.6 % (41-53); Hemoglobin 14.5 g/dL (13.5-17.5); Lymphocytes Absolute Auto 1300 /uL (1100-4500); Lymphocytes Percent Auto 28.1 % (25-40); Mean Corpuscular Hemoglobin 30.5 PG (26-34); Mean Corpuscular Volume 89.5 fL (80-100); Monocytes Absolute Auto 500 /uL (0-900); Monocytes Percent Auto 11.6 % (3-14); Neutrophils Absolute Auto 2600 /uL (1500-7000); Neutrophils Percent Auto 55.6 % (50-75); Platelet Count 241 X10^3/uL (150-400); Red Blood Cell Count 4.76 X10^6/uL (4.5-5.9); Red Cell Distribution Width 13.7 % (11.6-14.8); White Blood Cell Count 4.6 X10^3/uL (4.5-11.0)
[2020-08-31 11:44] LABS: BUN Creatinine Ratio 28.7 (6-22); Blood Urea Nitrogen 25 mg/dL (9-20); Calcium 9.7 mg/dL (8.4-10.2); Carbon Dioxide 28 mmol/L (22-32); Chloride 105 mmol/L (98-107); Estimated Glomerular Filt Rate > 60.0 mL/min (>60); Glucose 112 mg/dL (70-100); HEMOLYSIS < 15 (0-50); Potassium 4.1 mmol/L (3.4-5.1); Sodium 140 mmol/L (137-145)
== END ==
PROVIDERS: Family Provider Family Medicine; PCP Family Medicine; Referring Provider Orthopaedic Surgery Orthopaedic Surgery of the Spine; Visit Provider Orthopaedic Surgery Orthopaedic Surgery of the Spine
DX: Z01.818 Encounter for other preprocedural examination (principal); Z01.812 Encounter for preprocedural laboratory examination
CPT/HCPCS: 36415; 80048; 85025; 93005

== ENCOUNTER → 2020-09-07 11:39 | Outpatient (CLI) | payer MEDICARE, OTHER, SELFPAY ==
[2019-07-08 15:27] VITALS: BMI 26.6
[2020-09-07 13:24] LABS: COVID19 -Nasal RAPID Negative (Negative)
== END ==
PROVIDERS: Family Provider Family Medicine; PCP Family Medicine; Visit Provider Physician Assistant
DX: Z01.812 Encounter for preprocedural laboratory examination (principal); Z20.822 Contact with and (suspected) exposure to COVID-19
CPT/HCPCS: 87635; C9803

== ENCOUNTER 2020-09-09 06:16 | Inpatient (IN) | payer MEDICARE, OTHER, SELFPAY ==
[2019-07-08 15:27] VITALS: BMI 26.6
[2020-09-09] VITALS (20 sets, daily range): BP systolic 112–161; BP diastolic 79–99; PULSE 77–91; RESP 8–19; TEMP 36.6–37.7; O2SAT 86–98; BMI 28.0
--- NOTE | 2020-09-09 | DI.RAD.S_ITS ---
PROCEDURE: XR LUMBAR SPINE 2-3V INDICATIONS: TLIF TECHNIQUE: 4 intraoperative fluoroscopic views of the lumbar spine were acquired. COMPARISON: [facility], CR, XR LUMBAR SPINE 2 OR 3 VIEWS, 04/19/2020, 10:06. [facility], CT, CT LUMBAR SPINE WO CON, 04/22/2020, 13:16. [facility], RF, LUMBAR TRANSFORAMINAL JERILYN, 07/12/2020, 14:01. [facility], CR, XR LUMBAR SPINE 2-3V, 07/08/2019, 9:27. FINDINGS: Intraoperative fluoroscopic images of lower lumbar spine shows posterior fusion from T12 through S1 evels with intervertebral spacer placement at T12-L1, L1-2, L2-3, L3-4, L4-5 and L5-S1 levels. Lumbar spine alignment is anatomic. IMPRESSION: Fluoro guidance was provided intraoperatively for posterior fusion of lumbar spine . Dictated by: Josiah Avery M.D. on 09/09/2020 at 16:13 Approved by: Josiah Avery M.D. on 09/09/2020 at 16:20
[2020-09-09] MEDS: ACETAMINOPHEN 325 MG TABLET 975 MG PO (07:41)
[2020-09-09] MEDS: LACTATED RINGERS 1,000 ML 42 ML IV ×3 (07:43→13:50)
--- NOTE | 2020-09-09 07:47 | PM.PREOP ---
Pre-operative Note COVID-19 COVID-19 status: Negative Result date/Date tested (Pos, Neg/Pending): 09/07/20 Interval Note History & Physical reviewed/Exam performed by Physician: Yes Changes to H&P: No
[2020-09-09] MEDS: CEFAZOLIN 2 GM/100 ML FROZ.PIGGY IV ×3 (07:54→15:58)
[2020-09-09] MEDS: BUPIVACAINE LIPOSOME 266 MG/20 ML VIAL INJ (08:56)
[2020-09-09] MEDS: BUPIVACAINE 0.5% W/ EPI (PF) 30 ML VIAL INJ (08:59)
--- NOTE | 2020-09-09 13:12 | PM.OP.1 ---
Operative Date/Time/Diagnoses Date of procedure: 09/09/20 Time of procedure: 08:12 Pre-op diagnosis: 1. T12-L1, L3-4, L5-S1 spinal stenosis 2. Lumbar spondylosis with radiculopathy 3. Hx of L1-S1 PSF with hardware loosening 4. pseudoarthrosis L1-2, L3-4 Post-op diagnosis: same Procedure & Clinicians Procedure: 1. T12-L1, L3-4 posterolateral and posterior interbody fusion 2. T12-L1, L3-4 posterior interbody cage placement 3. L1-S1 posterior segmental instrumentation removal 4. L1-2, L3-4, L4-5, L5-S1 revision laminectomy with exploration of fusion 5. T12-L1, L1-2, L2-3 , L3-4, L4-5, L5-S1 posterior segmental instrumentation with pedicle screw placement 6. L1-2 posterolateral fusion 7. Elliott of bone marrow from iliac crest through a separate incision 8. Utilization of microsurgical technique and operating microscope Same procedure as scheduled: Yes Indications: Patient has been having chronic back pain and worsening lumbar radiculopathy. Patient had previous fusion and has been doing well until he the last 3 months with acute worsening wrist pain. Imaging shows possible hardware loosening with possible cristal breakage. Patient failed multiple conservative management with worsening pain weakness and numbness in her lower extremity. Patient has been having difficulty performing activity of daily living. After discussing risks benefits of treatment options, patient elected proceed with surgery. Surgeon: Sarai Washington [facility] Consultant: Zeferino Nascimento Click Yes if Unassisted: No Anesthesia Type: General Operative Notes Closure Type: primary Specimen(s): none sent Prosthetic devices, grafts, tissues, transplants, or devices: Globus revolve screws, Rise cages Applied: catheter Estimated Blood Loss (mL): 200 Blood products transfused: none Procedure in detail: Patient was seen in the preoperative area. Risks and benefits of the surgery was discussed with the patient. Informed consent was obtained from the patient and placed in the chart. Surgical site was marked. Patient was taken to the operative room. General anesthesia was administered. Prophylactic antibiotic was given to the patient less than 30 min before the incision was made. Patient was placed into a prone position on the Jose table. Patient's back was then prepped and draped in the sterile fashion. Time-out was performed at this time. Using patient's previous scar incision was made over the T12-S1 interval on the Left side. Fascia was incised in line with skin incision. Patient's previously placed hardware over the L1-S1 level was identified by dissecting down to the level the hardware using a Bovie and a Martinez. The locking caps which was removed using globus screwdriver. The locking critsal was then removed from the t[place]ips of the pedicle screws using a Olivia. The pedicle screws were then removed using the screwdriver. The screws were found to have good purchase except in L1 pedicle. The cristal connecting the pedicle screws was found to be broken just caudal to the S1 screw tulips. There is minimal displacement of the broken ends of the rods which make it difficult to identify on imaging studies. Globus and MARS retractors was then placed into the wound and docked onto the T12 and L3 lamina using C-arm guidance. Using microsurgical technique and operating microscope a laminectomy facetectomy was performed by removing the T12-L1 L3-4 lamina and the T12-L1 L3-4 facet. The disc space at T12-L1 L3-4 level was identified next. And a total diskectomy was performed at T12-L1 L3-4 level. The endplates were decorticated using a rasp and shaver. The total diskectomy and decortication was performed at T12-L1 L3-4 level in order to to accomplish a T12-L1 L3-4 fusion. The local bone from the laminectomy and facetectomy was saved for local bone grafting. After the total diskectomy and decortication was completed, Globus Trifecta bone graft material was combined with local bone that was harvested earlier. At this time, a separate skin is incision was made over the iliac crest. A Jamshidi needle was inserted into the iliac crest through a separate skin incision. 5 cc of bone marrow aspiration was obtained through the separate skin incision using a Jamshidi needle from the iliac crest. The bone marrow aspiration was combined with local bone and the Trifectal bone grafting material. The bone grafting material was placed into the T12-L1 L3-4 interbody space along with a expandable cage. The cage was expanded to its maximum height using the torque limiting screwdriver. The fusion mass on the left side was exposed by performing a left-sided hemilaminectomy at L1-2, L2-3, L3-4, L4-5, L5-S1 level. The hemilaminectomy was performed using the Kerrison rongeur to undercut the lamina as well removing additional epidural scar tissue for purpose of decompressing the epidural space. The fusion mass was explored and was found have visible motion indicating pseudoarthrosis at L1-2 and L3-4 level. Globus MARS retractor was inserted and docked onto the T12-L1, L1-2, L3-4 posterolateral gutter. Using the power drill, posterior-lateral decortication was performed at T12-L1, L1-2, L3-4 level until bleeding cortical bone was identified. The remaining bone grafting material along with additional demineralized bone matrix with bone graft material was placed into the T12-L1, L1-2, L3-4 posterior lateral gutter he order to accomplish posterolateral fusion at the T12-L1, L1-2, L3-4 level. Using the double C-arm technique, pedicle screws were placed into the T12, L1, L2, L3, L4, L5, S1 pedicles on the left side. This was done by placing the Jamshidi needle into the pedicles, then placing the guidewires over the Jamshidi needle, and finally placing the cannulated screws over the guidewires bilaterally. After the pedicle screws were placed, 2 titanium rods was locked into the heads of the pedicle screws using locking caps and torque limiting screwdriver. After all the hardware was placed, and confirmed with AP and lateral C-arm imaging, the wound was then irrigated with sterile normal saline and packed with Ray-Laura gauze for 3 min to accomplish hemostasis. After the gauze was removed the deep fascia was closed with #1 Vicryl suture. The subcutaneous layer was closed with 2-0 Vicryl. The skin was closed with skin sadie. Patient tolerated the procedure well. There were no complications. Complications: none Post-operative Condition: stable Disposition: PACU Plan for aftercare: Admit to inpatient hospital
[2020-09-09] MEDS: hydrOXYzine 50 MG/ML INJ 25 MG IM (14:02)
--- NOTE | 2020-09-09 14:22 | SUR.PHASEI ---
Report to Carolina LEAL.
--- NOTE | 2020-09-09 14:34 | SUR.PHASEI ---
Dr Washington to bedside. Pt with positive sensation of bilateral lower extremities but inability with strength at this time. Dr Washington states okay for patient transfer to floor and will check on patient shortly. Floor RN aware to continue to monitor.
[2020-09-09] MEDS: SODIUM CHLORIDE 0.9% 1,000 ML 100 ML IV ×2 (15:58→21:02)
[2020-09-09] MEDS: HYDROMORPHONE 0.5 MG INJ IV ×2 (16:14→19:44)
--- NOTE | 2020-09-09 16:56 | PC.NURSE ---
PATIENT STATES HAVE PAIN,HAS FEELING IN FEET AND LEGS BUT STILL UNABLE TO MOVE THEM,PACU UPDATED AND STATE WILL BE COMING UP TO FLOOR AFTER CURRENT PROCEDURE
[2020-09-09] MEDS: HYDROCODONE/ACET 5/325 TABLET 2 TAB PO (17:30)
--- NOTE | 2020-09-09 17:35 | PM.OP.1 ---
Operative Date/Time/Diagnoses Date of procedure: 09/09/20 Time of procedure: 13:36 Pre-op diagnosis: 1. L5-S1 spondylolisthesis 2. L5-S1 spinal stenosis Post-op diagnosis: same Procedure & Clinicians Procedure: 1. L5-S1 Postero-lateral and posterior interbody fusion 2. L5-S1 interbody cage placement. 3. L5-S1 decompressive laminectomy with bilateral facetecomies 4. L5-S1 Posterior non-segmental instrumentation 5. [place] of bone marrow from iliac crest 6. Utilization of microsurgical technique and operating microscope Same procedure as scheduled: Yes Indications: Patient has been having chronic back pain and worsening lumbar radiculopathy. Patient failed multiple conservative management with worsening pain weakness and numbness in her lower extremity. Patient has been having difficulty performing activity of daily living. After discussing risks benefits of treatment options, patient elected proceed with surgery. Surgeon: Sarai Washington Security Assurance Specialist: Zeferino Nascimento Click Yes if Unassisted: No Anesthesia Type: General Operative Notes Closure Type: primary Specimen(s): none sent Prosthetic devices, grafts, tissues, transplants, or devices: Globus revolve, Rise cages Estimated Blood Loss (mL): 50 Blood products transfused: none Procedure in detail: Patient was seen in the preoperative area. Risks and benefits of the surgery was discussed with the patient. Informed consent was obtained from the patient and placed in the chart. Surgical site was marked. Patient was taken to the operative room. General anesthesia was administered. Prophylactic antibiotic was given to the patient less than 30 min before the incision was made. Patient was placed into a prone position on the Jose table. Patient's back was then prepped and draped in the sterile fashion. Time-out was performed at this time. Using AP and lateral C-arm imaging the interval between L5-S1 was identified and marked on patient's back. A 2 inch incision 2 in from midline was made on the left side first. The fascia was incised in line with skin incision. Globus MARS retractors was placed inside the incision and docked onto the L5 lamina. Using microsurgical technique and operating microscope, a L5 laminectomy and L5-S1 facetectomy was performed using a Kerrison rongeur. Patient was found have severe lateral recess and neural foramen stenosis which was fully decompressed after the laminectomy facetectomy. More than 75% of the facets were removed during the process of decompression rendering L5-S1 level grossly unstable and required a fusion procedure at the same time. Patient was found to have gross instability at L5-S1 level due to bilateral pars defect. The disc space at L5-S1 was identified. And a total diskectomy was performed at L5-S1 level. The endplates were decorticated using a rasp and shaver. The total diskectomy and decortication was performed at L5-S1 level in order to to accomplish a L5-S1 fusion. The local bone from the laminectomy and facetectomy was saved for local bone grafting. After the total diskectomy and decortication was completed, Trifecta bone graft material was combined with local bone that was harvested earlier. At this time, a separate skin is incision was made over the iliac crest. A Jamshidi needle was inserted into the iliac crest through a separate skin incision. 5 cc of bone marrow aspiration was obtained through the separate skin incision using a Jamshidi needle from the iliac crest. The bone marrow aspiration was combined with local bone and the Trifecta bone grafting material. The bone grafting material was placed into the L5-S1 interbody space along with a expandable cage. The cage was expanded to its maximum height using the torque limiting screwdriver. At this time a mirror image incision was made on the right side. The fascia was incised in line with the skin incision. Globus MARS retractor was inserted and docked onto the L5-S1 posterolateral gutter. Using the power drill, posterior-lateral decortication was performed at L5-S1 level until bleeding cortical bone was identified. The remaining bone grafting material was placed into the L5-S1 posterior lateral gutter he order to accomplish posterolateral fusion at the L5-S1 level. Using the double C-arm technique, pedicle screws were placed into the L5-S1 pedicles bilaterally. This was done by placing the Jamshidi needle into the pedicles, then placing the guidewires over the Jamshidi needle, and finally placing the cannulated screws over the guidewires bilaterally. After the pedicle screws were placed, 2 titanium rods was locked into the heads of the pedicle screws using locking caps and torque limiting screwdriver. After all the hardware was placed, and confirmed with AP and lateral C-arm imaging, the wound was then irrigated with sterile normal saline and packed with Ray-Laura gauze for 3 min to accomplish hemostasis. After the gauze was removed the deep fascia was closed with #1 Vicryl suture. The subcutaneous layer was closed with 2-0 Vicryl. The skin was closed with skin sadie. Patient tolerated the procedure well. There were no complications. Complications: none Post-operative Condition: stable Disposition: PACU Plan for aftercare: Admit to inpatient hospital
[2020-09-09] MEDS: OXYCODONE IR 5 MG TABLET 10 MG PO (18:39)
--- NOTE | 2020-09-09 18:42 | PM.PN.1 ---
Exam Vital Signs (past 8 hours): - 09/09/20 13:26 09/09/20 13:31 09/09/20 13:36 Temperature 98.9 F Pulse Rate 80 79 78 Respiratory Rate 8 L 12 10 L Blood Pressure 139/84 124/79 130/80 Pulse Oximetry 86 L 96 97 09/09/20 13:41 09/09/20 13:46 09/09/20 13:51 Temperature Pulse Rate 80 79 83 Respiratory Rate 12 10 L 12 Blood Pressure 128/90 135/90 143/94 H Pulse Oximetry 98 98 98 09/09/20 13:56 09/09/20 14:02 09/09/20 14:07 Temperature Pulse Rate 84 81 78 Respiratory Rate 14 12 10 L Blood Pressure 148/97 H 138/93 H 139/84 Pulse Oximetry 97 97 95 09/09/20 14:17 09/09/20 14:23 09/09/20 14:37 Temperature Pulse Rate 79 87 80 Respiratory Rate 13 13 11 L Blood Pressure 155/95 H 142/94 H 143/92 H Pulse Oximetry 96 96 94 09/09/20 14:50 09/09/20 15:20 09/09/20 15:50 Temperature 99.9 F H 98.2 F 98.5 F Pulse Rate 78 81 83 Respiratory Rate 14 14 17 Blood Pressure 140/90 129/88 146/99 H Pulse Oximetry 95 95 97 09/09/20 16:58 09/09/20 17:50 Temperature 99.7 F H 98.4 F Pulse Rate 88 91 H Respiratory Rate 18 19 Blood Pressure 128/89 144/87 H Pulse Oximetry 97 96 Oxygen Delivery Method Nasal Cannula Oxygen Flow Rate 2 PFSH Medical History (Updated 09/05/20 @ 16:46 by Nabila Miller RN) AVM (arteriovenous malformation) Hyperlipidemia Kidney stones Papillary thyroid carcinoma PTSD (post-traumatic stress disorder) PVC (premature ventricular contraction) Skin cancer Sleep apnea with use of continuous positive airway pressure (CPAP) Surgical History (Updated 09/05/20 @ 16:46 by Nabila Miller RN) History of lumbar spinal fusion (04/02/18) History of thyroidectomy Hx of hernia repair Hx of knee surgery Hx of shoulder surgery S/P lumbar fusion (01/30/17) S/P UPPP (uvulopalatopharyngoplasty) Status post bilateral LASIK surgery Social History (System 07/14/19 @ 10:05 by Stephanie Cai) household members: spouse and children Smoking Status: Former smoker alcohol intake: current Assessment & Plan Assessment & Plan narrative: Mr. Valentino is 5 hours s/p T12-L1 L3-4 TLIF, multiple level revision PSF T12-S1. He has decreased neurologic function, specifically motor function to bilateral LE in all muscle distribution. He has intact sensibility with hypersensitivity to BLE. He has intact sensibility to groin/saddle region of his pelvis. He has no clonus on exam in BLE. DTR is 1+ in B patella and achilles with significant pain in the legs during testing. I discussed with him my current findings. I do not recommend surgical exploration since I don't think his current clinic finding is related to anatomic/external compression to his nerve/spinal cord. He had diminished SSEP during surgery and recovered to clinically appropriate level by the end of the surgery. He was given IV decadone during surgery. I discussed treating him with IV decadron with Dr. Cooney, our anethesiologist during the case. I will place him on 10 mg decadron IV BID next dose at 11pm this evening since his last dose was at 11am. I will monitor his neurologic symptoms at this time. Will re-assess in the am. Patient says he has nausea and vomitting with percocet but does well with oxycodone. I will switch him to oral oxycodone at this time for pain management instead of norco. Quality VTE Deep Vein Thrombosis/Pulmonary Embolism Present on Admission: Yes
--- NOTE | 2020-09-09 20:03 | DI.CT.S_ITS ---
PROCEDURE: CT LUMBAR SPINE WO CON INDICATIONS: unable to move legs TECHNIQUE: Noncontrast 3 mm thick sections acquired from the T12 level to the sacrum. Sagittal and coronal reformats were constructed. For radiation dose reduction, the following was used: automated exposure control. COMPARISON: , CT, CT LUMBAR SPINE WO CON, 04/22/2020, 13:16. FINDINGS: Image quality: Significant artifact limiting areas of evaluation are present throughout the examination secondary to surgical hardware. Bones: There is posterior fusion from L1 through S1. Intervertebral spacers/prosthetic discs are present from T12-L1 through L5-S1. There has been interval placement of prosthetic disc/intervertebral spacer at L3-4 and T12-L1 since prior exam. There is an oval right posterior paracentral focus of increased density at the level of L1 measuring 9 mm AP x 14 mm transverse by 18 mm craniocaudal. It is causing mild effacement of the anterior thecal sac and slight mass effect along the anterior right aspect of the cord. Air and soft tissue fluid are present consistent with recent postsurgical intervention. Hardware is intact without evidence of periprosthetic lucency or fracture. No osseous fracture or dislocation. Disc bulges are present at L1-L2, L2-3, L3-4, L4-5 and L5-S1. Mild spinal stenosis L3-4, L4-5. Moderate bilateral foraminal narrowing L1-L2 [id number]-[id number] bilateral L2-3, mild bilateral L3-4, mild bilateral L4-5. IMPRESSION: 1. Recent prosthetic device placed at T12-L1 as described above. There is a focus of increased density posterior to the vertebral body at L1 causing mild mass effect on the anterior thecal sac and anterior cord as described above. This could represent a small focus of hematoma. Other differentials can include extruded disc or potentially surgical material. The above findings were discussed were Dr. Sarai Washington on 09/09/2020 at 9:30 p.m.. Dictated by: Janet Joe M.D. on 09/09/2020 at 21:08 Approved by: Janet Joe M.D. on 09/09/2020 at 21:44
[2020-09-09] MEDS: GABAPENTIN 600 MG TABLET PO (21:03)
[2020-09-09] MEDS: SERTRALINE 50 MG TABLET 25 MG PO (21:03)
[2020-09-09] MEDS: ATORVASTATIN 20 MG TABLET 40 MG PO (21:03)
[2020-09-09] MEDS: SENNOSIDES 8.6 MG TABLET 17.2 MG PO (21:03)
[2020-09-09] MEDS: DEXAMETHASONE 10 MG/ML VIAL IV (21:09)
--- NOTE | 2020-09-09 21:20 | PC.NURSE ---
Pt. c/o pain to top and soles of both feet when touch but not when push on it, also unable to wiggle toes or lift either foot. Dr. Washnigton is aware of this. Dorsalis pedis are both palpable and capillary refill is <3 sec. Discuss also with pt. regarding oxycodone listed as allergy, pt. states that he is only allergic to percocet. Mentioned to pt. that percocet does contain oxycodone which he knows, pt. states that he is able to take oxycodone by itself as well as tylenol by itself without any adverse effects. He further states also that he remembered having projectile vomiting when he took percocet about 9 yrs. ago. Pt. has had oxycodone given by [facility] and so far pt. is not showing any adverse effect.
[2020-09-09] MEDS: OXYCODONE ER 10 MG TAB PO (21:53)
--- NOTE | 2020-09-09 22:09 | PC.NURSE ---
Spoke to Dr. Washington over the phone regarding pt's lumbar CT result which he states that he already spoke to the radiologist about it, also updated on pt's status still c/o pain to top of feet as well as soles of pt's ft, still unable to wiggle toes, move feet or lift them. Dr. Washington order for pt. to be NPO after MN and will see pt. in am.
[2020-09-10] VITALS (9 sets, daily range): BP systolic 116–138; BP diastolic 75–95; PULSE 72–85; RESP 14–19; TEMP 36.6–37.2; O2SAT 90–96
[2020-09-10] MEDS: CEFAZOLIN 2 GM/100 ML FROZ.PIGGY IV (00:33)
[2020-09-10] MEDS: HYDROMORPHONE 0.5 MG INJ IV ×8 (00:33→21:38)
[2020-09-10] MEDS: SODIUM CHLORIDE 0.9% 1,000 ML 100 ML IV (03:27)
[2020-09-10] MEDS: OXYCODONE IR 10 MG TABLET PO ×4 (03:31→21:31)
[2020-09-10 05:03] LABS: Hematocrit 40.9 % (41-53); Hemoglobin 13.4 g/dL (13.5-17.5)
[2020-09-10] MEDS: GABAPENTIN 600 MG TABLET PO ×2 (08:57→21:31)
[2020-09-10] MEDS: OXYCODONE ER 10 MG TAB PO ×2 (08:57→21:31)
[2020-09-10] MEDS: DEXAMETHASONE 10 MG/ML VIAL IV ×2 (08:57→21:31)
--- NOTE | 2020-09-10 09:12 | P.PN_ITS ---
Exam Vital Signs (past 8 hours): - 09/10/20 03:37 09/10/20 07:25 09/10/20 08:40 Temperature 98.0 F 98 F Pulse Rate 80 85 83 Respiratory Rate 16 18 16 Blood Pressure 123/75 122/95 H Pulse Oximetry 92 93 95 Oxygen Delivery Method Nasal Cannula Oxygen Flow Rate 1.5 Objective Labs Result Diagrams: 09/10/20 04:30 Labs: Laboratory Results - last 24 hr 09/10/20 04:30 Hgb 13.4 L Hct 40.9 L PFSH Medical History (Updated 09/05/20 @ 16:46 by Nabila Miller, RN) AVM (arteriovenous malformation) Hyperlipidemia Kidney stones Papillary thyroid carcinoma PTSD (post-traumatic stress disorder) PVC (premature ventricular contraction) Skin cancer Sleep apnea with use of continuous positive airway pressure (CPAP) Surgical History (Updated 09/05/20 @ 16:46 by Nabila Miller, RN) History of lumbar spinal fusion (04/02/18) History of thyroidectomy Hx of hernia repair Hx of knee surgery Hx of shoulder surgery S/P lumbar fusion (01/30/17) S/P UPPP (uvulopalatopharyngoplasty) Status post bilateral LASIK surgery Social History (System 07/14/19 @ 10:05 by Stephanie Cai) household members: spouse and children Smoking Status: Former smoker alcohol intake: current Assessment & Plan Assessment & Plan narrative: Mr. Valentino is POD#1 s/p revision fusion with extension to T12-L1. He has been unable to move his bilateral LE since post op. His sensability is intact in BLE. He has been hypersensate since he was transferred to inpatient bed. Emergent CT last evening was done and reviewed with radiologist production operations inspector. He has 1/5 right EHL this am. No other motor function in either legs on exam. Hypersensate in BLE. He has rectal tone but decreased. I discussed with Dr. Martinez, another spine surgeon regarding my finding and review his CT together. I will order an urgent MRI to better assess his epidural space and rule out any hematoma that may be contributing to his motor deficit. His CT did not show clear mass effect to correlate with his current physical exam finding. I will f/u on his MRI imaging and make additional plans for his management then. Quality VTE Deep Vein Thrombosis/Pulmonary Embolism Present on Admission: Yes
--- NOTE | 2020-09-10 09:33 | DI.MRI.S_ITS ---
PROCEDURE: MR LUMBAR SPINE WO CON INDICATIONS: rule out hematoma TECHNIQUE: Noncontrast sagittal T1 spin echo and T2 fast echo, sagittal STIR, axial T1 and T2 fast spin echo through the lumbar spine. In cases with scoliosis, additional coronal T2 fast spin echo may be performed. COMPARISON: [facility], MR, MR LUMBAR SPINE WO CON, 11/06/2018, 15:34. [facility], CT, CT LUMBAR SPINE WO CON, 09/09/2020, 20:35. FINDINGS: Image quality: Excellent. Alignment and Curvature: Normal alignment. Again noted is posterior lateral cristal and pedicle screw fixation from L1 through S1. Very recent disc spacer placement at T12-L1 and L3-L4. An elliptical structure in the right lateral recess behind L1 is better evaluated by CT than on MRI. This is secondary to extensive metal artifact. However, it does not appear significantly changed. Bone Marrow: Marrow is of normal overall signal. No acute vertebral body compression fractures. Spinal Cord: Conus medullaris is difficult to appreciate secondary to metal artifact. A suggestion of signal in the distal thoracic cord likely represents artifact. Paraspinous Soft Tissues: No paravertebral masses. T12-L1: No canal stenosis or foraminal stenosis. Postsurgical change to the left of thecal sac related to recent surgery. L1: Elliptical focus posterior to the L1 vertebra in the right lateral recess, better seen on CT, not significantly changed in size. It impinges on the right anterior aspect of the thecal sac. L1-L2: No canal stenosis or foraminal stenosis. L2-L3: No canal stenosis or foraminal stenosis. L3-L4: Postoperative changes from recent surgery to the left of the thecal sac. No canal stenosis. No foraminal stenosis. L4-L5: No canal stenosis or foraminal stenosis. L5-S1: Bilateral facet hypertrophy. Mild canal stenosis. Moderate bilateral foraminal stenosis. IMPRESSION: 1. Recent postop, status post disc spacer placement at T12-L1 and L3-L4. 2. Elliptical tissue in the right lateral recess behind L1 is better visualized by CT than on MRI. It is grossly unchanged, and may represent an extruded disc fragment versus hematoma. It indents on right ventral aspect of the thecal sac. 3. There is a suggestion of possible signal abnormality in the distal thoracic cord. This most likely represents artifact. However, recommend correlation with neurological exam. Dictated by: Arturo Larios M.D. on 09/10/2020 at 10:00 Approved by: Arturo Larios M.D. on 09/10/2020 at 10:18
--- NOTE | 2020-09-10 09:50 | OT.IPNOTE ---
Hold OT eval due to pt to get urgent MRI and then await results and management per surgeon.
[2020-09-10] MEDS: diazePAM 5 MG TABLET PO (10:33)
--- NOTE | 2020-09-10 11:54 | CM.DANOTE ---
DCP: Case received, EMR reviewed and met with patient. Introduced self and role. Was able to obtain information from patient regarding his baseline activity status prior to having surgery. DCP assessment completed with information currently available. Patient is a 54 year old male who admitted yesterday morning to the care of the orthopedic team. PCP: Dr. Benson. Payer: confirmed: Medicare/[employer]. Patient came to the hospital for a surgical procedure. He had lumbar surgery, consisting of T12-L1 L3-4 multiple level revision laminectomy. Patient has history of osteoarthritis as well as scoliosis. Met with patient in his room. He is alert and oriented. He has had back surgeries before. 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 Stated that his back injuries were work related, and originally had gone to the [place] in [place]. Patient is having some post surgery complications, as unable to move his lower extremities. Patient is independent at baseline. He had been her for prior back surgeries, according to records, and has been at [facility] before. He resides with his , Brenda, in [place]. She is a retired nurse. He is hopeful for home, but will have to see how he does here in the hospital, as well as with P.T. when he is able. P: DCP to continue to follow. Will check on orthopedic notes, and will see how he does with P.T when he is able. Will either be home versus skilled. Kortney Krueger RN/Sales Representative Consultant
--- NOTE | 2020-09-10 12:24 | PC.NURSE ---
Patient VSS, lung sounds clear. Patient encouraged to use incentive spirometer. Patient states that his legs and feet are numb and he can't move them. He has pain 8/10 in his back and legs when they are touched feel like pins and needles and stabbing sensation. Patient's pain is controlled by extended release Oxycontin 10mg, and PRN 0.5mg Dilaudid IV, PRN Oxycodone as needed. Patient states that these medications bring his pain to 5/10. Pedal pulses are palpable. Patient tried hard to move his R foot and big toe this AM and was able to move it the slightest. Patient was on 2 liters O2 this am, and now is on room air, he wears a CPAP at night. Bed is low and locked, call light is within reach, bed alarm is active.
--- NOTE | 2020-09-10 12:26 | PT-IP ANOTE ---
Per EMR/Doctor's note: pt has decreased neurologic function BLE and CT suggesting possible hematoma L1 area. Doctor ordered MRI for further assessment. will hold off PT until further clearance from the doctor.
--- NOTE | 2020-09-10 13:32 | PT.IPTN ---
Current Diagnoses Sleep apnea, unspecified (09/09/20) Spondylosis without myelopathy or radiculopathy, lumbosacral region (09/09/20) Spinal stenosis, lumbar region without neurogenic claudication (09/09/20) Arthrodesis status (09/09/20) Surgery Performed Operation Date: 09/09/20 07:45 Actual Procedures p T12-L1, L3-4 TLIF,L1-S1 lumbar HWR,exploration of fusion,repeat laminectomy,reinsertion of hardware - Sarai Washington MD Physical Therapy Treatment Note M3 PT-IP Subjective Start: 09/10/20 15:23 Freq: NEEDED Status: Active Protocol: Document 09/10/20 13:32 AB (Rec: 09/10/20 15:34 AB [id number]) Subjective Physical Therapy Visit Type Type Patient Refusal Visit Start Time 13:32 Visit Stop Time 13:38 Notes Nurse informed PT that Dr. Washington cleared pt to work with PT and that he is not going to do any surgery with pt. Checked on pt and refused PT. stated that he has a lot of leg pain; that he can move his foot but not his legs. stated that he had a hard time with pain due to MRI procedure and does not want to do PT today. stated that he will try tomorrow. also stated that he plans to go to SNF. pt refused PT eval. PLOF and home set up was obtained.
--- NOTE | 2020-09-10 13:40 | OT.IPNOTE ---
Nursing came to tell therapists that surgeon states is okay for pt to get up for therapy. Pt at this time wanting to to stay in bed and get up tomorrow.
[2020-09-10] MEDS: ATORVASTATIN 20 MG TABLET 40 MG PO (21:31)
[2020-09-10] MEDS: SENNOSIDES 8.6 MG TABLET 17.2 MG PO (21:31)
[2020-09-10] MEDS: SERTRALINE 50 MG TABLET 25 MG PO (21:32)
[2020-09-10] MEDS: SODIUM CHLORIDE 0.9% FLUSH 10 ML IV (21:33)
[2020-09-11] MEDS: OXYCODONE IR 10 MG TABLET PO ×8 (00:29→23:12)
[2020-09-11 04:42] VITALS: BP 114/77; PULSE 60; RESP 14; TEMP 37.1; O2SAT 99
[2020-09-11] MEDS: SODIUM CHLORIDE 0.9% FLUSH 10 ML IV ×4 (05:17→20:08)
[2020-09-11] MEDS: HYDROMORPHONE 0.5 MG INJ IV ×8 (05:17→21:34)
[2020-09-11] MEDS: THYROID, PORK 60 MG TABLET 120 MG PO (05:28)
[2020-09-11] MEDS: PANTOPRAZOLE 20 MG TABLET PO (06:08)
[2020-09-11 08:00] VITALS: BP 114/66; PULSE 72; RESP 18; TEMP 36.5; O2SAT 97
--- NOTE | 2020-09-11 08:15 | PM.PNPO.1 ---
Subjective Subjective Date Patient Seen: 09/11/20 Time Patient Seen: 08:16 Interval history: Mr. Valentino is POD#2 s/p revision fusion with extension to T12-L1. He has been unable to move his bilateral LE since post op. His sensability is intact in BLE. He has been hypersensate since he was transferred to inpatient bed. Lying In bed this morning, pleasant, pain controlled. States seems to be able to wiggle his right toes more than he was yesterday. Still not really motion on the left side Exam Vital Signs (past 8 hours): - 09/10/20 23:50 09/11/20 04:42 Temperature 98.8 F 98.7 F Pulse Rate 74 60 Respiratory Rate 18 14 Blood Pressure 138/85 114/77 Pulse Oximetry 96 99 Oxygen Delivery Method Nasal Cannula Oxygen Flow Rate 0 Narrative Exam Narrative: Alert oriented no acute distress Pleasant and interactive answers questions appropriately HEENT exam normocephalic atraumatic Respiratory exam unlabored on room air Upper extremities full range of motion strength Bilateral lower extremities: Hypersensate on both sides. Right foot demonstrates 4-/5 toe flexion (some flexion against resistance) no discernible extension on this exam. No discernible flexion extension on the left side. Calves are soft bilaterally Priest catheter in place Objective Labs Result Diagrams: 09/10/20 04:30 PFSH Medical History (Updated 09/05/20 @ 16:46 by Nabila Miller RN) AVM (arteriovenous malformation) Hyperlipidemia Kidney stones Papillary thyroid carcinoma PTSD (post-traumatic stress disorder) PVC (premature ventricular contraction) Skin cancer Sleep apnea with use of continuous positive airway pressure (CPAP) Surgical History (Updated 09/05/20 @ 16:46 by Nabila Miller RN) History of lumbar spinal fusion (04/02/18) History of thyroidectomy Hx of hernia repair Hx of knee surgery Hx of shoulder surgery S/P lumbar fusion (01/30/17) S/P UPPP (uvulopalatopharyngoplasty) Status post bilateral LASIK surgery Social History (System 07/14/19 @ 10:05 by Stephanie Cai) household members: spouse and children Smoking Status: Former smoker alcohol intake: current Assessment & Plan Post-op Postoperative Procedures: Procedures Operation Date: 09/09/20 07:45 Actual Procedures Side Surgeon p T12-L1, L3-4 TLIF,L1-S1 lumbar HWR,exploration of fusion,repeat laminectomy,reinsertion of hardware Sarai Washington MD Mr. Valentino is POD#2 s/p revision fusion with extension to T12-L1. He has been unable to move his bilateral LE since post op. His sensibility is intact in BLE. He has been hypersensate since he was transferred to inpatient bed. had postop CT and MRI. Being closely monitored by Dr. Washington Does demonstrate some flexion of the toes on the right. Appears to be slightly improved from the previous day per patient report. Continue IV steroids, continue pain medication, nerve medication gabapentin b.i.d. (on 600 BID here-- stated was moved to 800 BID recently as outpt -- will adjust to 800mg BID here) Continue Priest catheter Quality VTE Deep Vein Thrombosis/Pulmonary Embolism Present on Admission: Yes
--- NOTE | 2020-09-11 08:22 | CM.DPC ---
Addendum entered by Kortney Krueger R.N. 09/11/20 09:18: Luana from [facility] called back and stated that they can accept patient, can accept tomorrow if he is ready. Updated patient. Addendum entered by Kortney Krueger R.N. 09/11/20 09:06: Checked in with patient. Gave him Medicare Choice List. He mentioned, he had already spoken to [facility] and that they should be able to take him. Did suggest other options as well. He stated, he doesn't want to go to [facility]. Other options would be [facility], or [facility]. He mentioned that he needs nursing home, has 14 steps to go into his house. He is still regaining some feeling in his lower extremity as well. Original Note: DCP Cont: It is noted that patient stated that he wants to go to nursing home, when P.T. attempted to work with him. He does have Medicare as primary, and would be eligible, and has been at [facility] before. Called Luana in admissions at [facility] to see if there are any availabilities. Stated, they are full, but expecting discharges. Let her know that this patient would be eligible by Medicare rule by tomorrow, but unclear if he would be medically ready. Went ahead and faxed Luana the referral. Will need patient to find another facility as a plan B, if [facility] can't accept. P: DCP to continue to follow. Will bring in patient a Medicare Choice List to review. Kortney Krueger RN/Head Of Drama
[2020-09-11 09:04] VITALS: RESP 16; O2SAT 97
[2020-09-11] MEDS: OXYCODONE ER 10 MG TAB PO ×2 (09:27→20:07)
[2020-09-11] MEDS: DEXAMETHASONE 10 MG/ML VIAL IV ×2 (09:27→20:08)
[2020-09-11] MEDS: GABAPENTIN 400 MG CAPSULE 800 MG PO ×2 (09:28→20:07)
--- NOTE | 2020-09-11 10:40 | PC.NURSE ---
Pt reports moderate to severe pain to BLLEs, lower and upper back; IV dilaudid and PO oxycodone for 7/10 pain; PPP, sensation to BLLEs; no movement below abdomen, with the exception of right 1st toe; LS clear, IS 2000; pt refuses SCDs, at this time; tolerating diet; Priest catheter to remain per MD Report/Note
--- NOTE | 2020-09-11 11:41 | PT.IIE ---
Current Diagnoses Sleep apnea, unspecified (09/09/20) Spondylosis without myelopathy or radiculopathy, lumbosacral region (09/09/20) Spinal stenosis, lumbar region without neurogenic claudication (09/09/20) Arthrodesis status (09/09/20) Surgery Performed Operation Date: 09/09/20 07:45 Actual Procedures p T12-L1, L3-4 TLIF,L1-S1 lumbar HWR,exploration of fusion,repeat laminectomy,reinsertion of hardware - Sarai Washington MD Surgical History (This Medical Record has been edited. Action required.) History of lumbar spinal fusion (04/02/18) History of thyroidectomy Hx of hernia repair Hx of knee surgery Hx of shoulder surgery S/P lumbar fusion (01/30/17) S/P UPPP (uvulopalatopharyngoplasty) Status post bilateral LASIK surgery Medical History (This Medical Record has been edited. Action required.) AVM (arteriovenous malformation) Hyperlipidemia Kidney stones Papillary thyroid carcinoma PTSD (post-traumatic stress disorder) PVC (premature ventricular contraction) Skin cancer Sleep apnea with use of continuous positive airway pressure (CPAP) Physical Therapy Inpatient Evaluation/Re-Eval M1 PT/OT-IP Prior Functional Status Start: 09/10/20 15:23 Freq: NEEDED Status: Active Protocol: Document 09/11/20 11:41 AW (Rec: 09/11/20 12:26 AW [id number]) Medical Review Prior Functional Status Medical History Reviewed Yes Communication Able to make needs known Mobility and Gait Pt stated that he is independent with all mobilities and ambulation without AD Activities of Daily Living and IADL's Independent Social History Household Members spouse,children Living Arrangements House Number of Floors (Floors) Two Floors Number of Stairs To Enter/Railing? 4 steps to enter without rails 7 steps B rails +7 steps R rail ascending to bedroom level Home Environment Standard Height Toilet,Tub/ Shower Home Equipment Hand Held Shower,Grab Bars In Shower Additional Social History Comment Pt is a [place] who lives in [place] with his , Brenda. M2 PT-IP Current Condition Start: 09/10/20 15:23 Freq: NEEDED Status: Active Protocol: Document 09/11/20 11:41 AW (Rec: 09/11/20 12:26 AW [id number]) Physical Therapy Current Condition Current Condition Evaluation Date 09/11/20 Treatment Diagnosis s/p T12-S1 TLIF; difficulty in walking Onset Date 09/09/20 Precautions Lumbar Precautions Log Roll,No Twisting,Limit Bending,Lifting Restriction of 10 lbs,Gait Belt above Incisional Area M3 PT-IP Subjective Start: 09/10/20 15:23 Freq: NEEDED Status: Active Protocol: Document 09/11/20 11:41 AW (Rec: 09/11/20 12:26 AW [id number]) Subjective Physical Therapy Visit Type Type Initial Evaluation Visit Start Time 11:13 Visit Stop Time 11:41 Total Visit Minutes 28 Notes Pt has been not moved out of bed since surgery two days ago with the exception of slider board bed <> [facility] for MRI. Number of ANTIQUE COLLECTOR Visits 0 Physical Therapy Visit Comments Patient Comments Pt is willing to participate with PT Patient Goals Return to PLOF Therapy Pain Assessment Pain When Pain Assessed At Rest Pain Present Pain Present Pain Reported Location B LE Scale Used not quantified at rest; 10/10 with touch or movement Description Burning,Pulling,Sharp Pain Behaviors Wincing Pain Management Techniques Modification of Treatment, Timing of Activity with Medications M4 PT-IP Mobility and Gait Start: 09/10/20 15:23 Freq: NEEDED Status: Active Protocol: Document 09/11/20 11:41 AW (Rec: 09/11/20 12:26 AW [id number]) PT-Bed Mobility Assessment Rolling Type of Rolling Bilateral Level of Assist Maximal Assistance Supine to Sit Supine to Sit Maximum Assistance,1 Person Assistance,Head of Bed Elevated,Bedrails Scooting Scooting to Edge of Bed Maximum Assistance Scooting Up and Down in Bed Minimal Assistance PT-Transfer Assessment Equipment Transfer Assistive Device Sliding Board Orthotic/Prosthetic Devices or Brace: No Transfers Transfer Destination Chair Transfer Technique Lateral Scoot Transfer Ability Level of Assist Maximum Assistance,2 Person Assistance,Use of Upper Extremities Comments Mobility Comments Pt was lying in the bed with HOB elevated ~35 degrees as PT arrived. He agreed to mobilize. Pt unable to transition to long-sitting independently. With HOB ~70 degrees, pt required max to total assist to complete supine to sitting EOB. He was unable to assist at all to move his legs but used BUE and the bed features to pull his trunk up. With hand on the bed cane (left) and mattress ( right), he attempted to support himself but required min assist at all times to maintain trunk control. As pt lifted his hands, he was unable to control his leaning in any direction. He most significantly leaned to the right. PT called RN to assist with slide board transfer. Pt required max assist to lean to his left side for placement of the slide board. With max assist x 2, pt then completed slide board transfer to his right bed>chair, needing assist for placement of his legs and for blocking his knees. Pt was able to scoot himself fully back in the chair without assist. He was positioned there with call light and all needs in reach. PT left with RN attending. Gait Assessment Comments Gait Comments Pt unable at this time. PT-Balance Assessment Sitting Balance and Reactions Static Sitting Balance Ability Poor Dynamic Sitting Balance Ability Poor Comments Other Balance Tests/Deviations/Treatment Pt is able to briefly find : midline but lacks trunk control to maintain without BUE support. M5 PT-IP Objective Assessments Start: 09/10/20 15:23 Freq: NEEDED Status: Active Protocol: Document 09/11/20 11:41 AW (Rec: 09/11/20 12:26 AW [id number]) Orientation Orientation/Cognition Level of Alertness Alert Orientation Name,Day of Week,Place, Situation Language Function Ability No Deficits Noted Safety Awareness Understands Safety Issues Memory Description No Deficits Noted Gross Range of Motion Upper Extremity ROM Assessment Within Functional Limits Lower Extremity ROM Assessment Within Functional Limits Impairments PROM only Strength Upper Extremity Strength Assessment Within Functional Limits Lower Extremity Strength Assessment Bilaterally Impaired Hip 0/5 Knee 0/5 Ankle L 0/5; R 1/5 Comments Strength Comments Pt able to fire right EHL 3-/5 Sensation Assessment Sensation Gross Sensation Right LE Impaired,Left LE Impaired Sensation Description Hyperesthesia,Burning,Pain Comments Sensation Comments Pt reports ripping sensation in bilateral thighs when laying supine. He also endorses constant burning in entire B LE. Pt presents with hypersensitivity to light touch in all dermatomes. He is better able to tolerate deep pressure. Muscle Tone Muscle Tone WNL No Muscle Tone Location Bilateral Lower Extremity Type of Tone Hypotonicity Severity of Tone Severe Other Assessments Other Other Assessments Negative clonus at bilateral ankles M6 PT-IP Treatment Start: 09/10/20 15:23 Freq: NEEDED Status: Active Protocol: Document 09/11/20 11:41 AW (Rec: 09/11/20 12:26 AW [id number]) Physical Therapy Treatment Education Education Provided Precautions,Safety Other Treatments Other Treatment Performed Provided education on the role of PT, plan of care, post-op precautions, and risks of immobility. M7 PT-IP Assessment and Plan Start: 09/10/20 15:23 Freq: NEEDED Status: Active Protocol: Document 09/11/20 11:41 AW (Rec: 09/11/20 12:26 AW [id number]) PT Summary Assessment and Plan Potential Rehabilitation Potential Fair Status of Condition at Evaluation Evolving Summary Impairments Pain,ROM,Strength,Balance, Sensation,Bed Mobility, Transfers,Gait Assessment Summary Connor is a 54 yo man seen for PT evaluation on POD2 following multi-level lumbar surgery. He is a [place] who is typically independent in all regards. On evaluation, pt presents with 0/5 to 1/5 B LE and lower trunk strength, hyperesthesia in all dermatomes T12-S1, and pain affecting mobility. He required max to total assist of one to two people for bed mobility, sitting balance, and slide board transfer. He will require acute rehab vs SNF to improve functional mobility, ability to participate in his own care, and to mitigate the risks of immobility. Goals Bed Mobility Goal Minimal Assistance Transfer Goal Contact Guard Assistance,Slide Board Gait Goal Maximal Assistance,Front Wheel Walker Gait Distance 10 Other Goals - pt will tolerate unsupported sitting 30 seconds without need for UE support Days to Meet Goals 10 Frequency of Treatment Frequency Of Treatment Twice a Day Treatment Plan Physical Therapy Treatment Plan Bed Mobility Training,Transfer Training,Gait Training, Therapeutic Exercise,Balance Retraining,Post Op Education, Discharge Planning,Hot or Cold Pack,Neuromuscular Re-ed, Coordination Retraining Other Recommendations and Next Treatment slide board transfers, bed Focus mobility Precautions Lumbar Precautions Log Roll,No Twisting,Limit Bending,Lifting Restriction of 10 lbs,Gait Belt above Incisional Area Recommendations To Nursing Amount of Assist Needed Mechanical Lift Discharge Recommendations PT Discharge Recommendations SNF Rehab,Acute Rehab Other Discharge Recommendations acute rehab vs SNF Equipment Needed for Home Before defer to rehab setting Discharge Transportation Needs at Discharge Stretcher/Ambulance
--- NOTE | 2020-09-11 11:41 | PT.IIE ---
Current Diagnoses Sleep apnea, unspecified (09/09/20) Spondylosis without myelopathy or radiculopathy, lumbosacral region (09/09/20) Spinal stenosis, lumbar region without neurogenic claudication (09/09/20) Arthrodesis status (09/09/20) Surgery Performed Operation Date: 09/09/20 07:45 Actual Procedures p T12-L1, L3-4 TLIF,L1-S1 lumbar HWR,exploration of fusion,repeat laminectomy,reinsertion of hardware - Sarai Washington MD Surgical History (This Medical Record has been edited. Action required.) History of lumbar spinal fusion (04/02/18) History of thyroidectomy Hx of hernia repair Hx of knee surgery Hx of shoulder surgery S/P lumbar fusion (01/30/17) S/P UPPP (uvulopalatopharyngoplasty) Status post bilateral LASIK surgery Medical History (This Medical Record has been edited. Action required.) AVM (arteriovenous malformation) Hyperlipidemia Kidney stones Papillary thyroid carcinoma PTSD (post-traumatic stress disorder) PVC (premature ventricular contraction) Skin cancer Sleep apnea with use of continuous positive airway pressure (CPAP) Physical Therapy Inpatient Evaluation/Re-Eval M1 PT/OT-IP Prior Functional Status Start: 09/10/20 15:23 Freq: NEEDED Status: Active Protocol: Document 09/11/20 11:41 AW (Rec: 09/11/20 12:26 AW [id number]) Medical Review Prior Functional Status Medical History Reviewed Yes Communication Able to make needs known Mobility and Gait Pt stated that he is independent with all mobilities and ambulation without AD Activities of Daily Living and IADL's Independent Social History Household Members spouse,children Living Arrangements House Number of Floors (Floors) Two Floors Number of Stairs To Enter/Railing? 4 steps to enter without rails 7 steps B rails +7 steps R rail ascending to bedroom level Home Environment Standard Height Toilet,Tub/ Shower Home Equipment Hand Held Shower,Grab Bars In Shower Additional Social History Comment Pt is a [place] who lives in [place] with his , Brenda. M2 PT-IP Current Condition Start: 09/10/20 15:23 Freq: NEEDED Status: Active Protocol: Document 09/11/20 11:41 AW (Rec: 09/11/20 12:26 AW [id number]) Physical Therapy Current Condition Current Condition Evaluation Date 09/11/20 Treatment Diagnosis s/p T12-S1 TLIF; difficulty in walking Onset Date 09/09/20 Precautions Lumbar Precautions Log Roll,No Twisting,Limit Bending,Lifting Restriction of 10 lbs,Gait Belt above Incisional Area M3 PT-IP Subjective Start: 09/10/20 15:23 Freq: NEEDED Status: Active Protocol: Document 09/11/20 11:41 AW (Rec: 09/11/20 12:26 AW [id number]) Subjective Physical Therapy Visit Type Type Initial Evaluation Visit Start Time 11:13 Visit Stop Time 11:41 Total Visit Minutes 28 Notes Pt has been not moved out of bed since surgery two days ago with the exception of slider board bed <> [facility] for MRI. Number of CASH REGISTER BALANCER Visits 0 Physical Therapy Visit Comments Patient Comments Pt is willing to participate with PT Patient Goals Return to PLOF Therapy Pain Assessment Pain When Pain Assessed At Rest Pain Present Pain Present Pain Reported Location B LE Scale Used not quantified at rest; 10/10 with touch or movement Description Burning,Pulling,Sharp Pain Behaviors Wincing Pain Management Techniques Modification of Treatment, Timing of Activity with Medications M4 PT-IP Mobility and Gait Start: 09/10/20 15:23 Freq: NEEDED Status: Active Protocol: Document 09/11/20 11:41 AW (Rec: 09/11/20 12:26 AW [id number]) PT-Bed Mobility Assessment Rolling Type of Rolling Bilateral Level of Assist Maximal Assistance Supine to Sit Supine to Sit Maximum Assistance,1 Person Assistance,Head of Bed Elevated,Bedrails Scooting Scooting to Edge of Bed Maximum Assistance Scooting Up and Down in Bed Minimal Assistance PT-Transfer Assessment Equipment Transfer Assistive Device Sliding Board Orthotic/Prosthetic Devices or Brace: No Transfers Transfer Destination Chair Transfer Technique Lateral Scoot Transfer Ability Level of Assist Maximum Assistance,2 Person Assistance,Use of Upper Extremities Comments Mobility Comments Pt was lying in the bed with HOB elevated ~35 degrees as PT arrived. He agreed to mobilize. Pt unable to transition to long-sitting independently. With HOB ~70 degrees, pt required max to total assist to complete supine to sitting EOB. He was unable to assist at all to move his legs but used BUE and the bed features to pull his trunk up. With hand on the bed cane (left) and mattress ( right), he attempted to support himself but required min assist at all times to maintain trunk control. As pt lifted his hands, he was unable to control his leaning in any direction. He most significantly leaned to the right. PT called RN to assist with slide board transfer. Pt required max assist to lean to his left side for placement of the slide board. With max assist x 2, pt then completed slide board transfer to his right bed>chair, needing assist for placement of his legs and for blocking his knees. Pt was able to scoot himself fully back in the chair without assist. He was positioned there with call light and all needs in reach. PT left with RN attending. Gait Assessment Comments Gait Comments Pt unable at this time. PT-Balance Assessment Sitting Balance and Reactions Static Sitting Balance Ability Poor Dynamic Sitting Balance Ability Poor Comments Other Balance Tests/Deviations/Treatment Pt is able to briefly find : midline but lacks trunk control to maintain without BUE support. M5 PT-IP Objective Assessments Start: 09/10/20 15:23 Freq: NEEDED Status: Active Protocol: Document 09/11/20 11:41 AW (Rec: 09/11/20 12:26 AW [id number]) Orientation Orientation/Cognition Level of Alertness Alert Orientation Name,Day of Week,Place, Situation Language Function Ability No Deficits Noted Safety Awareness Understands Safety Issues Memory Description No Deficits Noted Gross Range of Motion Upper Extremity ROM Assessment Within Functional Limits Lower Extremity ROM Assessment Within Functional Limits Impairments PROM only Strength Upper Extremity Strength Assessment Within Functional Limits Lower Extremity Strength Assessment Bilaterally Impaired Hip 0/5 Knee 0/5 Ankle L 0/5; R 1/5 Comments Strength Comments Pt able to fire right EHL 3-/5 Sensation Assessment Sensation Gross Sensation Right LE Impaired,Left LE Impaired Sensation Description Hyperesthesia,Burning,Pain Comments Sensation Comments Pt reports ripping sensation in bilateral thighs when laying supine. He also endorses constant burning in entire B LE. Pt presents with hypersensitivity to light touch in all dermatomes. He is better able to tolerate deep pressure. Muscle Tone Muscle Tone WNL No Muscle Tone Location Bilateral Lower Extremity Type of Tone Hypotonicity Severity of Tone Severe Other Assessments Other Other Assessments Negative clonus at bilateral ankles M6 PT-IP Treatment Start: 09/10/20 15:23 Freq: NEEDED Status: Active Protocol: Document 09/11/20 11:41 AW (Rec: 09/11/20 12:26 AW [id number]) Physical Therapy Treatment Education Education Provided Precautions,Safety Other Treatments Other Treatment Performed Provided education on the role of PT, plan of care, post-op precautions, and risks of immobility. M7 PT-IP Assessment and Plan Start: 09/10/20 15:23 Freq: NEEDED Status: Active Protocol: Document 09/11/20 11:41 AW (Rec: 09/11/20 12:26 AW [id number]) PT Summary Assessment and Plan Potential Rehabilitation Potential Fair Status of Condition at Evaluation Evolving Summary Impairments Pain,ROM,Strength,Balance, Sensation,Bed Mobility, Transfers,Gait Assessment Summary Connor is a 54 yo man seen for PT evaluation on POD2 following multi-level lumbar surgery. He is a [place] who is typically independent in all regards. On evaluation, pt presents with 0/5 to 1/5 B LE and lower trunk strength, hyperesthesia in all dermatomes T12-S1, and pain affecting mobility. He required max to total assist of one to two people for bed mobility, sitting balance, and slide board transfer. He will require acute rehab vs SNF to improve functional mobility, ability to participate in his own care, and to mitigate the risks of immobility. Goals Bed Mobility Goal Minimal Assistance Transfer Goal Contact Guard Assistance,Slide Board Gait Goal Maximal Assistance,Four Wheel Walker Gait Distance 10 Days to Meet Goals 10 Frequency of Treatment Frequency Of Treatment Twice a Day Treatment Plan Physical Therapy Treatment Plan Bed Mobility Training,Transfer Training,Gait Training, Therapeutic Exercise,Balance Retraining,Post Op Education, Discharge Planning,Hot or Cold Pack,Neuromuscular Re-ed, Coordination Retraining Other Recommendations and Next Treatment slide board transfers, bed Focus mobility Precautions Lumbar Precautions Log Roll,No Twisting,Limit Bending,Lifting Restriction of 10 lbs,Gait Belt above Incisional Area Recommendations To Nursing Amount of Assist Needed Mechanical Lift Discharge Recommendations PT Discharge Recommendations SNF Rehab,Acute Rehab Other Discharge Recommendations acute rehab vs SNF Equipment Needed for Home Before defer to rehab setting Discharge Transportation Needs at Discharge Stretcher/Ambulance
[2020-09-11 12:00] VITALS: BP 124/72; PULSE 70; RESP 18; TEMP 36.7; O2SAT 98
--- NOTE | 2020-09-11 13:25 | CM.DPC ---
DCP Cont: Spoke to Harriet, physical therapist,who had just worked with patient. Patient is a sliding board transfer. She is recommending acute [facility] re[facility], stated, he may benefit with intense therapy. Called Cristal in admissions at [facility], and stated, patient would be a good candidate. Will fax her over referral. Spoke to patient, and gave him brochure with [facility], and explained about how they do more intense therapy. Stated, I'm not sure, but can look at it, don't know if I'm up for intense therapy. [facility] has already accepted, but [facility] may be an option. Patient will also need O.T. notes, for two disciplines are needed for acute rehab. P: DCP to continue to follow. [facility] has already accepted. Will fax Cristal at Inpatient rehab face sheet, P.T. notes, operative notes and scans for her to review. Kortney Krueger RN/Finishing Room Operator
[2020-09-11 15:20] VITALS: BP 138/92; PULSE 65; RESP 17; TEMP 36.3; O2SAT 95
--- NOTE | 2020-09-11 16:59 | PT.IPTN ---
Current Diagnoses Sleep apnea, unspecified (09/09/20) Spondylosis without myelopathy or radiculopathy, lumbosacral region (09/09/20) Spinal stenosis, lumbar region without neurogenic claudication (09/09/20) Arthrodesis status (09/09/20) Surgery Performed Operation Date: 09/09/20 07:45 Actual Procedures p T12-L1, L3-4 TLIF,L1-S1 lumbar HWR,exploration of fusion,repeat laminectomy,reinsertion of hardware - Sarai Washington MD Physical Therapy Treatment Note M2 PT-IP Current Condition Start: 09/10/20 15:23 Freq: NEEDED Status: Active Protocol: Document 09/11/20 11:41 AW (Rec: 09/11/20 12:26 AW [id number]) Physical Therapy Current Condition Current Condition Evaluation Date 09/11/20 Treatment Diagnosis s/p T12-S1 TLIF; difficulty in walking Onset Date 09/09/20 Precautions Lumbar Precautions Log Roll,No Twisting,Limit Bending,Lifting Restriction of 10 lbs,Gait Belt above Incisional Area M3 PT-IP Subjective Start: 09/10/20 15:23 Freq: NEEDED Status: Active Protocol: Document 09/11/20 16:46 AW (Rec: 09/11/20 16:59 AW [id number]) Subjective Physical Therapy Visit Type Type Treatment Note Visit Start Time 15:49 Visit Stop Time 16:05 Total Visit Minutes 16 Physical Therapy Visit Comments Patient Comments Pt is willing to participate with PT Therapy Pain Assessment Pain When Pain Assessed At Rest Pain Present Pain Present Pain Reported Location B LE Scale Used not quantified at rest; 10/10 with touch or movement Description Burning,Pulling Pain Behaviors Wincing Pain Management Techniques Modification of Treatment, Timing of Activity with Medications M4 PT-IP Mobility and Gait Start: 09/10/20 15:23 Freq: NEEDED Status: Active Protocol: Document 09/11/20 16:46 AW (Rec: 09/11/20 16:59 AW [id number]) PT-Bed Mobility Assessment Sit to Supine Sit to Supine Total Assistance,2 Person Assistance,Bedrails PT-Transfer Assessment Equipment Transfer Assistive Device Gait Belt,Sliding Board Orthotic/Prosthetic Devices or Brace: No Transfers Transfer Destination Bed Transfer Technique Lateral Scoot Transfer Ability Level of Assist Maximum Assistance,2 Person Assistance,Use of Upper Extremities Comments Mobility Comments Pt was reclined in the chair and requesting return to bed. RN assisted with transfer. Pt required max assist to lean for placement of slide board. Bed was in lowest position which is several inches higher than chair surface. Pt required total assist to position his legs and max assist x 2 and cues for hand placement to complete slide board transfer to the bed going to his left. In sitting on the bed, pt required max assist for sitting balance. Sit to supine was max assist x 2 as pt used BUE to pull himself toward HOB using the side rails. PT and RN used the draw sheet to reposition pt's hips. Pt requested all four rails up. He was left with call light and all needs in reach. Gait Assessment Comments Gait Comments Pt unable at this time. PT-Balance Assessment Sitting Balance and Reactions Static Sitting Balance Ability Poor Dynamic Sitting Balance Ability Poor M5 PT-IP Objective Assessments Start: 09/10/20 15:23 Freq: NEEDED Status: Active Protocol: Document 09/11/20 11:41 AW (Rec: 09/11/20 12:26 AW [id number]) Orientation Orientation/Cognition Level of Alertness Alert Orientation Name,Day of Week,Place, Situation Language Function Ability No Deficits Noted Safety Awareness Understands Safety Issues Memory Description No Deficits Noted Gross Range of Motion Upper Extremity ROM Assessment Within Functional Limits Lower Extremity ROM Assessment Within Functional Limits Impairments PROM only Strength Upper Extremity Strength Assessment Within Functional Limits Lower Extremity Strength Assessment Bilaterally Impaired Hip 0/5 Knee 0/5 Ankle L 0/5; R 1/5 Comments Strength Comments Pt able to fire right EHL 3-/5 Sensation Assessment Sensation Gross Sensation Right LE Impaired,Left LE Impaired Sensation Description Hyperesthesia,Burning,Pain Comments Sensation Comments Pt reports ripping sensation in bilateral thighs when laying supine. He also endorses constant burning in entire B LE. Pt presents with hypersensitivity to light touch in all dermatomes. He is better able to tolerate deep pressure. Muscle Tone Muscle Tone WNL No Muscle Tone Location Bilateral Lower Extremity Type of Tone Hypotonicity Severity of Tone Severe Other Assessments Other Other Assessments Negative clonus at bilateral ankles M6 PT-IP Treatment Start: 09/10/20 15:23 Freq: NEEDED Status: Active Protocol: Document 09/11/20 16:46 AW (Rec: 09/11/20 16:59 AW [id number]) Physical Therapy Treatment Education Education Provided Precautions,Safety M7 PT-IP Assessment and Plan Start: 09/10/20 15:23 Freq: NEEDED Status: Active Protocol: Document 09/11/20 16:46 AW (Rec: 09/11/20 16:59 AW [id number]) PT Summary Assessment and Plan Summary Impairments Pain,ROM,Strength,Balance, Sensation,Bed Mobility, Transfers,Gait Progress Towards Goals Slow Progress due to Medical Issues Assessment Summary Connor continues to require max to total assist for slide board transfer and repositioning in bed. He is able to use B UE on the bed rails to begin turning himself in the bed but unable to maintain lumbar precautions during this movement. Depending on pt's ability to tolerate intensive therapy, pt will require acute rehab vs SNF. Goals Bed Mobility Goal Minimal Assistance Transfer Goal Contact Guard Assistance,Slide Board Gait Goal Maximal Assistance,Front Wheel Walker Gait Distance 10 Other Goals - pt will tolerate unsupported sitting 30 seconds without need for UE support Days to Meet Goals 10 Frequency of Treatment Frequency Of Treatment Twice a Day Treatment Plan Physical Therapy Treatment Plan Bed Mobility Training,Transfer Training,Gait Training, Therapeutic Exercise,Balance Retraining,Post Op Education, Discharge Planning,Hot or Cold Pack,Neuromuscular Re-ed, Coordination Retraining Other Recommendations and Next Treatment slide board transfers, bed Focus mobility, sitting balance Precautions Lumbar Precautions Log Roll,No Twisting,Limit Bending,Lifting Restriction of 10 lbs,Gait Belt above Incisional Area Recommendations To Nursing Amount of Assist Needed PT/OT Assist Only Discharge Recommendations PT Discharge Recommendations SNF Rehab,Acute Rehab Other Discharge Recommendations acute rehab vs SNF Equipment Needed for Home Before defer to rehab setting Discharge Transportation Needs at Discharge Stretcher/Ambulance
[2020-09-11 19:40] VITALS: BP 134/74; PULSE 61; RESP 16; TEMP 36.7; O2SAT 98
[2020-09-11] MEDS: SERTRALINE 50 MG TABLET 25 MG PO (20:07)
[2020-09-11] MEDS: ATORVASTATIN 20 MG TABLET 40 MG PO (20:07)
[2020-09-11] MEDS: SENNOSIDES 8.6 MG TABLET 17.2 MG PO (20:08)
--- NOTE | 2020-09-11 21:21 | P.PN_ITS ---
Exam Vital Signs (past 8 hours): - 09/11/20 15:20 09/11/20 19:40 Temperature 97.3 F L 98.0 F Pulse Rate 65 61 Respiratory Rate 17 16 Blood Pressure 138/92 H 134/74 Pulse Oximetry 95 98 Oxygen Delivery Method Room Air Oxygen Flow Rate 0 Objective Labs Result Diagrams: 09/10/20 04:30 [facility] Medical History (Updated 09/05/20 @ 16:46 by Nabila Miller RN) AVM (arteriovenous malformation) Hyperlipidemia Kidney stones Papillary thyroid carcinoma PTSD (post-traumatic stress disorder) PVC (premature ventricular contraction) Skin cancer Sleep apnea with use of continuous positive airway pressure (CPAP) Surgical History (Updated 09/05/20 @ 16:46 by Nabila Miller RN) History of lumbar spinal fusion (04/02/18) History of thyroidectomy Hx of hernia repair Hx of knee surgery Hx of shoulder surgery S/P lumbar fusion (01/30/17) S/P UPPP (uvulopalatopharyngoplasty) Status post bilateral LASIK surgery Social History (System 07/14/19 @ 10:05 by Stephanie Cai) household members: spouse and children Smoking Status: Former smoker alcohol intake: current Assessment & Plan Assessment & Plan narrative: POD#2 s/p T12-L1 TLIF and revision PSF. Pt developed significant myelopathy post surgery with BLE motor deficit. On exam today, there is normal sensibility to just above his navel, which is T9, T10 dermatome. He has 3/5 right FHL motor function, which is improved from yesterday's 1/5. Yesterday he had just a twitch to his big toe which I documented as EHL, which is more likely to be FHL based on today's exam. I reviewed his imaging study with computer information science professor radiologist. I discussed my findings and have Dr. Martinez, another spine surgeon who reviewed the CT and MRI images. We discussed whether there is a compressive hematoma that is contributing to his current neurologic deficit warranting a I&D. The consensus after reviewing his CT and MRI images was there is not any compressive hematome to evacuate. And another I&D at this time lacking clear imaging confirmation of a compressive hematoma could slow his ongoing recovery due to another disturbance to his spine from another surgery. My recurrent plan is continue close monitoring and continue IV steroids for his neuro recovery. Post op hematoma is a concern for the ongoing myelopathy as well as intraoperative retraction in the presence of abundant scar tissue causing significant inflammation. His L1 anterior mass shown best on the CT is likely not contributing to his current myelopathy since during the recent surgery, this area was minimumly exposed and the mass is on the contralateral side of my approach. I will reassess him in the AM. He has hypersensitivity and his SCD for DVT prophalaxis was discontinued on Saturday since it was causing severe pain for him. Since he has daily changing response to touch and sensory feedback, I asked the nurse to try the calf SCD see if he can tolerate it better than the foot SCD. I also discussed precautions for pressure ulcer prevention and possible adding 81mg aspirin tomorrow or Saturday for medical DVT prophylaxis. Quality VTE Deep Vein Thrombosis/Pulmonary Embolism Present on Admission: Yes
[2020-09-12] VITALS (7 sets, daily range): BP systolic 137–156; BP diastolic 70–95; PULSE 62–70; RESP 16–20; TEMP 36.1–36.8; O2SAT 96–97
--- NOTE | 2020-09-12 01:26 | PC.NURSE ---
Patient received A&Ox3, awake reporting relief after having been administered prn oxycodone 10mg of pain to 3/10. Patient with hypersensation below belly button down to toes, only able to move R great toe and plantar flex Right foot. Priest catheter in place draining clear yellow urine. Dressing C/D/I to back. Repositioned and pt placed CPAP machine for sleep. No acute changes.
[2020-09-12] MEDS: HYDROMORPHONE 0.5 MG INJ IV ×9 (02:20→21:56)
[2020-09-12] MEDS: OXYCODONE IR 10 MG TABLET PO ×4 (04:24→16:39)
[2020-09-12] MEDS: PANTOPRAZOLE 20 MG TABLET PO (06:02)
[2020-09-12] MEDS: THYROID, PORK 60 MG TABLET 120 MG PO (06:03)
[2020-09-12] MEDS: diazePAM 5 MG TABLET PO (06:10)
[2020-09-12] MEDS: GABAPENTIN 400 MG CAPSULE 800 MG PO ×2 (08:17→20:45)
[2020-09-12] MEDS: DOCUSATE 100 MG CAPSULE PO (08:17)
[2020-09-12] MEDS: MAGNESIUM HYDROXIDE 30 ML UDC PO (08:17)
[2020-09-12] MEDS: OXYCODONE ER 10 MG TAB PO ×2 (08:17→20:41)
[2020-09-12] MEDS: SODIUM CHLORIDE 0.9% FLUSH 10 ML IV ×2 (08:18→20:50)
[2020-09-12] MEDS: DEXAMETHASONE 10 MG/ML VIAL IV ×2 (08:18→20:45)
--- NOTE | 2020-09-12 08:41 | CM.DPC ---
Addendum entered by JENNIFER Alarcon 09/12/20 10:49: ADD: Per PT/OT, really feel strongly that pt will most benefit from Acute Rehab and pt made significant progress with them today and PT/OT discussed more indepth the benefit of Acute Rehab and pt considering Acute rehab more now. WILDER requested [facility] fax today's PT/OT note to [facility] Acute rehab from today when available for review. WILDER spoke to Cristal at [facility] and updated that pt not ready for d/c today but that PT/OT from today will be faxed for review when available and then Cristal will confirm if pt meets criteria and if they can accept. BF Original Note: DCP Cont: Per Ortho MD, pt continues to have lack of feeling from his belly button down and etiology unclear at this time and likely not stable for d/c today. Per PT, recommending SNF vs Acute Inpt Rehab. Per previous DCP, information given to pt regarding Acute Inpt Rehab and brochure provided and pt was going to review and talk with his spouse about SNF vs Acute. Referral made to [facility] Acute rehab yesterday 09/11/20 but OT eval was not available at that time. WILDER met bedside with pt and explained role and he confirms that he reviewed brochure regarding Acute Rehab and after discussion with spouse, preference at this time is [facility] due to location but PT/OT will continue to work with pt daily towards determining if pt would still meet criteria for Acute rehab. Plan: WILDER to follow for faxing [facility] Acute rehab PT/OT eval from today for ongoing review and confirming closer to d/c that pt preference is still [facility]. PASRR previously completed. JENNIFER Alarcon
--- NOTE | 2020-09-12 10:50 | PT.IPTN ---
Current Diagnoses Sleep apnea, unspecified (09/09/20) Spondylosis without myelopathy or radiculopathy, lumbosacral region (09/09/20) Spinal stenosis, lumbar region without neurogenic claudication (09/09/20) Arthrodesis status (09/09/20) Surgery Performed Operation Date: 09/09/20 07:45 Actual Procedures p T12-L1, L3-4 TLIF,L1-S1 lumbar HWR,exploration of fusion,repeat laminectomy,reinsertion of hardware - Sarai Washington MD Physical Therapy Treatment Note M2 PT-IP Current Condition Start: 09/10/20 15:23 Freq: NEEDED Status: Active Protocol: Document 09/11/20 11:41 AW (Rec: 09/11/20 12:26 AW [id number]) Physical Therapy Current Condition Current Condition Evaluation Date 09/11/20 Treatment Diagnosis s/p T12-S1 TLIF; difficulty in walking Onset Date 09/09/20 Precautions Lumbar Precautions Log Roll,No Twisting,Limit Bending,Lifting Restriction of 10 lbs,Gait Belt above Incisional Area M3 PT-IP Subjective Start: 09/10/20 15:23 Freq: NEEDED Status: Active Protocol: Document 09/12/20 10:50 AW (Rec: 09/12/20 11:26 AW [id number]) Subjective Physical Therapy Visit Type Type Treatment Note Visit Start Time 10:01 Visit Stop Time 10:44 Total Visit Minutes 43 Notes Co-tx with OT Number of HISTOLOGY AIDE Visits 0 Physical Therapy Visit Comments Patient Comments Pt is willing to participate with PT Therapy Pain Assessment Pain When Pain Assessed At Rest Pain Present Pain Present Pain Reported Location B LE Intensity 6 Description Burning Pain Behaviors Wincing Pain Management Techniques Distraction,Modification of Treatment,Timing of Activity with Medications M4 PT-IP Mobility and Gait Start: 09/10/20 15:23 Freq: NEEDED Status: Active Protocol: Document 09/12/20 10:50 AW (Rec: 09/12/20 11:26 AW [id number]) PT-Bed Mobility Assessment Rolling Type of Rolling Log Rolling,Roll to Right Level of Assist Moderate Assistance,1 Person Assistance Supine to Sit Supine to Sit Maximum Assistance,1 Person Assistance,Bedrails Scooting Scooting to Edge of Bed Moderate Assistance PT-Transfer Assessment Sit to and From Stand Sit to and from Stand Maximum Assistance,2 Person Assistance Equipment Transfer Assistive Device Gait Belt,Sliding Board Orthotic/Prosthetic Devices or Brace: No Transfers Transfer Destination Chair Transfer Technique Squat Pivot Transfer Ability Level of Assist Maximum Assistance,2 Person Assistance,Use of Upper Extremities Comments Mobility Comments Pt was reclined in the bed as PT and OT arrived. He rolled to his right side mod A x 1 and then needed max A x 1 for SL to sit. Pt was mod A x 1 to scoot toward EOB with heavy use of BUE. At EOB with feet on the floor, pt placed his right hand on his right knee ( left hand was elevated due to pulled IV bleeding - called nursing who arrived to attend) . He was able to find/hold midline for a total of 60 seconds without therapist support. After pt was cleaned up and gown changed, PT and OT provided max A x 2 for pt to stand with FWW. He pushed off the bed cane on the left and mattress on the right and needed assist to block his knees and position his hands on the walker handles. He was able to stand with max assist x 2 and near total BUE weightbearing for 20 seconds before needing to sit back on EOB, requiring max assist to push his hips back toward the mattress. Pt stood two more times with PT and OT placing feet inside the walker frame to block knees. In response to deep pressure and tapping, pt produced a light flicker in knee extensors bilaterally. Pt then leaned toward his left side for placement of the slide board mod A x 1. PT and OT instructed pt in squat pivot transfer (using slide board as back-up in case needed). With chair set up at 45 degrees from the bed on pt' s right side, pt reached across to the far chair arm and completed squat pivot transfer max A x 2. He was able to scoot his hips toward the back of the chair for positioning. Pt was left with OT completing further assessment. Gait Assessment Comments Gait Comments Pt unable at this time. PT-Balance Assessment Sitting Balance and Reactions Static Sitting Balance Ability Fair Dynamic Sitting Balance Ability Poor Comments Other Balance Tests/Deviations/Treatment Pt able to find and maintain : midline with single hand support on his knee for ~60 seconds without therapist support. M5 PT-IP Objective Assessments Start: 09/10/20 15:23 Freq: NEEDED Status: Active Protocol: Document 09/11/20 11:41 AW (Rec: 09/11/20 12:26 AW [id number]) Orientation Orientation/Cognition Level of Alertness Alert Orientation Name,Day of Week,Place, Situation Language Function Ability No Deficits Noted Safety Awareness Understands Safety Issues Memory Description No Deficits Noted Gross Range of Motion Upper Extremity ROM Assessment Within Functional Limits Lower Extremity ROM Assessment Within Functional Limits Impairments PROM only Strength Upper Extremity Strength Assessment Within Functional Limits Lower Extremity Strength Assessment Bilaterally Impaired Hip 0/5 Knee 0/5 Ankle L 0/5; R 1/5 Comments Strength Comments Pt able to fire right EHL 3-/5 Sensation Assessment Sensation Gross Sensation Right LE Impaired,Left LE Impaired Sensation Description Hyperesthesia,Burning,Pain Comments Sensation Comments Pt reports ripping sensation in bilateral thighs when laying supine. He also endorses constant burning in entire B LE. Pt presents with hypersensitivity to light touch in all dermatomes. He is better able to tolerate deep pressure. Muscle Tone Muscle Tone WNL No Muscle Tone Location Bilateral Lower Extremity Type of Tone Hypotonicity Severity of Tone Severe Other Assessments Other Other Assessments Negative clonus at bilateral ankles M6 PT-IP Treatment Start: 09/10/20 15:23 Freq: NEEDED Status: Active Protocol: Document 09/12/20 10:50 AW (Rec: 09/12/20 11:26 AW [id number]) Physical Therapy Treatment Education Education Provided Precautions,Safety Other Treatments Other Treatment Performed Educated pt on need for intense, high repetition therapy in the immediate post- operative period. Educated pt on the difference between SNF rehab and acute rehab. M7 PT-IP Assessment and Plan Start: 09/10/20 15:23 Freq: NEEDED Status: Active Protocol: Document 09/12/20 10:50 AW (Rec: 09/12/20 11:26 AW [id number]) PT Summary Assessment and Plan Potential Rehabilitation Potential Good Status of Condition at Evaluation Evolving Summary Impairments Pain,ROM,Strength,Balance, Sensation,Bed Mobility, Transfers,Gait Progress Towards Goals Slow Progress due to Pain,Slow Progress due to Medical Issues Assessment Summary Pt tolerated increased activity today. He was able to sit EOB with single hand support up to 60 seconds. He stood with max assist x 2 for up to 20 seconds three times. He improved his transfer to squat pivot max A x 2. Pt has good upper body strength, an excellent attitude, and shows good effort with all activities. He is highly motivated and remains an ideal candidate for acute rehab. Goals Bed Mobility Goal Minimal Assistance Transfer Goal Minimal Assistance Gait Goal Maximal Assistance,Front Wheel Walker Gait Distance 10 Other Goals - transfer goal is squat pivot min A x 1 - pt will tolerate unsupported sitting 120 seconds without need for UE support Days to Meet Goals 10 Frequency of Treatment Frequency Of Treatment Twice a Day Treatment Plan Physical Therapy Treatment Plan Bed Mobility Training,Transfer Training,Gait Training, Therapeutic Exercise,Balance Retraining,Post Op Education, Discharge Planning,Hot or Cold Pack,Neuromuscular Re-ed, Coordination Retraining Other Recommendations and Next Treatment squat pivot transfers, bed Focus mobility, sitting balance, sit to stand, consider sit to stand machine for nursing transfers Precautions Lumbar Precautions Log Roll,No Twisting,Limit Bending,Lifting Restriction of 10 lbs,Gait Belt above Incisional Area Recommendations To Nursing Amount of Assist Needed PT/OT Assist Only Discharge Recommendations PT Discharge Recommendations Acute Rehab Equipment Needed for Home Before defer to rehab setting Discharge Transportation Needs at Discharge Stretcher/Ambulance
--- NOTE | 2020-09-12 10:54 | OT.IP.EVAL ---
Current Diagnoses Sleep apnea, unspecified (09/09/20) Spondylosis without myelopathy or radiculopathy, lumbosacral region (09/09/20) Spinal stenosis, lumbar region without neurogenic claudication (09/09/20) Arthrodesis status (09/09/20) Surgery Performed Operation Date: 09/09/20 07:45 Actual Procedures p T12-L1, L3-4 TLIF,L1-S1 lumbar HWR,exploration of fusion,repeat laminectomy,reinsertion of hardware - Sarai Washington MD Past Medical History (This Medical Record has been edited. Action required.) AVM (arteriovenous malformation) Hyperlipidemia Kidney stones Papillary thyroid carcinoma PTSD (post-traumatic stress disorder) PVC (premature ventricular contraction) Skin cancer Sleep apnea with use of continuous positive airway pressure (CPAP) Surgical History (This Medical Record has been edited. Action required.) History of lumbar spinal fusion (04/02/18) History of thyroidectomy Hx of hernia repair Hx of knee surgery Hx of shoulder surgery S/P lumbar fusion (01/30/17) S/P UPPP (uvulopalatopharyngoplasty) Status post bilateral LASIK surgery Occupational Therapy Inpatient Evaluation/Re-Eval M1 PT/OT-IP Prior Functional Status Start: 09/10/20 15:23 Freq: NEEDED Status: Active Protocol: Document 09/12/20 11:06 CGR (Rec: 09/12/20 11:30 CGR [id number]) Medical Review Prior Functional Status Medical History Reviewed Yes Communication Able to make needs known Mobility and Gait Pt stated that he is independent with all mobilities and ambulation without AD Activities of Daily Living and IADL's Independent Social History Household Members spouse,children Living Arrangements House Number of Floors (Floors) Two Floors Number of Stairs To Enter/Railing? 4 steps to enter without rails 7 steps B rails +7 steps R rail ascending to bedroom level Home Environment Standard Height Toilet,Tub/ Shower Home Equipment Hand Held Shower,Grab Bars In Shower Employment Status Self-Employed Additional Social History Comment Pt is a [place] who lives in [place] with his , Brenda. 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 M1 PT/OT-IP Prior Functional Status Start: 09/12/20 11:06 Freq: NEEDED Status: Active Protocol: Document 09/12/20 11:06 CGR (Rec: 09/12/20 11:30 CGR [id number]) Medical Review Prior Functional Status Medical History Reviewed Yes Communication Able to make needs known Mobility and Gait Pt stated that he is independent with all mobilities and ambulation without AD Activities of Daily Living and IADL's Independent Social History Household Members spouse,children Living Arrangements House Number of Floors (Floors) Two Floors Number of Stairs To Enter/Railing? 4 steps to enter without rails 7 steps B rails +7 steps R rail ascending to bedroom level Home Environment Standard Height Toilet,Tub/ Shower Home Equipment Hand Held Shower,Grab Bars In Shower Employment Status Self-Employed Additional Social History Comment Pt is a [place] who lives in [place] with his , Brenda. 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 M2 OT-IP Current Condition Start: 09/12/20 11:06 Freq: Status: Active Protocol: Document 09/12/20 11:06 CGR (Rec: 09/12/20 11:30 CGR [id number]) Occupational Therapy Current Condition Current Condition Evaluation Date 09/12/20 Treatment Diagnosis T12-S1 TLIF and revision with post op paralysis Diagnosis Onset Date 09/09/20 Post Operative Precautions Lumbar Precautions Log Roll,No Twisting,Limit Bending,Lifting Restriction of 10 lbs,Gait Belt above Incisional Area M3 OT- IP Subjective and Pain Start: 09/12/20 11:06 Freq: Status: Active Protocol: Document 09/12/20 11:06 CGR (Rec: 09/12/20 11:30 CGR [id number]) OT- Subjective Occupational Therapy Visit Type Type Initial Evaluation Visit Start Time 10:00 Visit Stop Time 10:54 Total Visit Minutes 54 Notes Partial co-treat with P.T. OT Pain Assessment Pain When Pain Assessed After Treatment Pain Present Pain Present Pain Reported Location Back Intensity 7 Scale Used Numeric (0 - 10) Management Techniques Distraction,Modification of Treatment,Re-positioning, Timing of Activity with Medications M4 OT- IP ADL's Start: 09/12/20 11:06 Freq: Status: Active Protocol: Document 09/12/20 11:06 CGR (Rec: 09/12/20 11:30 CGR [id number]) OT [id number] Comments OT Self-Feeding Comments Not meal time OT ADL-Grooming General Evaluation Grooming Ability Standby Assistance Areas Needing Assistance Retrieving/Set-up of Grooming Items,Face Washing Comments OT Grooming Comments seated in chair OT ADL-Oral Care General Eval Oral Care Ability Standby Assistance Areas of Assistance Brushing Teeth,Retrieving/Set- Up of Items Comments Oral Care Comments seated in chair OT ADL-Dressing General Eval Upper Body Dressing Ability Minimal Assistance Lower Body Dressing Ability Total Assistance Comments OT Dressing Comments hospital gown change and socks OT ADL-Toileting Comments OT Toileting Comments not performed. Pt initially stated that he thought he needed to have a BM soon but then declined stating that he didn't feel like he was ready yet. M5 OT- IP IADL's Start: 09/12/20 11:06 Freq: Status: Active Protocol: Document 09/12/20 11:06 CGR (Rec: 09/12/20 11:30 CGR [id number]) OT-Instrumental Activities of Daily Living Deficits IADL Deficits Identified Deficits Home Safety Awareness Awareness of Need for Assistance at Home Good Awareness Ability to Problem Solve Emergency Able to Problem Solve Situations Medication Management Medication Management No Deficits Identified Money Management Money Management No Deficits Identified Meal Preparation Meal Preparation Caregiver Provides Assist Furniture Polisher Furniture Polisher Caregiver Provides Assist Driving Driving Comments Pt will be unable to drive at this time without significant vehicle modifications with his current abilities M6 OT- IP Functional Cognition Start: 09/12/20 11:06 Freq: Status: Active Protocol: Document 09/12/20 11:06 CGR (Rec: 09/12/20 11:30 CGR [id number]) Cognitive Factors Limiting Selfcare Function Cognitive Ability Level of Alertness Alert Patient Orientation Name,Age,Birthday,Month,Date, Year,Day of Week,Place, Situation Attention Span Ability Capable of Focused Attention, Capable of Sustained Attention Ability to Follow Commands Able to Follow Multi-Step Commands Memory Description No Deficits Noted Safety Awareness No Deficits Noted Problem Solving Ability No deficits Noted OT- Vision and Hearing OT- Hearing Assessment OT- Hearing Assessment WFL OT- Vision Assessment Visual Acuity WFL Visual Attentiveness WFL Occular Pursuits WFL Visual Convergence WFL M7 OT- IP Mobility and Balance Start: 09/12/20 11:06 Freq: Status: Active Protocol: Document 09/12/20 11:06 CGR (Rec: 09/12/20 11:30 CGR [id number]) OT- Bed Mobility Assessment Rolling Type of Rolling Log Rolling,Roll to Right Level of Assistance Moderate Assistance,1 Person Assistance,Bedrails Supine to Sit Supine to Sit Assist Maximum Assistance,1 Person Assistance,Bedrails Scooting Scooting to Edge of Bed Moderate Assistance OT-Transfer Assessment Sit to and From Stand Sit to and from Stand Moderate Assistance,Maximum Assistance,2 Person Assistance ,Use of Upper Extremities Transfers Transfer Ability Maximum Assistance,2 Person Assistance Technique Transfer Destination Bed,Chair Transfer Technique Squat Pivot Devices Transfer Assistive Devices Gait Belt,Front Wheeled Walker Comments Mobility Comments Mod to max of 2 for sit to stand upon 3 trials. Pt demonstrates slight muscle contraction to B quads with standing. Pt with increased assist needs with fatigue but agreeable to continuing. Pt then transfered to chair with max x 2 squat pivot and sliding board in place per pt request for safety. Sliding board not needed for transfer. Of note, pt states significant pain with initially moving bed into flat position. Prior to moving bed BLE were flexed at the knee to decrease pain with transition. Pt states flexed posture helped with pain. OT- Balance Assessment Sitting Balance and Reactions Static Sitting Balance Ability Fair Dynamic Sitting Balance Ability Poor Comments Other Balance Tests/Deviations/Treatment Pt was able to sit EOB with : hands on knees without physical assist for ~1 minute. M8 OT- IP Objective Assessments Start: 09/12/20 11:06 Freq: Status: Active Protocol: Document 09/12/20 11:06 CGR (Rec: 09/12/20 11:30 CGR [id number]) OT Gross Range of Motion Upper Extremity Range of Motion Assessment Within Functional Limits OT Strength Upper Extremity Strength Assessment Within Functional Limits Comments Strength Comments shlds 4/5, arms and hands 5/5 OT- Coordination Assessment Upper Extremity Finger to Nose Test Within Functional Limits Finger Tapping Test Within Functional Limits OT-Muscle Tone Assessment Muscle Tone WNL Yes OT Sensation Assessment Comments Summary Comments Pt with typical sensation to the UE but describes hypersensitivity to BLE starting ~ at the belly button . Edema Edema Absent M9 OT- IP Assessment and Plan Start: 09/12/20 11:06 Freq: Status: Active Protocol: Document 09/12/20 11:06 CGR (Rec: 09/12/20 11:30 CGR [id number]) OT Summary Assessment and Plan Potential Rehabilitation Potential Excellent Analytic Complexity at Evaluation High Summary OT Impairments Pain,Strength,Balance, Sensation,Functional Mobility, Grooming,Dressing,Toileting, Bathing,Toilet Transfers, Shower Transfers Progress Towards Goals Progressing Toward Goals,Slow Progress due to Medical Issues Assessment Summary Pt presents as a high complexity evaluation s/p admit for T12-S1 TLIF with complications. Pt with limited to no movement to his LE at this time. Pt with good participation and effort with therapy on this date. Pt with a 2 story home requiring use of stairs at this time. Pt would be an excellent candidate for acute rehab given his diagnosis, endurance abilities, and participation. Recommend d/c to acute rehab. Goals Grooming Goal Independent Dressing Goal Independent Toileting Goal Independent Bathing Goal Independent Toilet Transfer Goal Minimal Assistance Shower Transfer Goal Minimal Assistance Days to Meet Goals 30 Frequency of Treatment Frequency Of Treatment Twice a Day Treatment Plan OT Treatment Plan ADL Training,Functional Mobility,Therapeutic Exercises ,Patient/Family Education, Discharge Planning Other Treatment Recommendations and Next ADLs seated, functional Treatment Focus mobility, bed mobility, UE strengthening Discharge Recommendations OT Discharge Recommendations Acute Rehab Transportation Needs at Discharge Wheelchair/Cabulance
--- NOTE | 2020-09-12 11:54 | CM.DPNOTE ---
Faxed PT/OT notes form 09/12/20, med list and FS to - Inpt. Rehab per Fayn on 09/12/20. Received fax confirmation. Haley Arenas CM Asst.
--- NOTE | 2020-09-12 12:12 | DI.CT.S_ITS ---
PROCEDURE: CT LUMBAR SPINE WO CON INDICATIONS: Evaluate post surgical wound TECHNIQUE: Noncontrast 3 mm thick sections acquired from the T12 level to the sacrum. Sagittal and coronal reformats were constructed. For radiation dose reduction, the following was used: automated exposure control. COMPARISON: [facility], CT, CT LUMBAR SPINE WO CON, 09/09/2020, 20:35. [facility], CT, CT LUMBAR SPINE WO CON, 04/22/2020, 13:16. FINDINGS: Image quality: Excellent. Bones: Postsurgical changes compatible with T12-S1 TLIF. Orthopedic hardware is stable in appearance compared to September 09, 2020. Orthopedic hardware is intact. No lucencies at the bone-hardware interface. There is normal bony alignment. No acute vertebral body compression fractures. Physiologic wedging of the T8, T9 and T10 vertebral bodies. Moderate central canal narrowing noted at the level of the L1 vertebral body related to anterior epidural hyperdense lesion. Severe bilateral L5-S1 neural foraminal narrowing with compression of the exiting bilateral L5 nerve roots. No suspicious lytic bony lesions. Probable 7 millimeter bone island noted in the right iliac bone which is stable compared to prior exams. No pars defects. Soft tissues: 8 x 14 millimeter hyperdense lesion in the central/right central anterior epidural space at the level of the L1 vertebral body is stable in size and contour compared to September 09, 2020. Lesion continues to produce mild mass effect on the anterior thecal sac and slight mass effect on the anterior right margin of the conus medullaris. Small fluid collections and multiple small air locules noted and left T12-L1 and left L3-L4 laminotomy sites which may represent postsurgical hematoma/seroma, however infected fluid collections cannot be differentiated by imaging alone. Visualized aorta is normal in caliber. 2 millimeter nonobstructing left renal stone. 5 millimeter 2 millimeter nonobstructing right renal stones. Visualized appendix is normal. IMPRESSION: 1. Stable examination compared to September 09, 2020. 2. Stable postsurgical changes. 3. 8 x 14 millimeter hyperdense lesion in the anterior epidural space level of the L1-2 body is stable in size and contour. Lesion continues to produce mild mass effect on the anterior margin of the thecal sac in the anterior right margin of the conus medullaris. 4. Fluid collections with small internal air locules at left T12-L1 and L3-L4 laminotomy sites extending into the left epidural space likely represent postsurgical hematoma/seroma, however infected fluid collection cannot be differentiated by imaging alone. Dictated by: Sabrina Middleton MD, PhD on 09/12/2020 at 14:44 Approved by: Sabrina Middleton MD, PhD on 09/12/2020 at 15:33
--- NOTE | 2020-09-12 12:14 | PM.PN.1 ---
Exam Vital Signs (past 8 hours): - 09/12/20 07:58 09/12/20 08:03 Temperature 98 F Pulse Rate 62 62 Respiratory Rate 18 16 Blood Pressure 144/70 H Pulse Oximetry 97 97 Oxygen Delivery Method Room Air Oxygen Flow Rate 0 Objective Labs Result Diagrams: 09/10/20 04:30 [facility] Medical History (Updated 09/05/20 @ 16:46 by Nabila Miller, RN) AVM (arteriovenous malformation) Hyperlipidemia Kidney stones Papillary thyroid carcinoma PTSD (post-traumatic stress disorder) PVC (premature ventricular contraction) Skin cancer Sleep apnea with use of continuous positive airway pressure (CPAP) Surgical History (Updated 09/05/20 @ 16:46 by Nabila Miller, RN) History of lumbar spinal fusion (04/02/18) History of thyroidectomy Hx of hernia repair Hx of knee surgery Hx of shoulder surgery S/P lumbar fusion (01/30/17) S/P UPPP (uvulopalatopharyngoplasty) Status post bilateral LASIK surgery Social History (System 07/14/19 @ 10:05 by Stephanie Cai) household members: spouse and children Smoking Status: Former smoker alcohol intake: current Assessment & Plan Assessment & Plan narrative: POD#3 s/p T12-L1 TLIF and revision lumbar fusion. Patient's neuro exam is unchanged today compare to yesterday. He has altered sensibility at T9, T10 dermatome, which is significant more cephalad than where his surgical wound was involved. I will order another CT L-spine today to compare with his CT from POD#0, again assessing for any hematoma or other sources of external pressure affecting his thoracic spinal cord/nerve roots. Continue current medical management. Quality VTE Deep Vein Thrombosis/Pulmonary Embolism Present on Admission: Yes
--- NOTE | 2020-09-12 13:03 | OT.IP.TRT ---
Current Diagnoses Sleep apnea, unspecified (09/09/20) Spondylosis without myelopathy or radiculopathy, lumbosacral region (09/09/20) Spinal stenosis, lumbar region without neurogenic claudication (09/09/20) Arthrodesis status (09/09/20) Surgery Performed Operation Date: 09/09/20 07:45 Actual Procedures p T12-L1, L3-4 TLIF,L1-S1 lumbar HWR,exploration of fusion,repeat laminectomy,reinsertion of hardware - Sarai Washington MD Occupational Therapy Treatment Note M2 OT-IP Current Condition Start: 09/12/20 11:06 Freq: Status: Active Protocol: Document 09/12/20 11:06 CGR (Rec: 09/12/20 11:30 CGR [id number]) Occupational Therapy Current Condition Current Condition Evaluation Date 09/12/20 Treatment Diagnosis T12-S1 TLIF and revision with post op paralysis Diagnosis Onset Date 09/09/20 Post Operative Precautions Lumbar Precautions Log Roll,No Twisting,Limit Bending,Lifting Restriction of 10 lbs,Gait Belt above Incisional Area M3 OT- IP Subjective and Pain Start: 09/12/20 11:06 Freq: Status: Active Protocol: Document 09/12/20 13:04 CGR (Rec: 09/12/20 13:11 CGR [id number]) OT- Subjective Occupational Therapy Visit Type Type Progress Note Visit Start Time 12:25 Visit Stop Time 13:03 Total Visit Minutes 38 Notes co-treat with P.T. OT remained a few minutes longer for UE therex education. Pt's present throughout session and agreeable to acute rehab during our conversations. OT Pain Assessment Pain When Pain Assessed During Mobility Pain Present Pain Present Pain Reported Location B LE Scale Used did not rate Description Burning Management Techniques Modification of Treatment,Re- positioning,Timing of Activity with Medications M4 OT- IP ADL's Start: 09/12/20 11:06 Freq: Status: Active Protocol: Document 09/12/20 11:06 CGR (Rec: 09/12/20 11:30 CGR [id number]) OT [id number] Comments OT Self-Feeding Comments Not meal time OT ADL-Grooming General Evaluation Grooming Ability Standby Assistance Areas Needing Assistance Retrieving/Set-up of Grooming Items,Face Washing Comments OT Grooming Comments seated in chair OT ADL-Oral Care General Eval Oral Care Ability Standby Assistance Areas of Assistance Brushing Teeth,Retrieving/Set- Up of Items Comments Oral Care Comments seated in chair OT ADL-Dressing General Eval Upper Body Dressing Ability Minimal Assistance Lower Body Dressing Ability Total Assistance Comments OT Dressing Comments hospital gown change and socks OT ADL-Toileting Comments OT Toileting Comments not performed. Pt initially stated that he thought he needed to have a BM soon but then declined stating that he didn't feel like he was ready yet. M5 OT- IP IADL's Start: 09/12/20 11:06 Freq: Status: Active Protocol: Document 09/12/20 11:06 CGR (Rec: 09/12/20 11:30 CGR [id number]) OT-Instrumental Activities of Daily Living Deficits IADL Deficits Identified Deficits Home Safety Awareness Awareness of Need for Assistance at Home Good Awareness Ability to Problem Solve Emergency Able to Problem Solve Situations Medication Management Medication Management No Deficits Identified Money Management Money Management No Deficits Identified Meal Preparation Meal Preparation Caregiver Provides Assist Licensed Acupuncturist Licensed Acupuncturist Caregiver Provides Assist Driving Driving Comments Pt will be unable to drive at this time without significant vehicle modifications with his current abilities M6 OT- IP Functional Cognition Start: 09/12/20 11:06 Freq: Status: Active Protocol: Document 09/12/20 11:06 CGR (Rec: 09/12/20 11:30 CGR [id number]) Cognitive Factors Limiting Selfcare Function Cognitive Ability Level of Alertness Alert Patient Orientation Name,Age,Birthday,Month,Date, Year,Day of Week,Place, Situation Attention Span Ability Capable of Focused Attention, Capable of Sustained Attention Ability to Follow Commands Able to Follow Multi-Step Commands Memory Description No Deficits Noted Safety Awareness No Deficits Noted Problem Solving Ability No deficits Noted OT- Vision and Hearing OT- Hearing Assessment OT- Hearing Assessment WFL OT- Vision Assessment Visual Acuity WFL Visual Attentiveness WFL Occular Pursuits WFL Visual Convergence WFL M7 OT- IP Mobility and Balance Start: 09/12/20 11:06 Freq: Status: Active Protocol: Document 09/12/20 13:04 CGR (Rec: 09/12/20 13:11 CGR [id number]) OT- Bed Mobility Assessment Rolling Type of Rolling Log Rolling Level of Assistance Moderate Assistance,Bedrails Sit to Supine Sit to Supine Assist Moderate Assistance,Bedrails Scooting Scooting Up and Down in Bed Moderate Assistance,1 Person Assistance,Bedrails OT-Transfer Assessment Sit to and From Stand Sit to and from Stand Moderate Assistance,Maximum Assistance,2 Person Assistance Transfers Transfer Ability Maximum Assistance,2 Person Assistance Technique Transfer Destination Bed,Chair Transfer Technique Squat Pivot Devices Transfer Assistive Devices Gait Belt,Front Wheeled Walker Comments Mobility Comments Squat pivot from chair to bed with max x 2. Pt then scooted to HOB with mod a seated EOB. Sit to stand x3 with mod to max x2 using walker. Pt was able to reach R hand back to bedrail on third sit to stand for more controlled stand to sit. OT- Balance Assessment Sitting Balance and Reactions Static Sitting Balance Ability Poor Dynamic Sitting Balance Ability Poor M8 OT- IP Objective Assessments Start: 09/12/20 11:06 Freq: Status: Active Protocol: Document 09/12/20 11:06 CGR (Rec: 09/12/20 11:30 CGR [id number]) OT Gross Range of Motion Upper Extremity Range of Motion Assessment Within Functional Limits OT Strength Upper Extremity Strength Assessment Within Functional Limits Comments Strength Comments shlds 4/5, arms and hands 5/5 OT- Coordination Assessment Upper Extremity Finger to Nose Test Within Functional Limits Finger Tapping Test Within Functional Limits OT-Muscle Tone Assessment Muscle Tone WNL Yes OT Sensation Assessment Comments Summary Comments Pt with typical sensation to the UE but describes hypersensitivity to BLE starting ~ at the belly button . Edema Edema Absent M9 OT- IP Assessment and Plan Start: 09/12/20 11:06 Freq: Status: Active Protocol: Document 09/12/20 13:04 CGR (Rec: 09/12/20 13:11 CGR [id number]) OT Summary Assessment and Plan Potential Rehabilitation Potential Excellent Analytic Complexity at Evaluation High Summary OT Impairments Pain,Strength,Balance, Sensation,Functional Mobility, Grooming,Dressing,Toileting, Bathing,Toilet Transfers, Shower Transfers Progress Towards Goals Progressing Toward Goals,Slow Progress due to Medical Issues Assessment Summary Pt presents as a high complexity evaluation s/p admit for T12-S1 TLIF with complications. Pt with limited to no movement to his LE at this time. Pt with good participation and effort with therapy on this date. Nursing requesting that pt return to bed for CT. Pt fatigued with activity but with continued good participation and agreeable to trying new techniques etc. Pt also worked on sitting balance in chair but unable to maintain sitting balance without use of arms. Pt would be an excellent candidate for acute rehab given his diagnosis, endurance abilities, and participation. Recommend d/c to acute rehab. Goals Grooming Goal Independent Dressing Goal Independent Toileting Goal Independent Bathing Goal Independent Toilet Transfer Goal Minimal Assistance Shower Transfer Goal Minimal Assistance Days to Meet Goals 30 Frequency of Treatment Frequency Of Treatment Twice a Day Treatment Plan OT Treatment Plan ADL Training,Functional Mobility,Therapeutic Exercises ,Patient/Family Education, Discharge Planning Other Treatment Recommendations and Next ADLs seated, functional Treatment Focus mobility, bed mobility, UE strengthening Discharge Recommendations OT Discharge Recommendations Acute Rehab Transportation Needs at Discharge Wheelchair/Cabulance
--- NOTE | 2020-09-12 13:30 | PT.IPTN ---
Current Diagnoses Sleep apnea, unspecified (09/09/20) Spondylosis without myelopathy or radiculopathy, lumbosacral region (09/09/20) Spinal stenosis, lumbar region without neurogenic claudication (09/09/20) Arthrodesis status (09/09/20) Surgery Performed Operation Date: 09/09/20 07:45 Actual Procedures p T12-L1, L3-4 TLIF,L1-S1 lumbar HWR,exploration of fusion,repeat laminectomy,reinsertion of hardware - Sarai Washington MD Physical Therapy Treatment Note M2 PT-IP Current Condition Start: 09/10/20 15:23 Freq: NEEDED Status: Active Protocol: Document 09/11/20 11:41 AW (Rec: 09/11/20 12:26 AW [id number]) Physical Therapy Current Condition Current Condition Evaluation Date 09/11/20 Treatment Diagnosis s/p T12-S1 TLIF; difficulty in walking Onset Date 09/09/20 Precautions Lumbar Precautions Log Roll,No Twisting,Limit Bending,Lifting Restriction of 10 lbs,Gait Belt above Incisional Area M3 PT-IP Subjective Start: 09/10/20 15:23 Freq: NEEDED Status: Active Protocol: Document 09/12/20 13:24 AW (Rec: 09/12/20 13:39 AW [id number]) Subjective Physical Therapy Visit Type Type Treatment Note Visit Start Time 12:27 Visit Stop Time 12:58 Total Visit Minutes 31 Notes Co-tx with OT Number of [place] Visits 0 Physical Therapy Visit Comments Patient Comments Pt is willing to participate with PT Patient Goals Discussed acute rehab with pt and his spouse who were ultimately agreeable with acute rehab as primary plan. Therapy Pain Assessment Pain When Pain Assessed During Mobility Pain Present Pain Present Pain Reported Location B LE Scale Used not quantified Description Burning,Pulling Pain Behaviors Wincing Pain Management Techniques Distraction,Modification of Treatment,Timing of Activity with Medications Back Scale Used not quantified Description With Movement Pain Management Techniques Timing of Activity with Medications M4 PT-IP Mobility and Gait Start: 09/10/20 15:23 Freq: NEEDED Status: Active Protocol: Document 09/12/20 13:24 AW (Rec: 09/12/20 13:39 AW [id number]) PT-Bed Mobility Assessment Rolling Type of Rolling Log Rolling Level of Assist Moderate Assistance,1 Person Assistance Sit to Supine Sit to Supine Moderate Assistance,1 Person Assistance,Bedrails Scooting Scooting to Edge of Bed Moderate Assistance Scooting Up and Down in Bed Minimal Assistance PT-Transfer Assessment Sit to and From Stand Sit to and from Stand Moderate Assistance,Maximum Assistance,2 Person Assistance Equipment Transfer Assistive Device Gait Belt Orthotic/Prosthetic Devices or Brace: No Transfers Transfer Destination Bed Transfer Technique Squat Pivot Transfer Ability Level of Assist Maximum Assistance,2 Person Assistance,Use of Upper Extremities Comments Mobility Comments Pt was up in the chair as PT and OT arrived. Transport asked if pt could be in bed at end of session to go to [place]. Pt scooted himself forward on the chair with CGA before attempting seated balance without UE support (see tx below). With chair set up near the bed cane, pt reached across to the bed cane with his left hand and completed squat pivot transfer max A x 2 . Pt then scooted toward HOB by using BUE to move his legs first and then mod A x 1 to scoot. With pt positioned near HOB/upper bed rail, pt pushed from the bed rail on the right and mattress on the left to stand mod to max A x 2 with therapists blocking knees . Pt required assist to move right hand from the bed rail to the walker. He stood ~20 seconds before needing to sit. Pt completed two more reps in similar fashion. On the final rep, pt was able to reach his right hand back to the bed rail before sitting to better control descent. PT/OT assisted pt to supine via reverse log roll mod A x 2. Pt was positioned on the bed, awaiting transport to [place]. Gait Assessment Comments Gait Comments Pt unable at this time. PT-Balance Assessment Sitting Balance and Reactions Static Sitting Balance Ability Poor Dynamic Sitting Balance Ability Poor Comments Other Balance Tests/Deviations/Treatment Pt attempted sitting balance : without UE support while sitting at edge of chair but was unable to hold >3 seconds without therapist intervention . M5 PT-IP Objective Assessments Start: 09/10/20 15:23 Freq: NEEDED Status: Active Protocol: Document 09/11/20 11:41 AW (Rec: 09/11/20 12:26 AW [id number]) Orientation Orientation/Cognition Level of Alertness Alert Orientation Name,Day of Week,Place, Situation Language Function Ability No Deficits Noted Safety Awareness Understands Safety Issues Memory Description No Deficits Noted Gross Range of Motion Upper Extremity ROM Assessment Within Functional Limits Lower Extremity ROM Assessment Within Functional Limits Impairments PROM only Strength Upper Extremity Strength Assessment Within Functional Limits Lower Extremity Strength Assessment Bilaterally Impaired Hip 0/5 Knee 0/5 Ankle L 0/5; R 1/5 Comments Strength Comments Pt able to fire right EHL 3-/5 Sensation Assessment Sensation Gross Sensation Right LE Impaired,Left LE Impaired Sensation Description Hyperesthesia,Burning,Pain Comments Sensation Comments Pt reports ripping sensation in bilateral thighs when laying supine. He also endorses constant burning in entire B LE. Pt presents with hypersensitivity to light touch in all dermatomes. He is better able to tolerate deep pressure. Muscle Tone Muscle Tone WNL No Muscle Tone Location Bilateral Lower Extremity Type of Tone Hypotonicity Severity of Tone Severe Other Assessments Other Other Assessments Negative clonus at bilateral ankles M6 PT-IP Treatment Start: 09/10/20 15:23 Freq: NEEDED Status: Active Protocol: Document 09/12/20 13:24 AW (Rec: 09/12/20 13:39 AW [id number]) Physical Therapy Treatment Education Education Provided Precautions,Safety Other Treatments Other Treatment Performed Continued education with pt and his on the need for high repetition, high intensity therapy. M7 PT-IP Assessment and Plan Start: 09/10/20 15:23 Freq: NEEDED Status: Active Protocol: Document 09/12/20 13:24 AW (Rec: 09/12/20 13:39 AW [id number]) PT Summary Assessment and Plan Potential Rehabilitation Potential Good Status of Condition at Evaluation Evolving Summary Impairments Pain,ROM,Strength,Balance, Sensation,Bed Mobility, Transfers,Gait Progress Towards Goals Slow Progress due to Pain,Slow Progress due to Medical Issues Assessment Summary Pt continues to show good effort with all activities. Improving with transfers and bed mobility. Pt requires acute rehab to improve functional mobility, ability to participate in his own care , and to mitigate the risks of immobility. Goals Bed Mobility Goal Minimal Assistance Transfer Goal Minimal Assistance Gait Goal Maximal Assistance,Front Wheel Walker Gait Distance 10 Other Goals - transfer goal is squat pivot min A x 1 - pt will tolerate unsupported sitting 120 seconds without need for UE support Days to Meet Goals 10 Frequency of Treatment Frequency Of Treatment Twice a Day Treatment Plan Physical Therapy Treatment Plan Bed Mobility Training,Transfer Training,Gait Training, Therapeutic Exercise,Balance Retraining,Post Op Education, Discharge Planning,Hot or Cold Pack,Neuromuscular Re-ed, Coordination Retraining Other Recommendations and Next Treatment squat pivot transfers, bed Focus mobility, sitting balance, sit to stand, consider sit to stand machine for nursing transfers Precautions Lumbar Precautions Log Roll,No Twisting,Limit Bending,Lifting Restriction of 10 lbs,Gait Belt above Incisional Area Recommendations To Nursing Amount of Assist Needed PT/OT Assist Only Discharge Recommendations PT Discharge Recommendations Acute Rehab Equipment Needed for Home Before defer to rehab setting Discharge Transportation Needs at Discharge Stretcher/Ambulance
--- NOTE | 2020-09-12 13:40 | CM.DPNOTE ---
Harriet from PT called and said patient and are okay with [facility]. Haley Arenas CM Asst.
--- NOTE | 2020-09-12 14:29 | CM.DPNOTE ---
Cristal from [facility] called and requested most recent PT notes from today 09/12/20. I faxed her the noted from 1:30 and she wanted to review these to assess if pt. progressed since earlier PT therapy today. Fax confirmation received. Haley Arenas CM Asst.
--- NOTE | 2020-09-12 16:46 | PM.PN.1 ---
Exam Vital Signs (past 8 hours): - 09/12/20 11:45 09/12/20 16:00 Temperature 98.3 F 97.4 F L Pulse Rate 62 67 Respiratory Rate 18 20 Blood Pressure 156/87 H 142/90 H Pulse Oximetry 97 97 Oxygen Delivery Method Room Air Oxygen Flow Rate 0 Objective Labs Result Diagrams: 09/10/20 04:30 [facility] Medical History (Updated 09/05/20 @ 16:46 by Nabila Miller RN) AVM (arteriovenous malformation) Hyperlipidemia Kidney stones Papillary thyroid carcinoma PTSD (post-traumatic stress disorder) PVC (premature ventricular contraction) Skin cancer Sleep apnea with use of continuous positive airway pressure (CPAP) Surgical History (Updated 09/05/20 @ 16:46 by Nabila Miller RN) History of lumbar spinal fusion (04/02/18) History of thyroidectomy Hx of hernia repair Hx of knee surgery Hx of shoulder surgery S/P lumbar fusion (01/30/17) S/P UPPP (uvulopalatopharyngoplasty) Status post bilateral LASIK surgery Social History (System 07/14/19 @ 10:05 by Stephanie Cai) household members: spouse and children Smoking Status: Former smoker alcohol intake: current Assessment & Plan Assessment & Plan narrative: I ordered a new CT L-spine for Mr. Valentino and reviewed the images along with his previous CT and MRI images with Dr. Middleton, a neuroradiologist. We studies the three sets of CT images from Mar 2020, today, and 09/09. We agreed that the mass posterior to L1 appears to be chronic and most likely not contributing to his current motor function deficit. We discussed possible CT myelogram and it may offer additional info. We feel that due to his recent post surgical status, there is significant increased risk for post procedural infection if a myelogram is done in the short interim of the recent surgery. We discussed based on limited images due to metal artifact that he may have improved image quality with a contrasted MRI. Based on the images we have currently, there is no expansive hematoma to evacuate. I do want to be more certain and try to have the best imaging study to support my clinic decision making while minimize added risks to the patient while getting these images. I will order a MRI L-spine w/ and w/o contrast tomorrow am. I will continue medical management with IV decadron and sequetial neuro exam to monitor his neuro status. He made some motor function recovery since Saturday currently with 3/5 right FHL that was absent then. Quality VTE Deep Vein Thrombosis/Pulmonary Embolism Present on Admission: Yes
[2020-09-12] MEDS: SENNOSIDES 8.6 MG TABLET 17.2 MG PO (20:42)
[2020-09-12] MEDS: SERTRALINE 50 MG TABLET 25 MG PO (20:42)
[2020-09-12] MEDS: ATORVASTATIN 20 MG TABLET 40 MG PO (20:42)
--- NOTE | 2020-09-12 22:11 | PC.NURSE ---
Addendum entered by Amelia Thomas R.N. 09/12/20 22:27: Dsg edges curled up and partially off New dsg applied. [place] intact. Continue w/plan of care. Original Note: Pt having severe issues w/pain. Med w/dilaudid and oxycodone frequently this shift. Pt states pain never lower than a 7/10 Surgical dsg to back CDI. Pt states legs are numb, unable to only move them slightly. Pulses ++ Dr. Washington by to see pt, MRI in am. Call light w/in reach, bed alarm on for pt safety. Continue w/plan of care.
[2020-09-13] VITALS (8 sets, daily range): BP systolic 120–152; BP diastolic 60–98; PULSE 57–69; RESP 16–18; TEMP 36.4–36.8; O2SAT 94–98
--- NOTE | 2020-09-13 | DI.MRI.S_ITS ---
PROCEDURE: MR THORACIC SPINE WO/W CON INDICATIONS: EVAL FOR POSSIBLE HEMATOMA, POST SURGERY TECHNIQUE: Noncontrast sagittal T1 spin echo and T2 fast spin echo, sagittal STIR, axial T1 and T2 fast spin echo through the thoracic spine. After the administration of contrast, axial and sagittal T1 spin echo with fat saturation through the thoracic spine. COMPARISON: [facility], CT, CT LUMBAR SPINE WO CON, 09/12/2020, 13:08. [facility], MR, MR LUMBAR SPINE WO/W CON, 09/13/2020, 8:40. FINDINGS: Image quality: Excellent. Alignment and curvature: There is normal bony alignment. Partially visualized posterior spinal fixation hardware seen in the lumbar spine and T12. Postsurgical changes seen in the posterior subcutaneous soft tissues, better evaluated on the comparison MRI lumbar spine dated same day. Cervical spondylosis with associated endplate spurring and sclerosis. Scattered small Schmorl's nodes. Marrow: No acute fracture identified. Spinal cord: Visualized spinal cord is of normal signal and size, without abnormal enhancement. Paraspinous soft tissues: No paravertebral masses or abnormal enhancement. Miscellaneous: Central canal and foramina appear widely patent at all scanned levels. IMPRESSION: Partially visualized lower thoracic and lumbar postsurgical changes. No discrete epidural hematoma seen in the thoracic spine. Chronic degenerative changes as above Dictated by: David Amin M.D. on 09/13/2020 at 10:07 Approved by: David Amin M.D. on 09/13/2020 at 10:18
[2020-09-13] MEDS: OXYCODONE IR 10 MG TABLET PO ×3 (00:24→06:29)
[2020-09-13] MEDS: diazePAM 5 MG TABLET PO ×4 (00:24→21:44)
[2020-09-13] MEDS: THYROID, PORK 60 MG TABLET 120 MG PO (06:29)
[2020-09-13] MEDS: PANTOPRAZOLE 20 MG TABLET PO (07:22)
[2020-09-13] MEDS: OXYCODONE ER 10 MG TAB PO ×2 (07:46→21:42)
[2020-09-13] MEDS: HYDROMORPHONE 0.5 MG INJ IV (07:48)
--- NOTE | 2020-09-13 08:00 | DI.MRI.S_ITS ---
PROCEDURE: MR LUMBAR SPINE WO/W CON INDICATIONS: evaluate for possible hematoma, post surgery TECHNIQUE: Noncontrast sagittal T1 spin echo and T2 fast spin echo, sagittal STIR, axial T1 and T2 fast spin echo through the lumbar spine. In cases with scoliosis, additional coronal T2 fast spin echo may be performed. After the administration of contrast, sagittal and axial T1 spin echo with fat saturation through the lumbar spine. COMPARISON: [facility], CT, CT LUMBAR SPINE WO CON, 09/09/2020, 20:35. [facility], MR, MR THORACIC SPINE WO/W CON, 09/13/2020, 8:17. [facility], CT, CT LUMBAR SPINE WO CON, 09/12/2020, 13:08. [facility], MR, MR LUMBAR SPINE WO CON, 09/10/2020, 10:08. FINDINGS: Image quality: Excellent. Alignment and curvature: There is normal bony alignment. Marrow: No acute fracture although limited evaluation given extensive postsurgical changes. Posterior spinal fixation with paraspinal cristal and pedicle screws seen from the level of T12-S1. There also interbody cage grafts at each spinal level from T12-S1. There is unchanged alignment. Spinal cord: Conus medullaris terminates at the L1 level. There is cord T2 hyperintensity seen at the level of T12, technically age indeterminate. Paraspinous soft tissues: Extensive presumed postsurgical reactive enhancement in the posterior paraspinal soft tissues, with peripherally enhancing fluid collection at the left paraspinal region, this is presumably postoperative seroma and/or hematoma which could be bland or infected. This measures up to 12.6 cm in the cephalocaudal dimension and 3.1 x 2.9 cm on axial pulse sequences image 18/10. Hyperdense focus seen at the posterior margin of L1 vertebral body on the prior CT from yesterday is not well visualized on the current examination due to extensive hardware artifact from interbody cage grafts and pedicle screws. There appears to be some effacement/mass effect on the thecal sac at this level, similar to the appearance on the prior CT for example image 11/5. T12-L1: Mild canal narrowing. Neural foramen largely obscured by surgical hardware artifact, although there is probably at least moderate bilateral foraminal stenosis. L1-L2: Overall grossly unchanged appearance with effacement of the right lateral recess, with mass effect on the right anterior aspect of the thecal sac as before. L2-L3: No high-grade canal stenosis. Moderate left foraminal narrowing. Mild right foraminal narrowing. No interval change. L3-L4: No canal stenosis. Mild bilateral foraminal narrowing. No interval change. L4-L5: No canal stenosis. Mild right foraminal narrowing. Moderate left foraminal stenosis L5-S1: No canal narrowing. Severe bilateral foraminal stenosis with slight nerve root compression, grossly unchanged IMPRESSION: Overall, grossly unchanged examination. Markedly suboptimal assessment secondary to severe susceptibility artifact and field heterogeneity related to spinal hardware. The previously described signal change at the posterior margin of the L1 vertebral body appears grossly unchanged with redemonstrated mild mass effect on the anterior right thecal sac. This is again better visualized by CT. Differential as previously described on the prior MRI from 09/10/20. There is somewhat rectangular appearance on axial image / Peripherally enhancing extensive fluid collection involving the left paraspinal soft tissues from the level of T12-L5, presumably postoperative seroma/hematoma with or without infection. Recommend clinical correlation. Elsewhere, no definite epidural hematoma identified. Dictated by: David Amin M.D. on 09/13/2020 at 10:19 Approved by: David Amin M.D. on 09/13/2020 at 10:39
--- NOTE | 2020-09-13 08:41 | CM.DPNOTE ---
Faxed most recent OT note and Dr. Washington progress note on 09/13/20 to [facility] per Kim. Received fax confirmation. Haley Arenas CM Asst.
--- NOTE | 2020-09-13 08:49 | CM.DPC ---
DCP: continued: Case received, EMR reviewed. Complexity of pt's needs are noted. Followed up on d/c planning: \ Went to room to meet with pt and found he off unit and getting MRI as per Dr. Lawson's plan of last evening. Updated white board to reflect the full d/c planning office contact number as no family in the room at this time. Requested [employer] to fax Dr. Lawson's 09/12 1605 note and the OT note to [facility]/Cristal. Spoke then with Cristal who confirms that their apricot packer Dr. Camille Zafar is reviewing and does have some questions for Dr. Lawson. She will need a doc/doc discussion to help in her assessment for consideration of acceptance. Her cell is: [phone]. Have spoken now by phone with ana Louise with update. She will see that Dr. LAWSON has this contact information. She states she should know more about this plan after the MRI today. [facility] also has the referral. Medicare and [employer] are the payors so pt is well covered in terms of insurance for either setting. OT/PT seeing pt. Will plan to discuss case in Team Rounds this morning.
[2020-09-13] MEDS: GABAPENTIN 400 MG CAPSULE 800 MG PO ×2 (09:40→21:43)
[2020-09-13] MEDS: MAGNESIUM HYDROXIDE 30 ML UDC PO (09:41)
[2020-09-13] MEDS: DOCUSATE 100 MG CAPSULE PO (09:41)
[2020-09-13] MEDS: HYDROMORPHONE 4 MG TABLET PO ×5 (09:41→23:15)
[2020-09-13] MEDS: DEXAMETHASONE 10 MG/ML VIAL IV ×2 (09:42→21:44)
[2020-09-13] MEDS: SODIUM CHLORIDE 0.9% FLUSH 10 ML IV ×2 (09:42→21:44)
--- NOTE | 2020-09-13 10:40 | PT.IPTN ---
Current Diagnoses Sleep apnea, unspecified (09/09/20) Spondylosis without myelopathy or radiculopathy, lumbosacral region (09/09/20) Spinal stenosis, lumbar region without neurogenic claudication (09/09/20) Arthrodesis status (09/09/20) Surgery Performed Operation Date: 09/09/20 07:45 Actual Procedures p T12-L1, L3-4 TLIF,L1-S1 lumbar HWR,exploration of fusion,repeat laminectomy,reinsertion of hardware - Sarai Washington MD Physical Therapy Treatment Note M2 PT-IP Current Condition Start: 09/10/20 15:23 Freq: NEEDED Status: Active Protocol: Document 09/11/20 11:41 AW (Rec: 09/11/20 12:26 AW [id number]) Physical Therapy Current Condition Current Condition Evaluation Date 09/11/20 Treatment Diagnosis s/p T12-S1 TLIF; difficulty in walking Onset Date 09/09/20 Precautions Lumbar Precautions Log Roll,No Twisting,Limit Bending,Lifting Restriction of 10 lbs,Gait Belt above Incisional Area M3 PT-IP Subjective Start: 09/10/20 15:23 Freq: NEEDED Status: Active Protocol: Document 09/13/20 10:40 AB (Rec: 09/13/20 12:32 AB [id number]) Subjective Physical Therapy Visit Type Type Treatment Note Visit Start Time 10:40 Visit Stop Time 11:23 Total Visit Minutes 43 Number of RAILROAD SIGNAL TECHNICIAN Visits 0 Physical Therapy Visit Comments Patient Comments agreeable to do PT Therapy Pain Assessment Pain When Pain Assessed At Rest Pain Present Pain Present Pain Reported Location B LE Scale Used pain scale not stated M4 PT-IP Mobility and Gait Start: 09/10/20 15:23 Freq: NEEDED Status: Active Protocol: Document 09/13/20 10:40 AB (Rec: 09/13/20 12:32 AB [id number]) PT-Bed Mobility Assessment Rolling Level of Assist Maximal Assistance,2 Person Assistance Supine to Sit Supine to Sit Maximum Assistance,2 Person Assistance,Head of Bed Elevated,Bedrails Scooting Scooting to Edge of Bed Maximum Assistance PT-Transfer Assessment Comments Mobility Comments completed BLE AAROM/PROM and isometrics. reviewed back precautions and pt require cues. completed supine to sit max Ax 2 and max cues. required max A x 1-2 to maintain sitting balance on EOB. completed sitting balance/tolerance activities: static sitting with cues for increrase awareness of COG and trunk control, weight shifting ant/post and side to side, maintaining sitting balance with perturbations. completed slide board transfer bed to chair max A x 2 and max cues. pt requested to use the toilet. assisted with slide board transfer chair to bedside commode max A x 2 and max cues. Left pt with NAC. Gait Assessment Comments Gait Comments unable at this time PT-Balance Assessment Sitting Balance and Reactions Static Sitting Balance Ability Poor Dynamic Sitting Balance Ability Poor M5 PT-IP Objective Assessments Start: 09/10/20 15:23 Freq: NEEDED Status: Active Protocol: Document 09/11/20 11:41 AW (Rec: 09/11/20 12:26 AW [id number]) Orientation Orientation/Cognition Level of Alertness Alert Orientation Name,Day of Week,Place, Situation Language Function Ability No Deficits Noted Safety Awareness Understands Safety Issues Memory Description No Deficits Noted Gross Range of Motion Upper Extremity ROM Assessment Within Functional Limits Lower Extremity ROM Assessment Within Functional Limits Impairments PROM only Strength Upper Extremity Strength Assessment Within Functional Limits Lower Extremity Strength Assessment Bilaterally Impaired Hip 0/5 Knee 0/5 Ankle L 0/5; R 1/5 Comments Strength Comments Pt able to fire right EHL 3-/5 Sensation Assessment Sensation Gross Sensation Right LE Impaired,Left LE Impaired Sensation Description Hyperesthesia,Burning,Pain Comments Sensation Comments Pt reports ripping sensation in bilateral thighs when laying supine. He also endorses constant burning in entire B LE. Pt presents with hypersensitivity to light touch in all dermatomes. He is better able to tolerate deep pressure. Muscle Tone Muscle Tone WNL No Muscle Tone Location Bilateral Lower Extremity Type of Tone Hypotonicity Severity of Tone Severe Other Assessments Other Other Assessments Negative clonus at bilateral ankles M6 PT-IP Treatment Start: 09/10/20 15:23 Freq: NEEDED Status: Active Protocol: Document 09/13/20 10:40 AB (Rec: 09/13/20 12:32 AB [email or web address]) Physical Therapy Treatment Exercises Exercises Ankle Pumps,Gluteal Sets,Quad Sets,Heel Slides Education Education Provided Precautions,Safety M7 PT-IP Assessment and Plan Start: 09/10/20 15:23 Freq: NEEDED Status: Active Protocol: Document 09/13/20 10:40 AB (Rec: 09/13/20 12:32 AB [email or web address]) PT Summary Assessment and Plan Potential Rehabilitation Potential Fair Summary Impairments Pain,ROM,Strength,Balance, Coordination,Sensation,Tone, Cognition,Bed Mobility, Transfers,Gait,Activity Tolerance Progress Towards Goals Slow Progress due to Medical Issues Assessment Summary pt requiring max A x 2 and max cues. continues to have decrease trunk control and BLE weakness. pt will benefit from acute rehab to improve strength and mobility. Goals Bed Mobility Goal Minimal Assistance Transfer Goal Minimal Assistance Gait Goal Maximal Assistance,Front Wheel Walker Gait Distance 10 Other Goals - transfer goal is squat pivot min A x 1 - pt will tolerate unsupported sitting 120 seconds without need for UE support Days to Meet Goals 10 Frequency of Treatment Frequency Of Treatment Twice a Day Treatment Plan Physical Therapy Treatment Plan Bed Mobility Training,Transfer Training,Gait Training, Therapeutic Exercise,Balance Retraining,Post Op Education, Discharge Planning,Hot or Cold Pack,Neuromuscular Re-ed, Coordination Retraining Other Recommendations and Next Treatment sitting balance/tolerance Focus Precautions Lumbar Precautions Log Roll,No Twisting,Limit Bending,Lifting Restriction of 10 lbs,Gait Belt above Incisional Area Recommendations To Nursing Amount of Assist Needed Mechanical Lift Discharge Recommendations PT Discharge Recommendations Acute Rehab Transportation Needs at Discharge Wheelchair/Cabulance,Stretcher /Ambulance
--- NOTE | 2020-09-13 12:02 | OT.IPNOTE ---
Pt just had MRI earlier and just worked with PT and therefore too tired to do OT at this time. Able to assist to prop his heels on the recliner and to check on the pt again in PM.
--- NOTE | 2020-09-13 12:59 | OT.IP.TRT ---
Current Diagnoses Sleep apnea, unspecified (09/09/20) Spondylosis without myelopathy or radiculopathy, lumbosacral region (09/09/20) Spinal stenosis, lumbar region without neurogenic claudication (09/09/20) Arthrodesis status (09/09/20) Surgery Performed Operation Date: 09/09/20 07:45 Actual Procedures p T12-L1, L3-4 TLIF,L1-S1 lumbar HWR,exploration of fusion,repeat laminectomy,reinsertion of hardware - Sarai Washington MD Occupational Therapy Treatment Note M2 OT-IP Current Condition Start: 09/12/20 11:06 Freq: Status: Active Protocol: Document 09/12/20 11:06 CGR (Rec: 09/12/20 11:30 CGR [id number]) Occupational Therapy Current Condition Current Condition Evaluation Date 09/12/20 Treatment Diagnosis T12-S1 TLIF and revision with post op paralysis Diagnosis Onset Date 09/09/20 Post Operative Precautions Lumbar Precautions Log Roll,No Twisting,Limit Bending,Lifting Restriction of 10 lbs,Gait Belt above Incisional Area M3 OT- IP Subjective and Pain Start: 09/12/20 11:06 Freq: Status: Active Protocol: Document 09/13/20 13:10 [facility] (Rec: 09/13/20 13:18 [facility] [id number]) OT- Subjective Occupational Therapy Visit Type Type Treatment Note Visit Start Time 12:43 Visit Stop Time 12:59 Total Visit Minutes 16 Occupational Therapy Visit Comments Patient Comments Pt wanting to get back to bed. OT Pain Assessment Pain When Pain Assessed During Mobility Pain Present Pain Present Pain Reported Location Back Intensity 7 Scale Used Numeric (0 - 10) M5 OT- IP IADL's Start: 09/12/20 11:06 Freq: Status: Active Protocol: Document 09/12/20 11:06 CGR (Rec: 09/12/20 11:30 CGR [id number]) OT-Instrumental Activities of Daily Living Deficits IADL Deficits Identified Deficits Home Safety Awareness Awareness of Need for Assistance at Home Good Awareness Ability to Problem Solve Emergency Able to Problem Solve Situations Medication Management Medication Management No Deficits Identified Money Management Money Management No Deficits Identified Meal Preparation Meal Preparation Caregiver Provides Assist Licensed Massage Therapist Licensed Massage Therapist Caregiver Provides Assist Driving Driving Comments Pt will be unable to drive at this time without significant vehicle modifications with his current abilities M6 OT- IP Functional Cognition Start: 09/12/20 11:06 Freq: Status: Active Protocol: Document 09/13/20 13:10 [facility] (Rec: 09/13/20 13:18 [facility] [id number]) Cognitive Factors Limiting Selfcare Function Cognitive Ability Level of Alertness Alert Patient Orientation Name,Age,Birthday,Month,Date, Year,Day of Week,Place, Situation Attention Span Ability Capable of Focused Attention, Capable of Sustained Attention Ability to Follow Commands Able to Follow Multi-Step Commands Memory Description No Deficits Noted Safety Awareness No Deficits Noted Problem Solving Ability No deficits Noted Cognitive Comments Cognitive Assessment Comments Pt is cognitively intact. M7 OT- IP Mobility and Balance Start: 09/12/20 11:06 Freq: Status: Active Protocol: Document 09/13/20 13:10 [facility] (Rec: 09/13/20 13:18 [facility] [id number]) OT-Transfer Assessment Transfers Transfer Ability Maximum Assistance,2 Person Assistance,Use of Upper Extremities Technique Transfer Destination Bed,Chair Transfer Technique Lateral Scoot Devices Transfer Assistive Devices Bed Rail,Sliding Board Comments Mobility Comments Pt able to use his BUE to push himself up so able to get sliding board underneath him. MAX A x2 assist to help keep trunk upright and assist to line his legs properly in a good position while scooting across the sliding board. MAX A X2 assist to help get his legs back into the bed . OT- Gait Assessment Comments Gait Ability Comments not at this time OT- Balance Assessment Sitting Balance and Reactions Static Sitting Balance Ability Poor Dynamic Sitting Balance Ability Poor M8 OT- IP Objective Assessments Start: 09/12/20 11:06 Freq: Status: Active Protocol: Document 09/12/20 11:06 CGR (Rec: 09/12/20 11:30 CGR [id number]) OT Gross Range of Motion Upper Extremity Range of Motion Assessment Within Functional Limits OT Strength Upper Extremity Strength Assessment Within Functional Limits Comments Strength Comments shlds 4/5, arms and hands 5/5 OT- Coordination Assessment Upper Extremity Finger to Nose Test Within Functional Limits Finger Tapping Test Within Functional Limits OT-Muscle Tone Assessment Muscle Tone WNL Yes OT Sensation Assessment Comments Summary Comments Pt with typical sensation to the UE but describes hypersensitivity to BLE starting ~ at the belly button . Edema Edema Absent M9 OT- IP Assessment and Plan Start: 09/12/20 11:06 Freq: Status: Active Protocol: Document 09/13/20 13:10 [facility] (Rec: 09/13/20 13:18 [facility] [id number]) OT Summary Assessment and Plan Potential Rehabilitation Potential Excellent Analytic Complexity at Evaluation High Summary OT Impairments Pain,Strength,Balance, Sensation,Functional Mobility, Grooming,Dressing,Toileting, Bathing,Toilet Transfers, Shower Transfers Progress Towards Goals Progressing Toward Goals,Slow Progress due to Medical Issues Assessment Summary Pt presents as a high complexity evaluation s/p admit for T12-S1 TLIF with limited movement in his BLE and needing extensive assist for all ADL and functional mobility needs. Pt is motivated to get better, has a positive attitude and would be a great candidate for inpt rehab. Goals Grooming Goal Independent Dressing Goal Independent Toileting Goal Independent Bathing Goal Independent Toilet Transfer Goal Minimal Assistance Shower Transfer Goal Minimal Assistance Days to Meet Goals 30 Frequency of Treatment Frequency Of Treatment Twice a Day Treatment Plan OT Treatment Plan ADL Training,Functional Mobility,Therapeutic Exercises ,Patient/Family Education, Discharge Planning Other Treatment Recommendations and Next ADLs seated, functional Treatment Focus mobility, bed mobility, UE strengthening Discharge Recommendations OT Discharge Recommendations Acute Rehab Transportation Needs at Discharge Wheelchair/Cabulance
--- NOTE | 2020-09-13 13:02 | PC.NURSE ---
Day shift: Pain better controlled w/ the 4mg PO Dilaudid Q3 hours today. Pt was up (via [facility]) to [facility] and had large BM today. Denies any nausea. Good Priest output as well. CMS has no changes. Can wiggle rt toes but not the left. Pain in back and BLE's/feet 12/08 (has been 7-8). No IV jair medication given by this marketing copywriter today. Pt also had MRI this AM. No new orders at this time. VS WNL. RA 97%. orders to continuously monitor O2 sats. Will continue w/ plan of care.
--- NOTE | 2020-09-13 13:34 | PC.NURSE ---
Day shift: Pt asleep at this time (1330) and has been medicated for pain per AUG. His Spo2 is 96% RA. Call light in reach.
--- NOTE | 2020-09-13 14:19 | PM.PN.1 ---
Subjective Subjective Date Patient Seen: 09/13/20 Time Patient Seen: 14:20 Interval history: POD # 4 S/P T12-L1, L3-4 posterolateral and posterior interbody fusion, T12-L1, L3-4 posterior interbody cage placement, L1-S1 posterior segmental instrumentation removal, L1-2, L3-4, L4-5, L5-S1 revision laminectomy with exploration of fusion, T12-L1, L1-2, L2-3 , L3-4, L4-5, L5-S1 posterior segmental instrumentation with pedicle screw placement, L1-2 posterolateral fusion, [place] of bone marrow from iliac crest through a separate incision & Utilization of microsurgical technique and operating microscope Patient has a better pain control with oral Dilaudid for breakthrough pain just returning from contrast MRI awaiting results is more somnolent at this time and wishes to rest. Exam Vital Signs (past 8 hours): - 09/13/20 07:18 09/13/20 07:47 09/13/20 11:52 Temperature 97.6 F 97.5 F L Pulse Rate 57 L 69 58 L Respiratory Rate 16 16 16 Blood Pressure 152/60 H 137/98 H Pulse Oximetry 97 97 95 Oxygen Delivery Method Room Air Oxygen Flow Rate 0 Narrative Exam Narrative: 54-year-old male seen lying in bed, somnolent in no apparent distress. His wound is clean and mostly dry with minimal strike through on the dressing which is intact at this time. There is mild almita-incisional tenderness. He continues to be hyper sensate in his bilateral lower extremities stocking distribution worse on the dorsum of his feet. His bilateral calves are soft, noncompressible and present nontender with negative Homans sign. SCDs are in place. Lower extremity DTRs 1+. Right FHL function 3/5 only. Objective Labs Result Diagrams: 09/10/20 04:30 [facility] Medical History (Updated 09/05/20 @ 16:46 by Nabila Miller RN) AVM (arteriovenous malformation) Hyperlipidemia Kidney stones Papillary thyroid carcinoma PTSD (post-traumatic stress disorder) PVC (premature ventricular contraction) Skin cancer Sleep apnea with use of continuous positive airway pressure (CPAP) Surgical History (Updated 09/05/20 @ 16:46 by Nabila Miller RN) History of lumbar spinal fusion (04/02/18) History of thyroidectomy Hx of hernia repair Hx of knee surgery Hx of shoulder surgery S/P lumbar fusion (01/30/17) S/P UPPP (uvulopalatopharyngoplasty) Status post bilateral LASIK surgery Social History (System 07/14/19 @ 10:05 by Stephanie Cai) household members: spouse and children Smoking Status: Former smoker alcohol intake: current Assessment & Plan Assessment & Plan narrative: POD # 4 S/P T12-L1, L3-4 posterolateral and posterior interbody fusion, T12-L1, L3-4 posterior interbody cage placement, L1-S1 posterior segmental instrumentation removal, L1-2, L3-4, L4-5, L5-S1 revision laminectomy with exploration of fusion, T12-L1, L1-2, L2-3 , L3-4, L4-5, L5-S1 posterior segmental instrumentation with pedicle screw placement, L1-2 posterolateral fusion, [place] of bone marrow from iliac crest through a separate incision & Utilization of microsurgical technique and operating microscope showing improved motor function today with [facility] 3/5 having recently completed another MRI with contrast this time. 1. Await MRI results from the radiologist. 2. Optimize pain control. 3. Continue medical management of postoperative weakness with scheduled Decadron. 4. Dr. Avery will re-evaluate patient after reviewing his repeat MRI with contrast. Quality VTE Deep Vein Thrombosis/Pulmonary Embolism Present on Admission: Yes
--- NOTE | 2020-09-13 14:36 | PT.IPTN ---
Current Diagnoses Sleep apnea, unspecified (09/09/20) Spondylosis without myelopathy or radiculopathy, lumbosacral region (09/09/20) Spinal stenosis, lumbar region without neurogenic claudication (09/09/20) Arthrodesis status (09/09/20) Surgery Performed Operation Date: 09/09/20 07:45 Actual Procedures p T12-L1, L3-4 TLIF,L1-S1 lumbar HWR,exploration of fusion,repeat laminectomy,reinsertion of hardware - Sarai Washington MD Physical Therapy Treatment Note M2 PT-IP Current Condition Start: 09/10/20 15:23 Freq: NEEDED Status: Active Protocol: Document 09/11/20 11:41 AW (Rec: 09/11/20 12:26 AW [id number]) Physical Therapy Current Condition Current Condition Evaluation Date 09/11/20 Treatment Diagnosis s/p T12-S1 TLIF; difficulty in walking Onset Date 09/09/20 Precautions Lumbar Precautions Log Roll,No Twisting,Limit Bending,Lifting Restriction of 10 lbs,Gait Belt above Incisional Area M3 PT-IP Subjective Start: 09/10/20 15:23 Freq: NEEDED Status: Active Protocol: Document 09/13/20 14:36 AB (Rec: 09/13/20 16:06 AB [id number]) Subjective Physical Therapy Visit Type Type Treatment Note Visit Start Time 14:36 Visit Stop Time 15:06 Total Visit Minutes 30 Number of STAFF FIELD ENGINEER Visits 0 Physical Therapy Visit Comments Patient Comments pt is agreeable to do PT Therapy Pain Assessment Pain When Pain Assessed At Rest Pain Present Pain Present Pain Reported Location Back Intensity 5 Scale Used Numeric (0 - 10) Pain Management Techniques Modification of Treatment,Re- positioning,Timing of Activity with Medications M4 PT-IP Mobility and Gait Start: 09/10/20 15:23 Freq: NEEDED Status: Active Protocol: Document 09/13/20 14:36 AB (Rec: 09/13/20 16:06 AB [id number]) PT-Bed Mobility Assessment Rolling Level of Assist Maximal Assistance,1 Person Assistance,2 Person Assistance Supine to Sit Supine to Sit Maximum Assistance,1 Person Assistance,2 Person Assistance ,Bedrails Sit to Supine Sit to Supine Maximum Assistance,1 Person Assistance,2 Person Assistance ,Bedrails Scooting Scooting to Edge of Bed Maximum Assistance PT-Transfer Assessment Comments Mobility Comments completed PROM/AAROM BLE: emphasis on activating hip adductors/IR to keep hip from falling to the side when knees are bent. pt completed supine to sit max A x 1-2 and max cues. pt was able to maintain sitting balance CGA to min A and cues to center trunk and for trunk activation . pt used UE initially for support on bed but able to sit with hands on B knees. conducted sitting balance/ tolerance activities: pt was able to maintain static sitting balance with hands on knees SBA ~ 1min 30 sec; pt able to maintain sitting balance CGA to min A with mild to moderate perturbations/ pushing, completed trunk weight shifting ant/post and side to side CGA to min A; also completed reaching with UE in different directions and pt maintaining sitting balance CGA to min A. pt requested to go back to bed and completed sit to supine max A with LE elevation to bed . positioned on bed. call light and table placed within reach. PT-Balance Assessment Sitting Balance and Reactions Static Sitting Balance Ability Fair Dynamic Sitting Balance Ability Poor M5 PT-IP Objective Assessments Start: 09/10/20 15:23 Freq: NEEDED Status: Active Protocol: Document 09/11/20 11:41 AW (Rec: 09/11/20 12:26 AW [id number]) Orientation Orientation/Cognition Level of Alertness Alert Orientation Name,Day of Week,Place, Situation Language Function Ability No Deficits Noted Safety Awareness Understands Safety Issues Memory Description No Deficits Noted Gross Range of Motion Upper Extremity ROM Assessment Within Functional Limits Lower Extremity ROM Assessment Within Functional Limits Impairments PROM only Strength Upper Extremity Strength Assessment Within Functional Limits Lower Extremity Strength Assessment Bilaterally Impaired Hip 0/5 Knee 0/5 Ankle L 0/5; R 1/5 Comments Strength Comments Pt able to fire right EHL 3-/5 Sensation Assessment Sensation Gross Sensation Right LE Impaired,Left LE Impaired Sensation Description Hyperesthesia,Burning,Pain Comments Sensation Comments Pt reports ripping sensation in bilateral thighs when laying supine. He also endorses constant burning in entire B LE. Pt presents with hypersensitivity to light touch in all dermatomes. He is better able to tolerate deep pressure. Muscle Tone Muscle Tone WNL No Muscle Tone Location Bilateral Lower Extremity Type of Tone Hypotonicity Severity of Tone Severe Other Assessments Other Other Assessments Negative clonus at bilateral ankles M6 PT-IP Treatment Start: 09/10/20 15:23 Freq: NEEDED Status: Active Protocol: Document 09/13/20 14:36 AB (Rec: 09/13/20 16:06 AB [id number]) Physical Therapy Treatment Exercises Exercises Ankle Pumps,Heel Slides,Supine Hip Abduction,Seated Knee Flexion/Extension Education Education Provided Safety M7 PT-IP Assessment and Plan Start: 09/10/20 15:23 Freq: NEEDED Status: Active Protocol: Document 09/13/20 14:36 AB (Rec: 09/13/20 16:06 [id number]) PT Summary Assessment and Plan Potential Rehabilitation Potential Good Summary Impairments Pain,ROM,Strength,Balance, Coordination,Sensation,Tone, Bed Mobility,Transfers,Gait, Activity Tolerance Progress Towards Goals Slow Progress due to Medical Issues Assessment Summary pt improving slowly and improving with sitting balance from max A x 1-2 to CGA to min A . pt is motivated to participate with PT and will benefit from acute rehab to improve strength and mobility independence. Goals Bed Mobility Goal Minimal Assistance Transfer Goal Minimal Assistance Gait Goal Maximal Assistance,Front Wheel Walker Gait Distance 10 Other Goals - transfer goal is squat pivot min A x 1 - pt will tolerate unsupported sitting 120 seconds without need for UE support Days to Meet Goals 10 Frequency of Treatment Frequency Of Treatment Twice a Day Treatment Plan Physical Therapy Treatment Plan Bed Mobility Training,Transfer Training,Gait Training, Therapeutic Exercise,Balance Retraining,Post Op Education, Discharge Planning,Hot or Cold Pack,Neuromuscular Re-ed, Coordination Retraining Other Recommendations and Next Treatment sitting balance/tolerance, Focus transfers Precautions Lumbar Precautions Log Roll,No Twisting,Limit Bending,Lifting Restriction of 10 lbs,Gait Belt above Incisional Area Recommendations To Nursing Amount of Assist Needed Mechanical Lift Discharge Recommendations PT Discharge Recommendations Acute Rehab Transportation Needs at Discharge Wheelchair/Cabulance,Stretcher /Ambulance
[2020-09-13] MEDS: ATORVASTATIN 20 MG TABLET 40 MG PO (21:42)
[2020-09-13] MEDS: SERTRALINE 50 MG TABLET 25 MG PO (21:42)
[2020-09-13] MEDS: SENNOSIDES 8.6 MG TABLET 17.2 MG PO (21:44)
[2020-09-14] VITALS (7 sets, daily range): BP systolic 120–142; BP diastolic 69–98; PULSE 58–69; RESP 15–20; TEMP 36.2–36.6; O2SAT 94–97
[2020-09-14] MEDS: HYDROMORPHONE 4 MG TABLET PO ×5 (02:56→21:32)
[2020-09-14] MEDS: diazePAM 5 MG TABLET PO (04:12)
[2020-09-14] MEDS: THYROID, PORK 60 MG TABLET 120 MG PO (05:31)
[2020-09-14] MEDS: PANTOPRAZOLE 20 MG TABLET PO (06:49)
--- NOTE | 2020-09-14 08:28 | PM.PNPO.1 ---
Subjective Subjective Date Patient Seen: 09/14/20 Time Patient Seen: 08:28 Interval history: POD #5 s/p T12-L1, L3-4 posterolateral and posterior interbody fusion, T12-L1, L3-4 posterior interbody cage placement, L1-S1 posterior segmental instrumentation removal, L1-2, L3-4, L4-5, L5-S1 revision laminectomy with exploration of fusion, T12-L1, L1-2, L2-3 , L3-4, L4-5, L5-S1 posterior segmental instrumentation with pedicle screw placement, L1-2 posterolateral fusion. Patient has good pain control this morning. He is hypersensitive on the top of his feet and calves. Reports no changes with movement. We discussed going to [facility] for inpatient care. Exam Vital Signs (past 8 hours): - 09/14/20 04:09 Temperature 97.7 F Pulse Rate 58 L Respiratory Rate 17 Blood Pressure 142/97 H Pulse Oximetry 94 Oxygen Delivery Method Room Air Oxygen Flow Rate 0 Narrative Exam Narrative: Patient sitting up in bed in NAD. He is alert and oriented X3. Calves are soft, compressible, and nontender bilaterally. He continues to be hyper sensate in his bilateral lower extremities stocking distribution worse on the dorsum of his feet. His bilateral calves are soft, noncompressible and nontender. SCDs are in place. Lower extremity DTRs 1+. Right FHL function 3/5 only. Objective Labs Result Diagrams: 09/10/20 04:30 [facility] Medical History AVM (arteriovenous malformation) Hyperlipidemia Kidney stones Papillary thyroid carcinoma PTSD (post-traumatic stress disorder) PVC (premature ventricular contraction) Skin cancer Sleep apnea with use of continuous positive airway pressure (CPAP) Surgical History History of lumbar spinal fusion (04/02/18) History of thyroidectomy Hx of hernia repair Hx of knee surgery Hx of shoulder surgery S/P lumbar fusion (01/30/17) S/P UPPP (uvulopalatopharyngoplasty) Status post bilateral LASIK surgery Social History household members: spouse and children Smoking Status: Former smoker alcohol intake: current Assessment & Plan Post-op Postoperative Procedures: Procedures Operation Date: 09/09/20 07:45 Actual Procedures Side Surgeon p T12-L1, L3-4 TLIF,L1-S1 lumbar HWR,exploration of fusion,repeat laminectomy,reinsertion of hardware Sarai Washington MD Continue with current pain control. Patient will need ASA 81 mg BID for VTE prophylaxis. Continue current pain control with Oxycontin 10 mg BID, Dilaudid 4 mg PO Q3HR, and Valium 5 mg PO Q3HR. Still requiring IV dilaudid for breakthrough pain. Continue IV decadron, will change to PO dexamethasone 4mg TID tonight for transfer to inpatient rehab. Likely will DC tomorrow to [facility]. Quality VTE Deep Vein Thrombosis/Pulmonary Embolism Present on Admission: Yes
[2020-09-14] MEDS: GABAPENTIN 400 MG CAPSULE 800 MG PO ×2 (08:39→21:29)
[2020-09-14] MEDS: OXYCODONE ER 10 MG TAB PO ×2 (08:39→21:29)
[2020-09-14] MEDS: SODIUM CHLORIDE 0.9% FLUSH 10 ML IV ×2 (08:39→22:07)
[2020-09-14] MEDS: DEXAMETHASONE 10 MG/ML VIAL IV (08:39)
--- NOTE | 2020-09-14 09:27 | CM.DPNOTE ---
Faxed med list and PT/PN per Nancy to [facility] on 09/14/20. Fax confirmation received. Haley Arenas CM Asst.
--- NOTE | 2020-09-14 10:51 | PT.IPTN ---
Current Diagnoses Sleep apnea, unspecified (09/09/20) Spondylosis without myelopathy or radiculopathy, lumbosacral region (09/09/20) Spinal stenosis, lumbar region without neurogenic claudication (09/09/20) Arthrodesis status (09/09/20) Surgery Performed Operation Date: 09/09/20 07:45 Actual Procedures p T12-L1, L3-4 TLIF,L1-S1 lumbar HWR,exploration of fusion,repeat laminectomy,reinsertion of hardware - Sarai Washington MD Physical Therapy Treatment Note M2 PT-IP Current Condition Start: 09/10/20 15:23 Freq: NEEDED Status: Active Protocol: Document 09/11/20 11:41 AW (Rec: 09/11/20 12:26 AW [id number]) Physical Therapy Current Condition Current Condition Evaluation Date 09/11/20 Treatment Diagnosis s/p T12-S1 TLIF; difficulty in walking Onset Date 09/09/20 Precautions Lumbar Precautions Log Roll,No Twisting,Limit Bending,Lifting Restriction of 10 lbs,Gait Belt above Incisional Area M3 PT-IP Subjective Start: 09/10/20 15:23 Freq: NEEDED Status: Active Protocol: Document 09/14/20 10:51 AB (Rec: 09/14/20 12:06 AB [email or web address]) Subjective Physical Therapy Visit Type Type Treatment Note Visit Start Time 10:51 Visit Stop Time 11:28 Total Visit Minutes 37 Number of MANUFACTURING OPERATIONS MANAGER Visits 0 Physical Therapy Visit Comments Patient Comments pt is agreeable to do PT Therapy Pain Assessment Pain When Pain Assessed At Rest Pain Present Pain Present Pain Reported Location Back Intensity 6 Scale Used Numeric (0 - 10) Pain Management Techniques Distraction,Modification of Treatment,Re-positioning, Timing of Activity with Medications M4 PT-IP Mobility and Gait Start: 09/10/20 15:23 Freq: NEEDED Status: Active Protocol: Document 09/14/20 10:51 AB (Rec: 09/14/20 12:06 AB [email or web address]) PT-Transfer Assessment Comments Mobility Comments pt sitting on EOB with OT. co -tx with OT. pt completed sitting balance/ tolerance on EOB: static sitting, weight shifting ant/ post/lat, maintaining balance with perturbations, reaching. pt required CGA with maintaining sitting balance. instrcuted pt with seated push -up from the EOB. completed with max Ax 1-2 and max cues and able to lift butt off bed for ~ 1-1 1/2 inch for ~ 10-15 sec. pt required assist with stabilizing BLE. completed lateral scoot to the R max A x 2 and cues. pt required assist with BLE stabilization and movement. completed slide board transfer max A x 2 and max cues. positioned pt on the chair. call ight and table placed within reach. PROM/AAROM completed on BLE M5 PT-IP Objective Assessments Start: 09/10/20 15:23 Freq: NEEDED Status: Active Protocol: Document 09/11/20 11:41 AW (Rec: 09/11/20 12:26 AW [id number]) Orientation Orientation/Cognition Level of Alertness Alert Orientation Name,Day of Week,Place, Situation Language Function Ability No Deficits Noted Safety Awareness Understands Safety Issues Memory Description No Deficits Noted Gross Range of Motion Upper Extremity ROM Assessment Within Functional Limits Lower Extremity ROM Assessment Within Functional Limits Impairments PROM only Strength Upper Extremity Strength Assessment Within Functional Limits Lower Extremity Strength Assessment Bilaterally Impaired Hip 0/5 Knee 0/5 Ankle L 0/5; R 1/5 Comments Strength Comments Pt able to fire right EHL 3-/5 Sensation Assessment Sensation Gross Sensation Right LE Impaired,Left LE Impaired Sensation Description Hyperesthesia,Burning,Pain Comments Sensation Comments Pt reports ripping sensation in bilateral thighs when laying supine. He also endorses constant burning in entire B LE. Pt presents with hypersensitivity to light touch in all dermatomes. He is better able to tolerate deep pressure. Muscle Tone Muscle Tone WNL No Muscle Tone Location Bilateral Lower Extremity Type of Tone Hypotonicity Severity of Tone Severe Other Assessments Other Other Assessments Negative clonus at bilateral ankles M6 PT-IP Treatment Start: 09/10/20 15:23 Freq: NEEDED Status: Active Protocol: Document 09/14/20 10:51 AB (Rec: 09/14/20 12:06 AB [email or web address]) Physical Therapy Treatment Exercises Exercises Ankle Pumps,Seated Knee Flexion/Extension Education Education Provided Safety M7 PT-IP Assessment and Plan Start: 09/10/20 15:23 Freq: NEEDED Status: Active Protocol: Document 09/14/20 10:51 AB (Rec: 09/14/20 12:06 AB [email or web address]) PT Summary Assessment and Plan Potential Rehabilitation Potential Good Summary Impairments Pain,ROM,Strength,Balance, Coordination,Sensation,Tone, Cognition,Bed Mobility, Transfers,Gait,Activity Tolerance Progress Towards Goals Slow Progress due to Pain,Slow Progress due to Medical Issues Assessment Summary pt is improving slowly with progress with sitting balance and trunk control. pt will benefit from acute rehab to improve strength and functional mobility. Goals Bed Mobility Goal Minimal Assistance Transfer Goal Minimal Assistance Gait Goal Maximal Assistance,Front Wheel Walker Gait Distance 10 Other Goals - transfer goal is squat pivot min A x 1 - pt will tolerate unsupported sitting 120 seconds without need for UE support Days to Meet Goals 10 Frequency of Treatment Frequency Of Treatment Twice a Day Treatment Plan Physical Therapy Treatment Plan Bed Mobility Training,Transfer Training,Gait Training, Therapeutic Exercise,Balance Retraining,Post Op Education, Discharge Planning,Hot or Cold Pack,Neuromuscular Re-ed, Coordination Retraining Other Recommendations and Next Treatment sitting balance/tolerance, Focus transfers Precautions Lumbar Precautions Log Roll,No Twisting,Limit Bending,Lifting Restriction of 10 lbs,Gait Belt above Incisional Area Recommendations To Nursing Amount of Assist Needed Mechanical Lift Discharge Recommendations PT Discharge Recommendations Acute Rehab Transportation Needs at Discharge Wheelchair/Cabulance,Stretcher /Ambulance
--- NOTE | 2020-09-14 11:17 | OT.IP.TRT ---
Current Diagnoses Sleep apnea, unspecified (09/09/20) Spondylosis without myelopathy or radiculopathy, lumbosacral region (09/09/20) Spinal stenosis, lumbar region without neurogenic claudication (09/09/20) Arthrodesis status (09/09/20) Surgery Performed Operation Date: 09/09/20 07:45 Actual Procedures p T12-L1, L3-4 TLIF,L1-S1 lumbar HWR,exploration of fusion,repeat laminectomy,reinsertion of hardware - Sarai Washington MD Occupational Therapy Treatment Note M2 OT-IP Current Condition Start: 09/12/20 11:06 Freq: Status: Active Protocol: Document 09/12/20 11:06 CGR (Rec: 09/12/20 11:30 C[facility] [id number]) Occupational Therapy Current Condition Current Condition Evaluation Date 09/12/20 Treatment Diagnosis T12-S1 TLIF and revision with post op paralysis Diagnosis Onset Date 09/09/20 Post Operative Precautions Lumbar Precautions Log Roll,No Twisting,Limit Bending,Lifting Restriction of 10 lbs,Gait Belt above Incisional Area M3 OT- IP Subjective and Pain Start: 09/12/20 11:06 Freq: Status: Active Protocol: Document 09/14/20 11:47 [facility] (Rec: 09/14/20 11:59 [facility] [id number]) OT- Subjective Occupational Therapy Visit Type Type Treatment Note Visit Start Time 10:27 Visit Stop Time 11:17 Occupational Therapy Visit Comments Patient Comments Pt agreed to get up for OT treatment, at the end of the session PT came in to also work with the pt for dynamic balance and transfer needs. Patient/Caregiver Goals To go to rehab. OT Pain Assessment Pain When Pain Assessed At Rest Pain Present Pain Present Denied Pain M4 OT- IP ADL's Start: 09/12/20 11:06 Freq: Status: Active Protocol: Document 09/14/20 11:47 [facility] (Rec: 09/14/20 11:59 [facility] [id number]) OT [id number] Comments OT Self-Feeding Comments Not meal time OT ADL-Grooming Comments OT Grooming Comments Pt states already completed earlier. OT ADL-Oral Care Comments Oral Care Comments Pt states did earlier. OT ADL-Dressing General Eval Lower Body Dressing Ability Total Assistance Areas Needing Assistance Socks,Shoes Comments OT Dressing Comments Dependent for LB dressing needs. OT ADL-Toileting General Evaluation Toileting Ability Total Assistance Comments OT Toileting Comments Priest in place. Pt states prior to surgery that he would have to have a bowel movement twice a day and was wondering how often he should be going now since he does not have the urge or sensation of needing to go at this time. Suggested to try to sit of the commode daily to start to hopefully help regulate a bowel schedule. Nursing aid present and aware of suggestion. OT ADL-Bathing Comments OT Bathing Comments Not at this time. M5 OT- IP IADL's Start: 09/12/20 11:06 Freq: Status: Active Protocol: Document 09/12/20 11:06 [facility] (Rec: 09/12/20 11:30 [facility] [id number]) OT-Instrumental Activities of Daily Living Deficits IADL Deficits Identified Deficits Home Safety Awareness Awareness of Need for Assistance at Home Good Awareness Ability to Problem Solve Emergency Able to Problem Solve Situations Medication Management Medication Management No Deficits Identified Money Management Money Management No Deficits Identified Meal Preparation Meal Preparation Caregiver Provides Assist Line Construction Superintendent Line Construction Superintendent Caregiver Provides Assist Driving Driving Comments Pt will be unable to drive at this time without significant vehicle modifications with his current abilities M6 OT- IP Functional Cognition Start: 09/12/20 11:06 Freq: Status: Active Protocol: Document 09/13/20 13:10 [facility] (Rec: 09/13/20 13:18 [facility] [id number]) Cognitive Factors Limiting Selfcare Function Cognitive Ability Level of Alertness Alert Patient Orientation Name,Age,Birthday,Month,Date, Year,Day of Week,Place, Situation Attention Span Ability Capable of Focused Attention, Capable of Sustained Attention Ability to Follow Commands Able to Follow Multi-Step Commands Memory Description No Deficits Noted Safety Awareness No Deficits Noted Problem Solving Ability No deficits Noted Cognitive Comments Cognitive Assessment Comments Pt is cognitively intact. M7 OT- IP Mobility and Balance Start: 09/12/20 11:06 Freq: Status: Active Protocol: Document 09/14/20 11:47 [facility] (Rec: 09/14/20 11:59 [facility] [id number]) OT- Bed Mobility Assessment Rolling Type of Rolling Roll to Right Level of Assistance Moderate Assistance,Bedrails Supine to Sit Supine to Sit Assist Maximum Assistance,1 Person Assistance,Bedrails OT-Transfer Assessment Transfers Transfer Ability Maximum Assistance,2 Person Assistance Technique Transfer Destination Bed,Chair Transfer Technique Lateral Scoot Devices Transfer Assistive Devices Bed Rail,Sliding Board Comments Mobility Comments Pt dependent for all lower extremity positioning needs during bed mobility and transfers. OT- Gait Assessment Comments Gait Ability Comments not at this time OT- Balance Assessment Sitting Balance and Reactions Static Sitting Balance Ability Poor Dynamic Sitting Balance Ability Poor Comments Other Balance Tests/Deviations/Treatment Pt able to sit to midline with : hands on his knees and better idea of midline today. Pt also able to sit to midline with only one hand on his knee at a time. Pt able to reach out to PT hand for dynamic balance but CGA x2 for balance . Pt able to push up from the bed with his hands with MAX A X 1 to be able to lift his bottom up high enough so OT able to assist to wipe pt. Pt noted to be more stable with his shoes on. M8 OT- IP Objective Assessments Start: 09/12/20 11:06 Freq: Status: Active Protocol: Document 09/12/20 11:06 [facility] (Rec: 09/12/20 11:30 [facility] [id number]) OT Gross Range of Motion Upper Extremity Range of Motion Assessment Within Functional Limits OT Strength Upper Extremity Strength Assessment Within Functional Limits Comments Strength Comments shlds 4/5, arms and hands 5/5 OT- Coordination Assessment Upper Extremity Finger to Nose Test Within Functional Limits Finger Tapping Test Within Functional Limits OT-Muscle Tone Assessment Muscle Tone WNL Yes OT Sensation Assessment Comments Summary Comments Pt with typical sensation to the UE but describes hypersensitivity to BLE starting ~ at the belly button . Edema Edema Absent M9 OT- IP Assessment and Plan Start: 09/12/20 11:06 Freq: Status: Active Protocol: Document 09/14/20 11:47 [facility] (Rec: 09/14/20 11:59 [facility] [id number]) OT Summary Assessment and Plan Potential Rehabilitation Potential Excellent Analytic Complexity at Evaluation High Summary OT Impairments Pain,Strength,Balance, Sensation,Functional Mobility, Grooming,Dressing,Toileting, Bathing,Toilet Transfers, Shower Transfers Progress Towards Goals Progressing Toward Goals,Slow Progress due to Medical Issues Assessment Summary Pt highly motivated and working hard on midline control and balance, reaching out of his base of support and knowing better how to help control his body and be aware of his positioning needs during bed mobility sliding board transfer needs. Pt is a great candidate for acute inpt rehab and very motivated to get better. Goals Grooming Goal Independent Dressing Goal Independent Toileting Goal Independent Bathing Goal Independent Toilet Transfer Goal Minimal Assistance Shower Transfer Goal Minimal Assistance Days to Meet Goals 30 Frequency of Treatment Frequency Of Treatment Twice a Day Treatment Plan OT Treatment Plan ADL Training,Functional Mobility,Therapeutic Exercises ,Patient/Family Education, Discharge Planning Other Treatment Recommendations and Next ADLs seated, functional Treatment Focus mobility, bed mobility, UE strengthening Discharge Recommendations OT Discharge Recommendations Acute Rehab Transportation Needs at Discharge Wheelchair/Cabulance
[2020-09-14] MEDS: ASPIRIN EC 81 MG TABLET PO ×2 (11:25→21:29)
--- NOTE | 2020-09-14 12:35 | OT.IP.TRT ---
Current Diagnoses Sleep apnea, unspecified (09/09/20) Spondylosis without myelopathy or radiculopathy, lumbosacral region (09/09/20) Spinal stenosis, lumbar region without neurogenic claudication (09/09/20) Arthrodesis status (09/09/20) Surgery Performed Operation Date: 09/09/20 07:45 Actual Procedures p T12-L1, L3-4 TLIF,L1-S1 lumbar HWR,exploration of fusion,repeat laminectomy,reinsertion of hardware - Sarai Washington MD Occupational Therapy Treatment Note M2 OT-IP Current Condition Start: 09/12/20 11:06 Freq: Status: Active Protocol: Document 09/12/20 11:06 [facility] (Rec: 09/12/20 11:30 [facility] [id number]) Occupational Therapy Current Condition Current Condition Evaluation Date 09/12/20 Treatment Diagnosis T12-S1 TLIF and revision with post op paralysis Diagnosis Onset Date 09/09/20 Post Operative Precautions Lumbar Precautions Log Roll,No Twisting,Limit Bending,Lifting Restriction of 10 lbs,Gait Belt above Incisional Area M3 OT- IP Subjective and Pain Start: 09/12/20 11:06 Freq: Status: Active Protocol: Document 09/14/20 14:15 [facility] (Rec: 09/14/20 14:23 [facility] [id number]) OT- Subjective Occupational Therapy Visit Type Type Treatment Note Visit Start Time 12:35 Visit Stop Time 13:33 Total Visit Minutes 57 Occupational Therapy Visit Comments Patient Comments Pt wanting to sponge off. PT came at the end of the session to work with OT on dynamic balance and sliding board transfer. Patient/Caregiver Goals To go to rehab. OT Pain Assessment Pain When Pain Assessed At Rest Pain Present Pain Present Denied Pain M4 OT- IP ADL's Start: 09/12/20 11:06 Freq: Status: Active Protocol: Document 09/14/20 14:15 [facility] (Rec: 09/14/20 14:23 [facility] [id number]) OT ADL-Dressing General Eval Lower Body Dressing Ability Total Assistance Areas Needing Assistance Socks,Shoes Comments OT Dressing Comments Dependent for LB dressing needs. OT ADL-Bathing Bathing Type Bathing Type Sponge Bath General Evaluation Bathing Ability Maximal Assistance Areas Needing Assistance Wash/Dry Back,Wash/Dry Perineal Area,Wash/Dry Lower Extremities Comments OT Bathing Comments Pt able to assist while seated in the recliner for part of sponge bathing needs. M6 OT- IP Functional Cognition Start: 09/12/20 11:06 Freq: Status: Active Protocol: Document 09/14/20 14:15 [facility] (Rec: 09/14/20 14:23 [facility] [id number]) Cognitive Factors Limiting Selfcare Function Cognitive Comments Cognitive Assessment Comments NO deficits noted. Pt is positive and motivated to get better. Pt feels that his backgrounds has been helping him through this experience. M7 OT- IP Mobility and Balance Start: 09/12/20 11:06 Freq: Status: Active Protocol: Document 09/14/20 14:15 [facility] (Rec: 09/14/20 14:23 [facility] [id number]) OT-Transfer Assessment Transfers Transfer Ability Maximum Assistance,2 Person Assistance Technique Transfer Destination Bed,Chair Transfer Technique Lateral Scoot Devices Transfer Assistive Devices Bed Rail,Sliding Board Comments Mobility Comments Pt dependent for all lower extremity positioning needs during bed mobility and transfers.Pt today able to tolerate and partake in sliding board transfer up on an incline to the bed as the recliner in much lower down from the bed. Noted better trunk control in PM session versus AM during the transfer. OT- Gait Assessment Comments Gait Ability Comments not at this time OT- Balance Assessment Sitting Balance and Reactions Static Sitting Balance Ability Poor Dynamic Sitting Balance Ability Poor Comments Other Balance Tests/Deviations/Treatment Trunk control improving and : still improving on his awareness for midline and control. M8 OT- IP Objective Assessments Start: 09/12/20 11:06 Freq: Status: Active Protocol: Document 09/12/20 11:06 [facility] (Rec: 09/12/20 11:30 [facility] [id number]) OT Gross Range of Motion Upper Extremity Range of Motion Assessment Within Functional Limits OT Strength Upper Extremity Strength Assessment Within Functional Limits Comments Strength Comments shlds 4/5, arms and hands 5/5 OT- Coordination Assessment Upper Extremity Finger to Nose Test Within Functional Limits Finger Tapping Test Within Functional Limits OT-Muscle Tone Assessment Muscle Tone WNL Yes OT Sensation Assessment Comments Summary Comments Pt with typical sensation to the UE but describes hypersensitivity to BLE starting ~ at the belly button . Edema Edema Absent M9 OT- IP Assessment and Plan Start: 09/12/20 11:06 Freq: Status: Active Protocol: Document 09/14/20 14:15 [facility] (Rec: 09/14/20 14:23 [facility] [id number]) OT Summary Assessment and Plan Potential Rehabilitation Potential Excellent Analytic Complexity at Evaluation High Summary OT Impairments Pain,Strength,Balance, Sensation,Functional Mobility, Grooming,Dressing,Toileting, Bathing,Toilet Transfers, Shower Transfers Progress Towards Goals Progressing Toward Goals,Slow Progress due to Medical Issues Assessment Summary Pt highly motivated to get better and is an active participate in therapy sessions. Pt will greater benefit form acute rehab. At this time best for pt to go by stretcher to acute rehab due to decreased trunk control at this time. Goals Grooming Goal Independent Dressing Goal Independent Toileting Goal Independent Bathing Goal Independent Toilet Transfer Goal Minimal Assistance Shower Transfer Goal Minimal Assistance Days to Meet Goals 30 Frequency of Treatment Frequency Of Treatment Twice a Day Treatment Plan OT Treatment Plan ADL Training,Functional Mobility,Therapeutic Exercises ,Patient/Family Education, Discharge Planning Other Treatment Recommendations and Next ADLs seated, functional Treatment Focus mobility, bed mobility, UE strengthening Discharge Recommendations OT Discharge Recommendations Acute Rehab Transportation Needs at Discharge Stretcher/Ambulance
--- NOTE | 2020-09-14 13:00 | PT.IPTN ---
Current Diagnoses Sleep apnea, unspecified (09/09/20) Spondylosis without myelopathy or radiculopathy, lumbosacral region (09/09/20) Spinal stenosis, lumbar region without neurogenic claudication (09/09/20) Arthrodesis status (09/09/20) Surgery Performed Operation Date: 09/09/20 07:45 Actual Procedures p T12-L1, L3-4 TLIF,L1-S1 lumbar HWR,exploration of fusion,repeat laminectomy,reinsertion of hardware - Sarai Washington MD Physical Therapy Treatment Note M2 PT-IP Current Condition Start: 09/10/20 15:23 Freq: NEEDED Status: Active Protocol: Document 09/11/20 11:41 AW (Rec: 09/11/20 12:26 AW [id number]) Physical Therapy Current Condition Current Condition Evaluation Date 09/11/20 Treatment Diagnosis s/p T12-S1 TLIF; difficulty in walking Onset Date 09/09/20 Precautions Lumbar Precautions Log Roll,No Twisting,Limit Bending,Lifting Restriction of 10 lbs,Gait Belt above Incisional Area M3 PT-IP Subjective Start: 09/10/20 15:23 Freq: NEEDED Status: Active Protocol: Document 09/14/20 13:00 AB (Rec: 09/14/20 13:50 AB [email or web address]) Subjective Physical Therapy Visit Type Type Treatment Note Visit Start Time 13:00 Visit Stop Time 13:31 Total Visit Minutes 31 Number of DIGITAL CAMPAIGN SPECIALIST Visits 0 Physical Therapy Visit Comments Patient Comments pt agreeable to do PT Therapy Pain Assessment Pain When Pain Assessed At Rest Pain Present Pain Present Pain Reported Location Back Intensity 6 Scale Used Numeric (0 - 10) Pain Management Techniques Distraction,Modification of Treatment,Re-positioning, Timing of Activity with Medications M4 PT-IP Mobility and Gait Start: 09/10/20 15:23 Freq: NEEDED Status: Active Protocol: Document 09/14/20 13:00 AB (Rec: 09/14/20 13:50 AB [email or web address]) PT-Bed Mobility Assessment Rolling Type of Rolling Log Rolling Level of Assist Maximal Assistance,2 Person Assistance Sit to Supine Sit to Supine Maximum Assistance,2 Person Assistance Scooting Scooting Up and Down in Bed Maximum Assistance PT-Transfer Assessment Comments Mobility Comments pt just finished ADLs with OT and requested to go back to bed. Co-tx with OT. pt completed slide board transfer max A x 2 and max cues. presents with better body/ trunk control and increase participation with lifting buttocks up for lateral scooting. pt sat on EOB SBA to CGA for static sitting balance with UE support. sitting balance conducted: weight shifting with hands on knees. also completed with PT holding on to pt's hands and pt leaning trunk forward and repositioning back to upright position requiring min to mod A and cues. increase time need to reposition trunk back to upright but able to control . pt completed sit to supine max A x 2 and max cues. positioned pt in bed. call light and table placed within reach. M5 PT-IP Objective Assessments Start: 09/10/20 15:23 Freq: NEEDED Status: Active Protocol: Document 09/11/20 11:41 AW (Rec: 09/11/20 12:26 AW [id number]) Orientation Orientation/Cognition Level of Alertness Alert Orientation Name,Day of Week,Place, Situation Language Function Ability No Deficits Noted Safety Awareness Understands Safety Issues Memory Description No Deficits Noted Gross Range of Motion Upper Extremity ROM Assessment Within Functional Limits Lower Extremity ROM Assessment Within Functional Limits Impairments PROM only Strength Upper Extremity Strength Assessment Within Functional Limits Lower Extremity Strength Assessment Bilaterally Impaired Hip 0/5 Knee 0/5 Ankle L 0/5; R 1/5 Comments Strength Comments Pt able to fire right EHL 3-/5 Sensation Assessment Sensation Gross Sensation Right LE Impaired,Left LE Impaired Sensation Description Hyperesthesia,Burning,Pain Comments Sensation Comments Pt reports ripping sensation in bilateral thighs when laying supine. He also endorses constant burning in entire B LE. Pt presents with hypersensitivity to light touch in all dermatomes. He is better able to tolerate deep pressure. Muscle Tone Muscle Tone WNL No Muscle Tone Location Bilateral Lower Extremity Type of Tone Hypotonicity Severity of Tone Severe Other Assessments Other Other Assessments Negative clonus at bilateral ankles M6 PT-IP Treatment Start: 09/10/20 15:23 Freq: NEEDED Status: Active Protocol: Document 09/14/20 13:00 AB (Rec: 09/14/20 13:50 AB [email or web address]) Physical Therapy Treatment Education Education Provided Safety M7 PT-IP Assessment and Plan Start: 09/10/20 15:23 Freq: NEEDED Status: Active Protocol: Document 09/14/20 13:00 AB (Rec: 09/14/20 13:50 AB [email or web address]) PT Summary Assessment and Plan Potential Rehabilitation Potential Good Summary Impairments Pain,ROM,Strength,Balance, Coordination,Sensation,Tone, Cognition,Bed Mobility, Transfers,Gait,Activity Tolerance Progress Towards Goals Slow Progress due to Medical Issues Assessment Summary pt continues to require max A x 2 for slide board transfers but demonstrated increase trunk control and participation with lateral scooting movement. pt very motivated and will benefit fron acute rehab. Goals Bed Mobility Goal Minimal Assistance Transfer Goal Minimal Assistance Gait Goal Maximal Assistance,Front Wheel Walker Gait Distance 10 Other Goals - transfer goal is squat pivot min A x 1 - pt will tolerate unsupported sitting 120 seconds without need for UE support Days to Meet Goals 10 Frequency of Treatment Frequency Of Treatment Twice a Day Treatment Plan Physical Therapy Treatment Plan Bed Mobility Training,Transfer Training,Gait Training, Therapeutic Exercise,Balance Retraining,Post Op Education, Discharge Planning,Hot or Cold Pack,Neuromuscular Re-ed, Coordination Retraining Other Recommendations and Next Treatment sitting balance/tolerance, Focus transfers Precautions Lumbar Precautions Log Roll,No Twisting,Limit Bending,Lifting Restriction of 10 lbs,Gait Belt above Incisional Area Recommendations To Nursing Amount of Assist Needed Mechanical Lift Discharge Recommendations PT Discharge Recommendations Acute Rehab Transportation Needs at Discharge Wheelchair/Cabulance,Stretcher /Ambulance
--- NOTE | 2020-09-14 13:31 | CM.DPC ---
DCP Cont: Met with patient today. Cristal from [facility] was inquiring if patient has Medicare B, along with A. Asked patient, for it was not noted in chart. He indicated that he should have Medicare B as well. He also has for Life. Cristal from [facility] rehab called back and indicated that she verified that patient has Medicare B. Also, their provider at their facility was able to speak to Dr. Washington, and they can accept patient. She mentioned that he can't go on IV Dilaudid, however. He will also need updated COVID. Aspen Adams called back from orthopedics and stated that patient should be ready for discharge tomorrow. Let her know that patient will not be able to go with IV Dilaudid, and that he will need updated COVID. Asked her if patient should go by BLS, and she consulted with Dr. Washington who indicated that he will need to go via stretcher. P: DCP to continue to follow. Cristal confirmed that they can accept patient at their facility tomorrow. Aspen will print out medications and sign them tomorrow. Will set up BLS as well, and will update patient. Kortney Krueger RN/Husbandry Technician
[2020-09-14 13:51] LABS: COVID19 - ADMIT (NP swab/PCR) Negative (Negative)
--- NOTE | 2020-09-14 17:17 | PM.PNPO.1 ---
Exam Vital Signs (past 8 hours): - 09/14/20 13:38 Temperature 98 F Pulse Rate 65 Respiratory Rate 15 Blood Pressure 130/78 Pulse Oximetry 97 Oxygen Delivery Method Room Air Oxygen Flow Rate 0 Objective Labs Result Diagrams: 09/10/20 04:30 Labs: Laboratory Results - last 24 hr 09/14/20 12:25 SARS-CoV-2 (PCR) Negative FOR[facility], [facility] Medical History AVM (arteriovenous malformation) Hyperlipidemia Kidney stones Papillary thyroid carcinoma PTSD (post-traumatic stress disorder) PVC (premature ventricular contraction) Skin cancer Sleep apnea with use of continuous positive airway pressure (CPAP) Surgical History History of lumbar spinal fusion (04/02/18) History of thyroidectomy Hx of hernia repair Hx of knee surgery Hx of shoulder surgery S/P lumbar fusion (01/30/17) S/P UPPP (uvulopalatopharyngoplasty) Status post bilateral LASIK surgery Social History household members: spouse and children Smoking Status: Former smoker alcohol intake: current Assessment & Plan Post-op Postoperative Procedures: Procedures Operation Date: 09/09/20 07:45 Actual Procedures Side Surgeon p T12-L1, L3-4 TLIF,L1-S1 lumbar HWR,exploration of fusion,repeat laminectomy,reinsertion of hardware Sarai Washington MD Mr. Valentino is POD#5 s/p T12-L1 TLIF and T12-L5 with instrumentation revision. Patient has appropriate pain control. He has 3+/5 right FHL and 3+/5 right FDL. His BLE has less hypersensitivity. He has intact sensiblity to pin prick and temperature in BLE. Sensibility is intact in BLE. He expresses there's intact but altered sensibility beginning at his navel level. He has no hyper-reflexia in BLE in patella or achilles. He has - Clocus BLE. He is medically stable and significant motor deficit with slow improvement since surgery. I spoke with inpatient rehab PM&R physician at his receiving facility and discussed his current status and his needs. I feel like he is current medically stable and no indication for additional surgical treatment at this time. We are monitoring his neuro recovery for post surgical neuro deficit. Multiple imaging studies were done to assess for indications for wound exploration, possible evacuation of hematoma. After reviewing these images myself as well reviewing with neuroradiologist and spine surgeon, the consensus is to monitor his symptoms and no indications for additional surgical treatment at this time. Once he's discharged from the hospital, I will follow up with him weekly or biweekly for his progress. Patient is instructed to contact me at any time for questions or concerns once he's discharged and transferred into the new facility. Patient understands and is agreeable with our care plan. Quality VTE Deep Vein Thrombosis/Pulmonary Embolism Present on Admission: Yes MIPS - Admit Advanced Care Plan / Current Medications Measures: #47 ? Advanced Care Plan Clinician documentation instruction: document at admission. [] I confirmed that the patient's Advance Care Plan is present, code status is documented, or surrogate decision maker is listed in the patient?s medical record. [SATISFIES MIPS PERFORMANCE] If Yes, Stop Here [] The patient?s Advance Care plan is not present because: (select) [MIPS PERFORMANCE EXCEPTION/EXCLUSION] [] I confirmed today that the patient does not wish or was not able to name a surrogate decision maker or provide an Advance Care Plan. [] Hospice care is currently being provided or has been provided this calendar year [] I did NOT confirm today the presence of an Advance Care Plan or surrogate decision maker documented within the patient's medical record. [DOES NOT SATISFY MIPS PERFORMANCE] #130 - Documentation of Current Medications in the Medical Record Clinician documentation instruction: use macro the first time you see a patient. [] I have utilized all available immediate resources to obtain, update, or review the patient?s current medications. [SATISFIES MIPS PERFORMANCE] If Yes, Stop Here [] The patient is not eligible for medication reconciliation; the patient is in an emergent medical situation where delaying treatment would jeopardize the patient?s health. [MIPS PERFORMANCE EXCEPTION/EXCLUSION] [] I did NOT confirm, update or review the patient's current list of medications today. [DOES NOT SATISFY MIPS PERFORMANCE] MIPS - CL Central Venous Catheter Placement Measure: #76 ? Prevention of Central Venous Catheter (CVC) ? Related Bloodstream Infection Clinician documentation instruction: use macro every time you place a central line. [] All elements of Maximal Sterile Barrier Technique, including hand hygiene, skin prep, and sterile ultrasound technique (if used) were followed. [SATISFIES MIPS PERFORMANCE] If Yes, Stop Here [] If ?No?, the medical reason all elements were NOT used for medical reason [] (ex. emergent condition). [] Maximal Sterile Barrier Technique was not followed, no reason provided [DOES NOT SATISFY MIPS PERFORMANCE] MIPS - DC Heart Failure Measures: #5 - Heart Failure (HF): Angiotensin-Converting Enzyme (SARBJIT) Inhibitor or Angiotensin Receptor Ml (ARB) Therapy for Left Ventricular Systolic Dysfunction (LVSD) and #8 - Heart Failure (HF): Beta-Ml Therapy for Left Ventricular Systolic Dysfunction (LVSD) Clinician documentation instruction: use macro at every CHF discharge. [] The patient has current or prior documentation of left ventricular ejection fraction (LVEF) less than 40%, or moderate or severely depressed left ventricular systolic function. Answer both: [SATISFIES MIPS PERFORMANCE] [] The patient was prescribed or already taking an Angiotensin-Converting Enzyme (SARBJIT) Inhibitor, or Angiotensin Receptor Ml (ARB). [] The patient was prescribed or already taking a beta-ml. If Yes to Both, Stop Here [] Patient not prescribed/taking: [MIPS PERFORMANCE EXCEPTION/EXCLUSION] [] SARBJIT or ARB for medical/patient/system reason(s) including [] (ex. allergy, intolerance, contraindication) [] Beta-ml for medical/patient/system reason(s) including [] (ex. allergy, intolerance, contraindication) [] Patient not prescribed/taking: [DOES NOT SATISFY MIPS PERFORMANCE] [] SARBJIT or ARB, no reason given [] Beta-ml, no reason given
[2020-09-14] MEDS: dexAMETHasone 4 MG TABLET PO (21:29)
[2020-09-14] MEDS: SERTRALINE 50 MG TABLET 25 MG PO (21:30)
[2020-09-14] MEDS: ATORVASTATIN 20 MG TABLET 40 MG PO (21:30)
[2020-09-15] MEDS: HYDROMORPHONE 4 MG TABLET PO ×5 (00:21→12:43)
[2020-09-15] MEDS: THYROID, PORK 60 MG TABLET 120 MG PO (05:22)
[2020-09-15 05:59] VITALS: BP 122/79; PULSE 57; RESP 16; TEMP 36.1; O2SAT 95
[2020-09-15] MEDS: PANTOPRAZOLE 20 MG TABLET PO (06:50)
[2020-09-15] MEDS: GABAPENTIN 400 MG CAPSULE 800 MG PO (08:43)
[2020-09-15] MEDS: OXYCODONE ER 10 MG TAB PO (08:44)
[2020-09-15] MEDS: ASPIRIN EC 81 MG TABLET PO (08:44)
[2020-09-15] MEDS: dexAMETHasone 4 MG TABLET PO ×2 (08:44→12:47)
[2020-09-15] MEDS: diazePAM 5 MG TABLET PO ×2 (08:44→12:44)
[2020-09-15 09:19] VITALS: BP 134/75; PULSE 80; RESP 15; TEMP 36.6; O2SAT 93
--- NOTE | 2020-09-15 09:41 | P.DS_ITS ---
History of Present Illness History of Present Illness Date Patient Seen: 09/15/20 Time Patient Seen: 09:50 Chief complaint: IP Narrative: August 31, 2020 Hector presents to clinic after receiving right T12-L1, L1-L2 on 07/12/[address] Koehler. He received 1-2 days of improvement however on the 3rd day symptoms return to baseline. He was doing well until incident on March 2020. The patient presents to clinic for preoperative assessment for upcoming T12-L1, L3-L4 TLIF, L1-S1 lumbar HWR, exploration of fusion, repeat laminectomy, redo insertion of hardware at [facility] on 09-09-[address] Washington. His symptoms are still severe and limiting. PMH: Sleep apnea with CPAP PTSD Osteoarthritis Left foot fracture Left 5th metatarsal fracture Hyperlipidemia Thyroid cancer Melanoma cancer PSH: UPPP Thyroidectomy Skin cancer removed Right knee surgery x3 Left shoulder surgery x3 L1-L2, L2-3 TLIF, HWR, L1-S1 PSF with instrumentation JERILYN Carpal tunnel surgery right EXAM: VSS Spine -lumbar range of motion is limited. Tenderness palpation at thoracolumbar junction. Well-healed posterior lumbar incision. Decreased lumbar lordosis. Gait is antalgic. Full 5/5 motor strength in bilateral lower extremities. Sensation intact at all dermatomes in both lower extremities except bilateral T12-L1 dermatome. Reflexes are 2+ and symmetrical. Straight leg raise is negative. Plan: Proceed with surgery and neuro monitoring at [facility] on 09/09/[address] Washington. Patient was appropriately consented for the procedure. Discharge Providers Provider Date of admission: 09/09/20 06:16 Discharge Date: 09/15/20 Primary care physician: Madison Benson DO Consults: 09/06/20 15:48 Consult to Respiratory Therapy Evaluate & Treat Comment: Will bring CPAP Physician Instructions: Evaluate and treat 09/09/20 07:11 Consult to Respiratory Therapy Evaluate & Treat Comment: Physician Instructions: Evaluate and treat 09/09/20 11:39 Consult to Physician Routine Comment: consult to primary care provider for followup Consulting Provider: Sarai Washington Reason for consultation: Positive STOP BANG, management of obstructive sleep apnea Has provider been notified: Yes 09/09/20 14:54 Consult to Occupational Therapy Evaluate & Treat Comment: Physician Instructions: Evaluate and treat Consult to Physical Therapy Evaluate & Treat Comment: Physician Instructions: Evaluate and Treat 09/09/20 18:35 Consult to Respiratory Therapy Evaluate & Treat Comment: Hx of sleep apnea, please evaluate and treat Physician Instructions: Evaluate and treat Discharge provider: Zeferino Nascimento PA-C Summary Hospital Course Discharge Diagnosis: 1. L5-S1 spondylolisthesis 2. L5-S1 spinal stenosis 3. POD # 6 S/P T12-L1, L3-4 TLIF,L1-S1 lumbar HWR,exploration of fusion,repeat laminectomy,reinsertion of hardware Hospital Course: 54-year-old male with the above-listed diagnoses presented to the OR on September 09, 2020 for the above-listed procedure with no documented complications and transferred to recovery in stable condition found to have decreased neurologic function, specifically motor function to bilateral LE in a ll muscle distribution, intact sensibility with hypersensitivity to BLE & iintact sensibility to groin/saddle region of his pelvis. After reviewing image multiple imaging studies including MRI with and without contrast and CT exam Dr. Washington also reviwed with a Neuroradiologist and other Spine surgeon, the consensus is to monitor his symptoms and no indications for additional surgical treatment S and continue with medical management including but not limited IV Decadron then transition to oral dexamethasone. The patient had improved 3+/5 right FHL and 3+/5 right FDL and persistant BLE has less hypersensitivity & intact sensiblity to pin prick and temperature in BLE. He expresses there's intact but altered sensibility beginning at his navel level now improved and medically stable despite significant motor deficit with slow improvement since surgery. Dr. Washington spoke with inpatient rehab PM&R physician Dr. Zafar at his receiving facility [facility] and discussed his current status and his needs. He feels like the patient is current medically stable and no indication for additional surgical treatment at this time. The patient requires monitoring his neuro recovery for post surgical neuro deficit. The patient has an indwelling Priest catheter that should be monitored for risk of UTI as well as risk of chronic pressure injuries from his current bed-bound status. The patient verbal ized understanding his postoperative care instructions and goals as well as follow-up with Dr. Washington in 1 week at his [facility] facility, 2 weeks for staple removal then biweekly in clinic for re-evaluation. The patient knows to contact Dr. Washington at any time for questions or concerns once he is discharged and transferred into the new facility. He is agreeable to the new care plan and family will be notified for the transfer. Exam Vital Signs (past 8 hours): - 09/15/20 05:59 09/15/20 09:19 Temperature 97.0 F L 98 F Pulse Rate 57 L 80 Respiratory Rate 16 15 Blood Pressure 122/79 134/75 Pulse Oximetry 95 93 Oxygen Delivery Method Room Air Oxygen Flow Rate 0 Narrative Exam Narrative: 54-year-old male seen resting comfortably in bed bound status, alert and oriented x3 and in no apparent distress. The patient has a normal heart rate and inspiratory effort within nondistended nontender abdomen. His dressing is clean dry and intact with appropriate almita-incisional tenderness to palpation. 3+/5 right FHL and 3+/5 right FDL. His BLE has less hypersensitivity which is mostly present on the dorsum of his feet. He has intact sensiblity to pin prick and temperature in BLE. Sensibility is intact in BLE. He expresses there's intact but altered sensibility beginning at his navel level. He has no hyper-reflexia in BLE in patella or achilles with 1+ status throughout. He has - Clocus BLE. The patient bilateral calves are soft, compressible and nontender. His capillary refill is 2 seconds with 2+ dorsal patellas and posterior tibialis is pulses bilaterally. Skin is intact. Objective Labs Result Diagrams: 09/10/20 04:30 Labs: Laboratory Results - last 24 hr 09/14/20 12:25 SARS-CoV-2 (PCR) Negative [facility] Medical History AVM (arteriovenous malformation) Hyperlipidemia Kidney stones Papillary thyroid carcinoma PTSD (post-traumatic stress disorder) PVC (premature ventricular contraction) Skin cancer Sleep apnea with use of continuous positive airway pressure (CPAP) Surgical History History of lumbar spinal fusion (04/02/18) History of thyroidectomy Hx of hernia repair Hx of knee surgery Hx of shoulder surgery S/P lumbar fusion (01/30/17) S/P UPPP (uvulopalatopharyngoplasty) Status post bilateral LASIK surgery Social History household members: spouse and children Smoking Status: Former smoker alcohol intake: current Discharge Assessment & Plan Assessment and Plan Assessment: 1. L5-S1 spondylolisthesis 2. L5-S1 spinal stenosis 3. POD # 6 S/P T12-L1, L3-4 TLIF,L1-S1 lumbar HWR,exploration of fusion,repeat laminectomy,reinsertion of hardware Plan of Treatment: 1. Stable for discharge today at noon to [facility] nursing [facility]. 2. Postoperative pain management and neurological rehabilitation treatment protocols apply. 3. Continue medical management with oral dexamethasone scheduled. 4. Change dressing as needed if soiled or saturated to keep wound, clean, dry and intact. 5. Dr. Washington requests follow-up at [facility] in 1 week for re- evaluation, otherwise if stable in 2 weeks in his clinic for scheduled stable change as well. 6. Follow-up with Dr. Washington by weekly in clinic for re-evaluation. Discharge Plan Discharge Plan Patient Disposition: [facility] Other facility: [facility] Under care of provider: Dr. Zafar at [facility]. Spine Surgeon Dr. Washington Provider Discharge Comment: Dr. Washington wants to visit and re-evaluate at [facility] in 1 week Nursing Discharge Comment: Please notify family of when transfer to [facility] Discharge orders & Medications Prescriptions: New gabapentin [Neurontin] 400 mg Capsule 800 mg PO BID Qty: 60 RF: 0 aspirin 81 mg Tablet,Delayed Release (Dr/Ec) 81 mg PO BID Qty: 90 RF: 0 dexamethasone 4 mg Tablet 4 mg PO TID Qty: 30 RF: 0 docusate sodium [DOK] 100 mg Capsule 100 mg PO BID PRN (Reason: Constipation) Qty: 60 RF: 0 hydromorphone 4 mg Tablet 4 mg PO Q3HR PRN (Reason: Pain, Severe (7-10)) Qty: 60 RF: 0 diazepam 5 mg Tablet 5 mg PO Q3HR PRN (Reason: Muscle Spasm) Qty: 30 RF: 0 oxycodone [OxyContin] 10 mg Tablet,Oral Only,Ext.Rel.12 Hr 10 mg PO BID Qty: 30 RF: 0 ondansetron HCl [Zofran] 4 mg tablet 4 mg PO Q8H PRN (Reason: nausea and vomiting) Qty: 20 RF: 0 Continued loratadine [Claritin] 10 MG tablet 10 mg PO QDAY Qty: 0 RF: 0 gabapentin [Neurontin] 600 MG tablet 600 mg PO BID Qty: 60 RF: 1 atorvastatin 40 mg Tablet 40 mg PO BEDTIME RF: 0 sertraline 25 mg Tablet 25 mg PO DAILY RF: 0 omeprazole 20 mg Capsule,Delayed Release(Dr/Ec) 20 mg PO DAILY RF: 0 thyroid (pork) [Equality Thyroid] 30 mg tablet 120 mg PO DAILY RF: 0 Discontinued hydrocodone-acetaminophen 5-325 mg tablet 1 tab PO Q6H RF: 0 naproxen 250 mg Tablet 500 mg PO DAILY PRN (Reason: Pain, Mild (1-3)) Qty: 40 RF: 0 Follow up/Referrals: Sarai Washington MD [Physician] - 1 Week (If Dr. Washington is unable to visit [facility] in 1 week and patient is stable he may follow-up in Dr. Washington's clinic in 2 weeks for re-evaluation and staple removal) Madison Benson DO [Primary Care Provider] - Discharge Health Status Health Concerns: Risk of chronic pressure injuries Care Plan Goals: PT/OT for bed mobilization and avoid chronic pressure injuries. Continue pain management and oral steroids for medical management of post operative weakness Diet/Activity/Treatments Diet: Diet as Tolerated Catheter: 2-way Priest Catheter comment: Monitor for UTI Skin/Wound/Dressing Care Skin care: Risk of chronic pressure injuries Report to your healthcare provider any signs of infection, such as:: chills, fever, night sweats, increased pain, unusual drainage and unusual redness Dressing: Change dressing as needed to keep clean, dry and intact Other wound treatment: Remove staple in clinic in 2 weeks Special Rehabilitation Services Rehab type: Physical therapy and Occupational therapy Visit Report/Discharge Packet Instructions: DI for Constipation, How to Prevent Falls, DI for Prescription Opioid Use, DI for Transforaminal Lumbar Interbody Fusion Stand Alone Forms: Surgery Discharge Discharge Data Primary Care Provider: Madison Benson Quality VTE Deep Vein Thrombosis/Pulmonary Embolism Present on Admission: Yes MIPS - Admit Advanced Care Plan / Current Medications Measures: #47 ? Advanced Care Plan Clinician documentation instruction: document at admission. [] I confirmed that the patient's Advance Care Plan is present, code status is documented, or surrogate decision maker is listed in the patient?s medical record. [SATISFIES MIPS PERFORMANCE] If Yes, Stop Here [] The patient?s Advance Care plan is not present because: (select) [MIPS PERFORMANCE EXCEPTION/EXCLUSION] [] I confirmed today that the patient does not wish or was not able to name a surrogate decision maker or provide an Advance Care Plan. [] Hospice care is currently being provided or has been provided this calendar year [] I did NOT confirm today the presence of an Advance Care Plan or surrogate decision maker documented within the patient's medical record. [DOES NOT SATISFY MIPS PERFORMANCE] #130 - Documentation of Current Medications in the Medical Record Clinician documentation instruction: use macro the first time you see a patient. [] I have utilized all available immediate resources to obtain, update, or review the patient?s current medications. [SATISFIES MIPS PERFORMANCE] If Yes, Stop Here [] The patient is not eligible for medication reconciliation; the patient is in an emergent medical situation where delaying treatment would jeopardize the pat ient?s health. [MIPS PERFORMANCE EXCEPTION/EXCLUSION] [] I did NOT confirm, update or review the patient's current list of medications today. [DOES NOT SATISFY MIPS PERFORMANCE] MIPS - CL Central Venous Catheter Placement Measure: #76 ? Prevention of Central Venous Catheter (CVC) ? Related Bloodstream Infection Clinician documentation instruction: use macro every time you place a central line. [] All elements of Maximal Sterile Barrier Technique, including hand hygiene, skin prep, and sterile ultrasound technique (if used) were followed. [SATISFIES MIPS PERFORMANCE] If Yes, Stop Here [] If ?No?, the medical reason all elements were NOT used for medical reason [] (ex. emergent condition). [] Maximal Sterile Barrier Technique was not followed, no reason provided [DOES NOT SATISFY MIPS PERFORMANCE] MIPS - DC Heart Failure Measures: #5 - Heart Failure (HF): Angiotensin-Converting Enzyme (SARBJIT) Inhibitor or Angiotensin Receptor Ml (ARB) Therapy for Left Ventricular Systolic Dysfunction (LVSD) and #8 - Heart Failure (HF): Beta-Ml Therapy for Left Ventricular Systolic Dysfunction (LVSD) Clinician documentation instruction: use macro at every CHF discharge. [] The patient has current or prior documentation of left ventricular ejection fraction (LVEF) less than 40%, or moderate or severely depressed left ventricular systolic function. Answer both: [SATISFIES MIPS PERFORMANCE] [] The patient was prescribed or already taking an Angiotensin-Converting Enzyme (SARBJIT) Inhibitor, or Angiotensin Receptor Ml (ARB). [] The patient was prescribed or already taking a beta-ml. If Yes to Both, Stop Here [] Patient not prescribed/taking: [MIPS PERFORMANCE EXCEPTION/EXCLUSION] [] SARBJIT or ARB for medical/patient/system reason(s) including [] (ex. allergy, intolerance, contraindication) [] Beta-ml for medical/patient/system reason(s) including [] (ex. allergy, intolerance, contraindication) [] Patient not prescribed/taking: [DOES NOT SATISFY MIPS PERFORMANCE] [] SARBJIT or ARB, no reason given [] Beta-ml, no reason given
--- NOTE | 2020-09-15 10:31 | OT.IP.TRT ---
Current Diagnoses Sleep apnea, unspecified (09/09/20) Spondylosis without myelopathy or radiculopathy, lumbosacral region (09/09/20) Spinal stenosis, lumbar region without neurogenic claudication (09/09/20) Arthrodesis status (09/09/20) Surgery Performed Operation Date: 09/09/20 07:45 Actual Procedures p T12-L1, L3-4 TLIF,L1-S1 lumbar HWR,exploration of fusion,repeat laminectomy,reinsertion of hardware - Sarai Washington MD Occupational Therapy Treatment Note M2 OT-IP Current Condition Start: 09/12/20 11:06 Freq: Status: Active Protocol: Document 09/12/20 11:06 CGR (Rec: 09/12/20 11:30 CGR [id number]) Occupational Therapy Current Condition Current Condition Evaluation Date 09/12/20 Treatment Diagnosis T12-S1 TLIF and revision with post op paralysis Diagnosis Onset Date 09/09/20 Post Operative Precautions Lumbar Precautions Log Roll,No Twisting,Limit Bending,Lifting Restriction of 10 lbs,Gait Belt above Incisional Area M3 OT- IP Subjective and Pain Start: 09/12/20 11:06 Freq: Status: Active Protocol: Document 09/15/20 12:42 [facility] (Rec: 09/15/20 12:46 [facility] [id number]) OT- Subjective Occupational Therapy Visit Type Type Treatment Note Visit Start Time 09:45 Visit Stop Time 10:31 Total Visit Minutes 46 Occupational Therapy Visit Comments Patient Comments Pt wanting to use the toilet. Patient/Caregiver Goals To go to rehab. OT Pain Assessment Pain When Pain Assessed During Mobility Pain Present Pain Present Pain Reported M4 OT- IP ADL's Start: 09/12/20 11:06 Freq: Status: Active Protocol: Document 09/15/20 12:42 [facility] (Rec: 09/15/20 12:46 [facility] [id number]) OT [id number] Comments OT Self-Feeding Comments Not meal time OT ADL-Oral Care Comments Oral Care Comments Pt states did earlier. OT ADL-Dressing General Eval Lower Body Dressing Ability Total Assistance Areas Needing Assistance Socks Comments OT Dressing Comments Dependent for LB dressing needs. OT ADL-Toileting General Evaluation Toileting Ability Total Assistance Comments OT Toileting Comments Had to assist pt with all toileting needs from the bed and needing dependent assist to help move his legs to roll from side to side. OT ADL-Bathing Bathing Type Bathing Type Sponge Bath General Evaluation Bathing Ability Maximal Assistance Areas Needing Assistance Wash/Dry Back,Wash/Dry Perineal Area,Wash/Dry Lower Extremities Comments OT Bathing Comments Pt able to assist with her arms and chest. M6 OT- IP Functional Cognition Start: 09/12/20 11:06 Freq: Status: Active Protocol: Document 09/14/20 14:15 [facility] (Rec: 09/14/20 14:23 [facility] [id number]) Cognitive Factors Limiting Selfcare Function Cognitive Comments Cognitive Assessment Comments NO deficits noted. Pt is positive and motivated to get better. Pt feels that his backgrounds has been helping him through this experience. M7 OT- IP Mobility and Balance Start: 09/12/20 11:06 Freq: Status: Active Protocol: Document 09/15/20 12:42 [facility] (Rec: 09/15/20 12:46 [facility] [id number]) OT- Bed Mobility Assessment Rolling Type of Rolling Bilateral Level of Assistance Maximum Assistance,1 Person Assistance OT- Balance Assessment Sitting Balance and Reactions Static Sitting Balance Ability Poor Dynamic Sitting Balance Ability Poor M8 OT- IP Objective Assessments Start: 09/12/20 11:06 Freq: Status: Active Protocol: Document 09/12/20 11:06 [facility] (Rec: 09/12/20 11:30 [facility] [id number]) OT Gross Range of Motion Upper Extremity Range of Motion Assessment Within Functional Limits OT Strength Upper Extremity Strength Assessment Within Functional Limits Comments Strength Comments shlds 4/5, arms and hands 5/5 OT- Coordination Assessment Upper Extremity Finger to Nose Test Within Functional Limits Finger Tapping Test Within Functional Limits OT-Muscle Tone Assessment Muscle Tone WNL Yes OT Sensation Assessment Comments Summary Comments Pt with typical sensation to the UE but describes hypersensitivity to BLE starting ~ at the belly button . Edema Edema Absent M9 OT- IP Assessment and Plan Start: 09/12/20 11:06 Freq: Status: Active Protocol: Document 09/14/20 14:15 [facility] (Rec: 09/14/20 14:23 [facility] [id number]) OT Summary Assessment and Plan Potential Rehabilitation Potential Excellent Analytic Complexity at Evaluation High Summary OT Impairments Pain,Strength,Balance, Sensation,Functional Mobility, Grooming,Dressing,Toileting, Bathing,Toilet Transfers, Shower Transfers Progress Towards Goals Progressing Toward Goals,Slow Progress due to Medical Issues Assessment Summary Pt highly motivated to get better and is an active participate in therapy sessions. Pt will greater benefit form acute rehab. At this time best for pt to go by stretcher to acute rehab due to decreased trunk control at this time. Goals Grooming Goal Independent Dressing Goal Independent Toileting Goal Independent Bathing Goal Independent Toilet Transfer Goal Minimal Assistance Shower Transfer Goal Minimal Assistance Days to Meet Goals 30 Frequency of Treatment Frequency Of Treatment Twice a Day Treatment Plan OT Treatment Plan ADL Training,Functional Mobility,Therapeutic Exercises ,Patient/Family Education, Discharge Planning Other Treatment Recommendations and Next ADLs seated, functional Treatment Focus mobility, bed mobility, UE strengthening Discharge Recommendations OT Discharge Recommendations Acute Rehab Transportation Needs at Discharge Stretcher/Ambulance
--- NOTE | 2020-09-15 10:39 | CM.DPC ---
DCP Cont: Patient is to be discharged today. Updated Cristal at [facility], and let her know that discharge orders are in. Printed out medication sheets for Zeferino Nascimento, ortho PAC, and prescriptions have been signed. Updated nurse, Reny Isabel. White board in main nursing station updated. Updated patient, and asked him if he wanted this skilled nursing case manager to call his family, and he indicated that he would call them. Patient will need to go BLS. Had Haley, assistant corporate secretary, call for BLS transport. They will order picker patient at 12:30. Patient is updated on time, and given copy to patient. Cristal called back requesting H&P, nursing notes, vitals. Haley will fax over information. P: Patient is to discharge to [facility] today, 1230 BLS order picker. Kortney Krueger RN/[employer]
--- NOTE | 2020-09-15 10:42 | CM.DPNOTE ---
Faxed H&P, RN notes, PN and today's vitals to [facility] on 09/15/20 per Nancy. Received fax confirmation. Haley Arenas CM Asst.
--- NOTE | 2020-09-15 10:56 | PT-IP ANOTE ---
checked with pt and pt refused PT. stated that he is really tired and just finished getting ready for d/c and stated that he is leaving by 1230 today.
--- NOTE | 2020-09-15 13:30 | PC.NURSE ---
Transfer: Pt feels ready to transfer for Rehab at [facility]. Is tolerating his diet w/out problems. He feels his pain is in reasonable control but he still rates it any where from a 12/08 to 02/07. Legs and feet are hypersensitive. Doesn't like much of anything around his feet or touching his feet. Positioned carefully. Did have a bm this am and was inc. Doesn't have the sensation to know he is evacuating his bowels until it is to late. Diet is tolerated w/out problems. Priest has been left in for now. Dressing on back changed to a coversite. Report called to Imani admitting nurse at rehab facility. Reviewed hospital course. Pt is unable to move his bilat lower ext except his rt great toe. His legs and feet are hypersensitive. Reviewed pain med regime. Priest was placed on 09/09. Pt is a mech lift transfer but does try to help self as much as poss. He is motivated in wanting to feel better and gain more mobility. Questions answered. Pt was given a copy of his instructions at d/c. [facility] crew here for transport. Report given. Their questions were answered. Pt transfered by [facility] transport to rehab.
== END 2020-09-15 13:00 | DRG 908 ==
PROVIDERS: Physician Assistant Surgical; Admitting Provider Orthopaedic Surgery Orthopaedic Surgery of the Spine; Family Provider Family Medicine; PCP Family Medicine; Referring Provider Orthopaedic Surgery Orthopaedic Surgery of the Spine; Visit Provider Orthopaedic Surgery Orthopaedic Surgery of the Spine
PROC: 0SG00AJ Fusion of Lumbar Vertebral Joint with Interbody Fusion Device, Posterior Approach, Anterior Column, Open Approach (ICD-10-PCS; principal; 2020-09-09 07:45)
DX: T85.618A Breakdown (mechanical) of other specified internal prosthetic devices, implants and grafts, initial encounter (principal); M96.0 Pseudarthrosis after fusion or arthrodesis; G95.89 Other specified diseases of spinal cord; M96.89 Other intraoperative and postprocedural complications and disorders of the musculoskeletal system; M48.07 Spinal stenosis, lumbosacral region; Z20.822 Contact with and (suspected) exposure to COVID-19; G47.33 Obstructive sleep apnea (adult) (pediatric); F43.10 Post-traumatic stress disorder, unspecified; E78.5 Hyperlipidemia, unspecified; M48.05 Spinal stenosis, thoracolumbar region; M48.061 Spinal stenosis, lumbar region without neurogenic claudication; Z85.820 Personal history of malignant melanoma of skin; Z85.850 Personal history of malignant neoplasm of thyroid; Z87.891 Personal history of nicotine dependence
CPT/HCPCS: 36415; 72100; 72131; 72148; 72157; 72158; 76000; 85014; 85018; 87635; 94762; 97110; 97162; 97167; 97530; 97535; C1776; C9803; C9290; J0330; J0690; J1100; J1170; J2250; J2405; J2704; J3010; J3410

== ENCOUNTER 2020-09-30 11:39 | Inpatient (IN) | payer MEDICARE, OTHER, SELFPAY ==
[2020-09-09 15:38] VITALS: BMI 28.0
[2020-09-30] VITALS (16 sets, daily range): BP systolic 124–151; BP diastolic 74–104; PULSE 69–107; RESP 10–20; TEMP 36.3–37.6; O2SAT 82–99; BMI 26.6
[2020-09-30 12:31] LABS: Hematocrit 36.4 % (41-53); Hemoglobin 12.3 g/dL (13.5-17.5); Mean Corpuscular HGB Conc 33.8 % (30-36); Mean Corpuscular Hemoglobin 30.2 PG (26-34); Mean Corpuscular Volume 89.5 fL (80-100); Platelet Count 286 X10^3/uL (150-400); Red Blood Cell Count 4.07 X10^6/uL (4.5-5.9); Red Cell Distribution Width 13.6 % (11.6-14.8); White Blood Cell Count 7.9 X10^3/uL (4.5-11.0)
[2020-09-30 12:45] LABS: BUN Creatinine Ratio 21.2 (6-22); Blood Urea Nitrogen 14 mg/dL (9-20); Calcium 9.2 mg/dL (8.4-10.2); Carbon Dioxide 34 mmol/L (22-32); Chloride 95 mmol/L (98-107); Estimated Glomerular Filt Rate > 60.0 mL/min (>60); Glucose 98 mg/dL (70-100); HEMOLYSIS 29 (0-50); Potassium 3.8 mmol/L (3.4-5.1); Sodium 133 mmol/L (137-145)
[2020-09-30 12:45] LABS: COVID19 -Nasal RAPID Negative (Negative)
[2020-09-30] MEDS: HYDROMORPHONE 2 MG TABLET PO (12:46)
[2020-09-30 12:47] LABS: Neutrophils Absolute Manual 6478 /uL (3000-5900); RBC Morphology Normal Morphology; Total Cells Counted 100
[2020-09-30] MEDS: LACTATED RINGERS 1,000 ML 100 ML IV (12:47)
[2020-09-30 12:53] LABS: Erythrocyte Sedimentation Rate 89 MM/HR (0-15)
--- NOTE | 2020-09-30 13:57 | PC.NURSE ---
Patient admitted to room 222 around 1230. He came from [facility] in [place]. Patient is going to have and I&D to his lower back, his incision is red with two raised area's, leaking pus colored fluid. Given 2mg of oral dilaudid and helpful. Patients skin assessment done under physical assessment. Patient is not mobile. He has some plantar flexion to his R.lower extremity and he is to slightly move his r.lower leg with movement. Patient is resting now. New IV started to his r.ac. Patient will be going for his surgery around 1500. He also has feeling everywhere and states that he has feeling to his lower back and legs. He is just unable to walk at this time.
--- NOTE | 2020-09-30 16:14 | P.OP.PRE_ITS ---
Pre-operative Note COVID-19 COVID-19 status: Negative Result date/Date tested (Pos, Neg/Pending): 09/30/20 Interval Note History & Physical reviewed/Exam performed by Physician: Yes Changes to H&P: No H&P completed within 30 days and has changed as indicated here:: Connor has been at rehab in [place]. They have arranged a bed for him [place] at the [place] in [facility]hab for spinal cord injury. They noticed the increased redness and some drainage from his wound. He has not had high fevers but there has been clear increased erythema around his wound. He was transferred over for probable irrigation and debridement of his lumbar spine. His exam shows severe erythema around his back. Sensation is good in bilateral lower extremities but he still has marked weakness in bilateral lower extremities. He is able to have some active toe flexion and I can see him fire his hip flexors and trace firing of his quads. His exam is consistent with a postoperative infection of recommended irrigation and debridement. Procedure alternatives risks benefits and complications were discussed in detail. He has significantly compromised neurological status preoperatively. He does seem to be improving with time. Limits of the procedure and overall goal to treat acute infection were discussed.
[2020-09-30] MEDS: CEFAZOLIN 2 GM/100 ML FROZ.PIGGY IV (16:56)
--- NOTE | 2020-09-30 17:00 | SUR.OPER ---
Addendum entered by Juan Campo R.N. 09/30/20 17:30: Surgeon and Anesthesiologist recommended to abort attempt Original Note: pt requested kim catheter, attempt was made and kim was unable to be placed due to resistance
--- NOTE | 2020-09-30 17:02 | SUR.OPER ---
pt prone on padded ayo frame. arme on padded armboards overhead elbows below nipple level. knees on gel pad lower legs on pillow, legs secuered at thigh and lower legs, heels apart
[2020-09-30] MEDS: VANCOMYCIN 1,000 MG/200 ML PIGGYBACK 200 MG IV (17:05)
[2020-09-30] MEDS: SODIUM CHLORIDE IRRIG SOLUTION 3,000 ML, GENTAMICIN 240 MG IRR (17:15)
[2020-09-30] MEDS: VANCOMYCIN 1,000 MG VIAL 1000 MG TOP (17:16)
--- NOTE | 2020-09-30 17:32 | SUR.OPER ---
pt requested a kim catheter since he was having some trouble urinating, surgeon gave verbal order to attempt the catheter. Attempt was made and catheter met resistance. Surgeon and anesthesiologist recommended aborting the attempt . Catheter was not placed
[2020-09-30 17:43] LABS: Body Fluid Appearance TURBID; Body Fluid Clotted? NO CLOTS PRESENT; Body Fluid Color RED
[2020-09-30 17:44] LABS: Body Fluid Red Blood Cells 44520 /uL; Body Fluid Tot Nucleated Cells 72748 /uL
--- NOTE | 2020-09-30 18:20 | PM.OP.1 ---
Operative Date/Time/Diagnoses Date of procedure: 09/30/20 Time of procedure: 16:20 Pre-op diagnosis: Infected lumbar spine wound with history of prior fusion with instrumentation and preoperative neurological deficit Post-op diagnosis: same Procedure & Clinicians Procedure: irrigation and debridement lumbar spine wound Same procedure as scheduled: Yes Indications: this is a 54-year-old gentleman with a history of multiple back operations. Most recently he had a decompression and fusion about 3+ weeks ago. This was complicated by new neurological decline postoperatively. He has had extensive workup with multiple scans. He was in rehab when today they noticed some increased erythema and early drainage from his lumbar spine. I was contacted by Dr. Washington asked to Evaluate the patient for irrigation and debridement as needed. Surgeon: Hallie Caro Click Yes if Unassisted: Yes Anesthesia Type: General Operative Notes Findings: significant fluid which appeared purulence and tracked down deep to the fascia on the left side, pedicle screws and spinal cristal were easily JO visualized with minimal dissection. No significant necrotic tissue but marked fluid with purulence Closure Type: primary Specimen(s): other ( multiple deep cultures for stat Gram stain culture and sensitivity and cell count) Applied: drain(s) ( Hemovac deep to the fascia and Hemovac superficial to the fascia) Estimated Blood Loss (mL): 50 Blood products transfused: none Procedure in detail: Patient is brought to the operating room. A time-out was performed. He underwent induction of a general anesthesia he was carefully turned into the prone position on a Shaheen frame and his back was prepped and draped in a standard sterile fashion. Antibiotics were held until we got deep cultures. There was significant copious drainage from the lumbar spine wound. The wound was opened. There was gross purulence material encountered. It was stat sent for stat Gram stain culture And sensitivity and cell count. the wound was meticulously debrided. There was a small amount of necrotic tissue. The surgical scar skin wound which was hypertrophic and appeared grossly infected was carefully resected to give a clean Less infected margin. A combination of a Martinez and a flap was used to meticulously and gently debride subcutaneous tissue and a small amount of necrotic muscle. Meticulous dissection was performed deep to the wound there was a loss of continuity of the fascia and the instrumentation was easily visualized. Very gentle dissection was performed deep down at the level of the 3 pelvic screws and rods. The wound was meticulously irrigated with normal saline with the pulse lavage with antibiotics. Drain but there was no obvious leaking from deep in the wound suggestive of a CSF leak. I used a lap to carefully and gently scrub along the instrumentation in order to break up any potential biofilm. The wound was meticulously further irrigated. A deep drain was placed deep to the fascia and a 2nd drain was placed in the subcutaneous tissues. Vicryl sutures were removed. Vancomycin powder was placed directly down by the instrumentation but not significantly midline and also in the subcutaneous tissues. The fascia was closed with interrupted PDS for monofilament closure skin and subcutaneous tissue with closed with near-far far-near retention stitches of nylon. The wound was meticulously dressed with a cruz dressing. Patient tolerated the procedure well. He was transferred recovery room in satisfactory condition. Complications: none Post-operative Condition: stable Disposition: Acute Care Plan for aftercare: IV antibiotics Postoperatively, checked culture and sensitivity and adjust antibiotics as needed. Anticipate patient will be in the hospital until early next week and may require discharge on IV antibiotics.
[2020-09-30 19:14] LABS: Mononuclear WBC Body Fluid 28 %; Polynuclear WBC Body Fluid 72 %
[2020-09-30 19:47] LABS: Add Manual Diff / Slide Review NO; Basophils Absolute Auto 0 /uL (0-100); Basophils Percent Auto 0.3 % (0-2); Eosinophils Absolute Auto 0 /uL (0-450); Eosinophils Percent Auto 0.4 % (2-4); Hematocrit 36.5 % (41-53); Hemoglobin 12.1 g/dL (13.5-17.5); Lymphocytes Absolute Auto 200 /uL (1100-4500); Mean Corpuscular HGB Conc 33.2 % (30-36); Mean Corpuscular Hemoglobin 29.8 PG (26-34); Mean Corpuscular Volume 89.7 fL (80-100); Monocytes Absolute Auto 300 /uL (0-900); Monocytes Percent Auto 2.4 % (3-14); Neutrophils Absolute Auto 10200 /uL (1500-7000); Neutrophils Percent Auto 94.9 % (50-75); Platelet Count 253 X10^3/uL (150-400); Red Blood Cell Count 4.07 X10^6/uL (4.5-5.9); Red Cell Distribution Width 13.9 % (11.6-14.8); White Blood Cell Count 10.8 X10^3/uL (4.5-11.0)
[2020-09-30] MEDS: HYDROMORPHONE 0.5 MG INJ 0.2 MG IV (20:16)
[2020-09-30] MEDS: LACTATED RINGERS 1,000 ML 125 ML IV (20:16)
[2020-09-30] MEDS: HYDROMORPHONE 4 MG TABLET PO (20:17)
[2020-09-30] MEDS: LORATADINE 10 MG TABLET PO (20:30)
[2020-09-30] MEDS: OXYCODONE ER 10 MG TAB PO (21:15)
[2020-09-30] MEDS: ASPIRIN EC 81 MG TABLET PO (21:20)
[2020-09-30] MEDS: DOCUSATE 100 MG CAPSULE PO (21:20)
[2020-09-30] MEDS: GABAPENTIN 600 MG TABLET PO (21:20)
[2020-09-30] MEDS: MAGNESIUM HYDROXIDE 30 ML UDC PO (21:20)
[2020-09-30] MEDS: ATORVASTATIN 20 MG TABLET 40 MG PO (21:20)
[2020-09-30] MEDS: ACETAMINOPHEN 325 MG TABLET 975 MG PO (22:35)
[2020-09-30] MEDS: NORTRIPTYLINE HCL 25 MG CAPSULE PO (22:37)
[2020-09-30] MEDS: DULOXETINE 30 MG CAPSULE PO (22:37)
[2020-09-30] MEDS: NYSTATIN POWDER 15GM 1 APPLIC TOP (22:38)
[2020-09-30] MEDS: methocarbamoL 500 MG TABLET 750 MG PO (22:38)
[2020-10-01] VITALS (7 sets, daily range): BP systolic 120–137; BP diastolic 75–103; PULSE 72–90; RESP 16–18; TEMP 36.2–36.8; O2SAT 92–100
--- NOTE | 2020-10-01 00:38 | PC.NURSE ---
patient is alert and oriented. Breath sounds CTA; on oxygen at 2L/min per NC as desats with sleep and not using CPAP; O2 sat is 95%. HRR. Skin is cool and moist but patient denies chest pain and BP 124/85. Denies nausea. BT present but denies passing flatus as yet. Using urinal and has voided since return from surgery; denies dysuria, frequency or urgency. Is able to turn self in bed but preferring to lie on back at this time. Has no movement in bilateral legs or left foot but is able to slightly move right foot; reports unchanged from prior to hospitalization. Does have intact sensation to bilateral LE. Capillary refill is 3 seconds. JUAN dressing to back is CDI and functioning. Hemovac is intact and compressed. Wearing bilateral calf SCD's. Fall risk score is high and bed alarm is activated. Denies pain at present time. Placed on contact isolation as wound culture gram stain is positve for gm + cocci; patient verbalizes understanding.
[2020-10-01] MEDS: VANCOMYCIN 1,000 MG/200 ML PIGGYBACK 200 MG IV ×2 (00:58→09:01)
[2020-10-01] MEDS: LACTATED RINGERS 1,000 ML 125 ML IV (04:06)
[2020-10-01] MEDS: PANTOPRAZOLE 20 MG TABLET PO (06:26)
[2020-10-01] MEDS: OXYCODONE IR 10 MG TABLET PO (06:38)
[2020-10-01] MEDS: PSYLLIUM HUSK 1 PACKET PO (08:58)
[2020-10-01] MEDS: polyethylene glycoL 3350 17 GM POWD.PACK PO (08:58)
[2020-10-01] MEDS: THYROID, PORK 30 MG TABLET 120 MG PO (09:04)
[2020-10-01] MEDS: OXYCODONE ER 10 MG TAB PO ×2 (09:04→20:25)
[2020-10-01] MEDS: ASPIRIN EC 81 MG TABLET PO ×2 (09:04→20:25)
[2020-10-01] MEDS: BETHANECHOL CHLORIDE 5 MG TABLET 25 MG PO ×3 (09:04→20:25)
[2020-10-01] MEDS: ACETAMINOPHEN 325 MG TABLET 975 MG PO ×3 (09:04→20:24)
[2020-10-01] MEDS: CHOLECALCIFEROL (VITAMIN D3) 1,000 UNIT TABLET 1000 UNIT PO (09:05)
[2020-10-01] MEDS: DOCUSATE 100 MG CAPSULE PO ×2 (09:05→20:25)
[2020-10-01] MEDS: MULTIVITAMIN 1 TABLET 1 TAB PO (09:05)
[2020-10-01] MEDS: GABAPENTIN 600 MG TABLET PO ×3 (09:05→20:25)
[2020-10-01] MEDS: LORATADINE 10 MG TABLET PO (09:05)
[2020-10-01] MEDS: DULOXETINE 30 MG CAPSULE PO ×2 (09:05→20:25)
--- NOTE | 2020-10-01 09:23 | P.PN_ITS ---
Subjective Subjective Date Patient Seen: 10/01/20 Time Patient Seen: 09:24 Interval history: Patient is a 54 yo male. He states that he is doing well today following his surgical wound debridement performed yesterday 09/30/20. He notes that he has sensation throughout the bilateral lower extremities, but explains that he is unable to lift his left leg off from the bed. The patient also notes weakness in his right lower extremity. Patient states that his pain is well controlled with his current pain management regimen. He notes further that he feels his condition has improved since yesterday. Patient is able to roll over in bed to have his incision site inspected. Exam Vital Signs (past 8 hours): - 10/01/20 03:34 10/01/20 08:19 Temperature 97.2 F L 98.2 F Pulse Rate 72 78 Respiratory Rate 18 16 Blood Pressure 120/77 137/94 H Pulse Oximetry 100 96 Oxygen Delivery Method Nasal Cannula Oxygen Flow Rate 0 Narrative Exam Narrative: Patient is resting comfortably in bed in no acute distress, alert and oriented x3. Surgical site on the back was inspected with no signs of erythema, warmth, discharge, or induration appreciated. Wound drain is in place and draining small amounts of nonpurulent blood. Sensation is intact throughout the bilateral lower extremities on exam. Marked weakness in bilateral lower extremities. Weak toe flexion and plantar flexion appreciated on the right lower extremity. Strength 1/5 in the bilateral lower extremities. Negative Homans sign. Const General: cooperative, healthy appearing and comfortable Resp Effort & Inspection: normal respiratory effort and able to speak in complete sentences Objective Labs Result Diagrams: 09/30/20 19:41 09/30/20 12:16 Labs: Laboratory Results - last 24 hr 09/30/20 09/30/20 09/30/20 12:12 12:16 12:16 WBC 7.9 RBC 4.07 L Hgb 12.3 L Hct 36.4 L MCV 89.5 MCH 30.2 MCHC 33.8 RDW 13.6 Plt Count 286 Neut % (Auto) Lymph % (Auto) [place] % (Auto) Eos % (Auto) Baso % (Auto) Neut # (Auto) Lymph # (Auto) [place] # (Auto) Eos # (Auto) Baso # (Auto) Total Counted 100 Seg Neutrophils % 79.0 H Band Neutrophils % 3.0 Lymphocytes % (Manual) 12.0 L Monocytes % (Manual) 3.0 Eosinophils % (Manual) 3.0 Neutrophils # (Manual) 6478 H RBC Morphology Normal morphology ESR 89 H Sodium 133 L Potassium 3.8 Chloride 95 L Carbon Dioxide 34 H BUN 14 Creatinine 0.66 Estimated GFR > 60.0 BUN/Creatinine Ratio 21.2 Glucose 98 Calcium 9.2 Fluid Color Fluid Appearance Fluid RBC Fld Tot Nucleated Cell Fluid Polynuclear WBCs Fluid Mononuclear WBCs Fluid Eosinophils Fluid Other Cells Body Fluid Clot SARS-CoV-2 (PCR) Negative 09/30/20 09/30/20 17:15 19:41 WBC 10.8 RBC 4.07 L Hgb 12.1 L Hct 36.5 L MCV 89.7 MCH 29.8 MCHC 33.2 RDW 13.9 Plt Count 253 Neut % (Auto) 94.9 H Lymph % (Auto) 2.0 L [place] % (Auto) 2.4 L Eos % (Auto) 0.4 L Baso % (Auto) 0.3 Neut # (Auto) 50509 H Lymph # (Auto) 200 L [place] # (Auto) 300 Eos # (Auto) 0 Baso # (Auto) 0 Total Counted Seg Neutrophils % Band Neutrophils % Lymphocytes % (Manual) Monocytes % (Manual) Eosinophils % (Manual) Neutrophils # (Manual) RBC Morphology ESR Sodium Potassium Chloride Carbon Dioxide BUN Creatinine Estimated GFR BUN/Creatinine Ratio Glucose Calcium Fluid Color Red Fluid Appearance Turbid Fluid RBC [address] Fld Tot Nucleated Cell 10661 Fluid Polynuclear WBCs 72 Fluid Mononuclear WBCs 28 Fluid Eosinophils Not Reportable Fluid Other Cells Not Reportable Body Fluid Clot No clots present SARS-CoV-2 (PCR) [facility] Medical History AVM (arteriovenous malformation) Hyperlipidemia Kidney stones Papillary thyroid carcinoma PTSD (post-traumatic stress disorder) PVC (premature ventricular contraction) Skin cancer Sleep apnea with use of continuous positive airway pressure (CPAP) Surgical History History of lumbar spinal fusion (04/02/18) History of thyroidectomy Hx of hernia repair Hx of knee surgery Hx of shoulder surgery S/P lumbar fusion (01/30/17) S/P UPPP (uvulopalatopharyngoplasty) Status post bilateral LASIK surgery Social History household members: spouse and children Smoking Status: Former smoker alcohol intake: current Assessment & Plan Post-op Postoperative Procedures: Procedures Operation Date: 09/30/20 16:00 Actual Procedures Side Surgeon p Incision and Drainage Wound/Spine Hallie Caro MD Postoperative day: 1 Postoperative status: doing well Postoperative status narrative: Patient doing well. Needs to work with PT. Patient is voiding without difficulty and denies chills, nausea, shortness of breath, or chest pain at this time. Postoperative plan narrative: Patient is to continue Aspirin 81mg BID for DVT prophylaxis following discussion with Dr. Caro. IV Vancomycin is to be continued pending results of surgical wound culture. Pain control regimen is to continue as documented as it is currently managing the patient's pain adequate ly. Patient is set to work with PT in the hospital and [facility]. Patient is aware that MRSA precautions are in place for 24-48 hours and he is also aware that he will likely remain in the hospital until early next week. As of this moment the vani castillo will likely be discharged home with antibiotics. Time Spent With Patient Time with patient: 15-24 minutes
[2020-10-01] MEDS: HYDROMORPHONE 4 MG TABLET PO ×3 (10:00→23:26)
--- NOTE | 2020-10-01 11:17 | PT.IIE ---
Current Diagnoses Arthrodesis status (09/30/20) Surgery Performed Operation Date: 09/30/20 16:00 Actual Procedures p Incision and Drainage Wound/Spine - Hallie Amairani Caro MD Surgical History (Last Reviewed 10/01/20 @ 09:47 by Richie Aponte PA-C) History of lumbar spinal fusion (04/02/18) History of thyroidectomy Hx of hernia repair Hx of knee surgery Hx of shoulder surgery S/P lumbar fusion (01/30/17) S/P UPPP (uvulopalatopharyngoplasty) Status post bilateral LASIK surgery Medical History (Last Reviewed 10/01/20 @ 09:47 by Richie Aponte PA-C) AVM (arteriovenous malformation) Hyperlipidemia Kidney stones Papillary thyroid carcinoma PTSD (post-traumatic stress disorder) PVC (premature ventricular contraction) Skin cancer Sleep apnea with use of continuous positive airway pressure (CPAP) Physical Therapy Inpatient Evaluation/Re-Eval M1 PT/OT-IP Prior Functional Status Start: 10/01/20 11:58 Freq: NEEDED Status: Active Protocol: Document 10/01/20 11:58 CGR (Rec: 10/01/20 12:32 CGR [id number]) Medical Review Prior Functional Status Medical History Reviewed Yes Communication Pt is an effective verbal communicator. Mobility and Gait Pt was IND prior to recent back sx on 09/09/20 Activities of Daily Living and IADL's Pt was INd prior to recent back sx 09/09/20 Prior Functional Level (Other details) Pt most recently transfered back to this facility for I&D 09/30/20 after being at acute rehab. Social History Household Members spouse,children Living Arrangements House Number of Floors (Floors) Two Floors Number of Stairs To Enter/Railing? Pt has 4 steps without rails to enter the home then 7 steps with B rails then 7 steps with R rail to the upstairs where the bedroom is located. Home Environment Standard Height Toilet,Tub/ Shower Home Equipment Hand Held Shower,Compliance Paralegal,Sock Aid,Grab Bars In Shower Employment Status Self-Employed Additional Social History Comment Pt lives with his Brenda and his kids. 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 M1 PT/OT-IP Prior Functional Status Start: 10/01/20 13:12 Freq: NEEDED Status: Active Protocol: Document 10/01/20 11:17 AB (Rec: 10/01/20 13:24 AB [email or web address]) Medical Review Prior Functional Status Medical History Reviewed Yes Communication able to make needs known Mobility and Gait Pt was IND prior to recent back sx on 09/09/20 Activities of Daily Living and IADL's Pt was INd prior to recent back sx 09/09/20 Prior Functional Level (Other details) Pt most recently transfered back to this facility for I&D 09/30/20 after being at acute rehab. Social History Household Members spouse,children Living Arrangements House Number of Floors (Floors) Two Floors Number of Stairs To Enter/Railing? Pt has 4 steps without rails to enter the home then 7 steps with B rails then 7 steps with R rail to the upstairs where the bedroom is located. Home Environment Standard Height Toilet,Tub/ Shower Home Equipment Hand Held Shower,Compliance Paralegal,Sock Aid,Grab Bars In Shower Employment Status Self-Employed Additional Social History Comment Pt lives with his Brenda and his kids. 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 M2 PT-IP Current Condition Start: 10/01/20 13:12 Freq: NEEDED Status: Active Protocol: Document 10/01/20 11:17 AB (Rec: 10/01/20 13:24 AB [email or web address]) Physical Therapy Current Condition Current Condition Evaluation Date 10/01/20 Treatment Diagnosis s/p I&D lumbar wound; difficulty in walking Onset Date 09/30/20 Precautions Lumbar Precautions Log Roll,No Twisting,Limit Bending,Lifting Restriction of 10 lbs,Gait Belt above Incisional Area M3 PT-IP Subjective Start: 10/01/20 13:12 Freq: NEEDED Status: Active Protocol: Document 10/01/20 11:17 AB (Rec: 10/01/20 13:24 AB [email or web address]) Subjective Physical Therapy Visit Type Type Initial Evaluation Visit Start Time 11:17 Visit Stop Time 11:46 Total Visit Minutes 31 Number of ENTRY LEVEL ELECTRICAL ENGINEER Visits 0 Physical Therapy Visit Comments Patient Comments pt is agreeable to do PT Therapy Pain Assessment Pain When Pain Assessed At Rest Pain Present Pain Present Pain Reported Location Back Intensity 5 Scale Used Numeric (0 - 10) Pain Management Techniques Distraction,Modification of Treatment,Re-positioning, Timing of Activity with Medications M4 PT-IP Mobility and Gait Start: 10/01/20 13:12 Freq: NEEDED Status: Active Protocol: Document 10/01/20 11:17 AB (Rec: 10/01/20 13:24 AB [email or web address]) PT-Bed Mobility Assessment Supine to Sit Supine to Sit Maximum Assistance Scooting Scooting to Edge of Bed Contact Guard Assistance PT-Transfer Assessment Sit to and From Stand Sit to and from Stand Maximum Assistance,2 Person Assistance,Use of Upper Extremities Equipment Transfer Assistive Device None,Gait Belt Orthotic/Prosthetic Devices or Brace: No Transfers Transfer Destination Chair Transfer Technique Lateral Scoot Transfer Ability Level of Assist Maximum Assistance,2 Person Assistance,Use of Upper Extremities Comments Mobility Comments pt is able to recall his back precautions and log roll bed mobility. completed supine to sit log roll max A with LE movement. able to sit on EOB SBA to CGA. scooted to EOB CGA. completed sit to stand from bed max A x 2 and max cues. required assistance to stabilize BLE and used FWW for support and tolerated ~ 5 sec of standing. pt completed 2 sets of standing. pt completed scoot transfer from bed to chair max A x 2 and cues. PT needs to position and block BLE during transfer. positioned pt on chair. call light and table placed within reach. Pt was seen together with OT due to complexity of pt's condition needing 2 person to stabilize, instruct and assist pt with mobiltiy. PT-Balance Assessment Sitting Balance and Reactions Static Sitting Balance Ability Good Dynamic Sitting Balance Ability Fair Standing Balance and Reactions Static Standing Balance Ability Poor Dynamic Standing Balance Ability Poor Device Used FWW M5 PT-IP Objective Assessments Start: 10/01/20 13:12 Freq: NEEDED Status: Active Protocol: Document 10/01/20 11:17 AB (Rec: 10/01/20 13:24 AB [email or web address]) Orientation Orientation/Cognition Level of Alertness Alert Orientation Name,Place,Situation Language Function Ability No Deficits Noted Safety Awareness Understands Safety Issues Memory Description No Deficits Noted Gross Range of Motion Lower Extremity ROM Assessment Within Functional Limits Strength Lower Extremity Strength Assessment Bilaterally Impaired Comments Strength Comments RLE: 3-/5 LLE: 2-/ to 2/5 Coordination Assessment Gross Coordination Gross Coordination WNL Sensation Assessment Sensation Gross Sensation WNL Muscle Tone Muscle Tone WNL Yes M6 PT-IP Treatment Start: 10/01/20 13:12 Freq: NEEDED Status: Active Protocol: Document 10/01/20 11:17 AB (Rec: 10/01/20 13:24 AB [email or web address]) Physical Therapy Treatment Exercises Exercises Heel Slides Education Education Provided Precautions,Safety M7 PT-IP Assessment and Plan Start: 10/01/20 13:12 Freq: NEEDED Status: Active Protocol: Document 10/01/20 11:17 AB (Rec: 10/01/20 13:24 AB [email or web address]) PT Summary Assessment and Plan Potential Rehabilitation Potential Good Status of Condition at Evaluation Evolving Summary Impairments Pain,ROM,Strength,Balance, Coordination,Sensation,Tone, Cognition,Bed Mobility, Transfers,Gait,Activity Tolerance Assessment Summary pt requiring max A x 2 with scoot transfer. pt was in the hospital last august after back surgery and now back for I&D of back wound. pt plans to go back for acute rehab. pt is motivated. will continue to assess progress. Goals Bed Mobility Goal Standby Assistance Transfer Goal Minimal Assistance Days to Meet Goals 10 Frequency of Treatment Frequency Of Treatment Twice a Day Treatment Plan Physical Therapy Treatment Plan Bed Mobility Training,Transfer Training,Gait Training, Therapeutic Exercise,Balance Retraining,Post Op Education, Discharge Planning,Hot or Cold Pack,Neuromuscular Re-ed, Coordination Retraining,Manual Therapy Other Recommendations and Next Treatment transfers, standing bal/peng Focus Precautions Lumbar Precautions Log Roll,No Twisting,Limit Bending,Lifting Restriction of 10 lbs,Gait Belt above Incisional Area Recommendations To Nursing Amount of Assist Needed Mechanical Lift Discharge Recommendations PT Discharge Recommendations Acute Rehab Transportation Needs at Discharge Wheelchair/Cabulance
--- NOTE | 2020-10-01 11:46 | PC.NURSE ---
Patient is in good spirits today, given 4mg of po dilaudid and this has been helpful for patients pain control. He has a cruz dressing that is cdi, with hemvac putting out minimal bloody drainage. Patient up with two person assist to bedside commode. He has good upper body strength and did well transferring. Patient had an xl bowel movement. Patient just up with physical therapy and is sitting up in the chair.
--- NOTE | 2020-10-01 11:49 | OT.IP.EVAL ---
Current Diagnoses Arthrodesis status (09/30/20) Surgery Performed Operation Date: 09/30/20 16:00 Actual Procedures p Incision and Drainage Wound/Spine - Hallie Caro MD Past Medical History (Last Reviewed 10/01/20 @ 09:47 by Richie Aponte PA-C) AVM (arteriovenous malformation) Hyperlipidemia Kidney stones Papillary thyroid carcinoma PTSD (post-traumatic stress disorder) PVC (premature ventricular contraction) Skin cancer Sleep apnea with use of continuous positive airway pressure (CPAP) Surgical History (Last Reviewed 10/01/20 @ 09:47 by Richie Aponte PA-C) History of lumbar spinal fusion (04/02/18) History of thyroidectomy Hx of hernia repair Hx of knee surgery Hx of shoulder surgery S/P lumbar fusion (01/30/17) S/P UPPP (uvulopalatopharyngoplasty) Status post bilateral LASIK surgery Occupational Therapy Inpatient Evaluation/Re-Eval M1 PT/OT-IP Prior Functional Status Start: 10/01/20 11:58 Freq: NEEDED Status: Active Protocol: Document 10/01/20 11:58 CGR (Rec: 10/01/20 12:32 CGR [id number]) Medical Review Prior Functional Status Medical History Reviewed Yes Communication Pt is an effective verbal communicator. Mobility and Gait Pt was IND prior to recent back sx on 09/09/20 Activities of Daily Living and IADL's Pt was INd prior to recent back sx 09/09/20 Prior Functional Level (Other details) Pt most recently transfered back to this facility for I&D 09/30/20 after being at acute rehab. Social History Household Members spouse,children Living Arrangements House Number of Floors (Floors) Two Floors Number of Stairs To Enter/Railing? Pt has 4 steps without rails to enter the home then 7 steps with B rails then 7 steps with R rail to the upstairs where the bedroom is located. Home Environment Standard Height Toilet,Tub/ Shower Home Equipment Hand Held Shower,Janitorial Manager,Sock Aid,Grab Bars In Shower Employment Status Self-Employed Additional Social History Comment Pt lives with his Brenda and his kids. 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 M2 OT-IP Current Condition Start: 10/01/20 11:58 Freq: Status: Active Protocol: Document 10/01/20 11:58 CGR (Rec: 10/01/20 12:32 CGR [id number]) Occupational Therapy Current Condition Current Condition Evaluation Date 10/01/20 Treatment Diagnosis I&D of back wound 09/09/20 TLIF w/ revision and post op paralysis Diagnosis Onset Date 09/30/20 Post Operative Precautions Lumbar Precautions Log Roll,No Twisting,Limit Bending,Lifting Restriction of 10 lbs,Gait Belt above Incisional Area M3 OT- IP Subjective and Pain Start: 10/01/20 11:58 Freq: Status: Active Protocol: Document 10/01/20 11:58 CGR (Rec: 10/01/20 12:32 CGR [id number]) OT- Subjective Occupational Therapy Visit Type Type Initial Evaluation Visit Start Time 11:31 Visit Stop Time 11:49 Total Visit Minutes 18 Notes co-treat with P.T. OT Pain Assessment Pain When Pain Assessed After Treatment Pain Present Pain Present Pain Reported Location Back Intensity 4 Scale Used Numeric (0 - 10) Management Techniques Modification of Treatment,Re- positioning M4 OT- IP ADL's Start: 10/01/20 11:58 Freq: Status: Active Protocol: Document 10/01/20 11:58 CGR (Rec: 10/01/20 12:32 CGR [id number]) OT [id number] Comments OT Self-Feeding Comments Not meal time but pt is able to drink from a cup with straw without difficulty OT ADL-Grooming Comments OT Grooming Comments Pt declined, states he performed earlier this AM OT ADL-Oral Care Comments Oral Care Comments Pt declined, states he performed earlier this AM OT ADL-Dressing Comments OT Dressing Comments not performed OT ADL-Toileting Comments OT Toileting Comments not performed OT ADL-Bathing Comments OT Bathing Comments not performed M5 OT- IP IADL's Start: 10/01/20 11:58 Freq: Status: Active Protocol: Document 10/01/20 11:58 CGR (Rec: 10/01/20 12:32 CGR [id number]) OT-Instrumental Activities of Daily Living Deficits IADL Deficits Identified No Deficits Home Safety Awareness Awareness of Need for Assistance at Home Good Awareness Ability to Problem Solve Emergency Able to Problem Solve Situations Home Safety Comments Pt with a recent significant change to his mobility level. M6 OT- IP Functional Cognition Start: 10/01/20 11:58 Freq: Status: Active Protocol: Document 10/01/20 11:58 CGR (Rec: 10/01/20 12:32 CGR [id number]) Cognitive Factors Limiting Selfcare Function Cognitive Ability Level of Alertness Alert Patient Orientation Name,Age,Birthday,Month,Date, Year,Day of Week,Place, Situation Attention Span Ability Capable of Focused Attention, Capable of Sustained Attention Ability to Follow Commands Able to Follow Multi-Step Commands Memory Description No Deficits Noted Safety Awareness No Deficits Noted Problem Solving Ability No deficits Noted OT- Vision and Hearing OT- Hearing Assessment OT- Hearing Assessment WFL OT- Vision Assessment Visual Acuity WFL Visual Attentiveness WFL Occular Pursuits WFL Visual Convergence WFL M7 OT- IP Mobility and Balance Start: 10/01/20 11:58 Freq: Status: Active Protocol: Document 10/01/20 11:58 CGR (Rec: 10/01/20 12:32 CGR [id number]) OT- Bed Mobility Assessment Rolling Type of Rolling Log Rolling,Roll to Left Level of Assistance Maximum Assistance,1 Person Assistance Supine to Sit Supine to Sit Assist Maximum Assistance,1 Person Assistance Scooting Scooting to Edge of Bed Contact Guard Assistance OT-Transfer Assessment Sit to and From Stand Sit to and from Stand Maximum Assistance,2 Person Assistance Transfers Transfer Ability Moderate Assistance,Maximum Assistance,2 Person Assistance Technique Transfer Destination Bed,Chair Transfer Technique Lateral Scoot Devices Transfer Assistive Devices Gait Belt,Front Wheeled Walker Comments Mobility Comments Pt performed 2 sit to stand with assist to get into standing and maintaining knee stability once up. Pt then scooted from bed to chair. Pt left sitting up in chair at end of session. OT- Gait Assessment Comments Gait Ability Comments Pt is unable to perform OT- Balance Assessment Sitting Balance and Reactions Static Sitting Balance Ability Fair Dynamic Sitting Balance Ability Fair Standing Balance and Reactions Static Standing Balance Ability Poor Dynamic Standing Balance Ability Poor M8 OT- IP Objective Assessments Start: 10/01/20 11:58 Freq: Status: Active Protocol: Document 10/01/20 11:58 CGR (Rec: 10/01/20 12:32 CGR [id number]) OT Gross Range of Motion Upper Extremity Range of Motion Assessment Within Functional Limits OT Strength Upper Extremity Strength Assessment Within Functional Limits Comments Strength Comments 5+/5 OT- Coordination Assessment Upper Extremity Finger to Nose Test Within Functional Limits Finger Tapping Test Within Functional Limits OT-Muscle Tone Assessment Muscle Tone WNL Yes OT Sensation Assessment Edema Edema Absent M9 OT- IP Assessment and Plan Start: 10/01/20 11:58 Freq: Status: Active Protocol: Document 10/01/20 11:58 CGR (Rec: 10/01/20 12:32 CGR [id number]) OT Summary Assessment and Plan Potential Rehabilitation Potential Excellent Analytic Complexity at Evaluation Low Summary OT Impairments Pain,Balance,Functional Mobility,Self-Feeding,Grooming ,Dressing,Toileting,Bathing, Toilet Transfers,Shower Transfers Progress Towards Goals Progressing Toward Goals Assessment Summary Pt presents as a low complexity evaluation s/p admit for I&D after recent 06/20 T12-S1 TLIF with revision and post op paralysis . Pt is progressing well and states that his pain is better controlled at this time. Pt will continue to benefit from therapy services. Per CM, acute rehab was planning for [place] to transfer to a [place] inpatient acute rehab specific to spinal injuries. Pt is likely to progress well with continued therapy services and is a motivated participant. Goals Grooming Goal Independent Dressing Goal Independent Toileting Goal Independent Bathing Goal Independent Toilet Transfer Goal Independent Shower Transfer Goal Independent Days to Meet Goals 30 Frequency of Treatment Frequency Of Treatment Twice a Day Treatment Plan OT Treatment Plan ADL Training,Functional Mobility,Patient/Family Education,Discharge Planning Other Treatment Recommendations and Next ADLs seated in chair at sink. Treatment Focus BSC transfer Discharge Recommendations OT Discharge Recommendations Acute Rehab Transportation Needs at Discharge Wheelchair/Cabulance
--- NOTE | 2020-10-01 13:55 | PT.IPTN ---
Current Diagnoses Arthrodesis status (09/30/20) Surgery Performed Operation Date: 09/30/20 16:00 Actual Procedures p Incision and Drainage Wound/Spine - Hallie Amairani Caro MD Physical Therapy Treatment Note M2 PT-IP Current Condition Start: 10/01/20 13:12 Freq: NEEDED Status: Active Protocol: Document 10/01/20 11:17 AB (Rec: 10/01/20 13:24 AB [id number]) Physical Therapy Current Condition Current Condition Evaluation Date 10/01/20 Treatment Diagnosis s/p I&D lumbar wound; difficulty in walking Onset Date 09/30/20 Precautions Lumbar Precautions Log Roll,No Twisting,Limit Bending,Lifting Restriction of 10 lbs,Gait Belt above Incisional Area M3 PT-IP Subjective Start: 10/01/20 13:12 Freq: NEEDED Status: Active Protocol: Document 10/01/20 13:55 AB (Rec: 10/01/20 17:18 AB [id number]) Subjective Physical Therapy Visit Type Type Treatment Note Visit Start Time 13:55 Visit Stop Time 14:31 Total Visit Minutes 36 Number of LVN Visits 0 Physical Therapy Visit Comments Patient Comments pt is agreeable to do PT Therapy Pain Assessment Pain When Pain Assessed At Rest Location Back Scale Used pain scale not stated M4 PT-IP Mobility and Gait Start: 10/01/20 13:12 Freq: NEEDED Status: Active Protocol: Document 10/01/20 13:55 AB (Rec: 10/01/20 17:18 AB [id number]) PT-Transfer Assessment Equipment Transfer Assistive Device Mechanical Lift Orthotic/Prosthetic Devices or Brace: No Transfer Ability Level of Assist Maximum Assistance,2 Person Assistance,Use of Upper Extremities Comments Mobility Comments educated pt on advantages of using sit to stand machine vs sharon lift and pt is agreed for PT to assess. Assessed pt's appropriateness and safety with use of sit <>stand machine. positioned sit to stand machine and pt tolerated standing on sit to stand machine for ~ 15 sec and cued for quads activation and upright posture. Pt tolerated well and without adverse reactions. pt sat back on chair and agreed to get up again and tolerated standing with sit to stand machine and transfer to bed with use of machine. caregiver training conducted with NAC for use of sit to stand machine with pt for transfers and completed transfer back to chair. pt then requested to use the bedside commode and completed anther transfer to bedside commode with NAC also assisting with set up. Left pt on the bedside commode with NAC. M5 PT-IP Objective Assessments Start: 10/01/20 13:12 Freq: NEEDED Status: Active Protocol: Document 10/01/20 11:17 AB (Rec: 10/01/20 13:24 AB [id number]) Orientation Orientation/Cognition Level of Alertness Alert Orientation Name,Place,Situation Language Function Ability No Deficits Noted Safety Awareness Understands Safety Issues Memory Description No Deficits Noted Gross Range of Motion Lower Extremity ROM Assessment Within Functional Limits Strength Lower Extremity Strength Assessment Bilaterally Impaired Comments Strength Comments RLE: 3-/5 LLE: 2-/ to 2/5 Coordination Assessment Gross Coordination Gross Coordination WNL Sensation Assessment Sensation Gross Sensation WNL Muscle Tone Muscle Tone WNL Yes M6 PT-IP Treatment Start: 10/01/20 13:12 Freq: NEEDED Status: Active Protocol: Document 10/01/20 13:55 AB (Rec: 10/01/20 17:18 AB [id number]) Physical Therapy Treatment Education Education Provided Safety M7 PT-IP Assessment and Plan Start: 10/01/20 13:12 Freq: NEEDED Status: Active Protocol: Document 10/01/20 13:55 AB (Rec: 10/01/20 17:18 AB [id number]) PT Summary Assessment and Plan Potential Rehabilitation Potential Good Summary Impairments Pain,ROM,Strength,Balance, Coordination,Sensation,Tone, Cognition,Bed Mobility, Transfers,Gait,Activity Tolerance Progress Towards Goals Slow Progress due to Medical Issues Assessment Summary assessed safety with use of sit to stand machine with pt and pt tolerated well. recommending use of sit to stand machine for pt transfers with nursing instead of sharon lift transfer. pt is agreeable. PT to continue to work on standing balance/ tolerance, LE strength and transfers. pt will benefit from acute rehab. Goals Bed Mobility Goal Standby Assistance Transfer Goal Minimal Assistance Other Goals improve lateral scoot transfer min A Days to Meet Goals 10 Frequency of Treatment Frequency Of Treatment Twice a Day Treatment Plan Physical Therapy Treatment Plan Bed Mobility Training,Transfer Training,Gait Training, Therapeutic Exercise,Balance Retraining,Post Op Education, Discharge Planning,Hot or Cold Pack,Neuromuscular Re-ed, Coordination Retraining,Manual Therapy Other Recommendations and Next Treatment transfers, standing bal/peng Focus Precautions Lumbar Precautions Log Roll,No Twisting,Limit Bending,Lifting Restriction of 10 lbs,Gait Belt above Incisional Area Recommendations To Nursing Amount of Assist Needed Power Sit-Stand Discharge Recommendations PT Discharge Recommendations Acute Rehab Transportation Needs at Discharge Wheelchair/Cabulance
--- NOTE | 2020-10-01 14:30 | OT.IP.TRT ---
Current Diagnoses Arthrodesis status (09/30/20) Surgery Performed Operation Date: 09/30/20 16:00 Actual Procedures p Incision and Drainage Wound/Spine - Hallie Amairani Caro MD Occupational Therapy Treatment Note M2 OT-IP Current Condition Start: 10/01/20 11:58 Freq: Status: Active Protocol: Document 10/01/20 11:58 CGR (Rec: 10/01/20 12:32 CGR [id number]) Occupational Therapy Current Condition Current Condition Evaluation Date 10/01/20 Treatment Diagnosis I&D of back wound 09/09/20 TLIF w/ revision and post op paralysis Diagnosis Onset Date 09/30/20 Post Operative Precautions Lumbar Precautions Log Roll,No Twisting,Limit Bending,Lifting Restriction of 10 lbs,Gait Belt above Incisional Area M3 OT- IP Subjective and Pain Start: 10/01/20 11:58 Freq: Status: Active Protocol: Document 10/01/20 16:10 CGR (Rec: 10/01/20 16:17 CGR [id number]) OT- Subjective Occupational Therapy Visit Type Type Progress Note Visit Start Time 14:02 Visit Stop Time 14:30 Total Visit Minutes 28 Notes cotreat with p.t. M4 OT- IP ADL's Start: 10/01/20 11:58 Freq: Status: Active Protocol: Document 10/01/20 11:58 CGR (Rec: 10/01/20 12:32 CGR [id number]) OT [id number] Comments OT Self-Feeding Comments Not meal time but pt is able to drink from a cup with straw without difficulty OT ADL-Grooming Comments OT Grooming Comments Pt declined, states he performed earlier this AM OT ADL-Oral Care Comments Oral Care Comments Pt declined, states he performed earlier this AM OT ADL-Dressing Comments OT Dressing Comments not performed OT ADL-Toileting Comments OT Toileting Comments not performed OT ADL-Bathing Comments OT Bathing Comments not performed M5 OT- IP IADL's Start: 10/01/20 11:58 Freq: Status: Active Protocol: Document 10/01/20 11:58 CGR (Rec: 10/01/20 12:32 CGR [id number]) OT-Instrumental Activities of Daily Living Deficits IADL Deficits Identified No Deficits Home Safety Awareness Awareness of Need for Assistance at Home Good Awareness Ability to Problem Solve Emergency Able to Problem Solve Situations Home Safety Comments Pt with a recent significant change to his mobility level. M6 OT- IP Functional Cognition Start: 10/01/20 11:58 Freq: Status: Active Protocol: Document 10/01/20 11:58 CGR (Rec: 10/01/20 12:32 CGR [id number]) Cognitive Factors Limiting Selfcare Function Cognitive Ability Level of Alertness Alert Patient Orientation Name,Age,Birthday,Month,Date, Year,Day of Week,Place, Situation Attention Span Ability Capable of Focused Attention, Capable of Sustained Attention Ability to Follow Commands Able to Follow Multi-Step Commands Memory Description No Deficits Noted Safety Awareness No Deficits Noted Problem Solving Ability No deficits Noted OT- Vision and Hearing OT- Hearing Assessment OT- Hearing Assessment WFL OT- Vision Assessment Visual Acuity WFL Visual Attentiveness WFL Occular Pursuits WFL Visual Convergence WFL M7 OT- IP Mobility and Balance Start: 10/01/20 11:58 Freq: Status: Active Protocol: Document 10/01/20 16:10 CGR (Rec: 10/01/20 16:17 CGR [id number]) OT-Transfer Assessment Sit to and From Stand Sit to and from Stand Total Assistance,2 Person Assistance Transfers Transfer Ability Total Assistance,2 Person Assistance Technique Transfer Destination Bed,Bedside Commode,Chair Transfer Technique sit to stand lift Devices Transfer Assistive Devices Mechanical Lift Comments Mobility Comments Sit to stand lift used today for transfer from chair x2, bed x2 and then to the [facility]. Pt educated on proper placement of the harness and how to attach the harness to the sit to stand machine for increased self reliance with transfers in this setting. Pt needed 2 person assist for placement of his feet and alignment of his knees with sit to stand. OT- Balance Assessment Sitting Balance and Reactions Static Sitting Balance Ability Fair Dynamic Sitting Balance Ability Fair M8 OT- IP Objective Assessments Start: 10/01/20 11:58 Freq: Status: Active Protocol: Document 10/01/20 11:58 CGR (Rec: 10/01/20 12:32 CGR [id number]) OT Gross Range of Motion Upper Extremity Range of Motion Assessment Within Functional Limits OT Strength Upper Extremity Strength Assessment Within Functional Limits Comments Strength Comments 5+/5 OT- Coordination Assessment Upper Extremity Finger to Nose Test Within Functional Limits Finger Tapping Test Within Functional Limits OT-Muscle Tone Assessment Muscle Tone WNL Yes OT Sensation Assessment Edema Edema Absent M9 OT- IP Assessment and Plan Start: 10/01/20 11:58 Freq: Status: Active Protocol: Document 10/01/20 16:10 CGR (Rec: 10/01/20 16:17 CGR [id number]) OT Summary Assessment and Plan Potential Rehabilitation Potential Excellent Analytic Complexity at Evaluation Low Summary OT Impairments Pain,Balance,Functional Mobility,Self-Feeding,Grooming ,Dressing,Toileting,Bathing, Toilet Transfers,Shower Transfers Progress Towards Goals Progressing Toward Goals Assessment Summary Pt presents as a low complexity evaluation s/p admit for I&D after recent 06/20 T12-S1 TLIF with revision and post op paralysis . Pt is progressing well and states that his pain is better controlled at this time. Pt will continue to benefit from therapy services. Per CM, acute rehab was planning for pt to transfer to a [place] inpatient acute rehab specific to spinal injuries. Pt is likely to progress well with continued therapy services and is a motivated participant. Today's PM session included assessment of the sit to stand machine as an option for easier transfer with nursing staff and education on the use of the machine. Goals Grooming Goal Independent Dressing Goal Independent Toileting Goal Independent Bathing Goal Independent Toilet Transfer Goal Independent Shower Transfer Goal Independent Days to Meet Goals 30 Frequency of Treatment Frequency Of Treatment Twice a Day Treatment Plan OT Treatment Plan ADL Training,Functional Mobility,Patient/Family Education,Discharge Planning Other Treatment Recommendations and Next ADLs seated in chair at sink. Treatment Focus BSC transfer Discharge Recommendations OT Discharge Recommendations Acute Rehab Transportation Needs at Discharge Wheelchair/Cabulance
[2020-10-01 17:29] LABS: Vancomycin Trough 7.4 ug/mL (10-20)
[2020-10-01] MEDS: SODIUM CHLORIDE 0.9% 250 ML 21 ML IV (18:13)
[2020-10-01] MEDS: VANCOMYCIN 1,500 MG/300 ML PIGGYBACK 200 MG IV (18:13)
[2020-10-01] MEDS: NORTRIPTYLINE HCL 25 MG CAPSULE PO (20:25)
[2020-10-01] MEDS: ATORVASTATIN 20 MG TABLET 40 MG PO (20:25)
[2020-10-01] MEDS: ZOLPIDEM 5 MG TABLET PO (23:18)
[2020-10-02 00:09] VITALS: BP 123/81; PULSE 79; RESP 16; TEMP 36.4; O2SAT 96
--- NOTE | 2020-10-02 00:18 | PC.NURSE ---
patient is alert and oriented. Breath sounds CTA with RA sat of 96%; placed on home CPAP for sleep. HRR. Denies nausea. BT present and is passing flatus. Using urinal to urinate; denies dysuria, frequency or urgency. Is able to move self in bed. Gait not assessed at this time. Is unable to move bilateral legs but is moving both feet minimally tonight. Left foot movement is new since this recent surgery as prior to that could not move left foot. Denies numbness or tingling and extremities are warm to touch. PP palpable but weaker in left LE. JUAN dressing to back intact with several small spots of dark red/brown drainage; functioning. Hemovac is intact and compressed. Complains of 7/10 sharp pain in back and was medicated with Dilaudid but declines ice pack. Is able to turn self in bed. Wearing bilateral calf SCD's. Requested/medicated with Ambien for sleep. Remains on contact isolation as wound culture was positive for gm + cocci on gram stain. Fall risk score is high and bed alarm is activated.
[2020-10-02] MEDS: VANCOMYCIN 1,500 MG/300 ML PIGGYBACK 200 MG IV ×2 (02:16→18:28)
[2020-10-02] MEDS: SODIUM CHLORIDE 0.9% FLUSH 10 ML IV ×3 (02:16→20:22)
[2020-10-02 05:20] VITALS: BP 128/71; PULSE 65; RESP 16; TEMP 35.9; O2SAT 96
[2020-10-02] MEDS: HYDROMORPHONE 4 MG TABLET PO ×4 (06:20→17:32)
[2020-10-02] MEDS: PANTOPRAZOLE 20 MG TABLET PO (06:20)
[2020-10-02 08:14] VITALS: BP 128/91; PULSE 76; RESP 16; TEMP 36.8; O2SAT 97
[2020-10-02] MEDS: OXYCODONE ER 10 MG TAB PO ×2 (08:47→20:22)
[2020-10-02] MEDS: DULOXETINE 30 MG CAPSULE PO ×2 (08:48→20:22)
[2020-10-02] MEDS: THYROID, PORK 30 MG TABLET 120 MG PO (08:48)
[2020-10-02] MEDS: DOCUSATE 100 MG CAPSULE PO ×2 (08:48→20:21)
[2020-10-02] MEDS: polyethylene glycoL 3350 17 GM POWD.PACK PO (08:48)
[2020-10-02] MEDS: PSYLLIUM HUSK 1 PACKET PO (08:48)
[2020-10-02] MEDS: CHOLECALCIFEROL (VITAMIN D3) 1,000 UNIT TABLET 1000 UNIT PO (08:48)
[2020-10-02] MEDS: BETHANECHOL CHLORIDE 5 MG TABLET 25 MG PO ×3 (08:48→20:21)
[2020-10-02] MEDS: ASPIRIN EC 81 MG TABLET PO ×2 (08:49→20:21)
[2020-10-02] MEDS: LORATADINE 10 MG TABLET PO (08:49)
[2020-10-02] MEDS: GABAPENTIN 600 MG TABLET PO ×3 (08:49→20:22)
[2020-10-02] MEDS: MULTIVITAMIN 1 TABLET 1 TAB PO (08:49)
[2020-10-02] MEDS: ACETAMINOPHEN 325 MG TABLET 975 MG PO ×3 (08:49→20:21)
[2020-10-02] MEDS: VANCOMYCIN 1,500 MG/300 ML PIGGYBACK 150 MG IV (09:13)
--- NOTE | 2020-10-02 11:16 | CM.DANOTE ---
Discharge Planning/Care Management DCP: assessment Case received, EMR reviewed and met with pt. Introduced self and role. Pt is a 54 year old male who has been in rehab at [facility] INPT unit in [facility]/see template below. He admitted 09/[address] Cody Caro who took pt to the OR for an I&D of his spine. Cultures pending, pt on IV antibiotics. OT and PT are working with him. Pt confirms that he understands that he is going to go directly to the [facility] unit and he and his are very much in favor of this plan. He does not know the details of this but the social services Julia at [facility] has been working on this plan. He is unsure where the facility is located but notes that today he got a text on his phone from the [facility] saying he has an appt with them October 04 at 3PM and he is to arrive 15 minutes early. He says this is confusing as he understood he was to go directly from the hospital to the [facility]PT unit once a bed was available. Called [facility]: [phone]. He explained that their social services Julia: direct line: [phone] had been working with Nurse HEYDI Mcmanus: [phone] at the [facility] on this [facility]PT plan and he understood that a bed was anticipated Saturday or Saturday (10/04 or 10/05), that pt had been accepted but that [facility] still needed more information. He also said his understanding was that the [facility] would send an ambulance to transport pt to the facility once all was in place. [facility] says his team will continue to partner with the team to get pt to his next destination and that he would talk with Julia when she came to work tomorrow. He also provides his direct office line for tomorrow: [phone]. Much is left to sort out and am limited by the holiday weekend staffing at both of the INPT rehab units. Have left vm now for Julia as well as [place] with request to call the the DCP: [phone] line to discuss with the DCP team who will be here at tomorrow. Did ask about option of pt returning to [facility] when he is ready for d/c if all is not in place with the [facility]. Is also unclear if this new infection will alter the plan. No definitive answer yet on this. Will update pt now and he has been assured that the team as well as the [facility] team will be working in collaboration to transition him to the next appropriate setting. Have not spoken with Dr. Caro or rounding partners. It would be helpful to understand the plan from the orthopedic perspective. CM Discharge Assessment Start: 10/02/20 11:12 Freq: Status: Active Protocol: Document 10/02/20 11:12 ITV (Rec: 10/02/20 11:16 ITV [id number]) Discharge Planning Assessment Advance Directives? Yes Advance Directives on File No History Provided By Patient,Medical Record Has Patient been admitted in last 30 Yes days? Comment Pt admitted to 09/09 with a d/c 09/15 to [facility] INPT Rehab unit after spinal surgery: Dr. [place]: surgeon Prior Living Arrangements House Household Members spouse,children Independent with ADL's No Is patient alert and oriented? Yes Discharge Plan Inpatient Rehab Unit Referrals Initiated Other Whiteboard Updated in Patient Room with Yes name and ext. # of Relocation Counselor
--- NOTE | 2020-10-02 12:01 | PC.NURSE ---
Day shift: Pt OOB and into WC w/ PT/OT at approx 1150. He tolerated well. Waffle cushion under him for comfort. Dr Caro in room as well at this time. Will continue w/ plan of care. Wound culture final is pending at this time as well. Remains on contact precautions.
--- NOTE | 2020-10-02 12:10 | PT.IPTN ---
Current Diagnoses Infection following a procedure, deep incisional surgical site, initial encounter (09/30/20) Surgery Performed Operation Date: 09/30/20 16:00 Actual Procedures p Incision and Drainage Wound/Spine - Hallie Amairani Caro MD Physical Therapy Treatment Note M2 PT-IP Current Condition Start: 10/01/20 13:12 Freq: NEEDED Status: Active Protocol: Document 10/01/20 11:17 AB (Rec: 10/01/20 13:24 AB [id number]) Physical Therapy Current Condition Current Condition Evaluation Date 10/01/20 Treatment Diagnosis s/p I&D lumbar wound; difficulty in walking Onset Date 09/30/20 Precautions Lumbar Precautions Log Roll,No Twisting,Limit Bending,Lifting Restriction of 10 lbs,Gait Belt above Incisional Area M3 PT-IP Subjective Start: 10/01/20 13:12 Freq: NEEDED Status: Active Protocol: Document 10/02/20 12:10 AW (Rec: 10/02/20 12:40 AW [id number]) Subjective Physical Therapy Visit Type Type Treatment Note Visit Start Time 11:40 Visit Stop Time 12:10 Total Visit Minutes 30 Notes Co-tx with OT due to pt's complex needs. 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 Physical Therapy Visit Comments Patient Comments pt is agreeable to do PT Therapy Pain Assessment Pain When Pain Assessed At Rest Pain Present Pain Present Denied Pain M4 PT-IP Mobility and Gait Start: 10/01/20 13:12 Freq: NEEDED Status: Active Protocol: Document 10/02/20 12:10 AW (Rec: 10/02/20 12:40 AW [id number]) PT-Bed Mobility Assessment Supine to Sit Supine to Sit Maximum Assistance Scooting Scooting to Edge of Bed Contact Guard Assistance PT-Transfer Assessment Equipment Transfer Assistive Device None,Gait Belt Orthotic/Prosthetic Devices or Brace: No Transfers Transfer Destination Wheelchair,Bedside Commode Transfer Technique Squat Pivot Transfer Ability Level of Assist Minimal Assistance,2 Person Assistance,Use of Upper Extremities Comments Mobility Comments Pt was lying in the bed as PT and OT arrived. He moved his BLE toward the left side of the bed but needed max assist to sit up on EOB via log roll and SL to sit. Pt was able to sit EOB with fair trunk control. PT and OT set up w/c with arms removed on pt's right side. Educated pt that wheel lock arms extend above the seat height so he would need to clear the wheel lock during transfer. Pt showed good safety awareness, locking the brakes and positioning his legs before scooting further toward EOB and then reaching across with his right arm to squat pivot transfer to the chair. Pt was able to lift his BLE on to the foot rests but needed assist to flip the pedals down and to reposition. Pt then completed a similar transfer to the [facility], again going to his right side . OT stabilized the commode and provided assist from behind as PT assisted with squat pivot from the front. Pt then requested to reposition to face the television. He transferred to the left going to the w/c and then to the left going to the commode. Pt was left with call light and all needs on reach. He agreed to call for transfer assist from nursing when ready to get back to the w/c. M5 PT-IP Objective Assessments Start: 10/01/20 13:12 Freq: NEEDED Status: Active Protocol: Document 10/01/20 11:17 AB (Rec: 10/01/20 13:24 AB [id number]) Orientation Orientation/Cognition Level of Alertness Alert Orientation Name,Place,Situation Language Function Ability No Deficits Noted Safety Awareness Understands Safety Issues Memory Description No Deficits Noted Gross Range of Motion Lower Extremity ROM Assessment Within Functional Limits Strength Lower Extremity Strength Assessment Bilaterally Impaired Comments Strength Comments RLE: 3-/5 LLE: 2-/ to 2/5 Coordination Assessment Gross Coordination Gross Coordination WNL Sensation Assessment Sensation Gross Sensation WNL Muscle Tone Muscle Tone WNL Yes M6 PT-IP Treatment Start: 10/01/20 13:12 Freq: NEEDED Status: Active Protocol: Document 10/02/20 12:10 AW (Rec: 10/02/20 12:40 AW [id number]) Physical Therapy Treatment Education Education Provided Precautions,Safety M7 PT-IP Assessment and Plan Start: 10/01/20 13:12 Freq: NEEDED Status: Active Protocol: Document 10/02/20 12:10 AW (Rec: 10/02/20 12:40 AW [id number]) PT Summary Assessment and Plan Potential Rehabilitation Potential Good Summary Impairments Pain,ROM,Strength,Balance, Coordination,Sensation,Tone, Cognition,Bed Mobility, Transfers,Gait,Activity Tolerance Progress Towards Goals Slow Progress due to Medical Issues Assessment Summary Pt demonstrated safe squat pivot transfers to [facility] and wheelchair going to either side with min assist x 2. Pt will be able to transfer with nursing. He shows excellent safety awareness, positioning his legs appropriately and locking brakes. Will continue to work on transfers, standing tolerance, and strengthening. Goals Bed Mobility Goal Standby Assistance Transfer Goal Minimal Assistance Other Goals improve lateral scoot transfer min A Days to Meet Goals 10 Frequency of Treatment Frequency Of Treatment Twice a Day Treatment Plan Physical Therapy Treatment Plan Bed Mobility Training,Transfer Training,Gait Training, Therapeutic Exercise,Balance Retraining,Post Op Education, Discharge Planning,Hot or Cold Pack,Neuromuscular Re-ed, Coordination Retraining,Manual Therapy Other Recommendations and Next Treatment transfers, standing bal/peng Focus Precautions Lumbar Precautions Log Roll,No Twisting,Limit Bending,Lifting Restriction of 10 lbs,Gait Belt above Incisional Area Recommendations To Nursing Amount of Assist Needed 2 Person Assist,Power Sit- Stand Discharge Recommendations PT Discharge Recommendations Acute Rehab Transportation Needs at Discharge Wheelchair/Cabulance
--- NOTE | 2020-10-02 12:11 | OT.IP.TRT ---
Current Diagnoses Infection following a procedure, deep incisional surgical site, initial encounter (09/30/20) Surgery Performed Operation Date: 09/30/20 16:00 Actual Procedures p Incision and Drainage Wound/Spine - Hallie Amairani Caro MD Occupational Therapy Treatment Note M2 OT-IP Current Condition Start: 10/01/20 11:58 Freq: Status: Active Protocol: Document 10/01/20 11:58 CGR (Rec: 10/01/20 12:32 CGR [id number]) Occupational Therapy Current Condition Current Condition Evaluation Date 10/01/20 Treatment Diagnosis I&D of back wound 09/09/20 TLIF w/ revision and post op paralysis Diagnosis Onset Date 09/30/20 Post Operative Precautions Lumbar Precautions Log Roll,No Twisting,Limit Bending,Lifting Restriction of 10 lbs,Gait Belt above Incisional Area M3 OT- IP Subjective and Pain Start: 10/01/20 11:58 Freq: Status: Active Protocol: Document 10/02/20 15:49 CGR (Rec: 10/02/20 16:00 CGR [id number]) OT- Subjective Occupational Therapy Visit Type Type Progress Note Visit Start Time 11:18 Visit Stop Time 12:11 Total Visit Minutes 53 Notes Partial co-treat with P.T. Of note, some time listed was used for searching out w/c with removalble arms and drop arm commode. Charge is for 3 units because of this none face to face time. M4 OT- IP ADL's Start: 10/01/20 11:58 Freq: Status: Active Protocol: Document 10/01/20 11:58 CGR (Rec: 10/01/20 12:32 CGR [id number]) OT [id number] Comments OT Self-Feeding Comments Not meal time but pt is able to drink from a cup with straw without difficulty OT ADL-Grooming Comments OT Grooming Comments Pt declined, states he performed earlier this AM OT ADL-Oral Care Comments Oral Care Comments Pt declined, states he performed earlier this AM OT ADL-Dressing Comments OT Dressing Comments not performed OT ADL-Toileting Comments OT Toileting Comments not performed OT ADL-Bathing Comments OT Bathing Comments not performed M5 OT- IP IADL's Start: 10/01/20 11:58 Freq: Status: Active Protocol: Document 10/01/20 11:58 CGR (Rec: 10/01/20 12:32 CGR [id number]) OT-Instrumental Activities of Daily Living Deficits IADL Deficits Identified No Deficits Home Safety Awareness Awareness of Need for Assistance at Home Good Awareness Ability to Problem Solve Emergency Able to Problem Solve Situations Home Safety Comments Pt with a recent significant change to his mobility level. M6 OT- IP Functional Cognition Start: 10/01/20 11:58 Freq: Status: Active Protocol: Document 10/01/20 11:58 CGR (Rec: 10/01/20 12:32 CGR [id number]) Cognitive Factors Limiting Selfcare Function Cognitive Ability Level of Alertness Alert Patient Orientation Name,Age,Birthday,Month,Date, Year,Day of Week,Place, Situation Attention Span Ability Capable of Focused Attention, Capable of Sustained Attention Ability to Follow Commands Able to Follow Multi-Step Commands Memory Description No Deficits Noted Safety Awareness No Deficits Noted Problem Solving Ability No deficits Noted OT- Vision and Hearing OT- Hearing Assessment OT- Hearing Assessment WFL OT- Vision Assessment Visual Acuity WFL Visual Attentiveness WFL Occular Pursuits WFL Visual Convergence WFL M7 OT- IP Mobility and Balance Start: 10/01/20 11:58 Freq: Status: Active Protocol: Document 10/02/20 15:49 CGR (Rec: 10/02/20 16:00 CGR [id number]) OT- Bed Mobility Assessment Rolling Type of Rolling Log Rolling,Roll to Left Level of Assistance Maximum Assistance,1 Person Assistance,Head of Bed Elevated,Bedrails Supine to Sit Supine to Sit Assist Maximum Assistance,1 Person Assistance,Head of Bed Elevated,Bedrails Scooting Scooting to Edge of Bed Contact Guard Assistance OT-Transfer Assessment Transfers Transfer Ability Minimal Assistance,2 Person Assistance Technique Transfer Destination Bed,Bedside Commode,Wheelchair Transfer Technique Lateral Scoot Devices Transfer Assistive Devices Gait Belt Comments Mobility Comments Pt transfered from bed > w/c > BSC > w/c > BSC. Pt then requested to stay on BSC for possible BM. Pt performed transfers with good instruction to therapist of what he needed for transfers and good set up. Excellent safety demonstrated throguhout . OT- Balance Assessment Sitting Balance and Reactions Static Sitting Balance Ability Fair Dynamic Sitting Balance Ability Fair M8 OT- IP Objective Assessments Start: 10/01/20 11:58 Freq: Status: Active Protocol: Document 10/01/20 11:58 CGR (Rec: 10/01/20 12:32 CGR [id number]) OT Gross Range of Motion Upper Extremity Range of Motion Assessment Within Functional Limits OT Strength Upper Extremity Strength Assessment Within Functional Limits Comments Strength Comments 5+/5 OT- Coordination Assessment Upper Extremity Finger to Nose Test Within Functional Limits Finger Tapping Test Within Functional Limits OT-Muscle Tone Assessment Muscle Tone WNL Yes OT Sensation Assessment Edema Edema Absent M9 OT- IP Assessment and Plan Start: 10/01/20 11:58 Freq: Status: Active Protocol: Document 10/02/20 15:49 CGR (Rec: 10/02/20 16:00 CGR [id number]) OT Summary Assessment and Plan Potential Rehabilitation Potential Excellent Analytic Complexity at Evaluation Low Summary OT Impairments Pain,Balance,Functional Mobility,Self-Feeding,Grooming ,Dressing,Toileting,Bathing, Toilet Transfers,Shower Transfers Progress Towards Goals Progressing Toward Goals Assessment Summary Pt presents as a low complexity evaluation s/p admit for I&D after recent 06/20 T12-S1 TLIF with revision and post op paralysis . Pt is progressing well with transfers. Removable arm w/c and drop arm commode obtained today for patients use. Pt demonstrates good safety and ability to set up transfers well. Pt will continue to benefit from OT services. Goals Grooming Goal Independent Dressing Goal Independent Toileting Goal Independent Bathing Goal Independent Toilet Transfer Goal Independent Shower Transfer Goal Independent Days to Meet Goals 30 Frequency of Treatment Frequency Of Treatment Twice a Day Treatment Plan OT Treatment Plan ADL Training,Functional Mobility,Patient/Family Education,Discharge Planning Other Treatment Recommendations and Next shower Treatment Focus Discharge Recommendations OT Discharge Recommendations Acute Rehab Other Discharge Recommendations Plan is for return to [facility]) Transportation Needs at Discharge Wheelchair/Cabulance
--- NOTE | 2020-10-02 12:31 | P.PN_ITS ---
Subjective Subjective Date Patient Seen: 10/02/20 Time Patient Seen: 12:38 Interval history: Connor notes that he is doing okay. He was practicing transferring when I was in the room. He has not had fevers or chills he has continuing issues with back pain and bilateral lower extremity weakness. His numbness is unchanged and has no leg numbness but does have some buttocks numbness. Exam Vital Signs (past 8 hours): - 10/02/20 05:20 10/02/20 08:14 Temperature 96.7 F L 98.3 F Pulse Rate 65 76 Respiratory Rate 16 16 Blood Pressure 128/71 128/91 H Pulse Oximetry 96 97 Oxygen Delivery Method Room Air,CPAP Oxygen Flow Rate 0 Narrative Exam Narrative: He is alert he is oriented his dressing is dry he has minimal drainage from his drain side, his calfs are soft bilaterally, he has trace knee flexion and extension and plantar flexion of his feet, sensation is intact in bilateral feet and legs Objective Labs Result Diagrams: 09/30/20 19:41 09/30/20 12:16 Labs: Laboratory Results - last 24 hr 10/01/20 16:40 Vancomycin Trough 7.4 L Cultures are growing a Staph species sensitivity is pending [facility] Medical History AVM (arteriovenous malformation) Hyperlipidemia Kidney stones Papillary thyroid carcinoma PTSD (post-traumatic stress disorder) PVC (premature ventricular contraction) Skin cancer Sleep apnea with use of continuous positive airway pressure (CPAP) Surgical History History of lumbar spinal fusion (04/02/18) History of thyroidectomy Hx of hernia repair Hx of knee surgery Hx of shoulder surgery S/P lumbar fusion (01/30/17) S/P UPPP (uvulopalatopharyngoplasty) Status post bilateral LASIK surgery Social History household members: spouse and children Smoking Status: Former smoker alcohol intake: current Assessment & Plan Post-op Postoperative Procedures: Procedures Operation Date: 09/30/20 16:00 Actual Procedures Side Surgeon p Incision and Drainage Wound/Spine Hallie Caro MD Clinically improving status post irrigation and debridement of lumbar spine wound. I have recommended we keep his drain in until tomorrow will take it out 1st thing tomorrow morning. He needs a PICC line placed. The plan is to con tinue IV antibiotics for 3-6 weeks. He was scheduled to go to rehab at the [facility] on Saturday of next week will have social work and discharge planners coordinate with them to see if he can go with a PICC line and IV antibiotics. Clinically he is doing well and clearly needs additional spinal cord recovery rehab.
[2020-10-02 14:13] VITALS: BP 118/87; PULSE 88; RESP 16; TEMP 36.7; O2SAT 94
--- NOTE | 2020-10-02 14:32 | OT.IP.TRT ---
Current Diagnoses Infection following a procedure, deep incisional surgical site, initial encounter (09/30/20) Surgery Performed Operation Date: 09/30/20 16:00 Actual Procedures p Incision and Drainage Wound/Spine - Hallie Amairani Caro MD Occupational Therapy Treatment Note M2 OT-IP Current Condition Start: 10/01/20 11:58 Freq: Status: Active Protocol: Document 10/01/20 11:58 CGR (Rec: 10/01/20 12:32 CGR [id number]) Occupational Therapy Current Condition Current Condition Evaluation Date 10/01/20 Treatment Diagnosis I&D of back wound 09/09/20 TLIF w/ revision and post op paralysis Diagnosis Onset Date 09/30/20 Post Operative Precautions Lumbar Precautions Log Roll,No Twisting,Limit Bending,Lifting Restriction of 10 lbs,Gait Belt above Incisional Area M3 OT- IP Subjective and Pain Start: 10/01/20 11:58 Freq: Status: Active Protocol: Document 10/02/20 16:01 CGR (Rec: 10/02/20 16:05 CGR [id number]) OT- Subjective Occupational Therapy Visit Type Type Progress Note Visit Start Time 14:17 Visit Stop Time 14:32 Total Visit Minutes 15 M4 OT- IP ADL's Start: 10/01/20 11:58 Freq: Status: Active Protocol: Document 10/02/20 16:01 CGR (Rec: 10/02/20 16:05 CGR [id number]) OT [id number] Comments OT Self-Feeding Comments not meal time OT ADL-Grooming General Evaluation Grooming Ability Independent Areas Needing Assistance Retrieving/Set-up of Grooming Items,Combing/Brushing Hair, Face Washing Comments OT Grooming Comments Performed seated in w/c OT ADL-Oral Care General Eval Oral Care Ability Independent Areas of Assistance Brushing Teeth Comments Oral Care Comments seated in w/c OT ADL-Dressing Comments OT Dressing Comments not performed OT ADL-Toileting Comments OT Toileting Comments not performed OT ADL-Bathing Comments OT Bathing Comments discussed with . Pt is ok for shower tomorrow after drains are removed per Dr. Caro. M5 OT- IP IADL's Start: 10/01/20 11:58 Freq: Status: Active Protocol: Document 10/01/20 11:58 CGR (Rec: 10/01/20 12:32 CGR [id number]) OT-Instrumental Activities of Daily Living Deficits IADL Deficits Identified No Deficits Home Safety Awareness Awareness of Need for Assistance at Home Good Awareness Ability to Problem Solve Emergency Able to Problem Solve Situations Home Safety Comments Pt with a recent significant change to his mobility level. M6 OT- IP Functional Cognition Start: 10/01/20 11:58 Freq: Status: Active Protocol: Document 10/01/20 11:58 CGR (Rec: 10/01/20 12:32 CGR [id number]) Cognitive Factors Limiting Selfcare Function Cognitive Ability Level of Alertness Alert Patient Orientation Name,Age,Birthday,Month,Date, Year,Day of Week,Place, Situation Attention Span Ability Capable of Focused Attention, Capable of Sustained Attention Ability to Follow Commands Able to Follow Multi-Step Commands Memory Description No Deficits Noted Safety Awareness No Deficits Noted Problem Solving Ability No deficits Noted OT- Vision and Hearing OT- Hearing Assessment OT- Hearing Assessment WFL OT- Vision Assessment Visual Acuity WFL Visual Attentiveness WFL Occular Pursuits WFL Visual Convergence WFL M7 OT- IP Mobility and Balance Start: 10/01/20 11:58 Freq: Status: Active Protocol: Document 10/02/20 16:01 CGR (Rec: 10/02/20 16:05 CGR [id number]) OT-Transfer Assessment Transfers Transfer Ability Minimal Assistance,1 Person Assistance Technique Transfer Destination Chair,Wheelchair Transfer Technique Lateral Scoot Devices Transfer Assistive Devices Gait Belt Comments Mobility Comments Pt transfered from recliner ( with arm rests) to w/c ( without arm rests) with min a and 1 person assist. OT- Balance Assessment Sitting Balance and Reactions Static Sitting Balance Ability Fair Dynamic Sitting Balance Ability Fair M8 OT- IP Objective Assessments Start: 10/01/20 11:58 Freq: Status: Active Protocol: Document 10/01/20 11:58 CGR (Rec: 10/01/20 12:32 CGR [id number]) OT Gross Range of Motion Upper Extremity Range of Motion Assessment Within Functional Limits OT Strength Upper Extremity Strength Assessment Within Functional Limits Comments Strength Comments 5+/5 OT- Coordination Assessment Upper Extremity Finger to Nose Test Within Functional Limits Finger Tapping Test Within Functional Limits OT-Muscle Tone Assessment Muscle Tone WNL Yes OT Sensation Assessment Edema Edema Absent M9 OT- IP Assessment and Plan Start: 10/01/20 11:58 Freq: Status: Active Protocol: Document 10/02/20 16:01 CGR (Rec: 10/02/20 16:05 CGR [id number]) OT Summary Assessment and Plan Potential Rehabilitation Potential Excellent Analytic Complexity at Evaluation Low Summary OT Impairments Pain,Balance,Functional Mobility,Self-Feeding,Grooming ,Dressing,Toileting,Bathing, Toilet Transfers,Shower Transfers Progress Towards Goals Progressing Toward Goals Assessment Summary Pt presents as a low complexity evaluation s/p admit for I&D after recent 06/20 T12-S1 TLIF with revision and post op paralysis . Pt is progressing well with transfers and performed ADLs up in w/c in this session. Pt is able to move around the room in the w/c. Will continue to follow for OT needs. Goals Grooming Goal Independent Dressing Goal Independent Toileting Goal Independent Bathing Goal Independent Toilet Transfer Goal Independent Shower Transfer Goal Independent Days to Meet Goals 30 Frequency of Treatment Frequency Of Treatment Twice a Day Treatment Plan OT Treatment Plan ADL Training,Functional Mobility,Patient/Family Education,Discharge Planning Other Treatment Recommendations and Next shower Treatment Focus Discharge Recommendations OT Discharge Recommendations Acute Rehab Other Discharge Recommendations Plan is for return to [facility] ([facility] or [facility]) Transportation Needs at Discharge Wheelchair/Cabulance
[2020-10-02 14:43] LABS: C-Reactive Protein Quant 38.6 mg/dL (<1.0)
--- NOTE | 2020-10-02 15:18 | PT.IPTN ---
Current Diagnoses Infection following a procedure, deep incisional surgical site, initial encounter (09/30/20) Surgery Performed Operation Date: 09/30/20 16:00 Actual Procedures p Incision and Drainage Wound/Spine - Hallie Amairani Caro MD Physical Therapy Treatment Note M2 PT-IP Current Condition Start: 10/01/20 13:12 Freq: NEEDED Status: Active Protocol: Document 10/01/20 11:17 AB (Rec: 10/01/20 13:24 AB [id number]) Physical Therapy Current Condition Current Condition Evaluation Date 10/01/20 Treatment Diagnosis s/p I&D lumbar wound; difficulty in walking Onset Date 09/30/20 Precautions Lumbar Precautions Log Roll,No Twisting,Limit Bending,Lifting Restriction of 10 lbs,Gait Belt above Incisional Area M3 PT-IP Subjective Start: 10/01/20 13:12 Freq: NEEDED Status: Active Protocol: Document 10/02/20 15:18 AW (Rec: 10/02/20 15:27 AW [id number]) Subjective Physical Therapy Visit Type Type Treatment Note Visit Start Time 14:58 Visit Stop Time 15:17 Total Visit Minutes 19 Number of PEDICURIST Visits 0 Physical Therapy Visit Comments Patient Comments pt is agreeable to do PT Therapy Pain Assessment Pain When Pain Assessed At Rest Pain Present Pain Present Denied Pain M4 PT-IP Mobility and Gait Start: 10/01/20 13:12 Freq: NEEDED Status: Active Protocol: Document 10/02/20 15:18 AW (Rec: 10/02/20 15:27 AW [id number]) PT-Transfer Assessment Equipment Transfer Assistive Device None,Gait Belt Orthotic/Prosthetic Devices or Brace: No Transfers Transfer Destination Chair,Wheelchair Transfer Technique Squat Pivot Transfer Ability Level of Assist Moderate Assistance,1 Person Assistance,Use of Upper Extremities Comments Mobility Comments Pt was propelling himself in his w/c around the room as PT arrived. He agreed to practice w/c propulsion, masked up, and propelled himself 120 feet in the hallway SBA with good shoulder mechanics and postural awareness. Pt returned to the room and agreed to transfer to the room chair (with arms). He transferred to the chair and back to the w/c mod A x 1 to assist with hip clearance. Pt demonstrates good safety awareness at all times. Pt was left in the room with call light and all needs in reach. M5 PT-IP Objective Assessments Start: 10/01/20 13:12 Freq: NEEDED Status: Active Protocol: Document 10/01/20 11:17 AB (Rec: 10/01/20 13:24 AB [email or web address]) Orientation Orientation/Cognition Level of Alertness Alert Orientation Name,Place,Situation Language Function Ability No Deficits Noted Safety Awareness Understands Safety Issues Memory Description No Deficits Noted Gross Range of Motion Lower Extremity ROM Assessment Within Functional Limits Strength Lower Extremity Strength Assessment Bilaterally Impaired Comments Strength Comments RLE: 3-/5 LLE: 2-/ to 2/5 Coordination Assessment Gross Coordination Gross Coordination WNL Sensation Assessment Sensation Gross Sensation WNL Muscle Tone Muscle Tone WNL Yes M6 PT-IP Treatment Start: 10/01/20 13:12 Freq: NEEDED Status: Active Protocol: Document 10/02/20 15:18 AW (Rec: 10/02/20 15:27 AW [id number]) Physical Therapy Treatment Education Education Provided Safety M7 PT-IP Assessment and Plan Start: 10/01/20 13:12 Freq: NEEDED Status: Active Protocol: Document 10/02/20 15:18 AW (Rec: 10/02/20 15:27 AW [id number]) PT Summary Assessment and Plan Potential Rehabilitation Potential Good Summary Impairments Pain,ROM,Strength,Balance, Coordination,Sensation,Tone, Cognition,Bed Mobility, Transfers,Gait,Activity Tolerance Progress Towards Goals Slow Progress due to Medical Issues Assessment Summary Treatment focused on w/c propulsion and transfers to and from a surface with non- removeable arms. Pt shows good effort with all activities, is highly motivated, and attentive to the task at hand. Pt requires continued acute rehab to progress strength and functional mobility. Goals Bed Mobility Goal Standby Assistance Transfer Goal Minimal Assistance Other Goals improve lateral scoot transfer min A Days to Meet Goals 10 Frequency of Treatment Frequency Of Treatment Twice a Day Treatment Plan Physical Therapy Treatment Plan Bed Mobility Training,Transfer Training,Gait Training, Therapeutic Exercise,Balance Retraining,Post Op Education, Discharge Planning,Hot or Cold Pack,Neuromuscular Re-ed, Coordination Retraining,Manual Therapy Precautions Lumbar Precautions Log Roll,No Twisting,Limit Bending,Lifting Restriction of 10 lbs,Gait Belt above Incisional Area Recommendations To Nursing Amount of Assist Needed 2 Person Assist,Power Sit- Stand Discharge Recommendations PT Discharge Recommendations Acute Rehab Transportation Needs at Discharge Wheelchair/Cabulance
[2020-10-02 16:08] VITALS: BP 149/95; PULSE 89; RESP 16; TEMP 36.8; O2SAT 98
[2020-10-02 18:15] LABS: Vancomycin Trough 13.6 ug/mL (10-20)
[2020-10-02] MEDS: ATORVASTATIN 20 MG TABLET 40 MG PO (20:21)
[2020-10-02] MEDS: NORTRIPTYLINE HCL 25 MG CAPSULE PO (20:22)
[2020-10-02] MEDS: MAGNESIUM HYDROXIDE 30 ML UDC PO (20:22)
[2020-10-02 20:23] VITALS: BP 141/97; PULSE 89; RESP 19; TEMP 36.7
[2020-10-02] MEDS: methocarbamoL 500 MG TABLET 750 MG PO (21:46)
[2020-10-02] MEDS: ZOLPIDEM 5 MG TABLET PO (23:59)
[2020-10-03] VITALS: BP 144/98; PULSE 60; RESP 16; TEMP 36.6; O2SAT 97
[2020-10-03] MEDS: SODIUM CHLORIDE 0.9% FLUSH 10 ML IV ×2 (02:08→09:18)
[2020-10-03] MEDS: VANCOMYCIN 1,500 MG/300 ML PIGGYBACK 200 MG IV ×2 (02:08→17:00)
[2020-10-03 04:08] VITALS: BP 148/90; PULSE 63; RESP 17; TEMP 36.3; O2SAT 98
[2020-10-03] MEDS: HYDROMORPHONE 4 MG TABLET PO ×5 (04:09→23:52)
[2020-10-03] MEDS: PANTOPRAZOLE 20 MG TABLET PO (05:52)
--- NOTE | 2020-10-03 07:32 | PM.PNPO.1 ---
Subjective Subjective Date Patient Seen: 10/03/20 Time Patient Seen: 07:32 Interval history: Patient states he is doing well overall. He notes a 6/10 pain intensity at the moment in his lower back. The patient explains that he feels his condition is improving significantly. He denies chills, shortness of breath, chest pain, or pain in the lower extremities bilaterally. The patient explains that he feels his work with PT is going well. Exam Vital Signs (past 8 hours): - 10/03/20 00:00 10/03/20 04:08 Temperature 97.8 F 97.3 F L Pulse Rate 60 63 Respiratory Rate 16 17 Blood Pressure 144/98 H 148/90 H Pulse Oximetry 97 98 Oxygen Delivery Method Room Air Oxygen Flow Rate 0 Narrative Exam Narrative: Patient was lying in bed asleep with his CPAP when I entered the room. Patient was in no acute distress and is alert and oriented x3. Sensation intact throughout the bilateral lower extremities. Bandage over the incision site on the lower back is dry with mild strike through. Wound drain is draining small amounts of nonpurulent blood. The incision site on the lower back is free of erythema, warmth, discharge, or induration. Strength is 3/5 on the right lower extremity with hallux flexion and extension. Strength is 2/5 on the left lower extremity with hallux flexion and extension. Strength is 2/5 on the right lower extremity with hip flexion. Strength is 1/5 on the left lower extremity with hip flexion. Const General: cooperative and healthy appearing Resp Effort & Inspection: normal respiratory effort and able to speak in complete sentences Skin General: no rashes or lesions noted Objective Labs Result Diagrams: 09/30/20 19:41 09/30/20 12:16 Labs: Laboratory Results - last 24 hr 09/30/20 10/02/20 12:16 17:20 C-Reactive Protein 38.6 H Vancomycin Trough 13.6 PFSH Medical History AVM (arteriovenous malformation) Hyperlipidemia Kidney stones Papillary thyroid carcinoma PTSD (post-traumatic stress disorder) PVC (premature ventricular contraction) Skin cancer Sleep apnea with use of continuous positive airway pressure (CPAP) Surgical History History of lumbar spinal fusion (04/02/18) History of thyroidectomy Hx of hernia repair Hx of knee surgery Hx of shoulder surgery S/P lumbar fusion (01/30/17) S/P UPPP (uvulopalatopharyngoplasty) Status post bilateral LASIK surgery Social History household members: spouse and children Smoking Status: Former smoker alcohol intake: current Assessment & Plan Post-op Postoperative Procedures: Procedures Operation Date: 09/30/20 16:00 Actual Procedures Side Surgeon p Incision and Drainage Wound/Spine Hallie Caro MD Postoperative day: 3 Postoperative status: doing well Postoperative status narrative: Patient is doing well and is in no acute distress. Postoperative plan narrative: Patient is to continue with PT to improve strength. Wound drain will be removed today. Patient needs [facility]
[2020-10-03 08:44] VITALS: BP 166/91; PULSE 77; RESP 22; TEMP 36.3; O2SAT 97
[2020-10-03] MEDS: BETHANECHOL CHLORIDE 5 MG TABLET 25 MG PO ×3 (09:05→21:00)
[2020-10-03] MEDS: DULOXETINE 30 MG CAPSULE PO ×2 (09:06→20:58)
[2020-10-03] MEDS: DOCUSATE 100 MG CAPSULE PO ×2 (09:06→20:57)
[2020-10-03] MEDS: THYROID, PORK 30 MG TABLET 120 MG PO (09:06)
[2020-10-03] MEDS: LORATADINE 10 MG TABLET PO (09:06)
[2020-10-03] MEDS: GABAPENTIN 600 MG TABLET PO ×3 (09:06→21:00)
[2020-10-03] MEDS: CHOLECALCIFEROL (VITAMIN D3) 1,000 UNIT TABLET 1000 UNIT PO (09:06)
[2020-10-03] MEDS: ACETAMINOPHEN 325 MG TABLET 975 MG PO ×3 (09:06→20:59)
[2020-10-03] MEDS: MULTIVITAMIN 1 TABLET 1 TAB PO (09:06)
[2020-10-03] MEDS: ASPIRIN EC 81 MG TABLET PO ×2 (09:06→20:59)
[2020-10-03] MEDS: polyethylene glycoL 3350 17 GM POWD.PACK PO (09:07)
[2020-10-03] MEDS: PSYLLIUM HUSK 1 PACKET PO (09:07)
[2020-10-03] MEDS: OXYCODONE ER 10 MG TAB PO ×2 (09:10→20:57)
--- NOTE | 2020-10-03 11:06 | CM.DPNOTE ---
Addendum entered by Haley Arenas 10/05/20 10:52: Faxed Covid result from today to [facility] per Fany and received fax confirmation. Haley Arenas CM Asst. Addendum entered by Haley Arenas 10/04/20 12:35: Faxed updated clinicals including cultures, med list X-ray for Picc line to [facility] on 10/04/20 per Nancy and received fax confirmation. Haley Arenas CM Asst. Original Note: [phone] Nancy. Received fax confirmation. Haley Arenas CM Asst.
--- NOTE | 2020-10-03 12:08 | PT.IPTN ---
Current Diagnoses Infection following a procedure, deep incisional surgical site, initial encounter (09/30/20) Surgery Performed Operation Date: 09/30/20 16:00 Actual Procedures p Incision and Drainage Wound/Spine - Hallie Amairani Caro MD Physical Therapy Treatment Note M2 PT-IP Current Condition Start: 10/01/20 13:12 Freq: NEEDED Status: Active Protocol: Document 10/01/20 11:17 AB (Rec: 10/01/20 13:24 AB [email or web address]) Physical Therapy Current Condition Current Condition Evaluation Date 10/01/20 Treatment Diagnosis s/p I&D lumbar wound; difficulty in walking Onset Date 09/30/20 Precautions Lumbar Precautions Log Roll,No Twisting,Limit Bending,Lifting Restriction of 10 lbs,Gait Belt above Incisional Area M3 PT-IP Subjective Start: 10/01/20 13:12 Freq: NEEDED Status: Active Protocol: Document 10/03/20 12:08 AW (Rec: 10/03/20 12:22 AW [id number]) Subjective Physical Therapy Visit Type Type Treatment Note Visit Start Time 11:46 Visit Stop Time 12:08 Total Visit Minutes 22 Notes Co-tx with OT due to need for 2PA to do BLE weightbearing activity Number of CORPORATE TRAVEL COUNSELOR Visits 0 Physical Therapy Visit Comments Patient Comments pt is agreeable to do PT Therapy Pain Assessment Pain When Pain Assessed At Rest Pain Present Pain Present Pain Reported Location Back Scale Used not quantified M4 PT-IP Mobility and Gait Start: 10/01/20 13:12 Freq: NEEDED Status: Active Protocol: Document 10/03/20 12:08 AW (Rec: 10/03/20 12:22 AW [id number]) PT-Transfer Assessment Sit to and From Stand Sit to and from Stand Maximum Assistance,2 Person Assistance,Use of Upper Extremities Equipment Transfer Assistive Device Gait Belt,Front Wheeled Walker Orthotic/Prosthetic Devices or Brace: No Transfers Transfer Destination Bedside Commode Transfer Technique Lateral Scoot Transfer Ability Level of Assist Minimal Assistance,2 Person Assistance,Use of Upper Extremities Comments Mobility Comments Pt was up in the w/c as PT and OT arrived. RN present to remove hemovac drain to prep for shower. Pt stood from the w/c and used BUE WB to stand ~ 30 seconds two times max A x 2 . PT/OT blocked knees and used manual facilitation to encourage quad activation. Pt complained of back pain as he returned to sitting with poor control. PT educated pt to reach back for the chair arm with at least one hand to slow descent which improved control and pain symptoms on final rep. Pt then propelled himself to the shower. PT and OT provided min assist x 2 for squat pivot transfer to BSC for showering. Left pt with OT for shower. M5 PT-IP Objective Assessments Start: 10/01/20 13:12 Freq: NEEDED Status: Active Protocol: Document 10/01/20 11:17 AB (Rec: 10/01/20 13:24 AB [email or web address]) Orientation Orientation/Cognition Level of Alertness Alert Orientation Name,Place,Situation Language Function Ability No Deficits Noted Safety Awareness Understands Safety Issues Memory Description No Deficits Noted Gross Range of Motion Lower Extremity ROM Assessment Within Functional Limits Strength Lower Extremity Strength Assessment Bilaterally Impaired Comments Strength Comments RLE: 3-/5 LLE: 2-/ to 2/5 Coordination Assessment Gross Coordination Gross Coordination WNL Sensation Assessment Sensation Gross Sensation WNL Muscle Tone Muscle Tone WNL Yes M6 PT-IP Treatment Start: 10/01/20 13:12 Freq: NEEDED Status: Active Protocol: Document 10/03/20 12:08 AW (Rec: 10/03/20 12:22 AW [id number]) Physical Therapy Treatment Education Education Provided Safety Other Treatments Other Treatment Performed Emphasized use of UE to control descent during stand to sit. M7 PT-IP Assessment and Plan Start: 10/01/20 13:12 Freq: NEEDED Status: Active Protocol: Document 10/03/20 12:08 AW (Rec: 10/03/20 12:22 AW [id number]) PT Summary Assessment and Plan Potential Rehabilitation Potential Good Summary Impairments Pain,ROM,Strength,Balance, Coordination,Sensation,Tone, Cognition,Bed Mobility, Transfers,Gait,Activity Tolerance Progress Towards Goals Slow Progress due to Medical Issues Assessment Summary Treatment focused on sit <> stand requiring max A x 2. Pt was able to tolerate standing ~30 seconds during all three reps. Pt required min A x 2 for transfer from w/c to shower seat/BSC. Acute rehab is indicated to improve functional mobility. Goals Bed Mobility Goal Standby Assistance Transfer Goal Minimal Assistance Other Goals - improve lateral scoot transfer min A Days to Meet Goals 10 Frequency of Treatment Frequency Of Treatment Twice a Day Treatment Plan Physical Therapy Treatment Plan Bed Mobility Training,Transfer Training,Gait Training, Therapeutic Exercise,Balance Retraining,Post Op Education, Discharge Planning,Hot or Cold Pack,Neuromuscular Re-ed, Coordination Retraining,Manual Therapy Precautions Lumbar Precautions Log Roll,No Twisting,Limit Bending,Lifting Restriction of 10 lbs,Gait Belt above Incisional Area Recommendations To Nursing Amount of Assist Needed 2 Person Assist,Power Sit- Stand Discharge Recommendations PT Discharge Recommendations Acute Rehab Transportation Needs at Discharge Wheelchair/Cabulance
--- NOTE | 2020-10-03 12:31 | OT.IP.TRT ---
Current Diagnoses Infection following a procedure, deep incisional surgical site, initial encounter (09/30/20) Surgery Performed Operation Date: 09/30/20 16:00 Actual Procedures p Incision and Drainage Wound/Spine - Hallie Amairani Caro MD Occupational Therapy Treatment Note M2 OT-IP Current Condition Start: 10/01/20 11:58 Freq: Status: Active Protocol: Document 10/01/20 11:58 CGR (Rec: 10/01/20 12:32 CGR [id number]) Occupational Therapy Current Condition Current Condition Evaluation Date 10/01/20 Treatment Diagnosis I&D of back wound 09/09/20 TLIF w/ revision and post op paralysis Diagnosis Onset Date 09/30/20 Post Operative Precautions Lumbar Precautions Log Roll,No Twisting,Limit Bending,Lifting Restriction of 10 lbs,Gait Belt above Incisional Area M3 OT- IP Subjective and Pain Start: 10/01/20 11:58 Freq: Status: Active Protocol: Document 10/03/20 14:03 CGR (Rec: 10/03/20 14:14 CGR [id number]) OT- Subjective Occupational Therapy Visit Type Type Progress Note Visit Start Time 11:46 Visit Stop Time 12:31 Total Visit Minutes 43 Notes Partial cotreat with P.T. OT Pain Assessment Pain When Pain Assessed During Exercise Pain Present Pain Present Pain Reported Location Back Scale Used did not rate Management Techniques Modification of Treatment,Re- positioning M4 OT- IP ADL's Start: 10/01/20 11:58 Freq: Status: Active Protocol: Document 10/03/20 14:03 CGR (Rec: 10/03/20 14:14 CGR [id number]) OT [id number] Comments OT Self-Feeding Comments Pt set up for lunch but did not start eating prior to this check writer salesperson leaving the room. OT ADL-Grooming General Evaluation Grooming Ability Independent Areas Needing Assistance Face Washing Comments OT Grooming Comments In shower OT ADL-Oral Care Comments Oral Care Comments Not performed OT ADL-Dressing General Eval Upper Body Dressing Ability Independent Lower Body Dressing Ability Total Assistance Areas Needing Assistance Socks Comments OT Dressing Comments performed for pt rather than use of DME d/t time restraints . OT ADL-Toileting Comments OT Toileting Comments not performed OT ADL-Bathing Bathing Type Bathing Type Shower General Evaluation Bathing Ability Minimal Assistance Areas Needing Assistance Retrieving/Setting Up Items, Wash/Dry Back,Wash/Dry Lower Extremities Devices Bathing Equipment Hand Held Shower Sprayer, Shower Chair with Arms Comments OT Bathing Comments Pt performed full shower seated on BSC in shower stall. Pt needed assist with reaching back and feet. M5 OT- IP IADL's Start: 10/01/20 11:58 Freq: Status: Active Protocol: Document 10/01/20 11:58 CGR (Rec: 10/01/20 12:32 CGR [id number]) OT-Instrumental Activities of Daily Living Deficits IADL Deficits Identified No Deficits Home Safety Awareness Awareness of Need for Assistance at Home Good Awareness Ability to Problem Solve Emergency Able to Problem Solve Situations Home Safety Comments Pt with a recent significant change to his mobility level. M6 OT- IP Functional Cognition Start: 10/01/20 11:58 Freq: Status: Active Protocol: Document 10/01/20 11:58 CGR (Rec: 10/01/20 12:32 CGR [id number]) Cognitive Factors Limiting Selfcare Function Cognitive Ability Level of Alertness Alert Patient Orientation Name,Age,Birthday,Month,Date, Year,Day of Week,Place, Situation Attention Span Ability Capable of Focused Attention, Capable of Sustained Attention Ability to Follow Commands Able to Follow Multi-Step Commands Memory Description No Deficits Noted Safety Awareness No Deficits Noted Problem Solving Ability No deficits Noted OT- Vision and Hearing OT- Hearing Assessment OT- Hearing Assessment WFL OT- Vision Assessment Visual Acuity WFL Visual Attentiveness WFL Occular Pursuits WFL Visual Convergence WFL M7 OT- IP Mobility and Balance Start: 10/01/20 11:58 Freq: Status: Active Protocol: Document 10/03/20 14:03 CGR (Rec: 10/03/20 14:14 CGR [id number]) OT- Bed Mobility Assessment Sit to Supine Sit to Supine Assist Maximum Assistance Scooting Scooting to Edge of Bed Standby Assistance OT-Transfer Assessment Sit to and From Stand Sit to and from Stand Maximum Assistance,2 Person Assistance Transfers Transfer Ability Contact Guard Assistance, Minimal Assistance,1 Person Assistance,2 Person Assistance Technique Transfer Destination Bed,Bedside Commode,Shower Stall,Wheelchair Transfer Technique Lateral Scoot Devices Transfer Assistive Devices Gait Belt,Front Wheeled Walker Comments Mobility Comments Pt performed 3 sit to stands with 2 person max a. Pt with less pain upon sitting if he moves his hand from walker to chair prior to sitting to slow transition. Pt then transfered from w/c to [facility] in shower stall with min x 2 and showered. Pt able to transfer back to w/c with min a for set up and safety, second person assist to hold w/c as breaks were not as strong as desired. PT then transfered from w/c to bed with CGA. OT- Balance Assessment Sitting Balance and Reactions Static Sitting Balance Ability Good Dynamic Sitting Balance Ability Fair M8 OT- IP Objective Assessments Start: 10/01/20 11:58 Freq: Status: Active Protocol: Document 10/01/20 11:58 CGR (Rec: 10/01/20 12:32 CGR [id number]) OT Gross Range of Motion Upper Extremity Range of Motion Assessment Within Functional Limits OT Strength Upper Extremity Strength Assessment Within Functional Limits Comments Strength Comments 5+/5 OT- Coordination Assessment Upper Extremity Finger to Nose Test Within Functional Limits Finger Tapping Test Within Functional Limits OT-Muscle Tone Assessment Muscle Tone WNL Yes OT Sensation Assessment Edema Edema Absent M9 OT- IP Assessment and Plan Start: 10/01/20 11:58 Freq: Status: Active Protocol: Document 10/03/20 14:03 CGR (Rec: 10/03/20 14:14 CGR [id number]) OT Summary Assessment and Plan Potential Rehabilitation Potential Excellent Analytic Complexity at Evaluation Low Summary OT Impairments Pain,Balance,Functional Mobility,Self-Feeding,Grooming ,Dressing,Toileting,Bathing, Toilet Transfers,Shower Transfers Progress Towards Goals Progressing Toward Goals Assessment Summary Pt presents as a low complexity evaluation s/p admit for I&D after recent 06/20 T12-S1 TLIF with revision and post op paralysis . Pt is progressing well with transfers and shower in todays session. Pt displays good follow through, excellent safety awareness, and significant motivation to continue with therapy. Goals Grooming Goal Independent Dressing Goal Independent Toileting Goal Independent Bathing Goal Independent Toilet Transfer Goal Independent Shower Transfer Goal Independent Days to Meet Goals 30 Frequency of Treatment Frequency Of Treatment Twice a Day Treatment Plan OT Treatment Plan ADL Training,Functional Mobility,Patient/Family Education,Discharge Planning Other Treatment Recommendations and Next LB dressing training. Treatment Focus Discharge Recommendations OT Discharge Recommendations Acute Rehab Other Discharge Recommendations Plan is for [facility]) Transportation Needs at Discharge Wheelchair/Cabulance
--- NOTE | 2020-10-03 13:04 | CM.DPC ---
Addendum entered by Kortney Krueger R.N. 10/03/20 14:58: Spoke to Alyse at the [facility], case coordinator. Stated that she had spoken to their medical physics teacher, Dr. Davila. She mentioned that he reviewed case, and needed additional information. His phone number is: [phone]. He is inquiring if the final culture is complete, and if Vancomycin is the correct antibiotic that patient will need upon discharge. He is also inquiring about using Heparin for PE prevention. He also was inquiring if a bladder scan can be done, to ensure that patient does not have any residual urine in his bladder. Also, they would like patient to not be on any IV pain medications upon discharge, only oral. Left a message on Frank Aponte's cell phone, ESTELLE perez. Did speak to him in person, and he indicated that he would relay this to Dr. Caro, and would give his phone number. Let him know that [facility] can accept patient either Sat or . Original Note: DCP Cont: Spoke to ESTELLE Aponte this morning about discharge planning and plan to transfer directly to [facility]. Let him know that this case coordinator would call Julia social work assistant at [facility], as well as [facility] [employer], Alyse, for additional information as to when [facility] can accept. Julia social work assistant at [facility] had called this case coordinator. Stated that [facility] hospital was being set up for patient, but to call Alyse, nurse case coordinator at the [facility] to confirm. Alyse at the [facility] had left a message before this case coordinator could call her back. In the message, she indicated that she would need updated notes, treatment plan. Haley therapeutic recreation assistant, faxed over updated notes to [facility]. Spoke to Alyse. She stated that they most likely would not be able to accept patient until Saturday. Patient is currently getting PICC line placed, and let her know this. Gave her information regarding his medications, that he is currently getting Vancomycin. Alyse indicated that she would consult with their medical doctor to ensure acceptance, and should have an answer by today. Patient was concerned that he received a text that he has an appointment tomorrow at the [facility]. She stated, he could disregard message, this was set up before his hospitalization visit. Alyse also indicated that [facility] would provide BLS transportation. Met briefly with patient and . Gave him an update that transfer may not occur until Saturday. He was inquiring upon items to take. Will have to go back and meet with him later, for PICC nurse was in the room. Alyse indicated that he will not need any DME to go with him, they will supply them. Also, he can take clothing with him as well. P: DCP to continue to follow. [facility], but will need confirmation. May most likely not be until Saturday. Kortney Krueger RN/[employer]s And Drawings Curator
--- NOTE | 2020-10-03 13:07 | PC.NURSE ---
Addendum entered by Adama Ambriz R.N. 10/03/20 14:29: Gave ESTELLE Aponte an update on Pt today at approx 1430. Updated about the new shadow drainage on JUAN, Pt's pedal pulse strength being weaker on the left as well as cooler on LLE compared to the RLE. Updated about PICC line in place and awaiting an order for a new IV antibiotic. Original Note: Day shift: Per Imani in pharmacy IV antibiotic to be changed from Vanco to different med today. She has call out to Dr Caro and calos this new order. PICC line being placed at this time (1305) by JEREMY Guthrie. Stevie-vac removed today and Pt tolerated well. JUAN dressing patent but now has approx 1/2 dollar coin sized shadow drainage area present. Pain well controlled today per MAR. Pt has sower today and a very large BM. Pt was also using WC in room and organized is belongings and tolerated this well. His spouse was here today as well for support. Call light in reach. Will continue w/ plan of care.
--- NOTE | 2020-10-03 13:22 | DI.RAD.S_ITS ---
PROCEDURE: XR CHEST FOR PICC 1V INDICATIONS: PICC verify COMPARISON: None. FINDINGS: PICC was placed by the intravenous therapy team from the left side. Fluoroscopic spot film demonstrates the tip of PICC projecting to the area of cavoatrial junction. IMPRESSION: Tip of PICC projects to the area of cavoatrial junction. Dictated by: Alem Ortega M.D. on 10/03/2020 at 12:37 Approved by: Alem Ortega M.D. on 10/03/2020 at 12:37
--- NOTE | 2020-10-03 15:30 | PT-IP ANOTE ---
Pt had PICC line placed this PM and is still fatigued from earlier shower. Pt declined PT treatment but requests we follow up in the morning.
--- NOTE | 2020-10-03 15:34 | OT.IP.TRT ---
Current Diagnoses Infection following a procedure, deep incisional surgical site, initial encounter (09/30/20) Surgery Performed Operation Date: 09/30/20 16:00 Actual Procedures p Incision and Drainage Wound/Spine - Hallie Amairani Caro MD Occupational Therapy Treatment Note M2 OT-IP Current Condition Start: 10/01/20 11:58 Freq: Status: Active Protocol: Document 10/01/20 11:58 CGR (Rec: 10/01/20 12:32 CGR [id number]) Occupational Therapy Current Condition Current Condition Evaluation Date 10/01/20 Treatment Diagnosis I&D of back wound 09/09/20 TLIF w/ revision and post op paralysis Diagnosis Onset Date 09/30/20 Post Operative Precautions Lumbar Precautions Log Roll,No Twisting,Limit Bending,Lifting Restriction of 10 lbs,Gait Belt above Incisional Area M3 OT- IP Subjective and Pain Start: 10/01/20 11:58 Freq: Status: Active Protocol: Document 10/03/20 15:33 CGR (Rec: 10/03/20 15:34 CGR [id number]) OT- Subjective Occupational Therapy Visit Type Type Administrative Note Notes Attempted to see pt for OT services in PM. Pt is fatigued and just received PICC line. Will hold at this time and follow up tomorrow AM.
[2020-10-03 15:37] VITALS: BP 150/93; PULSE 71; RESP 18; TEMP 36.4; O2SAT 98
[2020-10-03 19:28] VITALS: BP 138/97; PULSE 71; RESP 17; TEMP 36.5; O2SAT 97
[2020-10-03] MEDS: NORTRIPTYLINE HCL 25 MG CAPSULE PO (20:57)
[2020-10-03] MEDS: ATORVASTATIN 20 MG TABLET 40 MG PO (20:58)
[2020-10-03 23:57] VITALS: BP 150/99; PULSE 71; RESP 16; TEMP 36.1; O2SAT 97
[2020-10-04] MEDS: SODIUM CHLORIDE 0.9% FLUSH 10 ML IV ×3 (01:13→21:59)
[2020-10-04] MEDS: VANCOMYCIN 1,500 MG/300 ML PIGGYBACK 200 MG IV ×2 (01:13→08:35)
[2020-10-04] MEDS: ZOLPIDEM 5 MG TABLET PO ×2 (01:21→23:28)
[2020-10-04] MEDS: PANTOPRAZOLE 20 MG TABLET PO (05:38)
[2020-10-04 06:00] VITALS: BP 139/93; PULSE 62; RESP 18; TEMP 36.2; O2SAT 97
[2020-10-04] MEDS: HYDROMORPHONE 4 MG TABLET PO ×4 (06:31→21:53)
--- NOTE | 2020-10-04 07:37 | PM.PNPO.1 ---
Subjective Subjective Date Patient Seen: 10/04/20 Time Patient Seen: 07:37 Interval history: Patient states that he is doing well. He notes that he feels that he has not progressed significantly yesterday, but reports that he is not feeling worse. Patient notes that his pain is well controlled. Pain is reported in the lower back and anterior thigh at rest that is not exacerbated with movement or palpation. Patient reports good sensation throughout the bilateral lower extremities. Patient denies chills, shortness of breath, or chest pain at this time. Exam Vital Signs (past 8 hours): - 10/03/20 23:57 10/04/20 06:00 Temperature 97.0 F L 97.2 F L Pulse Rate 71 62 Respiratory Rate 16 18 Blood Pressure 150/99 H 139/93 H Pulse Oximetry 97 97 Oxygen Delivery Method Room Air Oxygen Flow Rate 0 Narrative Exam Narrative: 54yo male, post-op day 4. Patients is resting comfortably in bed, alert and oriented x3, and in no acute distress. Quadriceps firing bilaterally when attempting to flex the hip (right greater than left). Hallux flexion and extension performed on the right without discomfort, hallux extension performed on the left with marked difficulty noted on hallux flexion. Good sensation throughout the bilateral lower extremities. Wound dressing covering the incision on the lower back is dry with a small amount of strike through noted. Lower back is free of erythema, induration, discharge, or warmth. Const General: cooperative, healthy appearing and comfortable Resp Effort & Inspection: normal respiratory effort and able to speak in complete sentences Skin General: no rashes or lesions noted Hair: normal Objective Labs Result Diagrams: 09/30/20 19:41 09/30/20 12:16 COUNTS INCLUDE 234 BEDS AT THE [facility] Medical History AVM (arteriovenous malformation) Hyperlipidemia Kidney stones Papillary thyroid carcinoma PTSD (post-traumatic stress disorder) PVC (premature ventricular contraction) Skin cancer Sleep apnea with use of continuous positive airway pressure (CPAP) Surgical History History of lumbar spinal fusion (04/02/18) History of thyroidectomy Hx of hernia repair Hx of knee surgery Hx of shoulder surgery S/P lumbar fusion (01/30/17) S/P UPPP (uvulopalatopharyngoplasty) Status post bilateral LASIK surgery Social History household members: spouse and children Smoking Status: Former smoker alcohol intake: current Assessment & Plan Post-op Postoperative Procedures: Procedures Operation Date: 09/30/20 16:00 Actual Procedures Side Surgeon p Incision and Drainage Wound/Spine Hallie Caro MD Postoperative day: 4 Postoperative status: doing well Postoperative status narrative: Patient is doing well and is in good spirits. Patient continues to work with PT and is looking forward to continuing his progress. Postoperative plan narrative: Patient is to continue work with PT. [facility] Currently awaiting [place] confirmation of bed availability. Upon discharge the patient will be started on PO antibiotics.
[2020-10-04] MEDS: DOCUSATE 100 MG CAPSULE PO ×2 (08:33→21:54)
[2020-10-04] MEDS: CHOLECALCIFEROL (VITAMIN D3) 1,000 UNIT TABLET 1000 UNIT PO (08:33)
[2020-10-04] MEDS: OXYCODONE ER 10 MG TAB PO ×2 (08:33→21:52)
[2020-10-04] MEDS: PSYLLIUM HUSK 1 PACKET PO (08:33)
[2020-10-04] MEDS: ASPIRIN EC 81 MG TABLET PO ×2 (08:33→21:52)
[2020-10-04] MEDS: MULTIVITAMIN 1 TABLET 1 TAB PO (08:33)
[2020-10-04] MEDS: polyethylene glycoL 3350 17 GM POWD.PACK PO (08:33)
[2020-10-04] MEDS: ACETAMINOPHEN 325 MG TABLET 975 MG PO ×2 (08:34→21:54)
[2020-10-04] MEDS: DULOXETINE 30 MG CAPSULE PO ×2 (08:34→21:55)
[2020-10-04] MEDS: GABAPENTIN 600 MG TABLET PO ×3 (08:34→21:52)
[2020-10-04] MEDS: LORATADINE 10 MG TABLET PO (08:34)
[2020-10-04] MEDS: THYROID, PORK 60 MG TABLET 120 MG PO (08:35)
[2020-10-04] MEDS: BETHANECHOL CHLORIDE 5 MG TABLET 25 MG PO ×3 (08:36→21:55)
[2020-10-04 09:02] VITALS: BP 141/97; PULSE 86; RESP 16; TEMP 36.6; O2SAT 100
[2020-10-04 09:42] LABS: Basophils Absolute Auto 0 /uL (0-100); Basophils Percent Auto 0.6 % (0-2); Eosinophils Absolute Auto 200 /uL (0-450); Eosinophils Percent Auto 3.9 % (2-4); Hematocrit 33.7 % (41-53); Hemoglobin 11.3 g/dL (13.5-17.5); Lymphocytes Absolute Auto 800 /uL (1100-4500); Lymphocytes Percent Auto 13.1 % (25-40); Mean Corpuscular HGB Conc 33.4 % (30-36); Mean Corpuscular Volume 89.8 fL (80-100); Monocytes Absolute Auto 400 /uL (0-900); Monocytes Percent Auto 6.2 % (3-14); Neutrophils Absolute Auto 4700 /uL (1500-7000); Neutrophils Percent Auto 76.2 % (50-75); Platelet Count 288 X10^3/uL (150-400); Red Blood Cell Count 3.76 X10^6/uL (4.5-5.9); Red Cell Distribution Width 14.5 % (11.6-14.8); White Blood Cell Count 6.2 X10^3/uL (4.5-11.0)
[2020-10-04 10:07] LABS: Erythrocyte Sedimentation Rate 55 MM/HR (0-15)
[2020-10-04 10:23] LABS: Add Manual Diff / Slide Review SLIDE REVIEW
[2020-10-04 10:24] LABS: Polychromasia 1+
--- NOTE | 2020-10-04 11:47 | CM.DPC ---
Addendum entered by Kortney Krueger R.N. 10/04/20 15:10: Patient is now on a different antibiotic, Cefazolin. [facility]. Addendum entered by Kortney Krueger R.N. 10/04/20 12:39: Updated patient on plan, and is aware that he is to be picked up on morning. Original Note: DCP Cont: Called Alyse, nurse pillowcase cutter at the [facility], who is primary contact. Her phone number is: [phone]. Asked her if a bed was available for tomorrow. She indicated that she may not be able to take patient until , for she is expecting a discharge to occur tomorrow, and this patient will be taking the room. Stated that is appropriate, for they wish to have the patient there by 11:00am if possible. Discussed items that their medical provider, Dr. Ramirez, has requested. His phone number is: [phone]. The plan was for orthopedic MD to call Dr. Ramirez regarding some of the documents in question. Alyse from the [facility] indicated today, that their MD has not yet heard from orthopedics. Went over the items that are needed per their provider request. They are requesting a bladder scan to ensure that there is no residual urine in his bladder, since he does not have a catheter, and an updated COVID. Updated nurse, Anastacia, and she will order. Also, patient is to discharge on oral pain meds only, not any IV pain medications. Anastacia is aware. Other questions include why patient is not on DVT prophlaxis, which Anastacia is also going to follow up on. [facility] also wants to ensure that Vancomycin is the appropriate ABO to be on, and if I&D were consulted. Anastacia contacted Dr. Caro, and she has the provider at the [facility]'s phone number and will contact him due to the information that is required. This pillowcase cutter had originally left the contact with Richie Aponte, ortho PAC, who mentioned that he would give to Dr. Caro. Haley, grounds caretaker, will fax over updated clinicals from today. This will also include the final culture results. Went ahead and set up transport with Alyse at the [facility] for bead picker time of 0830 morning. They will need updated COVID, which this pillowcase cutter already mentioned to nurse, as well as only oral pain medications. Obtained a nurse report phone number at the [facility] of: [phone]. Will pass on to nursing on am of . [facility] will be setting up BLS transport for patient. Have not yet updated patient, for he is in the middle of care. P: DCP to continue to follow. Plan is for discharge am, bead picker time at approximately 0830. Will need signed meds, DC summary, COVID results. Will ensure that this is passed on with hand off as well, and will update patient today. Dr. Caro is also speaking to provider at [facility] to answer some questions on patient as well. Kortney Krueger RN/Shear Helper
--- NOTE | 2020-10-04 12:14 | PT-IP ANOTE ---
Therapist arrived at pt's room at the same time as his lunch. Pt requested time to eat his lunch, would prefer PT check back this afternoon.
--- NOTE | 2020-10-04 14:34 | OT.IP.TRT ---
Current Diagnoses Infection following a procedure, deep incisional surgical site, initial encounter (09/30/20) Surgery Performed Operation Date: 09/30/20 16:00 Actual Procedures p Incision and Drainage Wound/Spine - Hallie Amairani Caro MD Occupational Therapy Treatment Note M2 OT-IP Current Condition Start: 10/01/20 11:58 Freq: Status: Active Protocol: Document 10/01/20 11:58 CGR (Rec: 10/01/20 12:32 CGR [id number]) Occupational Therapy Current Condition Current Condition Evaluation Date 10/01/20 Treatment Diagnosis I&D of back wound 09/09/20 TLIF w/ revision and post op paralysis Diagnosis Onset Date 09/30/20 Post Operative Precautions Lumbar Precautions Log Roll,No Twisting,Limit Bending,Lifting Restriction of 10 lbs,Gait Belt above Incisional Area M3 OT- IP Subjective and Pain Start: 10/01/20 11:58 Freq: Status: Active Protocol: Document 10/04/20 15:15 [facility] (Rec: 10/04/20 15:25 [facility] [id number]) OT- Subjective Occupational Therapy Visit Type Type Treatment Note Visit Start Time 14:03 Visit Stop Time 14:34 Total Visit Minutes 31 Occupational Therapy Visit Comments Patient Comments Pt agreed to get up and work on standing with OT/PT. Patient/Caregiver [facility]. OT Pain Assessment Pain When Pain Assessed During Mobility Pain Present Pain Present Pain Reported M4 OT- IP ADL's Start: 10/01/20 11:58 Freq: Status: Active Protocol: Document 10/04/20 15:15 [facility] (Rec: 10/04/20 15:25 [facility] [id number]) OT [id number] Comments OT Self-Feeding Comments not meal time OT ADL-Grooming Comments OT Grooming Comments Pt not wanting to perform at this time. OT ADL-Dressing General Eval Lower Body Dressing Ability Total Assistance Areas Needing Assistance Shoes OT ADL-Toileting Comments OT Toileting Comments not performed M5 OT- IP IADL's Start: 10/01/20 11:58 Freq: Status: Active Protocol: Document 10/01/20 11:58 CGR (Rec: 10/01/20 12:32 CGR [id number]) OT-Instrumental Activities of Daily Living Deficits IADL Deficits Identified No Deficits Home Safety Awareness Awareness of Need for Assistance at Home Good Awareness Ability to Problem Solve Emergency Able to Problem Solve Situations Home Safety Comments Pt with a recent significant change to his mobility level. M6 OT- IP Functional Cognition Start: 10/01/20 11:58 Freq: Status: Active Protocol: Document 10/04/20 15:15 [facility] (Rec: 10/04/20 15:25 [facility] [id number]) Cognitive Factors Limiting Selfcare Function Cognitive Comments Cognitive Assessment Comments Pt intact with no deficits. M7 OT- IP Mobility and Balance Start: 10/01/20 11:58 Freq: Status: Active Protocol: Document 10/04/20 15:15 [facility] (Rec: 10/04/20 15:25 [facility] [id number]) OT-Transfer Assessment Sit to and From Stand Sit to and from Stand Maximum Assistance,2 Person Assistance Transfers Transfer Ability Standby Assistance,Moderate Assistance,1 Person Assistance ,2 Person Assistance Technique Transfer Destination Bed,Chair Transfer Technique Lateral Scoot Devices Transfer Assistive Devices Gait Belt,Front Wheeled Walker Comments Mobility Comments Pt able to do sit to stand and able to stand for 1 min and 30 sec and heavy assist of his BUE to stabilizing machine operator addition to therapist having to block his knees from buckling. Noted while seated and with facilitation from PT able to for his gluts more. MOD x 1 to lateral scoot to the bed from and another person assist for safety of the wc to hold it in place. OT- Balance Assessment Sitting Balance and Reactions Static Sitting Balance Ability Good Dynamic Sitting Balance Ability Fair Standing Balance and Reactions Static Standing Balance Ability Poor M8 OT- IP Objective Assessments Start: 10/01/20 11:58 Freq: Status: Active Protocol: Document 10/01/20 11:58 CGR (Rec: 10/01/20 12:32 CGR [id number]) OT Gross Range of Motion Upper Extremity Range of Motion Assessment Within Functional Limits OT Strength Upper Extremity Strength Assessment Within Functional Limits Comments Strength Comments 5+/5 OT- Coordination Assessment Upper Extremity Finger to Nose Test Within Functional Limits Finger Tapping Test Within Functional Limits OT-Muscle Tone Assessment Muscle Tone WNL Yes OT Sensation Assessment Edema Edema Absent M9 OT- IP Assessment and Plan Start: 10/01/20 11:58 Freq: Status: Active Protocol: Document 10/04/20 15:15 [facility] (Rec: 10/04/20 15:25 [facility] [id number]) OT Summary Assessment and Plan Potential Rehabilitation Potential Excellent Analytic Complexity at Evaluation Low Summary OT Impairments Pain,Balance,Functional Mobility,Self-Feeding,Grooming ,Dressing,Toileting,Bathing, Toilet Transfers,Shower Transfers Progress Towards Goals Progressing Toward Goals Assessment Summary Pt is highly motivated to participate in therapy however does tire easily and needing rest breaks. Pt looking to go to [place] when medically stable and when bed available. Goals Grooming Goal Independent Dressing Goal Independent Toileting Goal Independent Bathing Goal Independent Toilet Transfer Goal Independent Shower Transfer Goal Independent Days to Meet Goals 30 Frequency of Treatment Frequency Of Treatment Once a Day Treatment Plan OT Treatment Plan ADL Training,Functional Mobility,Patient/Family Education,Discharge Planning Other Treatment Recommendations and Next LB dressing training. Treatment Focus Discharge Recommendations OT Discharge Recommendations Acute Rehab Other Discharge Recommendations Plan is for [facility] Transportation Needs at Discharge Wheelchair/Cabulance,Stretcher /Ambulance
--- NOTE | 2020-10-04 14:40 | PT.IPTN ---
Current Diagnoses Infection following a procedure, deep incisional surgical site, initial encounter (09/30/20) Surgery Performed Operation Date: 09/30/20 16:00 Actual Procedures p Incision and Drainage Wound/Spine - Hallie Amairani Caro MD Physical Therapy Treatment Note M2 PT-IP Current Condition Start: 10/01/20 13:12 Freq: NEEDED Status: Active Protocol: Document 10/01/20 11:17 AB (Rec: 10/01/20 13:24 AB [id number]) Physical Therapy Current Condition Current Condition Evaluation Date 10/01/20 Treatment Diagnosis s/p I&D lumbar wound; difficulty in walking Onset Date 09/30/20 Precautions Lumbar Precautions Log Roll,No Twisting,Limit Bending,Lifting Restriction of 10 lbs,Gait Belt above Incisional Area M3 PT-IP Subjective Start: 10/01/20 13:12 Freq: NEEDED Status: Active Protocol: Document 10/04/20 17:01 [facility] (Rec: 10/04/20 17:47 [facility] [id number]) Subjective Physical Therapy Visit Type Type Treatment Note Visit Start Time 14:03 Visit Stop Time 14:34 Total Visit Minutes 31 Notes Co-tx with OT due to need for 2PA to do BLE weightbearing activity Physical Therapy Visit Comments Patient Comments Pt motivated to participate Therapy Pain Assessment Pain When Pain Assessed During Mobility Pain Present Pain Present Pain Reported M4 PT-IP Mobility and Gait Start: 10/01/20 13:12 Freq: NEEDED Status: Active Protocol: Document 10/04/20 17:01 [facility] (Rec: 10/04/20 17:47 [facility] [id number]) PT-Bed Mobility Assessment Sit to Supine Sit to Supine Maximum Assistance,1 Person Assistance PT-Transfer Assessment Sit to and From Stand Sit to and from Stand Maximum Assistance,2 Person Assistance,Use of Upper Extremities Equipment Transfer Assistive Device Gait Belt,Front Wheeled Walker Orthotic/Prosthetic Devices or Brace: No Transfers Transfer Destination Bed Transfer Technique Lateral Scoot Transfer Ability Level of Assist Moderate Assistance,1 Person Assistance,Use of Upper Extremities Comments Mobility Comments Pt did sit to stand from W/C w /max Ax2 2 reps with max cueing and each therapist blocking a knee. He stood for about 45sec to 1 min for 2 reps and after facilitation of BLEs for wt accpetance in sitting, he had improved sit to stand to mod A x2 but max A x2 to remain standing. He then did a scoot transfer to bed mod A x1 and assist for w/ c set up. He did sit to supine w/reverse log roll w/max A for Les but pt able to control rest of body. Pt left with call lindsey n reach. M5 PT-IP Objective Assessments Start: 10/01/20 13:12 Freq: NEEDED Status: Active Protocol: Document 10/01/20 11:17 AB (Rec: 10/01/20 13:24 AB [id number]) Orientation Orientation/Cognition Level of Alertness Alert Orientation Name,Place,Situation Language Function Ability No Deficits Noted Safety Awareness Understands Safety Issues Memory Description No Deficits Noted Gross Range of Motion Lower Extremity ROM Assessment Within Functional Limits Strength Lower Extremity Strength Assessment Bilaterally Impaired Comments Strength Comments RLE: 3-/5 LLE: 2-/ to 2/5 Coordination Assessment Gross Coordination Gross Coordination WNL Sensation Assessment Sensation Gross Sensation WNL Muscle Tone Muscle Tone WNL Yes M6 PT-IP Treatment Start: 10/01/20 13:12 Freq: NEEDED Status: Active Protocol: Document 10/04/20 17:01 [facility] (Rec: 10/04/20 17:47 [facility] [id number]) Physical Therapy Treatment Education Education Provided Safety Other Treatments Other Treatment Performed manual traction facilitation to each LE singly then B w/ both therapists to faiciltate wt acceptances in sitting. M7 PT-IP Assessment and Plan Start: 10/01/20 13:12 Freq: NEEDED Status: Active Protocol: Document 10/04/20 17:01 [facility] (Rec: 10/04/20 17:47 [facility] [id number]) PT Summary Assessment and Plan Potential Rehabilitation Potential Good Summary Impairments Pain,ROM,Strength,Balance, Coordination,Sensation,Tone, Cognition,Bed Mobility, Transfers,Gait,Activity Tolerance Progress Towards Goals Slow Progress due to Medical Issues Assessment Summary Pt did very well with session and is very motivated. HE was fatigued by end of session but after manual facilitation, he showed imrpoved wt accpetanec to LE w/better sit tos tand. Goals Bed Mobility Goal Standby Assistance Transfer Goal Minimal Assistance Other Goals - improve lateral scoot transfer min A Days to Meet Goals 10 Frequency of Treatment Frequency Of Treatment Twice a Day Treatment Plan Physical Therapy Treatment Plan Bed Mobility Training,Transfer Training,Gait Training, Therapeutic Exercise,Balance Retraining,Post Op Education, Discharge Planning,Hot or Cold Pack,Neuromuscular Re-ed, Coordination Retraining,Manual Therapy Precautions Lumbar Precautions Log Roll,No Twisting,Limit Bending,Lifting Restriction of 10 lbs,Gait Belt above Incisional Area Recommendations To Nursing Amount of Assist Needed 2 Person Assist,Power Sit- Stand Discharge Recommendations PT Discharge Recommendations Acute Rehab Transportation Needs at Discharge Wheelchair/Cabulance
[2020-10-04] MEDS: CEFAZOLIN 2 GM/100 ML FROZ.PIGGY IV ×2 (15:31→21:56)
[2020-10-04 16:22] VITALS: BP 147/98; PULSE 76; RESP 17; TEMP 36.6; O2SAT 97
[2020-10-04 17:43] LABS: Estimated Glomerular Filt Rate > 60.0 mL/min (>60)
--- NOTE | 2020-10-04 20:02 | P.PN_ITS ---
Subjective Subjective Date Patient Seen: 10/04/20 Time Patient Seen: 13:02 Interval history: He notes he is doing reasonably well he has been getting in and out of bed with physical therapy. He has not had fevers or chills. He has substantial back pain but it is relatively unchanged in comparison to previously. He Exam Vital Signs (past 8 hours): - 10/04/20 16:22 Temperature 97.9 F Pulse Rate 76 Respiratory Rate 17 Blood Pressure 147/98 H Pulse Oximetry 97 Oxygen Delivery Method Room Air Oxygen Flow Rate 0 Narrative Exam Narrative: of wound is benign there is no active erythema and no drainage, says he has good sensation in bilateral lower extremities he has weak hip f lexors quads hamstrings and plantar flexion but there is active motion at all levels in bilateral lower extremities Objective Labs Result Diagrams: 10/04/20 09:25 10/04/20 17:19 Labs: Laboratory Results - last 24 hr 10/04/20 10/04/20 09:25 17:19 WBC 6.2 RBC 3.76 L Hgb 11.3 L Hct 33.7 L MCV 89.8 MCH 30.0 MCHC 33.4 RDW 14.5 Plt Count 288 Neut % (Auto) 76.2 H Lymph % (Auto) 13.1 L [place] % (Auto) 6.2 Eos % (Auto) 3.9 Baso % (Auto) 0.6 Neut # (Auto) 4700 Lymph # (Auto) 800 L [place] # (Auto) 400 Eos # (Auto) 200 Baso # (Auto) 0 RBC Morphology Not Reportable Polychromasia 1+ H ESR 55 H Creatinine 0.66 Estimated GFR > 60.0 PFSH Medical History AVM (arteriovenous malformation) Hyperlipidemia Kidney stones Papillary thyroid carcinoma PTSD (post-traumatic stress disorder) PVC (premature ventricular contraction) Skin cancer Sleep apnea with use of continuous positive airway pressure (CPAP) Surgical History History of lumbar spinal fusion (04/02/18) History of thyroidectomy Hx of hernia repair Hx of knee surgery Hx of shoulder surgery S/P lumbar fusion (01/30/17) S/P UPPP (uvulopalatopharyngoplasty) Status post bilateral LASIK surgery Social History household members: spouse and children Smoking Status: Former smoker alcohol intake: current Assessment & Plan Post-op Postoperative Procedures: Procedures Operation Date: 09/30/20 16:00 Actual Procedures Side Surgeon p Incision and Drainage Wound/Spine Halliejesse Caro MD he is improving. The plan is to discharge him to the spinal cord injury unit at the [place]. He has a cruz dressing on which can remain on for 1 week. His sutures should be removed at 2-3 weeks after his irrigation and debridement. I have recommended that he continue on IV antibiotics for his postoperative infection which is a staph epidermis and it is pansensitive. I have recommended Ancef 2 g IV Q 8 hours for 3 weeks. He should probably have a CBC with diff sed rate and C reactive protein in about 2 weeks. He has been voiding spontaneously without difficulty. I discussed his discharge with the accepting Physician down at the spinal cord injury unit and we decided to use aspirin 81 mg b.i.d. for DVT prophylaxis.
[2020-10-04 21:25] VITALS: BP 153/108; PULSE 76; RESP 18; TEMP 36.5; O2SAT 98
[2020-10-04] MEDS: NORTRIPTYLINE HCL 25 MG CAPSULE PO (21:54)
[2020-10-04] MEDS: ATORVASTATIN 20 MG TABLET 40 MG PO (21:55)
[2020-10-04] MEDS: MAGNESIUM HYDROXIDE 30 ML UDC PO (21:56)
[2020-10-04] MEDS: HYDROMORPHONE 0.5 MG INJ 0.2 MG IV (21:59)
[2020-10-04 23:15] VITALS: BP 136/97; PULSE 72; RESP 18; TEMP 36.2; O2SAT 96
[2020-10-05 05:58] VITALS: BP 133/82; PULSE 72; RESP 18; TEMP 36.5; O2SAT 96
[2020-10-05] MEDS: CEFAZOLIN 2 GM/100 ML FROZ.PIGGY IV ×3 (06:06→23:13)
[2020-10-05] MEDS: PANTOPRAZOLE 20 MG TABLET PO (06:06)
[2020-10-05] MEDS: HYDROMORPHONE 4 MG TABLET PO ×5 (06:08→23:08)
[2020-10-05 08:00] VITALS: BP 140/75; PULSE 56; RESP 14; TEMP 35.9; O2SAT 96
--- NOTE | 2020-10-05 08:19 | P.PN_ITS ---
Subjective Subjective Date Patient Seen: 10/05/20 Time Patient Seen: 08:19 Interval history: Patient states he is doing well and believes that his condition has improved significantly since yesterday. He states that his pain is currently a 6/10 in intensity and notes that his pain is primarily located in the lower back. Patient notes that his work with physical therapy is going well. He notes good sensation throughout the bilateral lower extremities and he reports that his gross motor functions have improved significantly since surgery. Patient denies fever, chills, chest pain, or shortness of breath. Patient states he has been voiding well. Exam Vital Signs (past 8 hours): - 10/05/20 05:58 10/05/20 08:00 Temperature 97.7 F 96.7 F L Pulse Rate 72 56 L Respiratory Rate 18 14 Blood Pressure 133/82 140/75 Pulse Oximetry 96 96 Oxygen Delivery Method Room Air Oxygen Flow Rate 0 Narrative Exam Narrative: 54-year-old man postop day 5. Patient is resting comfortably in bed, in no acute distress, and alert and oriented x3. Incision site on the lower back is free of erythema, induration, warmth, or drainage. The cruz dressing over the incision site is dry and intact with trace amounts of strike through noted on the dressing. The patient has good sensation throughout the bilateral lower extremities. Capillary refill is less than 2 seconds. Quadriceps noted firing with hip flexion. The patient is able to flex the great toe of the right lower extremity against slight resistance. Dorsiflexion and plantar flexion of the ankle on the right lower extremity is performed. Great toe extension performed on the left lower extremity. Negative Homans sign. Const General: cooperative, healthy appearing and comfortable Resp Effort & Inspection: normal respiratory effort and able to speak in complete sentences Skin General: no rashes or lesions noted Objective Labs Result Diagrams: 10/04/20 09:25 10/04/20 17:19 Labs: Laboratory Results - last 24 hr 10/04/20 10/04/20 09:25 17:19 WBC 6.2 RBC 3.76 L Hgb 11.3 L Hct 33.7 L MCV 89.8 MCH 30.0 MCHC 33.4 RDW 14.5 Plt Count 288 Neut % (Auto) 76.2 H Lymph % (Auto) 13.1 L [place] % (Auto) 6.2 Eos % (Auto) 3.9 Baso % (Auto) 0.6 Neut # (Auto) 4700 Lymph # (Auto) 800 L [place] # (Auto) 400 Eos # (Auto) 200 Baso # (Auto) 0 RBC Morphology Not Reportable Polychromasia 1+ H ESR 55 H Creatinine 0.66 Estimated GFR > 60.0 PFSH Medical History AVM (arteriovenous malformation) Hyperlipidemia Kidney stones Papillary thyroid carcinoma PTSD (post-traumatic stress disorder) PVC (premature ventricular contraction) Skin cancer Sleep apnea with use of continuous positive airway pressure (CPAP) Surgical History History of lumbar spinal fusion (04/02/18) History of thyroidectomy Hx of hernia repair Hx of knee surgery Hx of shoulder surgery S/P lumbar fusion (01/30/17) S/P UPPP (uvulopalatopharyngoplasty) Status post bilateral LASIK surgery Social History household members: spouse and children Smoking Status: Former smoker alcohol intake: current Assessment & Plan Post-op Postoperative Procedures: Procedures Operation Date: 09/30/20 16:00 Actual Procedures Side Surgeon p Incision and Drainage Wound/Spine Halliejesse Caro MD Postoperative day: 5 Postoperative status: doing well Postoperative plan narrative: Patient is to continue work with physical therapy. Discharged to the [facility] at the [facility] is dependent on bed avai lability, which is expected to become available tomorrow. Patient is to continue aspirin 81 mg b.i.d. for DVT prophylaxis. Ancef q.8 hours 2g IV will be continued for 3 weeks. Cruz dressing is to remain intact for 1 week.
[2020-10-05] MEDS: LORATADINE 10 MG TABLET PO (08:47)
[2020-10-05] MEDS: PSYLLIUM HUSK 1 PACKET PO (08:47)
[2020-10-05] MEDS: polyethylene glycoL 3350 17 GM POWD.PACK PO (08:47)
[2020-10-05] MEDS: ASPIRIN EC 81 MG TABLET PO ×2 (08:47→23:12)
[2020-10-05] MEDS: DOCUSATE 100 MG CAPSULE PO ×2 (08:47→23:11)
[2020-10-05] MEDS: DULOXETINE 30 MG CAPSULE PO ×2 (08:47→23:12)
[2020-10-05] MEDS: CHOLECALCIFEROL (VITAMIN D3) 1,000 UNIT TABLET 1000 UNIT PO (08:47)
[2020-10-05] MEDS: ACETAMINOPHEN 325 MG TABLET 975 MG PO ×3 (08:47→23:11)
[2020-10-05] MEDS: GABAPENTIN 600 MG TABLET PO ×3 (08:47→23:12)
[2020-10-05] MEDS: OXYCODONE ER 10 MG TAB PO ×2 (08:48→23:16)
[2020-10-05] MEDS: SODIUM CHLORIDE 0.9% FLUSH 10 ML IV ×2 (08:48→23:13)
[2020-10-05] MEDS: BETHANECHOL CHLORIDE 5 MG TABLET 25 MG PO ×2 (08:48→14:25)
[2020-10-05] MEDS: MULTIVITAMIN 1 TABLET 1 TAB PO (08:48)
[2020-10-05] MEDS: THYROID, PORK 60 MG TABLET 120 MG PO (08:48)
[2020-10-05 10:26] LABS: COVID19 - ADMIT (NP swab/PCR) Negative (Negative)
--- NOTE | 2020-10-05 10:50 | PT.IIE ---
Current Diagnoses Infection following a procedure, deep incisional surgical site, initial encounter (09/30/20) Surgery Performed Operation Date: 09/30/20 16:00 Actual Procedures p Incision and Drainage Wound/Spine - Hallie Amairani Caro MD Surgical History (Last Reviewed 10/05/20 @ 12:22 by Richie Aponte PA-C) History of lumbar spinal fusion (04/02/18) History of thyroidectomy Hx of hernia repair Hx of knee surgery Hx of shoulder surgery S/P lumbar fusion (01/30/17) S/P UPPP (uvulopalatopharyngoplasty) Status post bilateral LASIK surgery Medical History (Last Reviewed 10/05/20 @ 12:22 by Richie Aponte PA-C) AVM (arteriovenous malformation) Hyperlipidemia Kidney stones Papillary thyroid carcinoma PTSD (post-traumatic stress disorder) PVC (premature ventricular contraction) Skin cancer Sleep apnea with use of continuous positive airway pressure (CPAP) Physical Therapy Inpatient Evaluation/Re-Eval M1 PT/OT-IP Prior Functional Status Start: 10/01/20 11:58 Freq: NEEDED Status: Active Protocol: Document 10/01/20 11:58 CGR (Rec: 10/01/20 12:32 CGR [id number]) Medical Review Prior Functional Status Medical History Reviewed Yes Communication Pt is an effective verbal communicator. Mobility and Gait Pt was IND prior to recent back sx on 09/09/20 Activities of Daily Living and IADL's Pt was INd prior to recent back sx 09/09/20 Prior Functional Level (Other details) Pt most recently transfered back to this facility for I&D 09/30/20 after being at acute rehab. Social History Household Members spouse,children Living Arrangements House Number of Floors (Floors) Two Floors Number of Stairs To Enter/Railing? Pt has 4 steps without rails to enter the home then 7 steps with B rails then 7 steps with R rail to the upstairs where the bedroom is located. Home Environment Standard Height Toilet,Tub/ Shower Home Equipment Hand Held Shower,Cotton Chopper,Sock Aid,Grab Bars In Shower Employment Status Self-Employed Additional Social History Comment Pt lives with his Brenda and his kids. 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 M1 PT/OT-IP Prior Functional Status Start: 10/01/20 13:12 Freq: NEEDED Status: Active Protocol: Document 10/01/20 11:17 AB (Rec: 10/01/20 13:24 AB [email or web address]) Medical Review Prior Functional Status Medical History Reviewed Yes Communication able to make needs known Mobility and Gait Pt was IND prior to recent back sx on 09/09/20 Activities of Daily Living and IADL's Pt was INd prior to recent back sx 09/09/20 Prior Functional Level (Other details) Pt most recently transfered back to this facility for I&D 09/30/20 after being at acute rehab. Social History Household Members spouse,children Living Arrangements House Number of Floors (Floors) Two Floors Number of Stairs To Enter/Railing? Pt has 4 steps without rails to enter the home then 7 steps with B rails then 7 steps with R rail to the upstairs where the bedroom is located. Home Environment Standard Height Toilet,Tub/ Shower Home Equipment Hand Held Shower,Cotton Chopper,Sock Aid,Grab Bars In Shower Employment Status Self-Employed Additional Social History Comment Pt lives with his Brenda and his kids. 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 M2 PT-IP Current Condition Start: 10/01/20 13:12 Freq: NEEDED Status: Active Protocol: Document 10/01/20 11:17 AB (Rec: 10/01/20 13:24 AB [id number]) Physical Therapy Current Condition Current Condition Evaluation Date 10/01/20 Treatment Diagnosis s/p I&D lumbar wound; difficulty in walking Onset Date 09/30/20 Precautions Lumbar Precautions Log Roll,No Twisting,Limit Bending,Lifting Restriction of 10 lbs,Gait Belt above Incisional Area M3 PT-IP Subjective Start: 10/01/20 13:12 Freq: NEEDED Status: Active Protocol: Document 10/05/20 10:50 AB (Rec: 10/05/20 12:47 AB [id number]) Subjective Physical Therapy Visit Type Type Treatment Note Visit Start Time 10:50 Visit Stop Time 11:45 Total Visit Minutes 55 Number of PIPELINE ENGINEER Visits 0 Physical Therapy Visit Comments Patient Comments pt is agreeable to do PT Therapy Pain Assessment Pain When Pain Assessed At Rest Pain Present Pain Present Pain Reported Location Back Intensity 5 Scale Used Numeric (0 - 10) Pain Management Techniques Distraction,Modification of Treatment,Re-positioning, Timing of Activity with Medications M4 PT-IP Mobility and Gait Start: 10/01/20 13:12 Freq: NEEDED Status: Active Protocol: Document 10/05/20 10:50 AB (Rec: 10/05/20 12:47 AB [id number]) PT-Bed Mobility Assessment Rolling Type of Rolling Log Rolling Level of Assist Moderate Assistance,Maximal Assistance,1 Person Assistance Supine to Sit Supine to Sit Moderate Assistance,1 Person Assistance PT-Transfer Assessment Sit to and From Stand Sit to and from Stand Maximum Assistance,2 Person Assistance,Use of Upper Extremities Equipment Transfer Assistive Device Gait Belt Orthotic/Prosthetic Devices or Brace: No Transfers Transfer Destination Wheelchair Transfer Technique Lateral Scoot Transfer Ability Level of Assist Maximum Assistance,1 Person Assistance,Use of Upper Extremities Comments Mobility Comments completed supine LE exercises: AAROM/ PROM: hip/knee flexion /extension, hip abd/add, glutes sets completed log roll supine to sit mod to max A: required positioning and stabilization of BLE during mobility but able to roll upper body for log roll, mod A for positioning BLE to dangle on EOB and pt was able to push upper body sideways to sit up on EOB. sitting balance F+ requiring SBA. required cues to reposition and to reposition BLE with UE assist while maintaining trunk control. completed sit to stand max A x 2 with assist with blocking and stabilizing B knee. pt tolerated ~ 15 sec of standing. educated on lateral scoot transfer to w/c: positioning of w/c and positioning body before laterally scooting to the w/c; cued to reposition LE during scooting and cued to use and push LE down during scooting; required LE stabilization during scooting. pt able to push up from w/c with min A for safety while assisted with w/c cushion repositioning. call light and table placed within reach. M5 PT-IP Objective Assessments Start: 10/01/20 13:12 Freq: NEEDED Status: Active Protocol: Document 10/01/20 11:17 AB (Rec: 10/01/20 13:24 AB [id number]) Orientation Orientation/Cognition Level of Alertness Alert Orientation Name,Place,Situation Language Function Ability No Deficits Noted Safety Awareness Understands Safety Issues Memory Description No Deficits Noted Gross Range of Motion Lower Extremity ROM Assessment Within Functional Limits Strength Lower Extremity Strength Assessment Bilaterally Impaired Comments Strength Comments RLE: 3-/5 LLE: 2-/ to 2/5 Coordination Assessment Gross Coordination Gross Coordination WNL Sensation Assessment Sensation Gross Sensation WNL Muscle Tone Muscle Tone WNL Yes M6 PT-IP Treatment Start: 10/01/20 13:12 Freq: NEEDED Status: Active Protocol: Document 10/05/20 10:50 AB (Rec: 10/05/20 12:47 AB [id number]) Physical Therapy Treatment Exercises Exercises Gluteal Sets Education Education Provided Safety Other Treatments Other Treatment Performed pls refer to mobility section for details M7 PT-IP Assessment and Plan Start: 10/01/20 13:12 Freq: NEEDED Status: Active Protocol: Document 10/05/20 10:50 AB (Rec: 10/05/20 12:47 AB [email or web address]) PT Summary Assessment and Plan Potential Rehabilitation Potential Good Summary Impairments Pain,ROM,Strength,Balance, Coordination,Sensation,Tone, Cognition,Bed Mobility, Transfers,Gait,Activity Tolerance Assessment Summary pt is improving slowly with LE strength, mobility, standing using FWW. pt is very motivated and will benefit from acute rehab to improve strength and functional independence. Goals Bed Mobility Goal Standby Assistance Transfer Goal Minimal Assistance Days to Meet Goals 10 Frequency of Treatment Frequency Of Treatment Twice a Day Treatment Plan Physical Therapy Treatment Plan Bed Mobility Training,Transfer Training,Gait Training, Therapeutic Exercise,Balance Retraining,Post Op Education, Discharge Planning,Hot or Cold Pack,Neuromuscular Re-ed, Coordination Retraining,Manual Therapy Precautions Lumbar Precautions Log Roll,No Twisting,Limit Bending,Lifting Restriction of 10 lbs,Gait Belt above Incisional Area Recommendations To Nursing Amount of Assist Needed 2 Person Assist,Power Sit- Stand Discharge Recommendations PT Discharge Recommendations Acute Rehab Transportation Needs at Discharge Wheelchair/Cabulance
--- NOTE | 2020-10-05 11:55 | PM.DS.1 ---
History of Present Illness History of Present Illness Date Patient Seen: 10/05/20 Time Patient Seen: 12:05 Chief complaint: Post Op Spinal Infection Narrative: H&P completed within 30 days and has changed as indicated here:: Connor has been at rehab in [place]. They have arranged a bed for him down at the [facility] in rehab for spinal cord injury following L5-S1 Postero-lateral and posterior interbody fusion on 09/09/20. They noticed the increased redness and some drainage from his wound. He had not experienced high fevers but there had been clear increased erythema around his wound. He was transferred over for probable irrigation and debridement of his lumbar spine. His exam showed severe erythema around his back. Sensation was good in bilateral lower extremities but he had marked weakness in bilateral lower extremities. He was able to have some active toe flexion and firing of his hip flexors and trace firing of his quads was appreciated. His exam is consistent with a postoperative infection of recommended irrigation and debridement. Procedure alternatives risks benefits and complications were discussed in detail. He had significantly compromised neurological status preoperatively and did not appear to be improving with time. Limits of the procedure and overall goal to treat acute infection were discussed. Discharge Providers Provider Date of admission: 09/30/20 11:39 Discharge Date: 10/06/20 Primary care physician: Madison Benson DO Consults: 09/30/20 15:30 Consult to Respiratory Therapy Evaluate & Treat Comment: Physician Instructions: Evaluate and treat 09/30/20 19:03 Consult to Discharge Planning Routine Comment: Consult to Physical Therapy Evaluate & Treat Comment: transfer out of bed Physician Instructions: Evaluate and Treat Consult to Respiratory Therapy Evaluate & Treat Comment: Physician Instructions: Evaluate and treat 10/01/20 09:22 Consult to Occupational Therapy Evaluate & Treat Comment: Physician Instructions: Evaluate and treat Discharge provider: Richie Aponte PA-C Summary Hospital Course Discharge Diagnosis: Post-op spinal infection Status post irrigation and debridement of lumbar spine wound Hospital Course: Patient was admitted to the hospital following the above listed procedure for the above listed diagnosis. Following the procedure the patient has been convalescing appropriately. The patient has been working on his mobility with PT successfully and his pain has been managed well with his pain management regimen throughout the duration of his stay. Culture of the surgical wound was obtained during his stay and the patient was started on IV antiobiotics pending the results of the culture. Cefazolin 2g IV has been administered q8hrs and will continue following discharge from the hospital for three weeks. Instructions for leidy dressing have been included in the patient's discharge packet, and the dressing is to remain intact for one week. DVT prophylaxis is in place with Aspirin 81mg BID. Prescriptions have been written for pain management and should be taken as prescribed. Patient is set to be transferred to the [facility] for further rehabilitation. Patient is to follow-up with Dr. Washington or Dr. Caro in 2 weeks at the clinic or during the earliest available appointment. Fall precautions in place. Status at Discharge Cognitive/behavioral status at discharge: oriented Functional status at discharge: bed bound Overall status at discharge: patient is not back to baseline Time Spent with Patient Time spent: Greater than 30 minutes Exam Vital Signs (past 8 hours): - 10/05/20 05:58 10/05/20 08:00 Temperature 97.7 F 96.7 F L Pulse Rate 72 56 L Respiratory Rate 18 14 Blood Pressure 133/82 140/75 Pulse Oximetry 96 96 Oxygen Delivery Method Room Air Oxygen Flow Rate 0 Narrative Exam Narrative: 54-year-old man postop day 5. Patient is resting comfortably in bed, in no acute distress, and alert and oriented x3. Incision site on the lower back is free of erythema, induration, warmth, or drainage. The leidy dressing over the incision site is dry and intact with trace amounts of strike through noted on the dressing. The patient has good sensation throughout the bilateral lower extremities. Capillary refill is less than 2 seconds. Quadriceps noted firing with hip flexion. The patient is able to flex the great toe of the right lower extremity against slight resistance. Dorsiflexion and plantar flexion of the ankle on the right lower extremity is performed. Great toe extension performed on the left lower extremity. Negative Homans sign. Const General: cooperative, healthy appearing and comfortable Skin General: no rashes or lesions noted Objective Labs Result Diagrams: 10/04/20 09:25 10/04/20 17:19 Labs: Laboratory Results - last 24 hr 10/04/20 10/05/20 17:19 08:45 Creatinine 0.66 Estimated GFR > 60.0 SARS-CoV-2 (PCR) Negative [facility] Medical History AVM (arteriovenous malformation) Hyperlipidemia Kidney stones Papillary thyroid carcinoma PTSD (post-traumatic stress disorder) PVC (premature ventricular contraction) Skin cancer Sleep apnea with use of continuous positive airway pressure (CPAP) Surgical History History of lumbar spinal fusion (04/02/18) History of thyroidectomy Hx of hernia repair Hx of knee surgery Hx of shoulder surgery S/P lumbar fusion (01/30/17) S/P UPPP (uvulopalatopharyngoplasty) Status post bilateral LASIK surgery Social History household members: spouse and children Smoking Status: Former smoker alcohol intake: current Discharge Assessment & Plan Assessment and Plan Assessment: Patient convalescing appropriately following the above-listed procedure for the above listed diagnosis. Plan of Treatment: Patient is to continue rehabilitation at the [facility] spinal [facility] unit following discharge from the hospital. Two weeks following discharge the patient is to follow up with Dr. Washington or Dr. Caro, or during the earliest available appointment. Patient is to take medications as prescribed and continue home medications as directed. Discharge Plan Discharge Plan Patient Disposition: Xfer Inpatient Rehab Other facility: [facility] Discharge orders & Medications Discharge Orders: Discharge (Order); Ordered 10/05/20 Ordered By: Richie Aponte Prescriptions: New methocarbamol 500 mg Tablet 750 mg PO QID PRN (Reason: Muscle Spasm) Qty: 60 RF: 0 gabapentin [Neurontin] 600 mg Tablet 600 mg PO TID Qty: 60 RF: 0 aspirin 81 mg Tablet,Delayed Release (Dr/Ec) 81 mg PO BID 120 Days Qty: 240 RF: 0 hydromorphone 4 mg Tablet 4 mg PO Q3HR PRN (Reason: Pain, Severe (7-10)) Qty: 60 RF: 0 oxycodone [OxyContin] 10 mg Tablet,Oral Only,Ext.Rel.12 Hr 10 mg PO BID Qty: 30 RF: 0 cefazolin in dextrose (iso-os) 2 gram/100 mL Piggyback 2 gm IV Q8H Qty: 126 RF: 0 Continued aspirin 81 mg Tablet,Delayed Release (Dr/Ec) 81 mg PO BID Qty: 90 RF: 0 atorvastatin 40 mg Tablet 40 mg PO BEDTIME RF: 0 thyroid (pork) [[place] Thyroid] 30 mg tablet 120 mg PO DAILY RF: 0 tramadol 50 mg Tablet 50 - 100 mg PO Q6H PRN (Reason: Pain (Scale Score 4-6)) RF: 0 zolpidem [Ambien] 5 mg Tablet 5 mg PO BEDTIME PRN (Reason: Insomnia) RF: 0 pantoprazole [Protonix] 40 mg Tablet,Delayed Release (Dr/Ec) 40 mg PO DAILY RF: 0 nortriptyline 25 mg Capsule 25 mg PO BEDTIME RF: 0 methadone 5 mg Tablet 2.5 mg PO TID RF: 0 methocarbamol [Robaxin] 750 mg Tablet 750 mg PO QID PRN (Reason: Muscle Spasm) RF: 0 duloxetine [Cymbalta] 30 mg Capsule,Delayed Release(Dr/Ec) 30 mg PO BID RF: 0 bethanechol chloride [Urecholine] 25 mg Tablet 25 mg PO TID RF: 0 gabapentin 600 mg Tablet 600 mg PO TID RF: 0 polyethylene glycol 3350 [Miralax] 17 gram Powder In Packet 17 g PO DAILY PRN (Reason: Constipation) RF: 0 cetirizine 10 mg Tablet 10 mg PO DAILY PRN (Reason: allergies) RF: 0 prochlorperazine maleate [Compazine] 5 mg Tablet 5 mg PO Q6HR PRN (Reason: Nausea) RF: 0 Metamucil Packet 1 packet PO BID RF: 0 acetaminophen 650 mg Tablet 650 mg PO Q6H PRN (Reason: Pain (Scale Score 1-3)) RF: 0 hydromorphone [Dilaudid] 2 mg Tablet 2 mg PO Q8HR PRN (Reason: Pain (Scale Score 7-10)) RF: 0 docusate sodium [Colace] 100 mg Capsule 100 mg PO DAILY RF: 0 magnesium citrate Solution 300 ml PO DAILY PRN (Reason: Constipation) RF: 0 nystatin 100,000 unit/gram Powder 1 applic TOPICAL DAILY PRN (Reason: fungal rash) RF: 0 ondansetron [Zofran ODT] 4 mg Tablet,Disintegrating 4 mg PO Q8H PRN (Reason: Nausea) RF: 0 senna-docusate sodium Tablet 8.6 - 50 tab PO BEDTIME PRN (Reason: Constipation) RF: 0 methyl salicylate-menthol Cream 1 applic TOPICAL TID RF: 0 cholecalciferol (vitamin D3) 25 mcg (1,000 unit) Tablet 25 mcg PO DAILY RF: 0 diclofenac sodium [Voltaren] 1 % Gel 2 g TOPICAL QID PRN (Reason: Pain (Scale Score 1-3)) RF: 0 multivitamin with folic acid 400 mcg Tablet 1 tab PO DAILY RF: 0 lidocaine HCl 4 % Adhesive Patch,Medicated 1 patch TOPICAL DAILY RF: 0 Discontinued cephalexin [Keflex] 500 mg Capsule 500 mg PO Q8H RF: 0 Follow up/Referrals: Sarai Washington MD [Physician] - (2 weeks or next available appointment) Madison Benson DO [Primary Care Provider] - Discharge Health Status Precautions: [place] and Contact Diet/Activity/Treatments Diet: Diet as Tolerated Activity: Fall precautions Skin/Wound/Dressing Care Report to your healthcare provider any signs of infection, such as:: chills, fever, night sweats, increased pain, unusual drainage and unusual redness Dressing: Leidy dressing for one week follow instructions change PRN [facility] Reason for rehabilitation: Post-operative therapy and Recovery r/t decondition Visit Report/Discharge Packet Instructions: Peripherally Inserted Central Catheter, DI for Incision and Drainage Stand Alone Forms: Surgery Discharge Discharge Data Primary Care Provider: Madison Benson
--- NOTE | 2020-10-05 14:00 | PT.IPTN ---
Current Diagnoses Infection following a procedure, deep incisional surgical site, initial encounter (09/30/20) Surgery Performed Operation Date: 09/30/20 16:00 Actual Procedures p Incision and Drainage Wound/Spine - Hallie Amairani Caro MD Physical Therapy Treatment Note M2 PT-IP Current Condition Start: 10/01/20 13:12 Freq: NEEDED Status: Active Protocol: Document 10/01/20 11:17 AB (Rec: 10/01/20 13:24 AB [id number]) Physical Therapy Current Condition Current Condition Evaluation Date 10/01/20 Treatment Diagnosis s/p I&D lumbar wound; difficulty in walking Onset Date 09/30/20 Precautions Lumbar Precautions Log Roll,No Twisting,Limit Bending,Lifting Restriction of 10 lbs,Gait Belt above Incisional Area M3 PT-IP Subjective Start: 10/01/20 13:12 Freq: NEEDED Status: Active Protocol: Document 10/05/20 14:00 AB (Rec: 10/05/20 15:40 AB [id number]) Subjective Physical Therapy Visit Type Type Treatment Note Visit Start Time 14:00 Visit Stop Time 14:27 Total Visit Minutes 27 Number of NURSE ADVOCATE Visits 0 Physical Therapy Visit Comments Patient Comments pt is agreeble to do PT Therapy Pain Assessment Pain When Pain Assessed At Rest Pain Present Pain Present Pain Reported Location Back Intensity 6 Scale Used Numeric (0 - 10) Pain Management Techniques Distraction,Modification of Treatment,Re-positioning, Timing of Activity with Medications M4 PT-IP Mobility and Gait Start: 10/01/20 13:12 Freq: NEEDED Status: Active Protocol: Document 10/05/20 14:00 AB (Rec: 10/05/20 15:40 AB [id number]) PT-Bed Mobility Assessment Sit to Supine Sit to Supine Moderate Assistance,1 Person Assistance PT-Transfer Assessment Sit to and From Stand Sit to and from Stand Maximum Assistance,2 Person Assistance,Use of Upper Extremities Equipment Transfer Assistive Device Gait Belt Orthotic/Prosthetic Devices or Brace: No Transfers Transfer Destination Bed Transfer Technique Lateral Scoot Transfer Ability Level of Assist Maximum Assistance,1 Person Assistance,Use of Upper Extremities Comments Mobility Comments completed seated push up from w/c with emphasis on using BLE to push from the floor. completed x 4 reps max A x 2 and max cues. w/c to bed transfer: instructed pt to position w/c. educated pt on going towards stronger side during transfers. pt needs cues for positioning w/c next to the bed. educated on positioning body prior to scooting to the bed. requires max A to stabilize BLE and cues to push with BLE and completed scoot transfer to bed max A for LE stabilization. cued to repostion BLE with each scoot. completed sit to supine mod A with LE. LE exercises in supine: PROM with hip/knee flexion but pt able to push into extension . completed x 3 reps on each side. positioned BLE in hip/ knee flexion with B feet down on the bed. instructed to keep B knees up and revent in going into abduction. pt required max A assist and cues. able to statically maintain LLE in neutral for ~ 10 sec with SBA. RLE able to maintain in 2 sec and requires more assist in positioning. positioned pt in bed. call light and table placed within reach. M5 PT-IP Objective Assessments Start: 10/01/20 13:12 Freq: NEEDED Status: Active Protocol: Document 10/01/20 11:17 AB (Rec: 10/01/20 13:24 AB [id number]) Orientation Orientation/Cognition Level of Alertness Alert Orientation Name,Place,Situation Language Function Ability No Deficits Noted Safety Awareness Understands Safety Issues Memory Description No Deficits Noted Gross Range of Motion Lower Extremity ROM Assessment Within Functional Limits Strength Lower Extremity Strength Assessment Bilaterally Impaired Comments Strength Comments RLE: 3-/5 LLE: 2-/ to 2/5 Coordination Assessment Gross Coordination Gross Coordination WNL Sensation Assessment Sensation Gross Sensation WNL Muscle Tone Muscle Tone WNL Yes M6 PT-IP Treatment Start: 10/01/20 13:12 Freq: NEEDED Status: Active Protocol: Document 10/05/20 14:00 AB (Rec: 10/05/20 15:40 AB [id number]) Physical Therapy Treatment Exercises Exercises Seated Knee Flexion/Extension Education Education Provided Safety Other Treatments Other Treatment Performed pls refer to mobility section for details M7 PT-IP Assessment and Plan Start: 10/01/20 13:12 Freq: NEEDED Status: Active Protocol: Document 10/05/20 14:00 AB (Rec: 10/05/20 15:40 AB [id number]) PT Summary Assessment and Plan Potential Rehabilitation Potential Good Summary Impairments Pain,ROM,Strength,Balance, Coordination,Sensation,Tone, Cognition,Bed Mobility, Transfers,Gait,Activity Tolerance Progress Towards Goals Slow Progress due to Medical Issues,Slow Progress due to Activity Tolerance Assessment Summary pt making slow progress with mobility but able to activate and use BLE more during activities but continues to require max A x 1-2. pt will benefit from acute rehab to improve strength and mobility independence. Goals Bed Mobility Goal Standby Assistance Transfer Goal Minimal Assistance Days to Meet Goals 10 Frequency of Treatment Frequency Of Treatment Twice a Day Treatment Plan Physical Therapy Treatment Plan Bed Mobility Training,Transfer Training,Gait Training, Therapeutic Exercise,Balance Retraining,Post Op Education, Discharge Planning,Hot or Cold Pack,Neuromuscular Re-ed, Coordination Retraining,Manual Therapy Precautions Lumbar Precautions Log Roll,No Twisting,Limit Bending,Lifting Restriction of 10 lbs,Gait Belt above Incisional Area Recommendations To Nursing Amount of Assist Needed 2 Person Assist,Power Sit- Stand Discharge Recommendations PT Discharge Recommendations Acute Rehab Transportation Needs at Discharge Wheelchair/Cabulance
--- NOTE | 2020-10-05 14:54 | CM.DPNOTE ---
Faxed [facility] Attn: [place] [phone] Updated DC Summary per Imani on 10/05/20. Received fax confirmation. Haley Arenas CM Asst.
[2020-10-05 16:31] VITALS: BP 141/86; PULSE 72; RESP 16; TEMP 36.6; O2SAT 94
--- NOTE | 2020-10-05 16:38 | OT.IP.TRT ---
Current Diagnoses Infection following a procedure, deep incisional surgical site, initial encounter (09/30/20) Surgery Performed Operation Date: 09/30/20 16:00 Actual Procedures p Incision and Drainage Wound/Spine - Hallie Amairani Caro MD Occupational Therapy Treatment Note M2 OT-IP Current Condition Start: 10/01/20 11:58 Freq: Status: Active Protocol: Document 10/01/20 11:58 CGR (Rec: 10/01/20 12:32 CGR [id number]) Occupational Therapy Current Condition Current Condition Evaluation Date 10/01/20 Treatment Diagnosis I&D of back wound 09/09/20 TLIF w/ revision and post op paralysis Diagnosis Onset Date 09/30/20 Post Operative Precautions Lumbar Precautions Log Roll,No Twisting,Limit Bending,Lifting Restriction of 10 lbs,Gait Belt above Incisional Area M3 OT- IP Subjective and Pain Start: 10/01/20 11:58 Freq: Status: Active Protocol: Document 10/05/20 16:41 [facility] (Rec: 10/05/20 16:49 [facility] [id number]) OT- Subjective Occupational Therapy Visit Type Type Treatment Note Visit Start Time 15:35 Visit Stop Time 16:38 Total Visit Minutes 63 Occupational Therapy Visit Comments Patient Comments Pt wanting to take a shower. Patient/Caregiver Goals To get stronger and be able to walk again. OT Pain Assessment Pain When Pain Assessed At Rest Pain Present Pain Present Denied Pain M4 OT- IP ADL's Start: 10/01/20 11:58 Freq: Status: Active Protocol: Document 10/05/20 16:41 [facility] (Rec: 10/05/20 16:49 [facility] [id number]) OT [id number] Comments OT Self-Feeding Comments not meal time OT ADL-Grooming Comments OT Grooming Comments Pt states did earlier. OT ADL-Dressing General Eval Upper Body Dressing Ability Independent Lower Body Dressing Ability Total Assistance Areas Needing Assistance Shoes OT ADL-Toileting Comments OT Toileting Comments not performed OT ADL-Bathing Bathing Type Bathing Type Shower General Evaluation Bathing Ability Minimal Assistance Areas Needing Assistance Retrieving/Setting Up Items, Wash/Dry Back,Wash/Dry Perineal Area Devices Bathing Equipment Hand Held Shower Sprayer, Shower Chair with Arms Comments OT Bathing Comments Pt able to do most of his shower except for his back and feet. Pt also needing assist to help wash his hair as pt tiring. M5 OT- IP IADL's Start: 10/01/20 11:58 Freq: Status: Active Protocol: Document 10/01/20 11:58 [facility]GR (Rec: 10/01/20 12:32 CGR [id number]) OT-Instrumental Activities of Daily Living Deficits IADL Deficits Identified No Deficits Home Safety Awareness Awareness of Need for Assistance at Home Good Awareness Ability to Problem Solve Emergency Able to Problem Solve Situations Home Safety Comments Pt with a recent significant change to his mobility level. M6 OT- IP Functional Cognition Start: 10/01/20 11:58 Freq: Status: Active Protocol: Document 10/05/20 16:41 [facility] (Rec: 10/05/20 16:49 [facility] [id number]) Cognitive Factors Limiting Selfcare Function Cognitive Comments Cognitive Assessment Comments Pt intact with no deficits. M7 OT- IP Mobility and Balance Start: 10/01/20 11:58 Freq: Status: Active Protocol: Document 10/05/20 16:41 [facility] (Rec: 10/05/20 16:49 [facility] [id number]) OT- Bed Mobility Assessment Supine to Sit Supine to Sit Assist Moderate Assistance Sit to Supine Sit to Supine Assist Moderate Assistance OT-Transfer Assessment Transfers Transfer Ability Moderate Assistance,1 Person Assistance Technique Transfer Destination Bed,Bedside Commode,Shower Stall,Wheelchair Transfer Technique Lateral Scoot Devices Transfer Assistive Devices None,Gait Belt Comments Mobility Comments MODA to squat/lateral scoot to the wc,BSC, and back to and then bed. Pt needing assist to help position and hold BLE in place during pt's transfers. OT- Balance Assessment Sitting Balance and Reactions Static Sitting Balance Ability Good Dynamic Sitting Balance Ability Fair M8 OT- IP Objective Assessments Start: 10/01/20 11:58 Freq: Status: Active Protocol: Document 10/01/20 11:58 [facility] (Rec: 10/01/20 12:32 [facility]GR [id number]) OT Gross Range of Motion Upper Extremity Range of Motion Assessment Within Functional Limits OT Strength Upper Extremity Strength Assessment Within Functional Limits Comments Strength Comments 5+/5 OT- Coordination Assessment Upper Extremity Finger to Nose Test Within Functional Limits Finger Tapping Test Within Functional Limits OT-Muscle Tone Assessment Muscle Tone WNL Yes OT Sensation Assessment Edema Edema Absent M9 OT- IP Assessment and Plan Start: 10/01/20 11:58 Freq: Status: Active Protocol: Document 10/05/20 16:41 [facility] (Rec: 10/05/20 16:49 [facility] [id number]) OT Summary Assessment and Plan Potential Rehabilitation Potential Excellent Analytic Complexity at Evaluation Low Summary OT Impairments Pain,Balance,Functional Mobility,Self-Feeding,Grooming ,Dressing,Toileting,Bathing, Toilet Transfers,Shower Transfers Progress Towards Goals Progressing Toward Goals Assessment Summary Pt able to tolerate shower today for OT session and good awareness for wc set-up, positioning of wc, and his BLE for the transfers. Pt looking to go to [facility] tomorrow for rehab. Goals Grooming Goal Independent Dressing Goal Independent Toileting Goal Independent Bathing Goal Independent Toilet Transfer Goal Independent Shower Transfer Goal Independent Days to Meet Goals 30 Frequency of Treatment Frequency Of Treatment Once a Day Treatment Plan OT Treatment Plan ADL Training,Functional Mobility,Patient/Family Education,Discharge Planning Discharge Recommendations OT Discharge Recommendations Acute Rehab Transportation Needs at Discharge Stretcher/Ambulance
[2020-10-05 16:49] LABS: C-Reactive Protein Quant 11.8 mg/dL (<1.0)
[2020-10-05 20:08] VITALS: BP 134/93; PULSE 81; RESP 16; TEMP 36.6; O2SAT 95
[2020-10-05] MEDS: ZOLPIDEM 5 MG TABLET PO (23:08)
[2020-10-05] MEDS: ATORVASTATIN 20 MG TABLET 40 MG PO (23:12)
[2020-10-05] MEDS: MAGNESIUM HYDROXIDE 30 ML UDC PO (23:14)
[2020-10-05] MEDS: NORTRIPTYLINE HCL 25 MG CAPSULE PO (23:16)
[2020-10-06] VITALS: BP 142/83; PULSE 81; RESP 17; TEMP 36.5; O2SAT 95
[2020-10-06 06:00] VITALS: BP 132/91; PULSE 75; RESP 18; TEMP 36.3; O2SAT 96
[2020-10-06] MEDS: CEFAZOLIN 2 GM/100 ML FROZ.PIGGY IV (06:15)
[2020-10-06] MEDS: PANTOPRAZOLE 20 MG TABLET PO (06:15)
[2020-10-06] MEDS: HYDROMORPHONE 4 MG TABLET PO ×2 (06:15→09:32)
[2020-10-06 07:50] VITALS: BP 141/90; PULSE 80; RESP 18; TEMP 36.5; O2SAT 96
[2020-10-06] MEDS: ASPIRIN EC 81 MG TABLET PO (08:04)
[2020-10-06] MEDS: GABAPENTIN 600 MG TABLET PO (08:04)
[2020-10-06] MEDS: OXYCODONE ER 10 MG TAB PO (08:04)
[2020-10-06] MEDS: DULOXETINE 30 MG CAPSULE PO (08:05)
[2020-10-06] MEDS: ACETAMINOPHEN 325 MG TABLET 975 MG PO (08:05)
[2020-10-06] MEDS: LORATADINE 10 MG TABLET PO (08:06)
[2020-10-06] MEDS: CHOLECALCIFEROL (VITAMIN D3) 1,000 UNIT TABLET 1000 UNIT PO (08:07)
[2020-10-06] MEDS: MULTIVITAMIN 1 TABLET 1 TAB PO (08:08)
--- NOTE | 2020-10-06 08:46 | CM.DPNOTE ---
Faxed updated clinicals including meds to [facility] Attn: [place] [phone] per Imani. Fax confirmation received. Haley Arenas CM Asst.
--- NOTE | 2020-10-06 11:34 | PC.NURSE ---
Am shift Pt is A/o x4, good spirits, planning on d/c @ 0830 to [facility]. PO meds this am with PO Dilaudid prior to d/c with BLS @ 0930. Pt attempted BM with no success this am, however declined bowel meds d/t travel this am. Report called to [facility] @ [facility] 1100. All belonging from room sent with Pt.
--- NOTE | 2020-10-06 15:21 | CM.DPNOTE ---
DC Note Worked on DCP coordination yesterday and today. Faxed all completed DC ppk yesterday, to [place] at [facility] (notes indicated contact name is Alyse... which was incorrect). also faxed DC summary, med list, DC instructions and recent clinical notes to include therapy notes and Dr Caro's recent prog note.. w/wound care instructions and IV abx order. COVID swab done and results faxed. DC order placed today by Chava MCCABE to [facility], located in [facility]. Updated patient and he remained optimistic and agreeable to plan, IMM reviewed. BLS ran a little late, patient was picked up at approx 0900 this morning. Updated [place]. This PHYS ASSISTANT provided # to ELVIS Flores for nurse to nurse report. Plan: DC this morning to [facility] via BLS (arranged by [facility] team) JENNIFER Dye
== END 2020-10-06 09:30 | DRG 857 ==
PROVIDERS: Physician Assistant Medical; Admitting Provider Orthopaedic Surgery; Family Provider Family Medicine; PCP Family Medicine; Referring Provider Orthopaedic Surgery; Visit Provider Orthopaedic Surgery
PROC: 0KBG0ZZ Excision of Left Trunk Muscle, Open Approach (ICD-10-PCS; CPT 10180; principal; 2020-09-30 16:00)
DX: T81.42XA Infection following a procedure, deep incisional surgical site, initial encounter (principal); L02.212 Cutaneous abscess of back [any part, except buttock and flank]; I96 Gangrene, not elsewhere classified; G95.29 Other cord compression; G97.82 Other postprocedural complications and disorders of nervous system; G47.30 Sleep apnea, unspecified; E78.5 Hyperlipidemia, unspecified; Z20.822 Contact with and (suspected) exposure to COVID-19; R29.818 Other symptoms and signs involving the nervous system
CPT/HCPCS: 36415; 36569; 80048; 80202; 82565; 85025; 85651; 86140; 87070; 87075; 87077; 87186; 87205; 87635; 89051; 97110; 97112; 97162; 97165; 97530; 97535; C9803; J0330; J0690; J1100; J1170; J1642; J2405; J2704; J3010

== ENCOUNTER → 2022-01-04 12:06 | Outpatient (CLI) | payer MEDICARE, OTHER, SELFPAY ==
[2020-09-30 11:57] VITALS: BMI 26.6
--- NOTE | 2022-01-04 | DI.MRI.S_ITS ---
PROCEDURE: MR SHOULDER LT WO CON INDICATIONS: Pain in left shoulder TECHNIQUE: Noncontrast oblique coronal T2 fast spin echo with fat saturation, oblique sagittal T1 spin echo and T2 fast spin echo with fat saturation, axial T1 spin echo and T2 fast spin echo with fat saturation through the shoulder. COMPARISON: [facility], MR, SHOULDER WITH CONTRAST, 04/27/2015, 13:36. FINDINGS: Image quality: Excellent. Rotator cuff: There is full-thickness tearing of the supraspinatus and infraspinatus tendons with proximal tendon retraction measuring up to 3 cm from their distal insertions. The teres minor tendon is intact. There is moderate subscapularis tendinosis. Edema is seen within the medial supraspinatus and infraspinatus muscles, consistent with superimposed muscle strains. A band of edema is seen within the inferior superficial portion of the subscapularis muscle with overlying edema, suspicious for a grade 2 strain. Bones and bursae: No acute trabecular bone injury. Possible chronic traction cystic changes versus postsurgical changes at the posterosuperior humeral head. Post root through the stroma distal clavicular excision. Glenohumeral contrast material communicates with the subacromial/subdeltoid bursa. Fluid is also seen in the subcoracoid bursa. Capsule and soft tissues: Postsurgical changes from prior labral repair with a surgical anchor at the superior glenoid. No recurrent displaced labral tear is identified. The biceps long head tendon is not visualized, consistent with prior postsurgical changes or full-thickness tendon tearing. There is effacement of the fat signal in the rotator interval. No capsular defect is seen. IMPRESSION: 1. Full-thickness tearing of the supraspinatus and infraspinatus tendons with proximal tendon retraction measuring up to 3 cm. Low-grade strains of the supraspinatus and infraspinatus muscles is noted. 2. Bandlike edema and fluid within the inferior subscapularis muscle is suspicious for a grade 2 muscle strain/partial tear. Moderate subscapularis tendinosis is also seen without a discrete tendon tear. 3. Nonvisualization of the biceps long head tendon may be secondary to prior postsurgical changes or chronic tendon tearing and distal retraction. 4. Postsurgical changes from superior labral repair. No recurrent displaced labral tear is seen. 5. Status post distal clavicular resection. No recurrent narrowing of the supraspinatus outlet. 6. Glenohumeral joint fluid communicates with the subacromial/subdeltoid bursa. Dictated by: Pavel Shields M.D. on 01/04/2022 at 13:37 Approved by: Pavel Shields M.D. on 01/04/2022 at 13:53
== END ==
PROVIDERS: Family Provider Family Medicine; PCP Family Medicine; Referring Provider Family Medicine; Visit Provider Family Medicine
DX: M75.122 Complete rotator cuff tear or rupture of left shoulder, not specified as traumatic (principal); M25.512 Pain in left shoulder; Z98.890 Other specified postprocedural states
CPT/HCPCS: 73221

== ENCOUNTER → 2022-02-01 16:04 | Outpatient (CLI) | payer MEDICARE, OTHER, SELFPAY ==
[2020-09-30 11:57] VITALS: BMI 26.6
--- NOTE | 2022-02-01 16:06 | DI.MRI.S_ITS ---
PROCEDURE: MR HEAD/BRAIN WO/W CON INDICATIONS: CAVERNOUS MALFORMATION/HEADACHE,VISUAL CHANGES TECHNIQUE: Noncontrast axial T1 spin echo, axial T2 fast spin echo, sagittal and axial FLAIR, coronal T2 fast spin echo, axial gradient echo, axial diffusion and ADC through the brain. After the administration of contrast, axial and coronal and sagittal 3D VIBE or T1 spin echo with fat saturation through the brain. COMPARISON: [facility], MR, MR HEAD/BRAIN WO/W CON, 10/13/2019, 13:14. FINDINGS: Image quality: Excellent. CSF Spaces: Basal cisterns are patent. No extra-axial fluid collections. Ventricles are normal in size and shape. Brain: No midline shift. No acute intracranial bleeds or masses. There are multiple foci of low gradient echo signal intensity within the bilateral cerebral hemispheres, as well as the surjit and right cerebellar hemisphere, as before. There is a dominant region of low gradient echo signal intensity within the right basal ganglia, as before, measuring roughly 23 mm, which is slightly increased. No abnormal intracranial enhancement. The brainstem appears normal. Diffusion-weighted images demonstrate no acute ischemic insults. No chronic ischemic insults. Normal intravascular flow voids are present. Skull and face: Calvarial marrow is normal in signal. Orbits appear normal. Sinuses: Sinuses and mastoids appear clear. IMPRESSION: 1. Slight increase in size of cavernous hemangioma within the right basal ganglia. 2. Otherwise, no significant change in multiple bilateral cerebral, cerebellar, and brainstem cavernous hemangiomas. 3. No acute intracranial hemorrhage. Dictated by: Madhuri Torres M.D. on 02/01/2022 at 16:51 Approved by: Madhuri Torres M.D. on 02/01/2022 at 16:53
== END ==
PROVIDERS: Family Provider Family Medicine; PCP Family Medicine; Referring Provider Psychiatry & Neurology Neurology; Visit Provider Psychiatry & Neurology Neurology
DX: Q28.3 Other malformations of cerebral vessels (principal); R51.9 Headache, unspecified; H53.9 Unspecified visual disturbance
CPT/HCPCS: 70553

== ENCOUNTER → 2023-08-07 15:33 | Outpatient (CLI) | payer MEDICARE, OTHER, SELFPAY ==
[2020-09-30 11:57] VITALS: BMI 26.6
--- NOTE | 2023-08-07 | DI.MRI.S_ITS ---
PROCEDURE: MR SHOULDER RT WO CON INDICATIONS: SHOULDER PAIN TECHNIQUE: Noncontrast oblique coronal T2 fast spin echo with fat saturation, oblique sagittal T1 spin echo and T2 fast spin echo with fat saturation, axial T1 spin echo and T2 fast spin echo with fat saturation through the shoulder. COMPARISON: [facility], MR, MR SHOULDER LT WO CON, 01/04/2022, 12:15. FINDINGS: Image quality: Excellent. Rotator cuff: Full-thickness rupture of distal supraspinatus at its insertion on the humeral head is seen with up to 1.9 cm medial retraction of torn tendon fibers to the level of acromion. Moderate grade articular surface partial-thickness tear involving distal infraspinatus at its insertion on the humeral head is seen extending to musculotendinous junction. Low-grade intrasubstance partial-thickness tear involving distal subscapularis is noted. Sagittal images demonstrate mild supraspinatus muscle atrophy. Bones and bursae: No bone marrow contusions or fractures. Moderate acromioclavicular joint osteoarthritic changes are seen with joint space narrowing and downward osteophyte formation depressing the musculotendinous junction of supraspinatus. Moderate joint effusion and subacromial subdeltoid bursal fluid is seen, no gross loose bodies. Capsule and soft tissues: The labrum is grossly intact. The long head of the biceps tendon appears thickened with intrasubstance T2 hyperintense signal. The rotator interval appears normal, without fibrosis. The coracohumeral ligament is normal in thickness. IMPRESSION: 1. Full-thickness rupture involving distal supraspinatus at its insertion on the humeral head with up to 1.9 cm medial retraction of torn tendon fibers to the level of acromion. Mild supraspinatus muscle atrophy. 2. Moderate grade articular surface partial-thickness tear involving distal infraspinatus extending to musculotendinous junction. Low-grade intrasubstance partial-thickness tear involving distal subscapularis. 3. Moderate acromioclavicular joint osteoarthritis. No fracture or dislocation. Moderate joint effusion and subacromial subdeltoid bursal fluid, no gross loose bodies. 4. No gross focal labral tear. 5. Tendinosis and low-grade intrasubstance partial-thickness tear involving proximal long head of biceps. Dictated by: Josiah Avery M.D. on 08/07/2023 at 17:04 Approved by: Josiah Avery M.D. on 08/07/2023 at 17:06
== END ==
PROVIDERS: Family Provider Family Medicine; PCP Family Medicine; Referring Provider Family Medicine; Visit Provider Family Medicine
DX: M75.121 Complete rotator cuff tear or rupture of right shoulder, not specified as traumatic (principal); M25.511 Pain in right shoulder; M19.012 Primary osteoarthritis, left shoulder; S46.111A Strain of muscle, fascia and tendon of long head of biceps, right arm, initial encounter
CPT/HCPCS: 73221

== ENCOUNTER → 2024-07-24 16:10 | Outpatient (CLI) | payer MEDICARE, OTHER, SELFPAY ==
[2020-09-30 11:57] VITALS: BMI 26.6
--- NOTE | 2024-07-24 16:11 | DI.MRI.S_ITS ---
PROCEDURE: MR HEAD/BRAIN WO CON INDICATIONS: HEMANGIOMA / AMNESIA TECHNIQUE: Noncontrast axial T1 spin echo, axial T2 fast spin echo, sagittal and axial FLAIR, coronal T2 fast spin echo, axial gradient echo, axial diffusion and ADC through the brain. COMPARISON: [facility], MR, MR HEAD/BRAIN WO/W CON, 10/13/2019, 13:14. [facility], MR, MR HEAD/BRAIN WO/W CON, 02/01/2022, 16:12. FINDINGS: Image quality: Diagnostic. CSF Spaces: Basal cisterns are patent. No extra-axial fluid collections. Ventricles are normal in size and shape. Brain: Within the right basal ganglia, there is again seen a focus with a T2 hypointense rim, with hemosiderin blooming. There is a heterogeneous popcorn like internal signal quality. In greatest axial dimension, this measures 19 x 12 mm, measuring 19 x 13 mm on the two thousand twenty-two prior, when measured in a similar fashion. Additional smaller hemangiomas are seen elsewhere throughout both cerebral hemispheres. No significant progression is seen compared to the prior. No intracranial masses or hemorrhage. Mcbride/white matter interface is normal. Brainstem appears normal. Diffusion-weighted images demonstrate no acute infarct. No chronic ischemic insults. Normal intravascular flow voids are present. Skull and face: Calvarium has normal marrow signal. Orbits appear normal. Sinuses: Sinuses and mastoids are clear. IMPRESSION: Multiple hemangiomas are again seen, with the largest within the right basal ganglia. No definite progression is seen compared to 2021. Dictated by: Jeyson Maravilla M.D. on 07/27/2024 at 16:59 Approved by: Jeyson Maravilla M.D. on 07/27/2024 at 17:02
== END ==
PROVIDERS: Family Provider Family Medicine; PCP Family Medicine; Referring Provider Family Medicine; Visit Provider Family Medicine
DX: D18.02 Hemangioma of intracranial structures (principal); R41.3 Other amnesia
CPT/HCPCS: 70551